=== PATIENT | female | born 1945 | race Caucasian/White ===

== ENCOUNTER 2016-05-29 20:21 | Emergency (ER) | payer MEDICARE, OTHER ==
[~2016-05-29] VITALS: Ht 149.9 cm; Wt 68.0 kg
[~2016-05-29 20:21] MED LIST: ASP81TEC PO; CARV3.12T PO; CLC200NA2; CPR500T PO; DULO60CA58 PO; DULO60CA6 PO; FORTICAL; GABA-486 PO; HYDR-3583 PO; INSU100I11 SQ; INSU100V5 SQ; LISI20TA PO; METF-380 PO; MTC5T PO; MTF500T PO; ORPH100T PO; OXYC1TAB25 PO; OXYC1TAB87 PO; PANT40TA PO; PNT40TEC PO; Polyethylene Glycol PO; SENN1TAB76 PO; TIZA4TAB55 PO; TRAM50TA2 PO; TRM50T PO; Tizanidine Hcl PO; [UNRECOGNIZED DRUG - OTHER]; ibuprofen; tylenol pm
[2016-05-29] MEDS ORDERED: KETOROLAC 60 MG/2 ML VIAL IM ONE (21:45)
--- NOTE | 2016-05-29 21:54 | Diagnostic Imaging Report ---
INDICATION: Fell this evening, left knee pain and tibia-fibula pain. EXAMINATION: Left knee 05/29/2016 FINDINGS: Three views of the knee demonstrate a moderate joint effusion with adjacent soft tissue swelling. The osseous structures demonstrate a questionable tibial plateau fracture in the lateral tibial plateau which appears slightly depressed. The remaining osseous structures are intact. No dislocations. IMPRESSION: 1. Joint effusion noted with questioned slightly depressed lateral tibial plateau fracture. An actual fracture line is not seen, however, CT imaging could provide further characterization as clinically warranted. Dictated by: Dictated on workstation # [id number]
--- NOTE | 2016-05-29 21:57 | Diagnostic Imaging Report ---
INDICATION: Fell, knee pain. EXAMINATION: Left tibia and fibula, 05/29/2016. FINDINGS: Two views of the tibia and fibula. Again noted is a mild depression of the lateral tibial plateau. A fracture is possible, correlate for tenderness to that region and, if necessary, CT imaging would provide further characterization. Remaining osseous structures are intact with no dislocations noted. IMPRESSION: Findings in the lateral tibial plateau, as described above. Remaining visualized osseous structures are intact. Dictated by: Dictated on workstation # [id number]
--- NOTE | 2016-05-29 22:35 | Diagnostic Imaging Report ---
PROCEDURE: CT left lower extremity without contrast. TECHNIQUE: Multiple contiguous axial images were obtained through the left lower extremity without the use of intravenous contrast. Sagittal and coronal reformations were then performed. INDICATION: Fell this evening. Has left-sided knee pain EXAMINATION: CT of the left lower extremity from 05/29/2016 FINDINGS: There is a fracture which involves the lateral tibial plateau which is depressed in nature. The posterior aspect of the tibial plateau demonstrates a lucency which extends obliquely in nature but no displaced fractures are appreciated. A fracture line extends to the lateral tibial eminence. Within the medial tibial plateau, no gross abnormality is appreciated. There is a fat/fluid level within the joint consistent with the recent fracture. The patella and the distal femur appear intact. IMPRESSION: 1. Slightly depressed lateral tibial plateau fracture with a lucency through the posterior tibial plateau and a separate fracture extending through the lateral tibial eminence. Secondary lipohemarthrosis also noted. Dictated by: Dictated on workstation # [id number]
--- NOTE | 2016-05-29 22:41 | ED Lower Extremity ---
General Chief Complaint: Lower Extremity Stated Complaint: FALL L LEG, KNEE PAIN Nursing Triage Note: Pt presents to ED with c/o left knee pain that radiates down into left ankle post fall at approx 1920 after she slipped on some papers. 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 Nursing Sepsis Screen: No Definite Risk Source: patient Exam Limitations: no limitations (CARISA CASTANEDA APRN) Source: patient Exam Limitations: no limitations (ELIZABETH ESCOBAR DO) History of Present Illness Time seen by provider: 22:40 Initial Comments To ER with left knee pain that occurred after a fall at home after slipping on some papers. She's been unable to bear weight on the left knee since the fall. Onset: this evening Severity: moderate (CARISA CASTANEDA APRN) Time seen by provider: 21:10 Initial Comments PT ARRIVES VIA POV FROM HOME PT STATES SHE SLIPPED ON SOME NEWSPAPERS AND FELL, LANDING ON LEFT KNEE-C/O PAIN TO KNEE AND TIB-FIB AREA NO PAIN ABOVE KNEE, AND NO PAIN BELOW ANKLE NO PARESTHESIAS OR MOTOR DEFICITS NO PRIOR HISTORY OF INJURY OR PROBLEMS WITH LEFT KNEE OCCURRED AT 1920 TODAY DENIES ANY OTHER INJURIES OR PAIN PT STATES SHE CAN BEAR SOME WEIGHT ON LEFT LEG, BUT IS PAINFUL PCP: DR. RODRÍGUEZ (ELIZABETH ESCOBAR DO) Allergies and Home Medications Allergies Coded Allergies: codeine (Unverified Allergy, Unknown, N/V, 10/31/13) diazepam (Unverified Allergy, Unknown, 10/31/13) Home Medications 1 SPRAY NA HS (Reported) 1 SPRAY IN ONE NOSTRAL, ALTERNATE NOSTRALS 17 GM PACK #60 17 GM PO BID Prescribed by: ANGELA WYMAN on 12/04/13 1301 Carvedilol 3.125 Mg Tablet #30 3.125 MG PO BID Prescribed by: ANGELA WYMAN on 12/04/13 1301 Ciprofloxacin 500 Mg Tab #6 250 MG PO BID Prescribed by: ANGELA WYMAN on 12/04/13 1301 Duloxetine HCl 60 Mg Capsule.dr 60 MG PO HS (Reported) Gabapentin 100 Mg Capsule 100 MG PO TID (Reported) Hydrocodone/Acetaminophen 1 Each Tablet #20 1 EACH PO Q4H Prescribed by: ELIZABETH ESCOBAR on 05/29/16 2302 Insulin Detemir 1 Unit/0.01 Ml Soln #5 20 UNIT SQ DAILY@1700 Prescribed by: ANGELA WYMAN on 12/04/13 1301 Insulin Glulisine 100 Unit/1 Ml Insuln.pen #5 5 UNIT SQ AC Prescribed by: ANGELA WYMAN on 12/04/13 1301 Metoclopramide Hcl 5 Mg Tab #120 5 MG PO ACHS Prescribed by: ANGELA WYMAN on 12/04/13 1301 Oxycodone Hcl/Acetaminophen 1 Tab Tablet 1-2 TAB PO Q4H PRN PRN PAIN (Reported) TAKE 1-2 (5-325MG) TABLET NEEDED FOR PAIN Pantoprazole Sodium 40 Mg Tab #30 40 MG PO DAILY@0700 Prescribed by: ANGELA WYMAN on 12/04/13 1301 Senna 1 Ea Tablet #120 2 EA PO BID Prescribed by: ANGELA WYMAN on 12/04/13 1301 Tizanidine Hcl 4 Mg Tablet 4 MG PO TID PRN PRN SPASMS (Reported) Tramadol Hcl 50 Mg Tab 50 MG PO Q4H PRN PRN PAIN (Reported) TAKE EVERY 4-6 HOURS NEEDED FOR PAIN Constitutional: no symptoms reported Musculoskeletal: see HPI Skin: no symptoms reported Psychiatric/Neurological: No Symptoms Reported (ELIZABETH ESCOBAR DO) Past Fbztvut-Mjviit-Blicqa Hx Patient Social History Alcohol Use: Denies Use Recreational Drug Use: No Smoking Status: Never a Smoker Recent Foreign Travel: No Contact w/Someone Who Travel: No Recent Infectious Disease Expo: No Recent Hopitalizations: No Physical Abuse Screen: No Sexual Abuse: No (CARISA CASTANEDA APRN) Alcohol Use: Denies Use Recreational Drug Use: No Smoking Status: Never a Smoker (ELIZABETH ESCOBAR DO) Immunizations Up To Date Tetanus Booster (TDap): Less than 5yrs Date of Pneumonia Vaccine: Mar 14, 2013 Date of Influenza Vaccine: Mar 09, 2016 (CARISA CASTANEDA APRN) Surgeries HX Surgeries: Yes (laminectomy, HYSTERECTOMY, GALLBLADDER 2010) (CARISA CASTANEDA APRN) HX Surgeries: Yes (EGD/COLONSCOPY WITH POLYPECTOMY; BACK SURGERY/LAMINECTOMY) Surgeries: Eye Surgery, Gallbladder, Hysterectomy, Orthopedic (ELIZABETH ESCOBAR DO) Respiratory Hx Respiratory Disorders: No (CARISA CASTANEDA APRN) Hx Respiratory Disorders: No (SHAWN,ELIZABETH K DO) Cardiovascular Hx Cardiac Disorders: No (CARISA CASTANEDA APRN) Hx Cardiac Disorders: Yes Cardiac Disorders: High Cholesterol, Hypertension (SHAWN,ELIZABETH K DO) Neurological Hx Neurological Disorders: No (CARISA CASTANEDA APRN) Hx Neurological Disorders: Yes Neurological Disorders: Neuropathy (SHAWN,ELIZABETH K DO) Reproductive System Hx Reproductive Disorders: No Sexually Transmitted Disease: No (CARISA CASTANEDA APRN) 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 (SHAWN,ELIZABETH K DO) Genitourinary Hx Genitourinary Disorders: No (CARISA CASTANEDA APRN) Hx Genitourinary Disorders: No (SHAWN,ELIZABETH K DO) Gastrointestinal Hx Gastrointestinal Disorders: No (COLONOSCOPY 2013 BENIGN POLYP) Gastrointestinal Disorders: Polyps (CARISA CASTANEDA APRN) Hx Gastrointestinal Disorders: Yes Gastrointestinal Disorders: Chronic Constipation, Diverticulosis, Polyps, Hiatal Hernia (SHAWN,ELIZABETH K DO) Musculoskeletal Hx Musculoskeletal Disorders: Yes (2013 BACK INJURY) Musculoskeletal Disorders: Back Injury (CARISA CASTANEDA APRN) Hx Musculoskeletal Disorders: Yes (RIB FRACTURES' CHRONIC GENERALIZED PAIN ) Musculoskeletal Disorders: Arthritis, Back Injury, Chronic Back Pain (SHAWN,ELIZABETH K DO) Endocrine Hx Endocrine Disorders: Yes (ANEMIA) Endocrine Disorders: Diabetes, Insulin dep (CARISA CASTANEDA APRN) Hx Endocrine Disorders: Yes Endocrine Disorders: Diabetes, Insulin dep (SHAWN,ELIZABETH K DO) HEENT HX ENT Disorders: No (CARISA CASTANEDA APRN) HX ENT Disorders: No (SHAWN,ELIZABETH K DO) Cancer Hx Cancer: No (CARISA CASTANEDA APRN) Hx Cancer: No (SHAWN,ELIZABETH K DO) Psychosocial Hx Psychiatric Problems: No (CARISA CASTANEDA APRN) Hx Psychiatric Problems: No (SHAWN,ELIZABETH K DO) Integumentary HX Skin/Integumentary Disorder: No (CARISA CASTANEDA APRN) HX Skin/Integumentary Disorder: No (SHAWN,ELIZABETH K DO) Blood Transfusions Hx Blood Disorders: No Adverse Reaction to a Blood Tr: No (CARISA CASTANEDA APRN) Hx Blood Disorders: No (SHAWN,ELIZABETH K DO) Family Medical History Family Medial History: Family history: Alzheimer's disease G8 SISTER Family history: Breast disease G8 SISTER Family history: Hypertension G8 SISTER History of - respiratory disease 19 MOTHER (diverticulitis, colostomy) (CARISA CASTANEDA APRN) Family Medial History: Family history: Alzheimer's disease G8 SISTER Family history: Breast disease G8 SISTER Family history: Hypertension G8 SISTER History of - respiratory disease 19 MOTHER (diverticulitis, colostomy) (SHAWNELIZABETH Jcarlos DO) Physical Exam Vital Signs Vital Sign - Last 12Hours 05/29/16 21:00 Temp 98.5 Pulse 78 Resp 18 B/P 129/78 Pulse Ox 100 O2 Delivery Room Air (SHAWNELIZABETH Jcarlos DO) Vital Signs Capillary Refill : Less Than 3 Seconds (CARISA CASTANEDA APRN) General Appearance: WD/WN no apparent distress HEENT: PERRL/EOMI Neck: non-tender full range of motion normal inspection Cardiovascular: regular rate, rhythm no edema no JVD no murmur Respiratory: chest non-tender normal breath sounds Gastrointestinal: non tender soft Back: no CVA tenderness no vertebral tenderness Hips: bilateral hip non-tender, bilateral hip normal inspection, bilateral hip normal range of motion, bilateral hip no evidence of injury Legs: right leg non-tender, right leg normal inspection, right leg normal range of motion, right leg no evidence of injury, left leg bone tenderness, left leg soft tissue tenderness, left leg other (TO ANTERIOR ASPECT OF LEFT LOWER LEG) Knees: right knee non-tender, right knee normal inspection, right knee normal range of motion, right knee no evidence of injury, left knee bone tenderness, left knee joint effusion, left knee soft tissue tenderness, left knee swelling, left knee other (UJNABLE TO DETERMINE LIGAMENT LAXITY DUE TO PT DISCOMFORT. 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 ) Hand-Made Type: orthoglass Splint Application: Long Leg (SHAWNAYDEA Jcarlos BETHEA) Progress/Results/Core Measures Results/Orders My Orders Orders-SHAWNAYDEA K DO Tibia/Fibula, Left, 2 Views (05/29/16 21:17) Knee, Left, 3 Views (05/29/16 21:17) Ct Extremity Lower Left Wo (05/29/16 21:40) Ketorolac Injection (Toradol Injection) (05/29/16 21:45) Hydrocodone/Apap 5/325 Tablet (Lortab 5 (05/29/16 23:15) (SHAWNAYDEA K ) Medications Given in ED Current Medications Medications Dose Ordered Sig/Alondra Route Start Time Stop Time Status Last Admin Dose Admin Acetaminophen/ Hydrocodone Bitart 2 tab ONCE ONCE PO 05/29/16 23:15 05/29/16 23:16 DC 05/29/16 23:18 2 TAB Ketorolac Tromethamine 60 mg ONCE ONCE IM 05/29/16 21:45 05/29/16 21:46 DC 05/29/16 22:07 60 MG (SHAWNELIZABETH K ) Vital Signs/I&O Vital Sign - Last 12Hours 05/29/16 05/29/16 21:00 23:32 Temp 98.5 Pulse 78 74 Resp 18 18 B/P 129/78 Pulse Ox 100 98 O2 Delivery Room Air Room Air (SHAWNELIZABETH K ) Blood Pressure Mean: 95 Progress Note : Progress Note SPLINT APPLIED BY BLOWING WEASAND CARISA CASTANEDA (SHAWNAYDEA K ) Diagnostic Imaging Comments XRAYS LEFT KNEE AND TIB /FIB--TIBIAL PLATEAU PER RADIOLOGIST REPORT CT LEFT KNEE--TIBIAL PLATEAU FRACTURE, PER RADIOLOGIST REPORT Reviewed: Reviewed by Me (AYDE ESCOBARA Jcarlos BETHEA) Departure Communication Progress Notes BLOWING WEASAND PAGED DR. GALLO, ORTHOPEDIC SURGEON COUNTER CONTROL OPERATOR FOR [facility] [address] [place] [address] [id number]--SPOKE WITH DR. GALLO, [facility] PT CAN FOLLOW UP WITH DR. NAIDU IN CLINIC NEXT WEEK. (AYDE ESCOBARA Jcarlos BETHEA) Impression Impression: Primary Impression: Closed fracture of left tibial plateau Disposition: HOME, SELF-CARE Condition: Stable Departure-Patient Inst. Referrals: ELIZ RODRÍGUEZ DO (PCP/Family) Primary Care Physician [facility] 4 STATES Patient Instructions: Going Up and Down Curbs or Stairs With a Walker or Crutches, SPLINT CARE, Tibial Plateau Fracture (DC) Add. Discharge Instructions: ICE TO AREA AT 20 MINUTE INTERVALS ELEVATE LEG MUCH POSSIBLE WEAR SPLINT AT ALL TIMES NO WEIGHT BEARING. USE WALKER AT ALL TIMES FOLLOW UP WITH ORTHOPEDIC SURGEON NEXT WEEK FOR FURTHER CARE--DR. GALLO IS ORTHOPEDIC SURGEON COUNTER CONTROL OPERATOR FOR [facility] [address] [place] [address]--YOU MAY FOLLOW UP WITH DR. NAIDU AT [facility] 4 [facility] All discharge instructions reviewed with patient and/or family. Voiced understanding. Scripts Hydrocodone/Acetaminophen (Hydrocodon -Acetaminophen 5-325)1 Each Tablet1 Each PO Q4H #20 TAB Prov:ELIZABETH ESCOBAR DO 05/29/16 CARISA CASTANEDA APRN May 29, 2016 22:41 ELIZABETH ESCOBAR DO May 29, 2016 22:53
[2016-05-29] MEDS ORDERED: HYDR-3812 PO (23:02)
[2016-05-29] MEDS ORDERED: HYDROcodone/APAP 5 MG/325 MG (LORTAB) TAB PO ONE (23:15)
[2016-05-29 23:32] VITALS: BP 131/66
== END 2016-05-29 23:25 | disposition home or self-care (01) ==
LOC: EDUNIT# 20:21 → ER 20:24
DX: S82.142A Displaced bicondylar fracture of left tibia, initial encounter for closed fracture (principal); M25.462 Effusion, left knee; I10 Essential (primary) hypertension; Z79.4 Long term (current) use of insulin; Z79.899 Other long term (current) drug therapy; W01.0XXA Fall on same level from slipping, tripping and stumbling without subsequent striking against object, initial encounter; Y99.8 Other external cause status
CPT/HCPCS: 29505; 73562; 73590; 73700; 96372

== ENCOUNTER → 2016-08-16 | Outpatient (CLI) | payer MEDICARE, OTHER ==
[~2016-08-16] MED LIST changes: +HYDR-3812 PO
[2016-08-16 08:18] LABS: ALANINE AMINOTRANSFERASE 11 U/L (0-55); ALBUMIN 4.1 G/DL (3.2-4.5); ANION GAP 11 MMOL/L (5-14); ASPARTATE AMINO TRANSFERASE 14 U/L (5-34); BILIRUBIN,TOTAL 0.8 MG/DL (0.1-1.0); BLOOD UREA NITROGEN 10 MG/DL (7-18); BUN/CREATININE RATIO 15; CALCIUM 9.3 MG/DL (8.5-10.1); CARBON DIOXIDE 22 MMOL/L (21-32); CHLORIDE 106 MMOL/L (98-107); CREATININE SERUM 0.65 MG/DL (0.60-1.30); GFR ESTIMATED > 60; GLUCOSE 195 MG/DL (70-105); MAGNESIUM 2.1 MG/DL (1.8-2.4); SODIUM 139 MMOL/L (135-145); TOTAL PROTEIN 7.2 G/DL (6.4-8.2)
[2016-08-17 07:26] LABS: CALCIUM PARA THYROID HORMONE 9.2 mg/dL (8.5-10.5); VITAMIN D 25-HYDROXY (TOTAL) 8 ng/mL (30-100)
[2016-08-17 07:34] LABS: PTH INTACT IRMA 48 pg/mL (10-65)
[2016-08-19 06:50] LABS: IMMUNOFIX PATH REPORT NUMBER Complete (Complete)
[2016-08-19 06:51] LABS: CLIN PATHOLOGY REPORT FOOTNOTE
[2016-08-19 06:51] LABS: CLIN PATHOLOGY REPORT FOOTNOTE; URINE IMMUNOFIXATION W/ INTERP Complete
== END ==
LOC: LAB 07:32
PROVIDERS: ATTEND Internal Medicine Endocrinology, Diabetes & Metabolism
DX: M81.0 Age-related osteoporosis without current pathological fracture (principal); E10.9 Type 1 diabetes mellitus without complications
CPT/HCPCS: 36415; 80053; 82306; 83735; 83970; 84100; 84166; 86255; 86334; 86335

== ENCOUNTER → 2016-11-03 | Outpatient (REF) ==
--- NOTE | 2016-11-03 15:08 | Diagnostic Imaging Report ---
EXAMINATION: PA and lateral views of the chest. INDICATION: Positive TB test. FINDINGS: The lungs are hyperinflated, suggestive of COPD, with chronic appearing interstitial prominence. No focal airspace opacity. No effusion or pneumothorax. The heart size is normal. IMPRESSION: COPD. No acute process. Dictated by: Dictated on workstation # [id number]
== END | disposition home or self-care (01) ==
LOC: OCC 14:24
PROVIDERS: ATTEND Nurse Practitioner Family
CPT/HCPCS: 71020

== ENCOUNTER → 2018-02-13 | Outpatient (CLI) | payer MEDICARE, OTHER ==
[~2018-02-13] MED LIST changes: +ACHD5005 PO; -HYDR-3812 PO
[2018-02-13 07:59] LABS: BASOPHILS % (AUTO) 0 % (0-10); EOSINOPHILS # (AUTO) 0.1 10^3/uL (0.0-0.3); EOSINOPHILS % (AUTO) 1 % (0-10); HEMATOCRIT 34 % (35-52); HEMOGLOBIN 12.9 G/DL (11.5-16.0); LYMPHOCYTES # (AUTO) 1.5 X 10^3 (1.0-4.0); LYMPHOCYTES % (AUTO) 27 % (12-44); MEAN CORPUSCULAR HEMOGLOBIN 43 PG (25-34); MEAN CORPUSCULAR HGB CONC 38 G/DL (32-36); MEAN CORPUSCULAR VOLUME 113 FL (80-99); MEAN PLATELET VOLUME 8.5 FL (7.4-10.4); MONOCYTES # (AUTO) 0.2 X 10^3 (0.0-1.0); MONOCYTES % (AUTO) 4 % (0-12); NEUTROPHILS # (AUTO) 3.9 X 10^3 (1.8-7.8); NEUTROPHILS % (AUTO) 69 % (42-75); PLATELET COUNT 230 10^3/uL (130-400); RED BLOOD COUNT 3.01 10^6/uL (4.35-5.85); RED CELL DISTRIBUTION WIDTH 15.1 % (10.0-14.5); WHITE BLOOD COUNT 5.7 10^3/uL (4.3-11.0)
[2018-02-13 08:30] LABS: ALANINE AMINOTRANSFERASE 15 U/L (0-55); ALBUMIN 4.2 GM/DL (3.2-4.5); ALKALINE PHOSPHATASE 108 U/L (40-136); BUN/CREATININE RATIO 20; CALCIUM 9.4 MG/DL (8.5-10.1); CARBON DIOXIDE 23 MMOL/L (21-32); CHLORIDE 104 MMOL/L (98-107); CHOLESTEROL 186 MG/DL (< 200); CREATININE SERUM 0.61 MG/DL (0.60-1.30); GFR ESTIMATED > 60; GLUCOSE 114 MG/DL (70-105); HDL CHOLESTEROL 58 MG/DL (40-60); SODIUM 138 MMOL/L (135-145); TOTAL PROTEIN 7.1 GM/DL (6.4-8.2); TRIGLYCERIDES 109 MG/DL (<150); VLDL CHOLESTEROL 22 MG/DL (5-40)
== END ==
LOC: LAB 07:36
PROVIDERS: ATTEND Family Medicine
DX: D64.9 Anemia, unspecified (principal); E10.9 Type 1 diabetes mellitus without complications; E53.8 Deficiency of other specified B group vitamins; E55.9 Vitamin D deficiency, unspecified; M81.0 Age-related osteoporosis without current pathological fracture; R53.83 Other fatigue
CPT/HCPCS: 36415; 80053; 80061; 82306; 82607; 83540; 84443; 85025

== ENCOUNTER → 2018-05-10 | Outpatient (CLI) | payer MEDICARE, OTHER | LOC: LAB 08:31 | PROVIDERS: ATTEND Internal Medicine Endocrinology, Diabetes & Metabolism | DX: E55.9 Vitamin D deficiency, unspecified (principal) | CPT/HCPCS: 36415; 82306 ==

== ENCOUNTER → 2018-08-18 | Outpatient (CLI) | payer MEDICARE, OTHER ==
[2018-08-18 10:42] LABS: HEMATOCRIT 21 % (35-52); MEAN CORPUSCULAR HEMOGLOBIN 45 PG (25-34); MEAN CORPUSCULAR HGB CONC 34 G/DL (32-36); MEAN CORPUSCULAR VOLUME 132 FL (80-99); RED CELL DISTRIBUTION WIDTH 31.6 % (10.0-14.5); WHITE BLOOD COUNT 3.4 10^3/uL (4.3-11.0)
[2018-08-18 10:58] LABS: PLATELET COUNT 66 10^3/uL (130-400)
[2018-08-18 11:14] LABS: ALANINE AMINOTRANSFERASE 32 U/L (0-55); ALBUMIN 4.1 GM/DL (3.2-4.5); ALKALINE PHOSPHATASE 61 U/L (40-136); BILIRUBIN,TOTAL 1.8 MG/DL (0.1-1.0); BUN/CREATININE RATIO 18; CALCIUM 9.3 MG/DL (8.5-10.1); CARBON DIOXIDE 21 MMOL/L (21-32); CHLORIDE 105 MMOL/L (98-107); CREATININE SERUM 0.57 MG/DL (0.60-1.30); GFR ESTIMATED > 60; GLUCOSE 150 MG/DL (70-105); POTASSIUM 3.8 MMOL/L (3.6-5.0); SODIUM 139 MMOL/L (135-145); TOTAL PROTEIN 6.7 GM/DL (6.4-8.2)
== END ==
LOC: LAB 10:25
PROVIDERS: ATTEND Internal Medicine Endocrinology, Diabetes & Metabolism
DX: E10.9 Type 1 diabetes mellitus without complications (principal); D64.9 Anemia, unspecified
CPT/HCPCS: 36415; 80053; 82607; 82728; 83540; 84443; 85027

== ENCOUNTER → 2018-09-18 | Outpatient (CLI) | payer MEDICARE, OTHER ==
[2018-09-18 06:41] LABS: BASOPHILS % (AUTO) 1 % (0-10); EOSINOPHILS # (AUTO) 0.2 10^3/uL (0.0-0.3); EOSINOPHILS % (AUTO) 3 % (0-10); HEMATOCRIT 35 % (35-52); LYMPHOCYTES # (AUTO) 1.7 X 10^3 (1.0-4.0); LYMPHOCYTES % (AUTO) 30 % (12-44); MEAN CORPUSCULAR HEMOGLOBIN 31 PG (25-34); MEAN CORPUSCULAR HGB CONC 31 G/DL (32-36); MEAN CORPUSCULAR VOLUME 99 FL (80-99); MEAN PLATELET VOLUME 9.4 FL (7.4-10.4); MONOCYTES # (AUTO) 0.5 X 10^3 (0.0-1.0); MONOCYTES % (AUTO) 9 % (0-12); NEUTROPHILS # (AUTO) 3.2 X 10^3 (1.8-7.8); NEUTROPHILS % (AUTO) 57 % (42-75); PLATELET COUNT 224 10^3/uL (130-400); RED CELL DISTRIBUTION WIDTH 19.9 % (10.0-14.5); WHITE BLOOD COUNT 5.5 10^3/uL (4.3-11.0)
== END ==
LOC: LAB 06:33
PROVIDERS: ATTEND Family Medicine
DX: D64.9 Anemia, unspecified (principal); E53.8 Deficiency of other specified B group vitamins
CPT/HCPCS: 36415; 85025

== ENCOUNTER → 2019-03-12 | Outpatient (CLI) | payer MEDICARE, OTHER ==
[2019-03-12 08:04] LABS: BASOPHILS % (AUTO) 0 % (0-10); EOSINOPHILS # (AUTO) 0.1 10^3/uL (0.0-0.3); EOSINOPHILS % (AUTO) 2 % (0-10); HEMATOCRIT 41 % (35-52); LYMPHOCYTES % (AUTO) 29 % (12-44); MEAN CORPUSCULAR HEMOGLOBIN 30 PG (25-34); MEAN CORPUSCULAR HGB CONC 34 G/DL (32-36); MEAN CORPUSCULAR VOLUME 88 FL (80-99); MEAN PLATELET VOLUME 9.3 FL (7.4-10.4); MONOCYTES # (AUTO) 0.5 X 10^3 (0.0-1.0); MONOCYTES % (AUTO) 7 % (0-12); NEUTROPHILS # (AUTO) 4.3 X 10^3 (1.8-7.8); NEUTROPHILS % (AUTO) 62 % (42-75); PLATELET COUNT 251 10^3/uL (130-400); RED CELL DISTRIBUTION WIDTH 13.8 % (10.0-14.5)
[2019-03-12 08:16] LABS: ALANINE AMINOTRANSFERASE 13 U/L (0-55); ALBUMIN 4.1 GM/DL (3.2-4.5); ALKALINE PHOSPHATASE 107 U/L (40-136); BILIRUBIN,TOTAL 0.5 MG/DL (0.1-1.0); BUN/CREATININE RATIO 21; CALCIUM 9.7 MG/DL (8.5-10.1); CARBON DIOXIDE 25 MMOL/L (21-32); CHLORIDE 106 MMOL/L (98-107); CREATININE SERUM 0.67 MG/DL (0.60-1.30); GFR ESTIMATED > 60; POTASSIUM 3.8 MMOL/L (3.6-5.0); SODIUM 141 MMOL/L (135-145); TOTAL PROTEIN 7.4 GM/DL (6.4-8.2)
[2019-03-12 08:36] LABS: GLUCOSE 38 MG/DL (70-105)
== END ==
LOC: LAB 07:43
PROVIDERS: ATTEND Family Medicine
DX: E55.9 Vitamin D deficiency, unspecified (principal); E11.9 Type 2 diabetes mellitus without complications
CPT/HCPCS: 36415; 80053; 82607; 85025

== ENCOUNTER → 2019-03-12 | Outpatient (CLI) | payer MEDICARE, OTHER | LOC: LAB 07:39 | PROVIDERS: ATTEND Internal Medicine Endocrinology, Diabetes & Metabolism | DX: E55.9 Vitamin D deficiency, unspecified (principal) | CPT/HCPCS: 36415; 82306 ==

== ENCOUNTER → 2019-09-21 | Outpatient (CLI) | payer MEDICARE, OTHER | LOC: LAB 07:50 | PROVIDERS: ATTEND Internal Medicine Endocrinology, Diabetes & Metabolism | DX: E55.9 Vitamin D deficiency, unspecified (principal) | CPT/HCPCS: 36415; 82306 ==

== ENCOUNTER → 2019-09-21 | Outpatient (CLI) | payer MEDICARE, OTHER ==
[2019-09-21 08:37] LABS: ALANINE AMINOTRANSFERASE 10 U/L (0-55); ALKALINE PHOSPHATASE 119 U/L (40-136); BILIRUBIN,TOTAL 0.5 MG/DL (0.1-1.0); BUN/CREATININE RATIO 22; CALCIUM 9.5 MG/DL (8.5-10.1); CARBON DIOXIDE 21 MMOL/L (21-32); CHLORIDE 107 MMOL/L (98-107); CHOLESTEROL 206 MG/DL (< 200); CREATININE SERUM 0.72 MG/DL (0.60-1.30); GFR ESTIMATED > 60; GLUCOSE 106 MG/DL (70-105); HDL CHOLESTEROL 61 MG/DL (40-60); POTASSIUM 3.7 MMOL/L (3.6-5.0); SODIUM 140 MMOL/L (135-145); TOTAL PROTEIN 7.4 GM/DL (6.4-8.2); TRIGLYCERIDES 124 MG/DL (<150); VLDL CHOLESTEROL 25 MG/DL (5-40)
== END ==
LOC: LAB 07:53
PROVIDERS: ATTEND Family Medicine
DX: E78.5 Hyperlipidemia, unspecified (principal); E55.9 Vitamin D deficiency, unspecified; E53.8 Deficiency of other specified B group vitamins
CPT/HCPCS: 36415; 80053; 80061; 82306; 82607; 84443

== ENCOUNTER → 2019-09-25 | Outpatient (CLI) | payer MEDICARE, OTHER ==
[~2019-09-25] MED LIST changes: +CYAN100092 IJ; +ERGO50006 PO; +INSU100I32 SQ; +INSU100I51 SQ
--- NOTE | 2019-09-25 10:41 | Diagnostic Imaging Report ---
INDICATION: 74 year-old asymptomatic postmenopausal female. COMPARISON: 02/02/2016 FINDINGS: AP Spine L2-L4: [BMD (g/cm2): 0.660] [T-Score: -4.5] [Z-Score: -2.6] [BMD Previous: 0.549] [BMD % Change: 20.2] LT Hip Neck: [BMD (g/cm2): 0.558] [T-Score: -3.5] [Z-Score: -1.5] LT Hip Total: [BMD (g/cm2):0.557] [T-Score:-3.6] [Z-Score: -1.8] [BMD Previous: 0.500] [BMD % Change: 11.4] RT Hip Neck: [BMD (g/cm2):0.619] [T-Score:-3.0] [Z-Score:-1.1] RT Hip Total: [BMD (g/cm2):023] [T-score:-3.1] [Z-Score:-1.3] [BMD Previous:0.555] [BMD % Change:12.3] *Indicates significant change from prior examination based on 95% confidence level. World Health Organization criteria for BMD interpretation classify patients as Normal (T-score at or above -1.0), Osteopenic (T-score between -1.0 and -2.5) or Osteoporotic (T-score at or below -2.5). LIMITATIONS AND MODIFICATION: None. FRACTURE RISK (FRAX SCORE): Not applicable as patient meets criteria for osteoporosis. IMPRESSION: 1. Osteoporosis. 2. No significant change in bone mineral density since prior examination. 3. Consider follow-up DEXA in 24 months to reassess response to therapy. Dictated by: Dictated on workstation # [id number]
== END ==
LOC: RAD 09:00
PROVIDERS: ATTEND Internal Medicine Endocrinology, Diabetes & Metabolism
DX: M81.0 Age-related osteoporosis without current pathological fracture (principal); Z78.0 Asymptomatic menopausal state
CPT/HCPCS: 77080

== ENCOUNTER → 2019-09-25 | Outpatient (CLI) | payer MEDICARE, OTHER ==
[~2019-09-25] MED LIST changes: -CYAN100092 IJ; -ERGO50006 PO; -INSU100I32 SQ; -INSU100I51 SQ
--- NOTE | 2019-09-25 12:34 | Diagnostic Imaging Report ---
INDICATION: Routine screening. COMPARISON: 11/05/2011 and 08/28/2008. TECHNIQUE: 2D and 3D bilateral screening mammography was performed with CAD. FINDINGS: Both breasts are heterogeneously dense, limiting the sensitivity of mammography. There are benign calcifications in both breasts. A nodular density in the inferior retroareolar left breast may represent a small cyst. This is well-circumscribed. No spiculated masses or malignant appearing microcalcifications are seen. The axillae are unremarkable. IMPRESSION: No mammographic features suspicious for malignancy are identified. ACR BI-RADS Category 2: Benign findings. Result letter will be mailed to the patient. Note: At least 10% of breast cancer is not imaged by mammography. Dictated by: Dictated on workstation # [id number]
== END ==
LOC: RAD 08:52
PROVIDERS: ATTEND Family Medicine
DX: Z12.31 Encounter for screening mammogram for malignant neoplasm of breast (principal)
CPT/HCPCS: 77063; 77067

== ENCOUNTER 2019-10-02 10:54 | Outpatient (RCR) | payer MEDICARE, OTHER ==
[~2019-10-02] VITALS: Ht 147.3 cm; Wt 59.1 kg
[2019-10-02] MEDS ORDERED: CYAN100092 IJ (11:56)
[2019-10-02] MEDS ORDERED: ERGO50006 PO (11:56)
[2019-10-02] MEDS ORDERED: INSU100I32 SQ (11:56)
[2019-10-02] MEDS ORDERED: INSU100I51 SQ (11:56)
== END 2019-10-02 15:14 | disposition home or self-care (01) ==
LOC: PREOP 10:54
PROVIDERS: ATTEND Specialist
DX: Z01.812 Encounter for preprocedural laboratory examination (principal); Z11.59 Encounter for screening for other viral diseases
CPT/HCPCS: 87635

== ENCOUNTER 2019-10-05 06:00 | Day surgery (SDC) | payer MEDICARE, OTHER ==
[~2019-10-05] VITALS: Ht 147.3 cm; Wt 59.1 kg
[~2019-10-05 06:00] MED LIST changes: +CYAN100092 IJ; +ERGO50006 PO; +INSU100I32 SQ; +INSU100I51 SQ
[2019-10-05 06:12] VITALS: BP 139/87
[2019-10-05] MEDS ORDERED: LIDOCAINE PF 1% 2 ML VIAL IR PRN (06:15)
[2019-10-05] MEDS ORDERED: POVIDONE (BETADINE) OPHTH SOLN 5% 30 ML OP ONE (06:15)
[2019-10-05] MEDS ORDERED: MOXIFLOXACIN OPHTH SOLN 5 MG/ML 0.3 ML SYRINGE OP ONE (06:15)
[2019-10-05] MEDS: TETRACAINE 0.5% OPHTH SOLN 4 ML BTL (SINGLE DOSE ONLY) OU PRN ×4 (06:15→06:40)
[2019-10-05] MEDS ORDERED: TIMOLOL MALEATE 0.5% 5 ML (TIMOPTIC) BTL OU PRN (06:15)
[2019-10-05] MEDS: CYCLOPENTOLATE 1% (CYCLOGYL) 2 ML DROPS OP SCH ×3 (06:26→06:40)
[2019-10-05] MEDS: PHENYLEPHRINE 10% OPHTH (NEO-SYN) 5 ML BTL OU SCH ×3 (06:26→06:41)
--- NOTE | 2019-10-05 06:48 | Ophthalmologist Pre-Op Note ---
Pre-Operative Progress Note H&P Reviewed The H&P was reviewed, patient examined and no changes noted. Date H&P Reviewed: October 05, 2019 Time H&P Reviewed: 06:47 Pre-Op Dx Cataract, Right Eye ALANA GARZA MD October 05, 2019 06:48
[2019-10-05] MEDS ORDERED: acetaZOLAMIDE ER 500 MG CAP (DIAMOX SEQUELS) PO ONE (07:30)
--- NOTE | 2019-10-05 07:30 | Ophthalmology Operative Report ---
Cataract, Miotic Pupil PREOPERATIVE DIAGNOSIS: 1. Cataract Right Eye 2. Miotic Pupil POSTOPERATIVE DIAGNOSIS: 1. Cataract Right Eye 2. Miotic Pupil PROCEDURE: 1. Cataract removal and placement of posterior chamber implant, right eye 2. Pupillary expansion with malyugin ring SURGEON: Arian Garza ANESTHESIA: Topical with sedation COMPLICATIONS: None ESTIMATED BLOOD LOSS: Minimal DESCRIPTION OF PROCEDURE: After proper informed consent was obtained, the patient, a 74 female, was taken to the Operating Room and the right eye was anesthetized with Tetracaine. The eye was then prepped and draped in the usual manner. A wire lid speculum was placed. A paracentesis was made at the left hand position. Preservative free lidocaine was injected into anterior chamber followed by viscoelastic. A clear corneal incision was made in the temporal position. The malyugin ring was injected into the anterior chamber and the pupil was dilated. A capsulorrhexis was preformed and the central nuclear and cortical material were removed. The posterior capsule was polished and Chuy 25.5 AU00T0 IOL was placed into the capsular bag. The malyugin ring was removed. The residual viscoelastic was aspirated and the balanced saline solution was injected into the anterior chamber. Moxifloxacin was injected into the anterior chamber. The wound was checked and found to be water tight. The patient tolerated the procedure well without complications. ARIAN GARZA MD October 05, 2019 07:30
--- OUTSIDE RECORDS SUMMARY | 2019-10-05 07:32 | XMS REPORT | CCD ---
Author Author Zahra Olivera D.O. Organization [facility] Address [address] [place] [address] Phone Care Team Providers Care Community Service Representative Name Role Phone [facility] PP Unavailable CCM Unavailable Summary Purpose Interface Exchange Insurance Providers Payer name Policy type / Coverage type Covered green party ID Effective Begin Date Effective End Date WPS MEDICARE PART B [place] Medicare Part B [id number] Unknown Cigna Medicare Part B [id number] Unknown Family History Family History data not found Social History Social History Element Codes Description Effective Dates Tobacco history SNOMED CT: 896375966 Never smoker 01/23/2015 Allergies, Adverse Reactions, Alerts Substance Reaction Codes Entered Date Inactivated Date Status _ Unknown 10/15/2009 No Inactive Date Active CODEINE Unknown 10/15/2009 No Inactive Date Active Problems Condition Codes Effective Dates Condition Status Age-related osteoporosis without current pathological fracture ICD-9: 733.00 ICD-10: M81.0 02/08/2018 Active Other dietary vitamin B12 deficiency anemia ICD-9: 281 .1 ICD-10: D51.3 08/20/2013 Active Type 1 diabetes mellitus without complications ICD-9: 250.01 ICD-10: E10.9 12/27/2018 Active Dermatitis ICD-9: 692.9 ICD-10: L30.9 04/04/2019 Active Vitamin D deficiency, unspecified ICD-9: 268.9 ICD-10: E55.9 02/08/2018 Active DM W/O COMPLICATION TYPE I, UNCONTROLLED ICD-9: 250.03 ICD-10: E10.9 02/10/2015 Active Other fatigue ICD-9: 780.79 ICD-10: R53.83 08/21/2018 Active Psychophysiologic insomnia ICD-9: 780.52 ICD-10: F51.04 08/21/2018 Active Adjustment disorder with depressed mood ICD-9: 309.0 ICD-10: F43.21 08/21/2018 Active FLU VACCINE ICD-9: V04.81 ICD-10: Z23 04/07/2018 Active PNEUMOCOCCAL VACCINE ICD-9: V03.82 ICD-10: Z23 04/07/2018 Active Encounter for general adult medical examination withou t abnormal findings ICD-9: V70.9 ICD-10: Z00.00 02/08/2018 Active Radiculopathy, lumbosacral region ICD-9: 724.4 ICD-10: M54.17 06/23/2015 Active Sacroiliitis, not elsewhere classified ICD-9: 720.2 ICD-10: M46.1 06/23/2015 Active HX OF PAST NONCOMPLIANCE ICD-9: V15.81 10/22/2014 Active Rib fracture ICD-9: 807.00 11/08/2013 Active CACHEXIA ICD-9: 799.4 10/31/2013 Active Weight loss ICD-9: 783.21 10/22/2013 Active Rib pain ICD-9: 786.50 09/04/2013 Active Thoracic back pain ICD-9: 724.1 09/04/2013 Active UNSPECIFIED CONSTIPATION ICD-9: 564.00 09/04/2013 Active B12 DEFIC ANEMIA NEC ICD-9: 281.1 08/20/2013 Active DM W/O COMPLICATION TYPE II, UNCONTROLLED ICD-9: 250.02 2013 Active HYPERTENSION ICD-9: 401.9 08/20/2013 Active VITAMIN D DEFICIENCY ICD-9: 268.9 08/20/2013 Active SPASM OF MUSCLE ICD-9: 728.85 08/13/2013 Active URI, ACUTE ICD-9: 465.9 05/28/2013 Active SEBACEOUS CYST ICD-9: 706.2 11/02/2011 Active Hypertension Unknown 07/20/2011 Active Impaired fasting glucose ICD-9: 790.21 05/14/2010 Active Medications Medication Codes Instructions Start Date Stop Date Status Fill Instructions triamcinolone acetonide 0.1 % topical cream RxNorm: 7581266 Application Topical two times a day to arm rash 04/04/2019 04/04/2019 Inactive doxepin 10 mg capsule RxNorm: 7346492 1-2 Capsule(s) PO QHS as n eeded for sleep 09/18/2018 12/26/2018 Inactive cyanocobalamin (vit B-12) 1,000 mcg/mL injection solution Rx Norm: 823503 1 Milliliter(s) Inj WEEKLY 08/21/2018 No Stop Date Active doxepin 10 mg capsule RxNorm: 6568883 1-2 Capsule(s) PO QHS as n eeded for sleep 08/21/2018 09/17/2018 Inactive Vitamin D3 5,000 unit tablet RxNorm: 278640 1 Tablet(s) PO QD 02/1608/20/2018 Inactive Vitamin B12 1000mcg Tablet RxNorm: 1 Tablet(s) SL QD 02/16/2018 Inactive Apidra SoloStar U-100 Insulin 100 unit/mL subcutaneous pen R xNorm: 720760 Unit(s) SQ Sliding Scale 07/15/2017 09/12/2017 Inactive Apidra SoloStar U-100 Insulin 100 unit/mL subcutaneous pen R xNorm: 442041 Unit(s) SQ Sliding Scale 07/15/2017 08/13/2017 Inactive Apidra SoloStar U-100 Insulin 100 unit/mL subcutaneous pen R xNorm: 759803 Unit(s) SQ Sliding Scale 04/29/2017 07/14/2017 Inactive Apidra SoloStar 100 unit/mL subcutaneous insulin pen RxNorm: 179594 Unit(s) SQ Sliding Scale 03/08/2017 04/29/2017 Inactive Apidra SoloStar 100 unit/mL subcutaneous insulin pen RxNorm: 619641 Unit(s) SQ Sliding Scale 03/08/2017 04/06/2017 Inactive Apidra SoloStar 100 unit/mL subcutaneous insulin pen RxNorm: 288221 Unit(s) SQ Sliding Scale 01/20/2017 03/08/2017 Inactive Apidra SoloStar 100 unit/mL subcutaneous insulin pen RxNorm: 590403 Unit(s) SQ Sliding Scale 11/16/2016 01/19/2017 Inactive Apidra SoloStar 100 unit/mL subcutaneous insulin pen RxNorm: 117277 Unit(s) SQ Sliding Scale 08/02/2016 11/15/2016 Inactive Apidra SoloStar 100 unit/mL subcutaneous insulin pen RxNorm: 410739 Unit(s) SQ 8units after breakfast and lunch and 9units at supper 08/02/20162018 Inactive lisinopril 20 mg tablet RxNorm: 446877 1 Tablet(s) PO QD 03/05/2016 1 Inactive Apidra SoloStar 100 unit/mL subcutaneous insulin pen RxNorm: 628379 Unit(s) SQ 8units after breakfast and lunch and 9units at supper 05/12/20152016 Inactive Levemir FlexTouch 100 unit/mL (3 mL) subcutaneous insulin pe n RxNorm: 078136 35 Unit(s) SQ QHS 05/12/2015 02/07/2018 Inactive cyanocobalamin (vit B-12) 1,000 mcg/mL injection solution Rx Norm: 020625 1 Milliliter(s) Inj IM every 2 weeks 02/20/2015 02/07/2018 Inactive Apidra SoloStar 100 unit/mL subcutaneous insulin pen RxNorm: 840388 Unit(s) SQ 8units after breakfast and lunch and 9units at supper 01/10/20152015 Inactive cyanocobalamin (vit B-12) 1,000 mcg/mL injection solution Rx Norm: 599556 1 Milliliter(s) Inj Every month every month 10/23/2014 02/19/2015 Inacti ve Levemir FlexTouch 100 unit/mL (3 mL) subcutaneous insulin pe n RxNorm: 939610 35 Unit(s) SQ QHS 10/23/2014 05/11/2015 Inactive hydrocodone 5 mg-acetaminophen 325 mg tablet RxNorm: 775917 TAKE ONE TABLET BY MOUTH EVERY 4 HOURS NEEDED FOR PAIN 02/19/2014 02/28/2014 Inactive (Response to an electronic controlled substance refill request - RxReferenceNumber: [id number]) hydrocodone 5 mg-acetaminophen 325 mg tablet RxNorm: 223894 TAKE ONE TABLET BY MOUTH EVERY 4 HOURS NEEDED FOR PAIN 01/08/2014 01/16/2014 Inactive (Response to an electronic controlled substance refill request - RxReferenceNumber: [id number]) Reglan 5 mg tablet RxNorm: 475183 1 Tablet(s) PO QID before julio ls and bedtime 12/13/2013 10/22/2014 Inactive Apidra SoloStar 100 unit/mL subcutaneous insulin pen RxNorm: 293299 5 Unit(s) SQ AC 12/05/2013 05/28/2014 Inactive baclofen 10 mg tablet RxNorm: 648952 1 Tablet(s) PO TID PRN Spasm 0 08/13/2013 09/11/2013 Inactive Amaryl 4 mg tablet RxNorm: 676453 1 Tablet(s) PO BID 05/23/201305/27 Inactive AttnRPh: Saving apply/adjudicate RxGRP:S G20 RxBIN:[id number] RxPCN:HT ID#:[id number] Actos 30 mg tablet RxNorm: 037483 1 Tablet(s) PO QPM 05/03/201305/27 Inactive AttnRPh: Saving apply/adjudicate RxGRP:S G20 RxBIN:[id number] RxPCN:HT ID#:[id number] Actos 30 mg tablet RxNorm: 994933 1 Tablet(s) PO QPM 04/30/201305/02 Inactive AttnRPh: Saving apply/adjudicate RxGRP:S G20 RxBIN:[id number] RxPCN:HT ID#:[id number] Janumet XR 50 mg-1,000 mg tablet,extended release RxNorm: 12 31831 1 Tablet(s) PO BID 04/30/2013 08/12/2013 Inactive Amaryl 4 mg tablet RxNorm: 669418 1 Tablet(s) PO BID 04/30/201305/22 Inactive AttnRPh: Saving apply/adjudicate RxGRP:S G20 RxBIN:[id number] RxPCN:HT ID#:[id number] Actos 30 mg tablet RxNorm: 176247 1 Tablet(s) PO QPM 04/03/201305/03 Inactive AttnRPh: Saving apply/adjudicate RxGRP:S G20 RxBIN:[id number] RxPCN:HT ID#:[id number] Amaryl 4 mg tablet RxNorm: 435227 1 Tablet(s) PO QAM 04/03/201304/29 Inactive AttnRPh: Saving apply/adjudicate RxGRP:S G20 RxBIN:[id number] RxPCN:HT ID#:[id number] Onglyza 5 mg tablet RxNorm: 774298 1 Tablet(s) PO QD 08/14/201204/02 Inactive metformin ER 1,000 mg tablet,extended release 24hr RxNorm: 8 58807 1 Tablet(s) PO BID 08/14/2012 04/02/2013 Inactive Onglyza 5 mg tablet RxNorm: 635303 1 Tablet(s) PO QD 08/14/201208/13 Inactive Lexapro 10 mg tablet RxNorm: 710562 1 Tablet(s) PO QHS 08/10/201206/2013 Inactive cyanocobalamin (vitamin B-12) 1,000 mcg/mL Injection RxNorm: 560545 1 Milliliter(s) IM QW 12/22/2011 08/09/2012 Inactive weekly cyanocobalamin (vitamin B-12) 1,000 mcg/mL Injection RxNorm: 113401 1 Milliliter(s) IM QW 07/20/2011 No Stop Date Active weekly metformin ER 500 mg 24 hr Tab RxNorm: 827728 1 Tablet(s) PO QD 10/201008/11/2010 Inactive lisinopril 20 mg tablet RxNorm: 940978 1 Tablet(s) PO QD 05/14/2010 0 07/19/2011 Inactive cyanocobalamin (vitamin B-12) 1,000 mcg/mL Injection RxNorm: 701077 1 Milliliter(s) IM QW weekly 04/28/2010 No Stop Date Active Tresiba FlexTouch U-100 insulin 100 unit/mL (3 mL) sub cutaneous pen RxNorm: 8917323 16 Unit(s) SQ QHS No Start Date Active Forteo 20 mcg/dose (600 mcg/2.4 mL) subcutaneous pen injecto r RxNorm: 1913599 SQ QD No Start Date Active Vitamin D2 50,000 unit capsule RxNorm: 9059274 1 Capsule(s) PO QW N o Start Date Active Vitamin B12 1000mcg Tablet RxNorm: 1 Tablet(s) SL QD No Start Date 02/15/2018 Inactive cyanocobalamin (vitamin B-12) 1,000 mcg/mL Injection RxNorm: 593903 1 Milliliter(s) IM weekly No Start Date 04/27/2010 Inactive Neurontin 100 mg capsule RxNorm: 285292 1 Capsule(s) PO TID No Star t Date 10/22/2014 Inactive Protonix 40 mg tablet,delayed release RxNorm: 395828 1 Tablet(s ) PO QD No Start Date 10/22/2014 Inactive Calcium with Vitamin D 600 mg (1,500 mg)-400 unit tablet RxN orm: 052736 1 Tablet(s) PO QD No Start Date 12/12/2013 Inactive Coreg 3.125 mg tablet RxNorm: 238047 1 Tablet(s) PO QD No Start Date 10/22/2014 Inactive cyanocobalamin (vitamin B-12) 1,000 mcg/mL Injection RxNorm: 303938 1 Milliliter(s) Inj every month No Start Date 10/22/2014 Inactive Apidra SoloStar 100 unit/mL subcutaneous insulin pen RxNorm: 433403 Unit(s) SQ Sliding Scale No Start Date 08/01/2016 Inactive Cymbalta 60 mg capsule,delayed release RxNorm: 952489 1 Capsule (s) PO QHS No Start Date 06/23/2015 Inactive metformin 1,000 mg tablet RxNorm: 790841 1 Tablet(s) PO BID No Star t Date 10/21/2013 Inactive Levemir Flexpen 100 unit/mL (3 mL) solution subcutaneo us insulin pen RxNorm: 331149 45 Unit(s) SQ QD No Start Date 11/07/2013 Inactive Levemir Flexpen 100 unit/mL (3 mL) solution subcutaneo us insulin pen RxNorm: 900562 30 Unit(s) SQ QHS No Start Date 08/12/2013 Inactive Miacalcin 200 unit/actuation nasal spray RxNorm: 047621 1 [place] NASAL QD in one nostril No Start Date 10/22/2014 Inactive Janumet XR 50 mg-1,000 mg tablet,extended release RxNorm: 12 73333 1 Tablet(s) PO BID No Start Date 04/29/2013 Inactive metformin ER 1,000 mg tablet,extended release 24hr RxNorm: 8 67459 1 Tablet(s) PO QD No Start Date 08/09/2012 Inactive Levemir Flexpen 100 unit/mL (3 mL) solution subcutaneo us insulin pen RxNorm: 400055 35 Unit(s) SQ QHS No Start Date 05/28/2014 Inactive baclofen 10 mg tablet RxNorm: 553124 1 Tablet(s) PO TID PRN Spasm N o Start Date 08/12/2013 Inactive Apidra SoloStar 100 unit/mL subcutaneous insulin pen RxNorm: 800722 Unit(s) SQ 8units after breakfast and lunch and 9units at supper No Start Date 2014 Inactive Byetta 10 mcg/0.04 mL per dose subcutaneous pen injector RxN orm: 193751 Microgram(s) SQ BID No Start Date 05/27/2013 Inactive Cymbalta 30 mg capsule,delayed release RxNorm: 746794 1 Capsule (s) PO QHS No Start Date 12/12/2013 Inactive Vitamin D3 5,000 unit tablet RxNorm: 739337 1 Tablet(s) PO QD No art Date 02/15/2018 Inactive hydrocodone 5 mg-acetaminophen 325 mg tablet RxNorm: 082773 1 Tablet(s) PO Q4H as needed for pain No Start Date 01/09/2014 Inactive tizanidine 2 mg tablet RxNorm: 396568 1 Tablet(s) PO Q8 H as needed for muscle spasms No Start Date 06/23/2015 Inactive Levemir FlexTouch 100 unit/mL (3 mL) subcutaneous insulin pe n RxNorm: 998467 22 Unit(s) SQ QHS No Start Date 10/22/2014 Inactive Motrin IB 200 mg tablet RxNorm: 893795 Tablet(s) PO PRN No Start Da te 10/21/2013 Inactive Vitamin D3 1,000 unit tablet RxNorm: 661647 1 Tablet(s) PO QD No art Date 12/12/2013 Inactive Levemir Flexpen 100 unit/mL (3 mL) solution subcutaneo us insulin pen RxNorm: 257771 20 Unit(s) SQ QAM No Start Date 05/28/2014 Inactive Apidra SoloStar 100 unit/mL subcutaneous insulin pen RxNorm: 047912 3 Unit(s) SQ AC No Start Date 12/04/2013 Inactive Levemir Flexpen 100 unit/mL (3 mL) solution subcutaneo us insulin pen RxNorm: 146515 40 Unit(s) SQ QHS No Start Date 10/22/2013 Inactive Kombiglyze XR 5 mg-1,000 mg 24 hr Tab RxNorm: 5345532 1 Tablet(s ) PO QD No Start Date 08/09/2012 Inactive Levemir FlexTouch 100 unit/mL (3 mL) subcutaneous insulin pe n RxNorm: 851474 30 Unit(s) SQ QHS No Start Date 02/07/2018 Inactive tizanidine 2 mg tablet RxNorm: 435571 1 Tablet(s) PO Q8 H as needed for muscle spasm No Start Date 02/07/2018 Inactive Levemir FlexTouch U-100 Insulin 100 unit/mL (3 mL) sub cutaneous pen RxNorm: 276848 22 Unit(s) SQ QHS No Start Date 08/20/2018 Inactive Vitamin D3 5,000 unit tablet RxNorm: 626832 1 Tablet(s) PO QD No St art Date 11/07/2013 Inactive Medication Administered No Medication Administered data Immunizations Vaccine Codes Date Status Influenza CVX: 135 04/07/2018 Complete Pneumococcal CVX: 133 04/07/2018 Complete Results Observation Observation Code Item Item Code Result Date S vice Location GLYCOSYLATED HEMOGLOBIN TEST 35518 A1C HPLC 18044-3 10.4 % 0 08/20/2013 Unknown GFR CALC 8275798 GFR AA >60 ML/MIN 08/20/2013 Unknown GFR CALC 6754768 GFR NON-AA >60 ML/MIN 08/20/2013 Unknown LIPID GROUP 94073 HDL TEST 47 MG/DL 08/20/2013 Unknown LIPID GROUP 78613 TRIG 216 MG/DL 08/20/2013 Unknown LIPID GROUP 69247 TEST LDL 67 MG/DL 08/20/2013 Unknown LIPID GROUP 77511 CHOL 157 MG/DL 08/20/2013 Unknown LIPID GROUP 36936 RCHOL/HDL 3.34 RATIO 08/20/2013 Unknow n THYROID STIMULATING HORMONE 77482 TSH 2.042 uIU/ML 08/20/2013 Unknown COMPREHENSIVE METABOLIC 89107 AST 9 U/L 2013 Unknown COMPREHENSIVE METABOLIC 45916 ALT 14 IU/L 2013 Unknown COMPREHENSIVE METABOLIC 31697 BUN 15 MG/DL 2013 Unknown COMPREHENSIVE METABOLIC 88214 ALBUMIN 4.2 GM/DL 2013 Unknown COMPREHENSIVE METABOLIC 49851 CHLORIDE 99 MMOL/L 2013 Unknown COMPREHENSIVE METABOLIC 28007 BILI TOT 0.6 MG/DL 2013 Unknown COMPREHENSIVE METABOLIC 37039 ALK PHOS 100 U/L 2013 Unknown COMPREHENSIVE METABOLIC 56751 SODIUM 133 MMOL/L 08/20 Unknown COMPREHENSIVE METABOLIC 01071 CREATININE 0.43 MG/DL 08/07 Unknown COMPREHENSIVE METABOLIC 09550 CALCIUM 9.8 MG/DL 2013 Unknown COMPREHENSIVE METABOLIC 42564 POTASSIUM 4.2 MMOL/L 08/20 Unknown COMPREHENSIVE METABOLIC 32414 PROT TOT 6.9 GM/DL 2013 Unknown COMPREHENSIVE METABOLIC 66957 Glucose 394 MG/DL 2013 Unknown COMPREHENSIVE METABOLIC 05097 BICARB 26 MMOL/L 2013 Unknown COMPREHENSIVE METABOLIC 21184 ANION GAP 8 MEQ/L 2013 Unknown FREE T4 01607 FREE T4 1.19 NG/DL 08/20/2013 Unknown VITAMIN D TOTAL (25 HYDROXY) 40890 VIT D TOTL 10 NG/ML 08/20/2013 Unknown VITAMIN B 12 FOLIC ACID 18831|77635 VIT B 12 235 PG/ML 08/07 Unknown VITAMIN B 12 FOLIC ACID 92514|62013 FOLIC ACID >24.0 NG/ML 0 08/20/2013 Unknown COMPLETE BLOOD COUNT 8313194 WBC 6.6 10e9/L 08/21/19 14 Unknown COMPLETE BLOOD COUNT 4403733 RBC 4.80 10e12/L 2013 Unknown COMPLETE BLOOD COUNT 5333135 HGB 15.2 g/dL 4 Unknown COMPLETE BLOOD COUNT 5141045 HCT DET 42.8 % 4 Unknown COMPLETE BLOOD COUNT 1008993 MCV 89.2 fL 4 Unknown COMPLETE BLOOD COUNT 3236151 MCH 31.7 pg 4 Unknown COMPLETE BLOOD COUNT 8342903 MCHC 35.5 g/dL 4 Unknown COMPLETE BLOOD COUNT 3680784 PLT 340 10e9/L 08/21/19 14 Unknown COMPLETE BLOOD COUNT 9147593 MPV 9.6 fL 4 Unknown COMPLETE BLOOD COUNT 9960881 SILVINA % 63.6 % 4 Unknown COMPLETE BLOOD COUNT 6716021 LY % 26.4 % 4 Unknown COMPLETE BLOOD COUNT 4834970 MON % 8.6 % 4 Unknown COMPLETE BLOOD COUNT 6206384 EOS % 1.1 % 4 Unknown COMPLETE BLOOD COUNT [id number] BASO % 0.3 % 4 Unknown COMPLETE BLOOD COUNT 8069431 RDW 13.4 % 4 Unknown COMPLETE BLOOD COUNT 9830899 ABS SILVINA 4.20 10e9/L 014 Unknown COMPLETE BLOOD COUNT 4176990 ABS LYMPH 1.74 10e9/L 014 Unknown COMPLETE BLOOD COUNT 8943764 ABS MONO 0.57 10e9/L 014 Unknown COMPLETE BLOOD COUNT 1503217 ABS EOS 0.07 10e9/L 014 Unknown COMPLETE BLOOD COUNT 1295236 ABS BASO 0.02 10e9/L 014 Unknown COMPLETE BLOOD COUNT 9207719 RDW-SD 42.6 fL 4 Unknown GFR CALC 1812270 GFR AA >60 ML/MIN 08/10/2012 Unknown GFR CALC 5004868 GFR NON-AA >60 ML/MIN 08/10/2012 Unknown COMPLETE BLOOD COUNT 7947187 WBC 6.5 10e9/L 08/11/19 13 Unknown COMPLETE BLOOD COUNT [id number] RBC 4.64 10e12/L 2012 Unknown COMPLETE BLOOD COUNT 4971026 HGB 14.4 g/dL 3 Unknown COMPLETE BLOOD COUNT 9644285 HCT DET 40.0 % 3 Unknown COMPLETE BLOOD COUNT 3804204 MCV 86.2 fL 3 Unknown COMPLETE BLOOD COUNT 1978363 MCH 31.0 pg 3 Unknown COMPLETE BLOOD COUNT 7005226 MCHC 36.0 g/dL 3 Unknown COMPLETE BLOOD COUNT 0390494 PLT 294 10e9/L 08/11/19 13 Unknown COMPLETE BLOOD COUNT 1553149 MPV 10.4 fL 3 Unknown COMPLETE BLOOD COUNT 4643021 SILVINA % 60.3 % 3 Unknown COMPLETE BLOOD COUNT 9054884 LY % 30.6 % 3 Unknown COMPLETE BLOOD COUNT 9932823 MON % 7.4 % 3 Unknown COMPLETE BLOOD COUNT 1412259 EOS % 1.4 % 3 Unknown COMPLETE BLOOD COUNT 0767002 BASO % 0.3 % 3 Unknown COMPLETE BLOOD COUNT 5680877 RDW 13.6 % 3 Unknown COMPLETE BLOOD COUNT 5788225 ABS SILVINA 3.92 10e9/L 013 Unknown COMPLETE BLOOD COUNT 0683321 ABS LYMPH 1.99 10e9/L 013 Unknown COMPLETE BLOOD COUNT 1929298 ABS MONO 0.48 10e9/L 013 Unknown COMPLETE BLOOD COUNT 2373907 ABS EOS 0.09 10e9/L 013 Unknown COMPLETE BLOOD COUNT 4037082 ABS BASO 0.02 10e9/L 013 Unknown COMPLETE BLOOD COUNT 6765374 RDW-SD 41.3 fL 3 Unknown VITAMIN B 12 FOLIC ACID 41930|30010 VIT B 12 237 PG/ML 08/2012 Unknown VITAMIN B 12 FOLIC ACID 05637|78236 FOLIC ACID >24.0 NG/ML 0 08/10/2012 Unknown THYROID STIMULATING HORMONE 54512 TSH 2.158 uIU/ML 08/10/2012 Unknown HEMOGLOBIN A1C (GLYCOSYLATED) 1659638 A1C HPLC 69035-0 14.6 % 08/10/2012 Unknown FREE T4 78178 FREE T4 1.02 NG/DL 08/10/2012 Unknown LIPID GROUP 36120 HDL TEST 50 MG/DL 08/10/2012 Unknown LIPID GROUP 84486 TRIG 123 MG/DL 08/10/2012 Unknown LIPID GROUP 91634 TEST LDL 114 MG/DL 08/10/2012 Unknown LIPID GROUP 31483 CHOL 189 MG/DL 08/10/2012 Unknown LIPID GROUP 97314 RCHOL/HDL 3.78 RATIO 08/10/2012 Unknow n COMPREHENSIVE METABOLIC 47889 AST 13 U/L 2012 Unknown COMPREHENSIVE METABOLIC 60861 ALT 17 IU/L 2012 Unknown COMPREHENSIVE METABOLIC 09225 BUN 10 MG/DL 2012 Unknown COMPREHENSIVE METABOLIC 81858 ALBUMIN 4.5 GM/DL 2012 Unknown COMPREHENSIVE METABOLIC 98934 CHLORIDE 102 MMOL/L 08/10 Unknown COMPREHENSIVE METABOLIC 95226 BILI TOT 0.6 MG/DL 2012 Unknown COMPREHENSIVE METABOLIC 61240 ALK PHOS 111 U/L 2012 Unknown COMPREHENSIVE METABOLIC 08788 SODIUM 137 MMOL/L 08/10 Unknown COMPREHENSIVE METABOLIC 60008 CREATININE 0.44 MG/DL 08/2012 Unknown COMPREHENSIVE METABOLIC 33404 CALCIUM 9.2 MG/DL 2012 Unknown COMPREHENSIVE METABOLIC 74513 POTASSIUM 3.7 MMOL/L 08/10 Unknown COMPREHENSIVE METABOLIC 16567 PROT TOT 6.8 GM/DL 2012 Unknown COMPREHENSIVE METABOLIC 98250 Glucose 345 MG/DL 2012 Unknown COMPREHENSIVE METABOLIC 39135 BICARB 27 MMOL/L 2012 Unknown COMPREHENSIVE METABOLIC 40980 ANION GAP 8 MEQ/L 2012 Unknown Procedures Procedure Codes Date FLU VACC PRSV FREE INC ANTIG 65 AND OLDER CPT-4: 37694 04/07/2018 PNEUMOCOCCAL VACC 13 JACOBO IM CPT-4: 15229 04/07/2018 ADMIN INFLUENZA VIRUS VAC CPT-4: G0008 04/07/2018 ADMIN PNEUMOCOCCAL VACCINE CPT-4: G0009 04/07/2018 PPPS, subseq visit CPT-4: G0439 02/08/2018 TRIAMCINOLONE ACET INJ NOS CPT-4: J3301 06/24/2015 DRAIN/INJECT JOINT/BURSA CPT-4: 86906 06/24/2015 PRESCRIP TRANSMIT VIA ERX SY CPT-4: G8553 10/23/2014 ROUTINE VENIPUNCTURE CPT-4: 84871 08/20/2013 ASSAY OF FREE THYROXINE CPT-4: 78982 08/20/2013 ASSAY THYROID STIM HORMONE CPT-4: 94144 08/20/2013 COMPREHEN METABOLIC PANEL CPT-4: 60094 08/20/2013 COMPLETE CBC W/AUTO DIFF WBC CPT-4: 37218 08/20/2013 LIPID PANEL CPT-4: 52430 08/20/2013 A1C HPLC CPT-4: 08040 08/20/2013 VITAMIN B 12 FOLIC ACID CPT-4: 85908|79501 08/20/2013 VITAMIN D TOTAL (25 HYDROXY) CPT-4: 32915 08/20/2013 PRESCRIP TRANSMIT VIA ERX SY CPT-4: G8553 08/13/2013 PRESCRIP TRANSMIT VIA ERX SY CPT-4: G8553 05/28/2013 PRESCRIP TRANSMIT VIA ERX SY CPT-4: G8553 04/30/2013 ASSAY, GLUCOSE, BLOOD QUANT CPT-4: 66130 04/03/2013 PRESCRIP TRANSMIT VIA ERX SY CPT-4: G8553 04/03/2013 ROUTINE VENIPUNCTURE CPT-4: 72252 08/10/2012 ASSAY OF FREE THYROXINE CPT-4: 12363 08/10/2012 ASSAY THYROID STIM HORMONE CPT-4: 83661 08/10/2012 COMPREHEN METABOLIC PANEL CPT-4: 95609 08/10/2012 COMPLETE CBC W/AUTO DIFF WBC CPT-4: 16881 08/10/2012 LIPID PANEL CPT-4: 28925 08/10/2012 A1C GLYCOSYLATED HEMOGLOBIN TEST CPT-4: 62214 013 VITAMIN B 12 FOLIC ACID CPT-4: 89600|78102 08/10/2012 THER/PROPH/DIAG INJ SC/IM CPT-4: 07280 04/27/2010 VITAMIN B12 INJECTION CPT-4: J3420 04/27/2010 Vital Signs Date Vital 07/11/2019 Blood Pressure 1: 129/80 Code: 8480-6 Heart Rate 1: 78 bpm Respiratory Rate: 16 bpm SpO2: 95% Temperature: 36.7 (C) / 98.0 (F) We ight: 130 lbs 04/04/2019 Blood Pressure 1: 136/80 Code: 8480-6 Heart Rate 1: 96 bpm Respiratory Rate: 20 bpm SpO2: 98% Temperature: 36.7 (C) / 98.0 (F) We ight: 132 lbs 12/27/2018 Blood Pressure 1: 114/70 Code: 8480-6 Heart Rate 1: 72 bpm Respiratory Rate: 18 bpm SpO2: 98% Temperature: 37.0 (C) / 98.6 (F) We ight: 126 lbs 09/18/2018 Blood Pressure 1: 126/72 Code: 8480-6 Heart Rate 1: 80 bpm Respiratory Rate: 20 bpm SpO2: 96% Temperature: 36.6 (C) / 97.9 (F) We ight: 125 lbs 08/21/2018 Blood Pressure 1: 116/58 Code: 8480-6 Heart Rate 1: 92 bpm Respiratory Rate: 20 bpm SpO2: 95% Temperature: 37.2 (C) / 99.0 (F) We ight: 120 lbs 02/08/2018 Blood Pressure 1: 126/76 Code: 8480-6 BMI: 27.3 Code: 63523-2 Heart Rate 1: 84 bpm Height: 4'11" Respiratory Rate: 20 bpm SpO2: 96% Tempera ture: 37.0 (C) / 98.6 (F) Weight: 135 lbs 06/24/2015 Blood Pressure 1: 140/84 Code: 8480-6 BMI: 24.6 Code: 71401-0 Heart Rate 1: 84 bpm Height: 4'11" Respiratory Rate: 20 bpm Temperature: 37 .4 (C) / 99.3 (F) Weight: 122 lbs 02/11/2015 Blood Pressure 1: 132/76 Code: 8480-6 BMI: 23.2 Code: 91472-5 Heart Rate 1: 82 bpm Height: 4'11" Respiratory Rate: 22 bpm Temperature: 35 .7 (C) / 96.3 (F) Weight: 115 lbs 10/23/2014 Blood Pressure 1: 118/80 Code: 8480-6 BMI: 20.8 Code: 48309-6 Heart Rate 1: 92 bpm Height: 4'11" Respiratory Rate: 20 bpm Temperature: 36 .9 (C) / 98.4 (F) Weight: 103 lbs 05/29/2014 Blood Pressure 1: 114/70 Code: 8480-6 BMI: 21.2 Code: 23392-8 Heart Rate 1: 88 bpm Height: 4'11" Respiratory Rate: 20 bpm Temperature: 37 .2 (C) / 99.0 (F) Weight: 105 lbs 01/10/2014 Blood Pressure 1: 102/60 Code: 8480-6 BMI: 20.4 Code: 80002-4 Heart Rate 1: 88 bpm Height: 4'11" Respiratory Rate: 20 bpm Temperature: 36 .9 (C) / 98.4 (F) Weight: 101 lbs 12/13/2013 Blood Pressure 1: 124/76 Code: 8480-6 BMI: 19.4 Code: 06764-4 Heart Rate 1: 104 bpm Height: 4'11" Respiratory Rate: 20 bpm Temperature: 37 .2 (C) / 98.9 (F) Weight: 96 lbs 11/08/2013 Blood Pressure 1: 108/70 Code: 8480-6 BMI: 19.4 Code: 76663-7 Heart Rate 1: 84 bpm Height: 4'11" Respiratory Rate: 20 bpm Temperature: 37 .1 (C) / 98.7 (F) Weight: 96 lbs 10/31/2013 Blood Pressure 1: 128/80 Code: 8480-6 BMI: 18.2 Code: 49910-7 Heart Rate 1: 92 bpm Height: 4'11" Respiratory Rate: 20 bpm Temperature: 36 .3 (C) / 97.4 (F) Weight: 90 lbs 10/22/2013 Blood Pressure 1: 128/86 Code: 8480-6 BMI: 19.2 Code: 69092-5 Heart Rate 1: 104 bpm Height: 4'11" Respiratory Rate: 20 bpm Temperature: 37 .0 (C) / 98.6 (F) Weight: 95 lbs 09/04/2013 Blood Pressure 1: 152/90 Code: 8480-6 Heart Rate 1: 108 bpm Respiratory Rate: 20 bpm Temperature: 37.2 (C) / 98.9 (F) Weight: 105 lbs 08/13/2013 Blood Pressure 1: 156/102 Code: 8480-6 BMI: 22.6 Code: 26681-1 Heart Rate 1: 88 bpm Height: 4'11" Respiratory Rate: 20 bpm Temperature: 37 .1 (C) / 98.7 (F) Weight: 112 lbs 05/28/2013 Blood Pressure 1: 128/70 Code: 8480-6 BMI: 21.0 Code: 21372-8 Heart Rate 1: 104 bpm Height: 4'11" Respiratory Rate: 20 bpm Temperature: 38 .0 (C) / 100.4 (F) Weight: 104 lbs 04/30/2013 Blood Pressure 1: 116/78 Code: 8480-6 BMI: 21.4 Code: 98185-2 Heart Rate 1: 92 bpm Height: 4'11" Respiratory Rate: 20 bpm Temperature: 37 .2 (C) / 98.9 (F) Weight: 106 lbs 04/03/2013 Blood Pressure 1: 132/86 Code: 8480-6 BMI: 21.2 Code: 40712-2 Heart Rate 1: 88 bpm Height: 4'11" Respiratory Rate: 20 bpm Temperature: 37 .2 (C) / 99.0 (F) Weight: 105 lbs 09/21/2012 Blood Pressure 1: 146/74 Code: 8480-6 BMI: 21.8 Code: 34602-5 Heart Rate 1: 80 bpm Height: 4'11" Respiratory Rate: 20 bpm Temperature: 36 .7 (C) / 98.0 (F) Weight: 108 lbs 08/10/2012 Blood Pressure 1: 134/84 Code: 8480-6 BMI: 22.2 Code: 17916-4 Heart Rate 1: 84 bpm Height: 4'11" Respiratory Rate: 20 bpm Temperature: 36 .7 (C) / 98.1 (F) Weight: 110 lbs 11/02/2011 Blood Pressure 1: 134/78 Code: 8480-6 BMI: 24.6 Code: 95395-7 Heart Rate 1: 76 bpm Height: 4'11" Respiratory Rate: 20 bpm Temperature: 36 .9 (C) / 98.4 (F) Weight: 122 lbs 07/20/2011 Blood Pressure 1: 114/82 Code: 8480-6 BMI: 25.2 Code: 45863-7 Heart Rate 1: 92 bpm Height: 4'11" Respiratory Rate: 20 bpm Temperature: 36 .8 (C) / 98.2 (F) Weight: 125 lbs 05/14/2010 Blood Pressure 1: 128/76 Code: 8480-6 Heart Rate 1: 76 bpm Temperature: 37.0 (C) / 98.6 (F) Weight: 150 lbs Functional Status No Functional Status data Reason For Visit Reason For Visit Effective Dates Notes follow up 07/11/2019 follow up 04/04/2019 follow up 12/27/2018 follow up 09/18/2018 disturbances of emotion 08/21/2018 diabetes mellitus 02/08/2018 pain, limb 06/24/2015 follow up 02/11/2015 follow up 10/23/2014 Refill b12 injection s diabetes mellitus 05/29/2014 follow up 01/10/[address] [place] [address] follow up 12/13/2013 [facility] fwup follow up 11/08/2013 anorexia 10/31/2013 follow up 10/22/2013 constipation 09/04/2013 lab draw 08/20/2013 back pain 08/13/2013 follow up 05/28/[address] [place] [address] follow up 04/30/2013 diabetes mellitus 04/03/2013 follow up 09/21/2012 anxiety 08/10/2012 Going to be retiring in October and is worrying about what will do after nursing home diabetes mellitus 11/02/2011 follow up 07/20/2011 discuss labs follow up 05/14/2010 F/U Labs - Pt ervin alvarenga log of BP readings and blood glucose readings. Encounters Encounter Performer Location Codes Date ([id number]) OFFICE/OUTPATIENT VISIT EST Diagnosis: Type 1 diabetes mellitus without complications[ICD10: E10.9] Diagnosis: Age-related osteoporosis without current pathological fracture[ICD10: M81.0] Diagnosis: Other dietary vitamin B12 deficiency anemia[ICD10: D51.3] Eliz OLIVERA DO [facility] CPT-4: 55054 07/11/2019 ([id number]) OFFICE/OUTPATIENT VISIT EST Diagnosis: Type 1 diabetes mellitus without complications[ICD10: E10.9] Diagnosis: Other dietary vitamin B12 deficiency anemia[ICD10: D51.3] Diagnosis: Vitamin D deficiency, unspecified[ICD10: E55.9] Diagnosis: Dermatitis[ICD10: L30.9] Eliz PALMER [facility] CPT-4: 24642 04/04/2019 ([id number]) OFFICE/OUTPATIENT VISIT EST Diagnosis: Age-related osteoporosis without current pathological fracture[ICD10: M81.0] Diagnosis: Type 1 diabetes mellitus without complications[ICD10: E10.9] Diagnosis: Other dietary vitamin B12 deficiency anemia[ICD10: D51.3] Diagnosis: Vitamin D deficiency, unspecified[ICD10: E55.9] Eliz OLIVERA DO [facility] CPT-4: 47281 12/27/2018 ([id number]) OFFICE/OUTPATIENT VISIT EST Diagnosis: Other dietary vitamin B12 deficiency anemia[ICD10: D51.3] Diagnosis: Psychophysiologic insomnia[ICD10: F51.04] Diagnosis: Other fatigue[ICD10: R53.83] Eliz OLIVERA [facility] CPT-4: 92824 09/18/2018 ([id number]) OFFICE/OUTPATIENT VISIT EST Diagnosis: Adjustment disorder with depressed mood[ICD10: F43.21] Diagnosis: Other fatigue[ICD10: R53.83] Diagnosis: Psychophysiologic insomnia[ICD10: F51.04] Diagnosis: Other dietary vitamin B12 deficiency anemia[ICD10: D51.3] Eliz OLIVERA DO [facility] CPT-4: 94713 08/21/2018 ([id number]) NURSE/OUTPATIENT VISIT EST Diagnosis: PNEUMOCOCCAL VACCINE[ICD10: Z23] Diagnosis: FLU VACCINE[ICD10: Z23] Eliz JOSEPH DO [facility] CPT-4: 88338 04/07/2018 OFFICE/OUTPATIENT VISIT EST Diagnosis: Sacroiliitis, not elsewhere classified[ICD10: M46.1] Diagnosis: Radiculopathy, lumbosacral region[ICD10: M54.17] Eliz OLIVERA [facility] CPT-4: 88014 06/24/2015 ([id number]) OFFICE/OUTPATIENT VISIT EST Diagnosis: DM W/O COMPLICATION TYPE I, UNCONTROLLED[ICD10: E10.9] Diagnosis: Other dietary vitamin B12 deficiency anemia[ICD10: D51.3] [facility] 36124 02/11/2015 ([id number]) OFFICE/OUTPATIENT VISIT EST Diagnosis: DM W/O COMPLICATION TYPE I, UNCONTROLLED[ICD10: E10.9] Diagnosis: B12 DEFIC ANEMIA NEC[ICD9: 281.1] Diagnosis: VITAMIN D DEFICIENCY[ICD9: 268.9] Diagnosis: HX OF PAST NONCOMPLIANCE[ICD9: V15.81] Eliz Waller [facility] [employer] [facility] CPT-4: 40958 10/23/2014 ([id number]) OFFICE/OUTPATIENT VISIT EST Diagnosis: DM W/O COMPLICATION TYPE I, UNCONTROLLED[ICD10: E10.9] Diagnosis: HYPERTENSION[ICD9: 401.9] Diagnosis: Vitamin B12 deficiency anemia[ICD9: 281.1] Diagnosis: Rib fracture[ICD9: 807.00] Eliz KAUR [facility] CPT-4: 22922 05/29/2014 ([id number]) OFFICE/OUTPATIENT VISIT EST Diagnosis: DM W/O COMPLICATION TYPE I, UNCONTROLLED[ICD10: E10.9] Diagnosis: Rib pain[ICD9: 786.50] Diagnosis: Weight loss[ICD9: 783.21] Eliz PARSONS [facility] [employer] [facility] CPT-4: 61967 01/10/2014 ([id number]) OFFICE/OUTPATIENT VISIT EST Diagnosis: DM W/O COMPLICATION TYPE II, UNCONTROLLED[ICD9: 250.02] Diagnosis: CACHEXIA[ICD9: 799.4] Diagnosis: UNSPECIFIED CONSTIPATION[ICD9: 564.00] [facility] CPT-4: 30358 12/13/2013 ([id number]) OFFICE/OUTPATIENT VISIT EST Diagnosis: DM W/O COMPLICATION TYPE II, UNCONTROLLED[ICD9: 250.02] Diagnosis: Rib pain[ICD9: 786.50] Diagnosis: Rib fracture[ICD9: 807.00] Diagnosis: CACHEXIA[ICD9: 799.4] Eliz OLIVERA [facility] CPT-4: 70701 11/08/2013 ([id number]) OFFICE/OUTPATIENT VISIT EST Diagnosis: DM W/O COMPLICATION TYPE II, UNCONTROLLED[ICD9: 250.02] Diagnosis: Thoracic back pain[ICD9: 724.1] Diagnosis: Rib pain[ICD9: 786.50] Diagnosis: Weight loss[ICD9: 783.21] Eliz GUTIERREZ [facility] CPT-4: 35999 10/22/2013 ([id number]) OFFICE/OUTPATIENT VISIT EST Diagnosis: UNSPECIFIED CONSTIPATION[ICD9: 564.00] Diagnosis: Thoracic back pain[ICD9: 724.1] Diagnosis: Rib pain[ICD9: 786.50] Eliz Aguilar [employer] [facility] CPT-4: 59234 09/04/2013 ([id number]) OFFICE/OUTPATIENT VISIT EST Diagnosis: DM W/O COMPLICATION TYPE II, UNCONTROLLED[ICD9: 250.02] Diagnosis: B12 DEFIC ANEMIA NEC[ICD9: 281.1] Diagnosis: HYPERTENSION[ICD9: 401.9] Diagnosis: VITAMIN D DEFICIENCY[ICD9: 268.9] Eliz OLIVERA [facility] CPT-4: 32745 08/20/2013 OFFICE/OUTPATIENT VISIT EST Diagnosis: Thoracic back pain[ICD9: 724.1] Diagnosis: SPASM OF MUSCLE[ICD9: 728.85] Diagnosis: Rib pain[ICD9: 786.50] Eliz Aguilar [employer] [facility] CPT-4: 37734 08/13/2013 OFFICE/OUTPATIENT VISIT EST Diagnosis: DM W/O COMPLICATION TYPE II, UNCONTROLLED[ICD9: 250.02] Diagnosis: URI, ACUTE[ICD9: 465.9] Eliz JOSEPH [employer] [facility] CPT-4: 55607 05/28/2013 OFFICE/OUTPATIENT VISIT EST Diagnosis: DM W/O COMPLICATION TYPE II, UNCONTROLLED[ICD9: 250.02] Eliz PARSONSNDER DO [facility] CPT-4: 02377 04/30/2013 ([id number]) OFFICE/OUTPATIENT VISIT EST Diagnosis: DM W/O COMPLICATION TYPE II, UNCONTROLLED[ICD9: 250.02] Eliz PARSONSNDOPAL DO [facility] CPT-4: 88423 04/03/2013 ([id number]) OFFICE/OUTPATIENT VISIT EST Diagnosis: DM W/O COMPLICATION TYPE II, UNCONTROLLED[ICD9: 250.02] Diagnosis: HYPERTENSION[ICD9: 401.9] Eliz PARSONS NDER DO [facility] CPT-4: 49894 09/21/2012 ([id number]) OFFICE/OUTPATIENT VISIT EST Diagnosis: DM W/O COMPLICATION TYPE II, UNCONTROLLED[ICD9: 250.02] Diagnosis: B12 DEFIC ANEMIA NEC[ICD9: 281.1] Diagnosis: HYPERTENSION[ICD9: 401.9] Eliz PARSONS NDER DO [facility] CPT-4: 44846 08/10/2012 ([id number]) OFFICE/OUTPATIENT VISIT EST Diagnosis: DM W/O COMPLICATION TYPE II, UNCONTROLLED[ICD9: 250.02] Diagnosis: SEBACEOUS CYST[ICD9: 706.2] Eliz Tellez RENDER DO [facility] CPT-4: 62668 11/02/2011 ([id number]) OFFICE/OUTPATIENT VISIT EST Diagnosis: DM W/O COMPLICATION TYPE II, UNCONTROLLED[ICD9: 250.02] Diagnosis: B12 DEFIC ANEMIA NEC[ICD9: 281.1] Diagnosis: HYPERTENSION[ICD9: 401.9] Eliz PARSONS NDER DO [facility] CPT-4: 07100 07/20/2011 ([id number]) OFFICE/OUTPATIENT VISIT, EST Eliz PARSONSNDOPAL [facility] CPT-4: 84427 05/14/2010 Plan of Care Planned Activity Notes Codes Status Date Visit Diagnosis Plan: Age-related osteop orosis without current pathological fracture Discussion: Forteo ends in September so I lillie mmend Prolia to fwup with ICD-9 : 733.00 ICD-10 : M81.0 07/11/2019 Visit Diagnosis Plan: Other dietary vitamin B12 defici ency anemia Discussion: Update levels next month ICD-9 : 281.1 ICD-10 : D51.3 07/11/2019 Visit Diagnosis Plan: Type 1 diabetes mellitus without complications Discussion: Following with Endo--sees them in September Follow Up: 4 months ICD-9 : 250.01 ICD-10 : E10.9 07/11/2019 Visit Diagnosis Plan: Other dietary vitamin B12 defici ency anemia Discussion: Continue weekly B12 shots ICD-9 : 281.1 ICD-10 : D51.3 04/04/2019 Visit Diagnosis Plan: Type 1 diabetes mellitus without complications Discussion: Following with endocrinology Will return next week for pneumovax ICD-9 : 250.01 ICD-10 : E10.9 04/04/2019 Visit Diagnosis Plan: Dermatitis Discussion: TAC for 1 -2 weeks and notify if persists ICD-9 : 692.9 ICD-10 : L30.9 04/04/2019 Visit Diagnosis Plan: Vitamin D deficiency, unspecifie d Discussion: Dr. Wong added high dose 50,000u weekly and will recheck in 3mos ICD-9 : 268.9 ICD-10 : E55.9 04/04/2019 Appointment: Eliz Olivera [facility] [phone] [id number] [facility] with son FOLLOW UP 04/04/2019 Patient Education: triamcinolone acetonide- [employer] Coupon [id number] [email or web address]/samplemd/resources/[email or web address] Completed 04/04/2019 Visit Diagnosis Plan: Age-related osteop orosis without current pathological fracture Discussion: Doing forteo through endo ICD-9 : 733.00 ICD-10 : M81.0 12/27/2018 Visit Diagnosis Plan: Vitamin D deficiency, unspecifie d Discussion: Check Vit D level ICD-9 : 268.9 ICD-10 : E55.9 12/27/2018 Visit Diagnosis Plan: Other dietary vitamin B12 defici ency anemia Discussion: Check CBC, Vit B12 level ICD-9 : 281.1 ICD-10 : D51.3 12/27/2018 Visit Diagnosis Plan: Type 1 diabetes mellitus without complications Discussion: Following with endo--most recent HbA1C 6.4 Follow Up: 3 months ICD-9 : 250.01 ICD-10 : E10.9 12/27/2018 Appointment: Eliz Olivera WPtel: [address] [place], [place] [phone] FOLLOW UP 12/27/2018 Visit Diagnosis Plan: Other dietary vitamin B12 defici ency anemia Discussion: Doing weekly B12 injections Had lab done this morning ICD-9 : 281.1 ICD-10 : D51.3 09/18/2018 Visit Diagnosis Plan: Psychophysiologic insomnia Discu ssion: Stable/Improving with doxepin Follow Up: 3 months ICD-9 : 780.52 ICD-10 : F51.04 09/18/2018 Appointment: Eliz Olivera WPtel: [address] [place], [place] [phone] [place] FOLLOW UP 09/18/2018 Patient Education: doxepin- [employer] Coupon [id number] [email or web address]/resources/[email or web address] Completed 09/18/2018 Visit Diagnosis Plan: Other fatigue Discussion: Anemia is back--has not been taking B12 injections for some time ICD-9 : 780.79 ICD-10 : R53.83 08/21/2018 Visit Diagnosis Plan: Other dietary vitamin B12 defici ency anemia Discussion: Restart B12 1000mcg IM weekly Check CBC in 2 weeks ICD-9 : 281.1 ICD-10 : D51.3 08/21/2018 Visit Diagnosis Plan: Psychophysiologic insomnia Discu ssion: Doxepin 10mg 1-2 po q HS prn sleep Follow Up: 2 weeks ICD-9 : 780.52 ICD-10 : F51.04 08/21/2018 Visit Diagnosis Plan: Adjustment disorder with depress ed mood Discussion: Recent loss of ICD-9 : 309.0 ICD-10 : F43.21 08/21/2018 Appointment: Eliz Olivera WPtel: [address] [place], [place] [phone] ACUTE ILLNESS 08/21/2018 Patient Education: doxepin- [employer] Coupon [id number] Completed 08/21/2018 Patient Education: cyanocobalamin (vitamin B-12)- [employer] Coupon [id number] Completed 08/21/2018 Appointment: Estelita Rousseau [address] NO SHOW 07/11/2018 Appointment: Eliz Olivera WPtel: [address] [place] [address] [place] INJECTION 04/07/2018 Visit Diagnosis Plan: Other dietary vitamin B12 defici ency anemia Discussion: Check CBC and B12 level ICD-9 : 281.1 ICD-10 : D51.3 02/08/2018 Visit Diagnosis Plan: DM W/O COMPLICATION TYPE I, UNCO NTROLLED Discussion: Following with endocrinology who has discussed an insulin pump ICD-9 : 250.03 ICD-10 : E10.9 02/08/2018 Visit Diagnosis Plan: Encounter for [facility] adult medical examination without abnormal findings Discussion: Update fasting lab Will get flu shot at hospital next week--will make sure is high dose Recommend Prevnar 13 ICD-9 : V70.9 ICD-10 : Z00.00 02/08/2018 Visit Diagnosis Plan: Age-related osteop orosis without current pathological fracture Discussion: On marianao Discussed weight b earing exercise ICD-9 : 733.00 ICD-10 : M81.0 02/08/2018 Visit Diagnosis Plan: Vitamin D deficiency, unspecifie d Discussion: Check Vit D level ICD-9 : 268.9 ICD-10 : E55.9 02/08/2018 Appointment: Eliz Olivera WPtel: [address] [place] [address] Annual Well Visit 02/08/2018 Patient Education: Patient Medication Summary Completed 02/08/2018 Appointment: Eliz Olivera WPtel: [address] [place] [address] 07/29 canceled~sl CANCELED 08/02/2016 Visit Plan: Left SI joint injection--sheri ansed with alcohol and betadine and injected with 2cc 1% lidocaine with 40mg kenolog, tolerated well with no complications, neosporin and bandage applied Call in 2 days on how doing Zorvolex 18mg po TID Use zanaflex q HS Use tramadol prn 06/24/2015 Appointment: Eliz Oliveratel: [address] [place], [place] [phone] 06/23/15 appt confirmed cn ACUTE ILLNESS 06/24 Patient Education: Patient Medication Summary Completed 06/24/2015 Visit Plan: Check CMP, HbA1C, CBC, TSH, free T4, B12 Continue accuchecks q AC and HS with sliding scale insulin 02/11/2015 Appointment: Eliz Oliveratel: [address] [place] [address] FOLLOW UP 02/11/2015 Patient Education: Patient Medication Summary Completed 02/11/2015 Visit Plan: Patient admits not taking in sulin routinely Continue accuchecks but need to do q AC and HS Increase Levemir to 35u sc nightly Check lab and fwup in 3mos Start back on monthly B12 injections Apidra with sliding scale insulin A Discussed inhaled insulin vs pump but not sure medicare will cover and patient is not interested Have tried all noninsulin products except SGLT in past and did not work or did not tolerate 10/23/2014 Appointment: Eliz Olivera WPtel: [address] [place], [place] [phone] 10/22 appt cn FOLLOW UP 10/23/2014 Patient Education: Patient Medication Summary Completed 10/23/2014 Appointment: Eliz Olivera WPtel: [address] [place], [place] [phone] 09/17 confirmed with spouse cn...09/18/14 No Show FOLLOW UP 09/18/2014 Appointment: Eliz Oliveratel: [address] [place], [place] [phone] voicemail FOLLOW UP 05/29/2014 Patient Education: Patient Medication Summary Completed 05/29/2014 Care Plan: DXA BONE DENSITY VERLenin ROLDAN C : 42773-0 Ordered 05/29/2014 Visit Plan: Increase apidra to 8u with b reakfast and lunch and 9u with evening meal Using hydrocodone q HS Accuchecks q AC and HS due to fluctuating BS and ongoing adjustement of insulin regimen BS readings in 2weeks to further adjust apidra Fwup 1mo 01/10/2014 Appointment: Eliz Olivera WPtel: [address] [place], [place] [phone] FOLLOW UP 01/10/2014 Patient Education: Patient Medication Summary Completed 01/10/2014 Visit Plan: Increase levemir to 22u Incr ease apidra to 7u sc with meals Continue accuchecks q AC and HS 12/13/2013 Appointment: Eliz Olivera WPtel: [address] [place], [place] [phone] FOLLOW UP 12/13/2013 Patient Education: Patient Medication Summary Completed 12/13/2013 Visit Plan: Continue current meds Weight check in 2weeks Fwup in 1mo 11/08/2013 Appointment: Eliz Olivera WPtel: [address] [place] [address] 11/07 Hospital Follow Up 11/08/2013 Patient Education: Patient Medication Summary Completed 11/08/2013 Visit Plan: Direct admit to hospital 10/31/2013 Appointment: Eliz Olivera WPtel: [address] [place], [place] [phone] FOLLOW UP 10/31/2013 Patient Education: Patient Medication Summary Completed 10/31/2013 Visit Plan: Check lab and retry PT with traction Check CBC, CMP, TSH, Free T4 Patient admits to not eating routinely Hold metformin Continue accuchecks Suggested Glucerna if not eating a meal 10/22/2013 Appointment: Eliz Olivera WPtel: [address] [place] [address] (don't know what she needs seen for, she hung up after I told her appt time) ACUTE ILLNESS 10/22/2013 Patient Education: Patient Medication Summary Completed 10/22/2013 Visit Plan: Continue miralax BID to TID for daily BMs Proceed with colonoscopy Start PT for thoracics and schedule with pain medicine in case needs injection to thoracic area 09/04/2013 Appointment: Eliz Olivera WPtel: [address] [place] [address] ACUTE ILLNESS 09/04/2013 Patient Education: Patient Medication Summary Completed 09/04/2013 Appointment: Eliz Olivera WPtel: [address] [place] [address] ACUTE ILLNESS 08/20/2013 Patient Education: Patient Medication Summary Completed 08/20/2013 Visit Plan: Continue ibuprofen and baclo fen Check thoracic spine and posterior rib x-ray--if no sign of fracture then okay for manipulation in thoracic spine Add hydrocodone 5/325mg 1 po q4hrs prn pain--#60 08/13/2013 Appointment: Eliz Olivera WPtel: [address] [place] [address] FOLLOW UP 08/13/2013 Patient Education: Patient Medication Summary Completed 08/13/2013 Appointment: Eliz Olivera WPtel: [address] [place] [address] FOLLOW UP 05/28/2013 Patient Education: Patient Medication Summary Completed 05/28/2013 Visit Plan: Pt wants one more month of o rals before going to insulin Increase Amaryl to 4mg BID Add Byetta 5mcg sc BID Continue accuchecks BID 04/30/2013 Appointment: Eliz Olivera WPtel: [address] [place] [address] FOLLOW UP 04/30/2013 Patient Education: Patient Medication Summary Completed 04/30/2013 Patient Education: Janumet XR - No CA FL ME Completed 04/30/2013 Visit Plan: Start Janumet XR 50/1000mg B ID Continue actos at 30mg daily Twice daily accuchecks alternating times Call in 1wk with BS readings 04/03/2013 Appointment: Eliz Olivera WPtel: [address] [place], [place] [phone] FOLLOW UP 04/03/2013 Patient Education: Patient Medication Summary Completed 04/03/2013 Patient Education: [facility] - Saving AutoInj - 18+ - Dynamic Portal ID Completed 04/03/2013 Visit Plan: Continue metformin at BID Co ntinue onglyza 5mg q AM Add Actos 30mg daily Continue accuchecks daily Continue lexapro at 5mg daily 09/21/2012 Appointment: Eliz Olivera WPtel: [address] [place], [place] [phone] FOLLOW UP 09/21/2012 Patient Education: Patient Medication Summary Completed 09/21/2012 Appointment: Eliz Olivera WPtel: [address] [place], [place] [phone] FOLLOW UP 08/10/2012 Patient Education: Patient Medication Summary Completed 08/10/2012 Visit Plan: Check screeening Mammo Obser ve vs Remove sebaceous cyst Continue Kombiglyze 5/1000mg q AM and change metformin to Actoplusmet XR 30/1000mg q PM--Call in 2wks with BS readings and will likely add amaryl at that time and then check CMP, CBC and HbA1C in 3mos and fwup 11/02/2011 Appointment: Eliz Olivera WPtel: [address] [place], [place] [phone] FOLLOW UP 11/02/2011 Patient Education: Patient Medication Summary Completed 11/02/2011 Visit Plan: Start Kombiglyze ER 5/1000mg po daily and start accuchecks daily Start monthly B12 HbA1C, B12 level in 3mos Check urine for microalbumin Discussed Lamisil treatment for fingernails 07/20/2011 Appointment: Eliz Olivera WPtel: [address] [place], [place] [phone] FOLLOW UP 07/20/2011 Patient Education: Patient Medication Summary Completed 07/20/2011 Visit Plan: Continue weekly B12 shots an d check CBC in 2wks Start Metformin and cont accuchecks 05/14/2010 Appointment: Kayopal Eliz S. [facility] [phone] [id number] [place] FOLLOW UP 05/14/2010 Patient Education: Patient Medication Summary Completed 05/14/2010 Appointment: Eliz Olivera [facility]el[facility] [phone] [id number] [place] INJECTION 04/27/2010 Patient Education: Patient Medication Summary Completed 04/27/2010 Referral: Vanessa Wong WPtel: [address] [id number] [place] Referral Initiated Instructions Comment . Left SI joint injection--cleansed with alcohol and betadine and injected with 2cc 1% lidocaine with 40mg kenolog, tolerated well with no complications, neosporin and bandage applied Call in 2 days on how doing Zorvolex 18mg po TID Use zanaflex q HS Use tramadol prn . Check CMP, HbA1C, CBC, TSH, free T4, B 12 Continue accuchecks q AC and HS with sliding scale insulin . Patient admits not taking insulin rout inely Continue accuchecks but need to do q AC and HS Increase Levemir to 35u sc nightly Check lab and fwup in 3mos Start back on monthly B12 injections Apidra with sliding scale insulin A Discussed inhaled insulin vs pump but not sure medicare will cover and patient is not interested Have tried all noninsulin products except SGLT in past and did not work or did not tolerate . Increase apidra to 8u with breakfast a nd lunch and 9u with evening meal Using hydrocodone q HS Accuchecks q AC and HS due to fluctuating BS and ongoing adjustement of insulin regimen BS readings in 2weeks to further adjust apidra Fwup 1mo . Increase levemir to 22u Increase apidra to 7u sc with meals Continue accuchecks q AC and HS . Continue current meds Weight check in 2weeks Fwup in 1mo . Direct admit to hospital . Check lab and retry PT with traction Check CBC, CMP, TSH, Free T4 Patient admits to not eating routinely Hold metformin Continue accuchecks Suggested Glucerna if not eating a meal . Continue miralax BID to TID for daily BMs Proceed with colonoscopy Start PT for thoracics and schedule with pain medicine in case needs injection to thoracic area . Continue ibuprofen and baclofen Check thoracic spine and posterior rib x-ray--if no sign of fracture then okay for manipulation in thoracic spine Add hydrocodone 5/325mg 1 po q4hrs prn pain--#60 . Pt wants one more month of orals befor e going to insulin Increase Amaryl to 4mg BID Add Byetta 5mcg sc BID Continue accuchecks BID . Start Janumet XR 50/1000mg BID Continue actos at 30mg daily Twice daily accuchecks alternating times Call in 1wk with BS readings . Continue metformin at BID Continue onglyza 5mg q AM Add Actos 30mg daily Continue accuchecks daily Continue lexapro at 5mg daily . Check screeening Mammo Observe vs Remove sebaceous cyst Continue Kombiglyze 5/1000mg q AM and change metformin to Actoplusmet XR 30/1000mg q PM--Call in 2wks with BS readings and will likely add amaryl at that time and then check CMP, CBC and HbA1C in 3mos and fwup . Start Kombiglyze ER 5/1000mg po daily and start accuchecks daily Start monthly B12 HbA1C, B12 level in 3mos Check urine for microalbumin Discussed Lamisil treatment for fingernails . Continue weekly B12 shots and check CB C in 2wks Start Metformin and cont accuchecks Medical Equipment No Medical Equipment data Health Concerns Section Health Concerns data not found Goals Section Goals data not found Interventions Section Interventions data not found Health Status Evaluations/Outcomes Section Health Status Evaluations/Outcomes data not found Advance Directives No Advance Directive data
--- OUTSIDE RECORDS SUMMARY | 2019-10-05 07:32 | XMS REPORT | CCD ---
Author Author Zahra Olivera D.O. 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 PP Unavailable CCM Unavailable Summary Purpose Interface Exchange Insurance Providers Payer name Policy type / Coverage type Covered constitution party ID Effective Begin Date Effective End Date WPS MEDICARE PART B [place] Medicare Part B [id number] Unknown Cigna Medicare Part B [id number] Unknown Family History Family History data not found Social History Social History Element Codes Description Effective Dates Tobacco history SNOMED CT: 729328515 Never smoker 01/23/2015 Allergies, Adverse Reactions, Alerts [...] Start Date Stop Date Status Fill Instructions cyanocobalamin (vit B-12) 1,000 mcg/mL injection solution Rx Norm: 988226 1 Milliliter(s) Injection twice monthly for first month then go to 1 injection monthly 09/24/2019 09/24/2019 Inactive Vitamin D2 1,250 mcg (50,000 unit) capsule RxNorm: 6638586 1 Capsule(s) Oral twice weekly 09/24/2019 12/17/2019 Active triamcinolone acetonide 0.1 % topical cream RxNorm: 1465541 Application Topical two times a day to arm rash 04/04/2019 04/04/2019 Inactive doxepin 10 mg capsule RxNorm: 1077793 1-2 Capsule(s) PO QHS as n eeded for sleep 09/18/2018 12/26/2018 Inactive cyanocobalamin (vit B-12) 1,000 mcg/mL injection solution Rx Norm: 393061 1 Milliliter(s) Inj WEEKLY 08/21/2018 09/23/2019 Inactive doxepin 10 mg capsule RxNorm: 7126596 1-2 Capsule(s) PO QHS as n eeded for sleep 08/21/2018 09/17/2018 Inactive Vitamin D3 5,000 unit tablet RxNorm: 866067 1 Tablet(s) PO QD 02/1608/20/2018 Inactive Vitamin B12 1000mcg Tablet RxNorm: 1 Tablet(s) SL QD 02/16/2018 Inactive Apidra SoloStar U-100 Insulin 100 unit/mL subcutaneous pen R xNorm: 624012 Unit(s) SQ Sliding Scale 07/15/2017 09/12/2017 Inactive Apidra SoloStar U-100 Insulin 100 unit/mL subcutaneous pen R xNorm: 294952 Unit(s) SQ Sliding Scale 07/15/2017 08/13/2017 Inactive Apidra SoloStar U-100 Insulin 100 unit/mL subcutaneous pen R xNorm: 389224 Unit(s) SQ Sliding Scale 04/29/2017 07/14/2017 Inactive Apidra SoloStar 100 unit/mL subcutaneous insulin pen RxNorm: 120702 Unit(s) SQ Sliding Scale 03/08/2017 04/29/2017 Inactive Apidra SoloStar 100 unit/mL subcutaneous insulin pen RxNorm: 489952 Unit(s) SQ Sliding Scale 03/08/2017 04/06/2017 Inactive Apidra SoloStar 100 unit/mL subcutaneous insulin pen RxNorm: 427259 Unit(s) SQ Sliding Scale 01/20/2017 03/08/2017 Inactive Apidra SoloStar 100 unit/mL subcutaneous insulin pen RxNorm: 430074 Unit(s) SQ Sliding Scale 11/16/2016 01/19/2017 Inactive Apidra SoloStar 100 unit/mL subcutaneous insulin pen RxNorm: 350045 Unit(s) SQ Sliding Scale 08/02/2016 11/15/2016 Inactive Apidra SoloStar 100 unit/mL subcutaneous insulin pen RxNorm: 057915 Unit(s) SQ 8units after breakfast and lunch and 9units at supper 08/02/20162018 Inactive lisinopril 20 mg tablet RxNorm: 214446 1 Tablet(s) PO QD 03/05/2016 1 Inactive Apidra SoloStar 100 unit/mL subcutaneous insulin pen RxNorm: 704974 Unit(s) SQ 8units after breakfast and lunch and 9units at supper 05/12/20152016 Inactive Levemir FlexTouch 100 unit/mL (3 mL) subcutaneous insulin pe n RxNorm: 397895 35 Unit(s) SQ QHS 05/12/2015 02/07/2018 Inactive cyanocobalamin (vit B-12) 1,000 mcg/mL injection solution Rx Norm: 168028 1 Milliliter(s) Inj IM every 2 weeks 02/20/2015 02/07/2018 Inactive Apidra SoloStar 100 unit/mL subcutaneous insulin pen RxNorm: 524160 Unit(s) SQ 8units after breakfast and lunch and 9units at supper 01/10/20152015 Inactive cyanocobalamin (vit B-12) 1,000 mcg/mL injection solution Rx Norm: 389618 1 Milliliter(s) Inj Every month every month 10/23/2014 02/19/2015 Inacti ve Levemir FlexTouch 100 unit/mL (3 mL) subcutaneous insulin pe n RxNorm: 270898 35 Unit(s) SQ QHS 10/23/2014 05/11/2015 Inactive hydrocodone 5 mg-acetaminophen 325 mg tablet RxNorm: 024830 TAKE ONE TABLET BY MOUTH EVERY 4 HOURS NEEDED FOR PAIN 02/19/2014 02/28/2014 Inactive (Response to an electronic controlled substance refill request - RxReferenceNumber: [id number]) hydrocodone 5 mg-acetaminophen 325 mg tablet RxNorm: 035070 TAKE ONE TABLET BY MOUTH EVERY 4 HOURS NEEDED FOR PAIN 01/08/2014 01/16/2014 Inactive (Response to an electronic controlled substance refill request - [facility] [id number]) Reglan 5 mg tablet RxNorm: 887650 1 Tablet(s) PO QID before julio ls and bedtime 12/13/2013 10/22/2014 Inactive Apidra SoloStar 100 unit/mL subcutaneous insulin pen RxNorm: 611136 5 Unit(s) SQ AC 12/05/2013 05/28/2014 Inactive baclofen 10 mg tablet RxNorm: 707898 1 Tablet(s) PO TID PRN Spasm 0 08/13/2013 09/11/2013 Inactive Amaryl 4 mg tablet RxNorm: 914322 1 Tablet(s) PO BID 05/23/201305/27 Inactive AttnRPh: Saving apply/adjudicate RxGRP:S G20 RxBIN:[id number] RxPCN:HT ID#:[id number] Actos 30 mg tablet RxNorm: 468360 1 Tablet(s) PO QPM 05/03/201305/27 Inactive AttnRPh: Saving apply/adjudicate RxGRP:S G20 RxBIN:703686 RxPCN:HT ID#:[id number] Actos 30 mg tablet RxNorm: 075565 1 Tablet(s) PO QPM 04/30/201305/02 Inactive AttnRPh: Saving apply/adjudicate RxGRP:S G20 RxBIN:984248 RxPCN:HT ID#:[id number] Janumet XR 50 mg-1,000 mg tablet,extended release RxNorm: 12 37821 1 Tablet(s) PO BID 04/30/2013 08/12/2013 Inactive Amaryl 4 mg tablet RxNorm: 550213 1 Tablet(s) PO BID 04/30/201305/22 Inactive AttnRPh: Saving apply/adjudicate RxGRP:S G20 RxBIN:[id number] RxPCN:HT ID#:[id number] Actos 30 mg tablet RxNorm: 043779 1 Tablet(s) PO QPM 04/03/201305/03 Inactive AttnRPh: Saving apply/adjudicate RxGRP:S G20 RxBIN:[id number] RxPCN:HT ID#:[id number] Amaryl 4 mg tablet RxNorm: 680735 1 Tablet(s) PO QAM 04/03/201304/29 Inactive AttnRPh: Saving apply/adjudicate RxGRP:S G20 RxBIN:098074 RxPCN:HT ID#:[id number] Onglyza 5 mg tablet RxNorm: 329931 1 Tablet(s) PO QD 08/14/201204/02 Inactive metformin ER 1,000 mg tablet,extended release 24hr RxNorm: 8 03881 1 Tablet(s) PO BID 08/14/2012 04/02/2013 Inactive Onglyza 5 mg tablet RxNorm: 220495 1 Tablet(s) PO QD 08/14/201208/13 Inactive Lexapro 10 mg tablet RxNorm: 641568 1 Tablet(s) PO QHS 08/10/201206/2013 Inactive cyanocobalamin (vitamin B-12) 1,000 mcg/mL Injection RxNorm: 254193 1 Milliliter(s) IM QW 12/22/2011 08/09/2012 Inactive weekly cyanocobalamin (vitamin B-12) 1,000 mcg/mL Injection RxNorm: 248470 1 Milliliter(s) IM QW 07/20/2011 No Stop Date Active weekly metformin ER 500 mg 24 hr Tab RxNorm: 437197 1 Tablet(s) PO QD 10/201008/11/2010 Inactive lisinopril 20 mg tablet RxNorm: 962082 1 Tablet(s) PO QD 05/14/2010 0 07/19/2011 Inactive cyanocobalamin (vitamin B-12) 1,000 mcg/mL Injection RxNorm: 735035 1 Milliliter(s) IM QW weekly 04/28/2010 No Stop Date Active Tresiba FlexTouch U-100 insulin 100 unit/mL (3 mL) sub cutaneous pen RxNorm: 5751782 16 Unit(s) SQ QHS No Start Date Active Forteo 20 mcg/dose (600 mcg/2.4 mL) subcutaneous pen injecto r RxNorm: 1377641 SQ QD No Start Date Active Vitamin B12 1000mcg Tablet RxNorm: 1 Tablet(s) SL QD No Start Date 02/15/2018 Inactive cyanocobalamin (vitamin B-12) 1,000 mcg/mL Injection RxNorm: 775641 1 Milliliter(s) IM weekly No Start Date 04/27/2010 Inactive Neurontin 100 mg capsule RxNorm: 532587 1 Capsule(s) PO TID No Star t Date 10/22/2014 Inactive Protonix 40 mg tablet,delayed release RxNorm: 333050 1 Tablet(s ) PO QD No Start Date 10/22/2014 Inactive Calcium with Vitamin D 600 mg (1,500 mg)-400 unit tablet RxN orm: 100206 1 Tablet(s) PO QD No Start Date 12/12/2013 Inactive Coreg 3.125 mg tablet RxNorm: 610600 1 Tablet(s) PO QD No Start Date 10/22/2014 Inactive cyanocobalamin (vitamin B-12) 1,000 mcg/mL Injection RxNorm: 761839 1 Milliliter(s) Inj every month No Start Date 10/22/2014 Inactive Apidra SoloStar 100 unit/mL subcutaneous insulin pen RxNorm: 518174 Unit(s) SQ Sliding Scale No Start Date 08/01/2016 Inactive Cymbalta 60 mg capsule,delayed release RxNorm: 589255 1 Capsule (s) PO QHS No Start Date 06/23/2015 Inactive metformin 1,000 mg tablet RxNorm: 849323 1 Tablet(s) PO BID No Star t Date 10/21/2013 Inactive Levemir Flexpen 100 unit/mL (3 mL) solution subcutaneo us insulin pen RxNorm: 663343 45 Unit(s) SQ QD No Start Date 11/07/2013 Inactive Levemir Flexpen 100 unit/mL (3 mL) solution subcutaneo us insulin pen RxNorm: 241381 30 Unit(s) SQ QHS No Start Date 08/12/2013 Inactive Miacalcin 200 unit/actuation nasal spray RxNorm: 419661 1 [place] NASAL QD in one nostril No Start Date 10/22/2014 Inactive Janumet XR 50 mg-1,000 mg tablet,extended release RxNorm: 12 34970 1 Tablet(s) PO BID No Start Date 04/29/2013 Inactive metformin ER 1,000 mg tablet,extended release 24hr RxNorm: 8 06488 1 Tablet(s) PO QD No Start Date 08/09/2012 Inactive Levemir Flexpen 100 unit/mL (3 mL) solution subcutaneo us insulin pen RxNorm: 325935 35 Unit(s) SQ QHS No Start Date 05/28/2014 Inactive baclofen 10 mg tablet RxNorm: 894332 1 Tablet(s) PO TID PRN Spasm N o Start Date 08/12/2013 Inactive Apidra SoloStar 100 unit/mL subcutaneous insulin pen RxNorm: 719818 Unit(s) SQ 8units after breakfast and lunch and 9units at supper No Start Date 2014 Inactive Byetta 10 mcg/0.04 mL per dose subcutaneous pen injector RxN orm: 737152 Microgram(s) SQ BID No Start Date 05/27/2013 Inactive Cymbalta 30 mg capsule,delayed release RxNorm: 355602 1 Capsule (s) PO QHS No Start Date 12/12/2013 Inactive Vitamin D3 5,000 unit tablet RxNorm: 320682 1 Tablet(s) PO QD No art Date 02/15/2018 Inactive hydrocodone 5 mg-acetaminophen 325 mg tablet RxNorm: 266123 1 Tablet(s) PO Q4H as needed for pain No Start Date 01/09/2014 Inactive tizanidine 2 mg tablet RxNorm: 929258 1 Tablet(s) PO Q8 H as needed for muscle spasms No Start Date 06/23/2015 Inactive Levemir FlexTouch 100 unit/mL (3 mL) subcutaneous insulin pe n RxNorm: 197949 22 Unit(s) SQ QHS No Start Date 10/22/2014 Inactive Motrin IB 200 mg tablet RxNorm: 897156 Tablet(s) PO PRN No Start Da te 10/21/2013 Inactive Vitamin D3 1,000 unit tablet RxNorm: 550810 1 Tablet(s) PO QD No St art Date 12/12/2013 Inactive Levemir Flexpen 100 unit/mL (3 mL) solution subcutaneo us insulin pen RxNorm: 839349 20 Unit(s) SQ QAM No Start Date 05/28/2014 Inactive Apidra SoloStar 100 unit/mL subcutaneous insulin pen RxNorm: 518703 3 Unit(s) SQ AC No Start Date 12/04/2013 Inactive Levemir Flexpen 100 unit/mL (3 mL) solution subcutaneo us insulin pen RxNorm: 069956 40 Unit(s) SQ QHS No Start Date 10/22/2013 Inactive Vitamin D2 50,000 unit capsule RxNorm: 5151103 1 Capsule(s) PO QW N o Start Date 09/23/2019 Inactive Kombiglyze XR 5 mg-1,000 mg 24 hr Tab RxNorm: 9039555 1 Tablet(s ) PO QD No Start Date 08/09/2012 Inactive Levemir FlexTouch 100 unit/mL (3 mL) subcutaneous insulin pe n RxNorm: 770024 30 Unit(s) SQ QHS No Start Date 02/07/2018 Inactive tizanidine 2 mg tablet RxNorm: 454414 1 Tablet(s) PO Q8 H as needed for muscle spasm No Start Date 02/07/2018 Inactive Levemir FlexTouch U-100 Insulin 100 unit/mL (3 mL) sub cutaneous pen RxNorm: 078872 22 Unit(s) SQ QHS No Start Date 08/20/2018 Inactive Vitamin D3 5,000 unit tablet RxNorm: 600164 1 Tablet(s) PO QD No St art Date 11/07/2013 Inactive Medication Administered No Medication Administered data Immunizations Vaccine Codes Date Status Influenza CVX: 135 04/07/2018 Complete Pneumococcal CVX: 133 04/07/2018 Complete Results Observation Observation Code Item Item Code Result Date S vic Location GLYCOSYLATED HEMOGLOBIN TEST 32702 A1C HPLC 90591-4 10.4 % 0 08/20/2013 Unknown GFR CALC 4205356 GFR AA >60 ML/MIN 08/20/2013 Unknown GFR CALC 3077133 GFR NON-AA >60 ML/MIN 08/20/2013 Unknown LIPID GROUP 79135 HDL TEST 47 MG/DL 08/20/2013 Unknown LIPID GROUP 60884 TRIG 216 MG/DL 08/20/2013 Unknown LIPID GROUP 40028 TEST LDL 67 MG/DL 08/20/2013 Unknown LIPID GROUP 94591 CHOL 157 MG/DL 08/20/2013 Unknown LIPID GROUP 81578 RCHOL/HDL 3.34 RATIO 08/20/2013 Unknow n THYROID STIMULATING HORMONE 64341 TSH 2.042 uIU/ML 08/20/2013 Unknown COMPREHENSIVE METABOLIC 40529 AST 9 U/L 2013 Unknown COMPREHENSIVE METABOLIC 00405 ALT 14 IU/L 2013 Unknown COMPREHENSIVE METABOLIC 76856 BUN 15 MG/DL 2013 Unknown COMPREHENSIVE METABOLIC 31759 ALBUMIN 4.2 GM/DL 2013 Unknown COMPREHENSIVE METABOLIC 49625 CHLORIDE 99 MMOL/L 2013 Unknown COMPREHENSIVE METABOLIC 12937 BILI TOT 0.6 MG/DL 2013 Unknown COMPREHENSIVE METABOLIC 05164 ALK PHOS 100 U/L 2013 Unknown COMPREHENSIVE METABOLIC 93212 SODIUM 133 MMOL/L 08/20 Unknown COMPREHENSIVE METABOLIC 34214 CREATININE 0.43 MG/DL 08/07 Unknown COMPREHENSIVE METABOLIC 78538 CALCIUM 9.8 MG/DL 2013 Unknown COMPREHENSIVE METABOLIC 83667 POTASSIUM 4.2 MMOL/L 08/20 Unknown COMPREHENSIVE METABOLIC 68608 PROT TOT 6.9 GM/DL 2013 Unknown COMPREHENSIVE METABOLIC 06664 Glucose 394 MG/DL 2013 Unknown COMPREHENSIVE METABOLIC 43625 BICARB 26 MMOL/L 2013 Unknown COMPREHENSIVE METABOLIC 83560 ANION GAP 8 MEQ/L 2013 Unknown FREE T4 38323 FREE T4 1.19 NG/DL 08/20/2013 Unknown VITAMIN D TOTAL (25 HYDROXY) 82191 VIT D TOTL 10 NG/ML 08/20/2013 Unknown VITAMIN B 12 FOLIC ACID 16920|26106 VIT B 12 235 PG/ML 08/07 Unknown VITAMIN B 12 FOLIC ACID 62078|00124 FOLIC ACID >24.0 NG/ML 0 08/20/2013 Unknown COMPLETE BLOOD COUNT 2001725 WBC 6.6 10e9/L 08/21/19 14 Unknown COMPLETE BLOOD COUNT 3704963 RBC 4.80 10e12/L 2013 Unknown COMPLETE BLOOD COUNT 8997912 HGB 15.2 g/dL 4 Unknown COMPLETE BLOOD COUNT 0509510 HCT DET 42.8 % 4 Unknown COMPLETE BLOOD COUNT 0497235 MCV 89.2 fL 4 Unknown COMPLETE BLOOD COUNT 1072746 MCH 31.7 pg 4 Unknown COMPLETE BLOOD COUNT 0478763 MCHC 35.5 g/dL 4 Unknown COMPLETE BLOOD COUNT 2849695 PLT 340 10e9/L 08/21/19 14 Unknown COMPLETE BLOOD COUNT 7640878 MPV 9.6 fL 4 Unknown COMPLETE BLOOD COUNT 6196787 SILVINA % 63.6 % 4 Unknown COMPLETE BLOOD COUNT 2340267 LY % 26.4 % 4 Unknown COMPLETE BLOOD COUNT 1453068 MON % 8.6 % 4 Unknown COMPLETE BLOOD COUNT 5532427 EOS % 1.1 % 4 Unknown COMPLETE BLOOD COUNT 3326348 BASO % 0.3 % 4 Unknown COMPLETE BLOOD COUNT 6772314 RDW 13.4 % 4 Unknown COMPLETE BLOOD COUNT 7561253 ABS SILVINA 4.20 10e9/L 014 Unknown COMPLETE BLOOD COUNT 1289659 ABS LYMPH 1.74 10e9/L 014 Unknown COMPLETE BLOOD COUNT 4150883 ABS MONO 0.57 10e9/L 014 Unknown COMPLETE BLOOD COUNT 3419297 ABS EOS 0.07 10e9/L 014 Unknown COMPLETE BLOOD COUNT 7195822 ABS BASO 0.02 10e9/L 014 Unknown COMPLETE BLOOD COUNT 3097178 RDW-SD 42.6 fL 4 Unknown GFR CALC 9317682 GFR AA >60 ML/MIN 08/10/2012 Unknown GFR CALC 4025790 GFR NON-AA >60 ML/MIN 08/10/2012 Unknown COMPLETE BLOOD COUNT 1565928 WBC 6.5 10e9/L 08/11/19 13 Unknown COMPLETE BLOOD COUNT 8134379 RBC 4.64 10e12/L 2012 Unknown COMPLETE BLOOD COUNT 9364238 HGB 14.4 g/dL 3 Unknown COMPLETE BLOOD COUNT 0308320 HCT DET 40.0 % 3 Unknown COMPLETE BLOOD COUNT 3764680 MCV 86.2 fL 3 Unknown COMPLETE BLOOD COUNT 3150042 MCH 31.0 pg 3 Unknown COMPLETE BLOOD COUNT 2267506 MCHC 36.0 g/dL 3 Unknown COMPLETE BLOOD COUNT 2989534 PLT 294 10e9/L 08/11/19 13 Unknown COMPLETE BLOOD COUNT 0549447 MPV 10.4 fL 3 Unknown COMPLETE BLOOD COUNT 8077216 SILVINA % 60.3 % 3 Unknown COMPLETE BLOOD COUNT 4310309 LY % 30.6 % 3 Unknown COMPLETE BLOOD COUNT 6481796 MON % 7.4 % 3 Unknown COMPLETE BLOOD COUNT 9658672 EOS % 1.4 % 3 Unknown COMPLETE BLOOD COUNT 1205700 BASO % 0.3 % 3 Unknown COMPLETE BLOOD COUNT 3874421 RDW 13.6 % 3 Unknown COMPLETE BLOOD COUNT 3507947 ABS SILVINA 3.92 10e9/L 013 Unknown COMPLETE BLOOD COUNT 5433747 ABS LYMPH 1.99 10e9/L 013 Unknown COMPLETE BLOOD COUNT 8720431 ABS MONO 0.48 10e9/L 013 Unknown COMPLETE BLOOD COUNT 8602452 ABS EOS 0.09 10e9/L 013 Unknown COMPLETE BLOOD COUNT 3132299 ABS BASO 0.02 10e9/L 013 Unknown COMPLETE BLOOD COUNT 1324412 RDW-SD 41.3 fL 3 Unknown VITAMIN B 12 FOLIC ACID 65131|59931 VIT B 12 237 PG/ML 08/2012 Unknown VITAMIN B 12 FOLIC ACID 29397|43015 FOLIC ACID >24.0 NG/ML 0 08/10/2012 Unknown THYROID STIMULATING HORMONE 72999 TSH 2.158 uIU/ML 08/10/2012 Unknown HEMOGLOBIN A1C (GLYCOSYLATED) 7985436 A1C [facility] 15404-1 14.6 % 08/10/2012 Unknown FREE T4 90059 FREE T4 1.02 NG/DL 08/10/2012 Unknown LIPID GROUP 26085 HDL TEST 50 MG/DL 08/10/2012 Unknown LIPID GROUP 00802 TRIG 123 MG/DL 08/10/2012 Unknown LIPID GROUP 93561 TEST LDL 114 MG/DL 08/10/2012 Unknown LIPID GROUP 70362 CHOL 189 MG/DL 08/10/2012 Unknown LIPID GROUP 60593 RCHOL/HDL 3.78 RATIO 08/10/2012 Unknow n COMPREHENSIVE METABOLIC 82721 AST 13 U/L 2012 Unknown COMPREHENSIVE METABOLIC 03804 ALT 17 IU/L 2012 Unknown COMPREHENSIVE METABOLIC 06460 BUN 10 MG/DL 2012 Unknown COMPREHENSIVE METABOLIC 44227 ALBUMIN 4.5 GM/DL 2012 Unknown COMPREHENSIVE METABOLIC 61875 CHLORIDE 102 MMOL/L 08/10 Unknown COMPREHENSIVE METABOLIC 04528 BILI TOT 0.6 MG/DL 2012 Unknown COMPREHENSIVE METABOLIC 84376 ALK PHOS 111 U/L 2012 Unknown COMPREHENSIVE METABOLIC 79460 SODIUM 137 MMOL/L 08/10 Unknown COMPREHENSIVE METABOLIC 34498 CREATININE 0.44 MG/DL 08/2012 Unknown COMPREHENSIVE METABOLIC 31604 CALCIUM 9.2 MG/DL 2012 Unknown COMPREHENSIVE METABOLIC 09790 POTASSIUM 3.7 MMOL/L 08/10 Unknown COMPREHENSIVE METABOLIC 69928 PROT TOT 6.8 GM/DL 2012 Unknown COMPREHENSIVE METABOLIC 55983 Glucose 345 MG/DL 2012 Unknown COMPREHENSIVE METABOLIC 13078 BICARB 27 MMOL/L 2012 Unknown COMPREHENSIVE METABOLIC 63478 ANION GAP 8 MEQ/L 2012 Unknown Procedures Procedure Codes Date FLU VACC PRSV FREE INC ANTIG 65 AND OLDER CPT-4: 45086 04/07/2018 PNEUMOCOCCAL VACC 13 JACOBO IM CPT-4: 51989 04/07/2018 ADMIN INFLUENZA VIRUS VAC CPT-4: G0008 04/07/2018 ADMIN PNEUMOCOCCAL VACCINE CPT-4: G0009 04/07/2018 PPPS, subseq visit CPT-4: G0439 02/08/2018 TRIAMCINOLONE ACET INJ NOS CPT-4: J3301 06/24/2015 DRAIN/INJECT JOINT/BURSA CPT-4: 02861 06/24/2015 PRESCRIP TRANSMIT VIA ERX SY CPT-4: G8553 10/23/2014 ROUTINE VENIPUNCTURE CPT-4: 39681 08/20/2013 ASSAY OF FREE THYROXINE CPT-4: 04741 08/20/2013 ASSAY THYROID STIM HORMONE CPT-4: 54767 08/20/2013 COMPREHEN METABOLIC PANEL CPT-4: 82999 08/20/2013 COMPLETE CBC W/AUTO DIFF WBC CPT-4: 12141 08/20/2013 LIPID PANEL CPT-4: 03161 08/20/2013 A1C HPLC CPT-4: 47551 08/20/2013 VITAMIN B 12 FOLIC ACID CPT-4: 98068|67355 08/20/2013 VITAMIN D TOTAL (25 HYDROXY) CPT-4: 81352 08/20/2013 PRESCRIP TRANSMIT VIA ERX SY CPT-4: G8553 08/13/2013 PRESCRIP TRANSMIT VIA ERX SY CPT-4: G8553 05/28/2013 PRESCRIP TRANSMIT VIA ERX SY CPT-4: G8553 04/30/2013 ASSAY, GLUCOSE, BLOOD QUANT CPT-4: 00350 04/03/2013 PRESCRIP TRANSMIT VIA ERX SY CPT-4: G8553 04/03/2013 ROUTINE VENIPUNCTURE CPT-4: 83418 08/10/2012 ASSAY OF FREE THYROXINE CPT-4: 08332 08/10/2012 ASSAY THYROID STIM HORMONE CPT-4: 01158 08/10/2012 COMPREHEN METABOLIC PANEL CPT-4: 40245 08/10/2012 COMPLETE CBC W/AUTO DIFF WBC CPT-4: 73525 08/10/2012 LIPID PANEL CPT-4: 81303 08/10/2012 A1C GLYCOSYLATED HEMOGLOBIN TEST CPT-4: 60621 013 VITAMIN B 12 FOLIC ACID CPT-4: 68222|98518 08/10/2012 THER/PROPH/DIAG INJ SC/IM CPT-4: 14787 04/27/2010 VITAMIN B12 INJECTION CPT-4: J3420 04/27/2010 [...] 1: 126/76 Code: 8480-6 BMI: 27.3 Code: 93980-7 Heart Rate 1: 84 bpm Height: 4'11" Respiratory Rate: 20 bpm SpO2: 96% Tempera ture: 37.0 (C) / 98.6 (F) Weight: 135 lbs 06/24/2015 Blood Pressure 1: 140/84 Code: 8480-6 BMI: 24.6 Code: 33649-0 Heart Rate 1: 84 bpm Height: 4'11" Respiratory Rate: 20 bpm Temperature: 37 .4 (C) / 99.3 (F) Weight: 122 lbs 02/11/2015 Blood Pressure 1: 132/76 Code: 8480-6 BMI: 23.2 Code: 37224-2 Heart Rate 1: 82 bpm Height: 4'11" Respiratory Rate: 22 bpm Temperature: 35 .7 (C) / 96.3 (F) Weight: 115 lbs 10/23/2014 Blood Pressure 1: 118/80 Code: 8480-6 BMI: 20.8 Code: 60102-9 Heart Rate 1: 92 bpm Height: 4'11" Respiratory Rate: 20 bpm Temperature: 36 .9 (C) / 98.4 (F) Weight: 103 lbs 05/29/2014 Blood Pressure 1: 114/70 Code: 8480-6 BMI: 21.2 Code: 61591-5 Heart Rate 1: 88 bpm Height: 4'11" Respiratory Rate: 20 bpm Temperature: 37 .2 (C) / 99.0 (F) Weight: 105 lbs 01/10/2014 Blood Pressure 1: 102/60 Code: 8480-6 BMI: 20.4 Code: 12038-3 Heart Rate 1: 88 bpm Height: 4'11" Respiratory Rate: 20 bpm Temperature: 36 .9 (C) / 98.4 (F) Weight: 101 lbs 12/13/2013 Blood Pressure 1: 124/76 Code: 8480-6 BMI: 19.4 Code: 20516-6 Heart Rate 1: 104 bpm Height: 4'11" Respiratory Rate: 20 bpm Temperature: 37 .2 (C) / 98.9 (F) Weight: 96 lbs 11/08/2013 Blood Pressure 1: 108/70 Code: 8480-6 BMI: 19.4 Code: 21379-1 Heart Rate 1: 84 bpm Height: 4'11" Respiratory Rate: 20 bpm Temperature: 37 .1 (C) / 98.7 (F) Weight: 96 lbs 10/31/2013 Blood Pressure 1: 128/80 Code: 8480-6 BMI: 18.2 Code: 47505-4 Heart Rate 1: 92 bpm Height: 4'11" Respiratory Rate: 20 bpm Temperature: 36 .3 (C) / 97.4 (F) Weight: 90 lbs 10/22/2013 Blood Pressure 1: 128/86 Code: 8480-6 BMI: 19.2 Code: 70400-9 Heart Rate 1: 104 bpm Height: 4'11" Respiratory Rate: 20 bpm Temperature: 37 .0 (C) / 98.6 (F) Weight: 95 lbs 09/04/2013 Blood Pressure 1: 152/90 Code: 8480-6 Heart Rate 1: 108 bpm Respiratory Rate: 20 bpm Temperature: 37.2 (C) / 98.9 (F) Weight: 105 lbs 08/13/2013 Blood Pressure 1: 156/102 Code: 8480-6 BMI: 22.6 Code: 61810-0 Heart Rate 1: 88 bpm Height: 4'11" Respiratory Rate: 20 bpm Temperature: 37 .1 (C) / 98.7 (F) Weight: 112 lbs 05/28/2013 Blood Pressure 1: 128/70 Code: 8480-6 BMI: 21.0 Code: 54331-4 Heart Rate 1: 104 bpm Height: 4'11" Respiratory Rate: 20 bpm Temperature: 38 .0 (C) / 100.4 (F) Weight: 104 lbs 04/30/2013 Blood Pressure 1: 116/78 Code: 8480-6 BMI: 21.4 Code: 42803-3 Heart Rate 1: 92 bpm Height: 4'11" Respiratory Rate: 20 bpm Temperature: 37 .2 (C) / 98.9 (F) Weight: 106 lbs 04/03/2013 Blood Pressure 1: 132/86 Code: 8480-6 BMI: 21.2 Code: 38439-6 Heart Rate 1: 88 bpm Height: 4'11" Respiratory Rate: 20 bpm Temperature: 37 .2 (C) / 99.0 (F) Weight: 105 lbs 09/21/2012 Blood Pressure 1: 146/74 Code: 8480-6 BMI: 21.8 Code: 29538-8 Heart Rate 1: 80 bpm Height: 4'11" Respiratory Rate: 20 bpm Temperature: 36 .7 (C) / 98.0 (F) Weight: 108 lbs 08/10/2012 Blood Pressure 1: 134/84 Code: 8480-6 BMI: 22.2 Code: 17231-5 Heart Rate 1: 84 bpm Height: 4'11" Respiratory Rate: 20 bpm Temperature: 36 .7 (C) / 98.1 (F) Weight: 110 lbs 11/02/2011 Blood Pressure 1: 134/78 Code: 8480-6 BMI: 24.6 Code: 85267-7 Heart Rate 1: 76 bpm Height: 4'11" Respiratory Rate: 20 bpm Temperature: 36 .9 (C) / 98.4 (F) Weight: 122 lbs 07/20/2011 Blood Pressure 1: 114/82 Code: 8480-6 BMI: 25.2 Code: 18426-6 Heart Rate 1: 92 bpm Height: 4'11" [...] s diabetes mellitus 05/29/2014 follow up 01/10/2014 1mo fwup follow up 12/13/2013 Hospital fwup follow up 11/08/2013 anorexia 10/31/2013 follow up 10/22/2013 constipation 09/04/2013 lab draw 08/20/2013 back pain 08/13/2013 follow up 05/28/2013 1mo fwup follow up 04/30/2013 diabetes mellitus 04/03/2013 follow up 09/21/2012 anxiety 08/10/2012 Going to be retiring in October and is worrying about what will do after [facility] diabetes mellitus 11/02/2011 follow up 07/20/2011 discuss labs follow up 05/14/2010 F/U Labs - Pt ervin alvarenga log of BP readings and blood glucose readings. Encounters Encounter Performer Location Codes Date () OFFICE/OUTPATIENT VISIT EST Diagnosis: Type 1 diabetes mellitus without complications[ICD10: E10.9] Diagnosis: Age-related osteoporosis without current pathological fracture[ICD10: M81.0] Diagnosis: Other dietary vitamin B12 deficiency anemia[ICD10: D51.3] Eliz OLIVERA [employer] CPT-4: 07578 07/11/2019 ([id number]) OFFICE/OUTPATIENT VISIT EST Diagnosis: Type 1 diabetes mellitus without complications[ICD10: E10.9] Diagnosis: Other dietary vitamin B12 deficiency anemia[ICD10: D51.3] Diagnosis: Vitamin D deficiency, unspecified[ICD10: E55.9] Diagnosis: Dermatitis[ICD10: L30.9] Eliz PALMER [employer] CPT-4: 51766 04/04/2019 ([id number]) OFFICE/OUTPATIENT VISIT EST Diagnosis: Age-related osteoporosis without current pathological fracture[ICD10: M81.0] Diagnosis: Type 1 diabetes mellitus without complications[ICD10: E10.9] Diagnosis: Other dietary vitamin B12 deficiency anemia[ICD10: D51.3] Diagnosis: Vitamin D deficiency, unspecified[ICD10: E55.9] Eliz OLIVERA [employer] CPT-4: 37914 12/27/2018 ([id number]) OFFICE/OUTPATIENT VISIT EST Diagnosis: Other dietary vitamin B12 deficiency anemia[ICD10: D51.3] Diagnosis: Psychophysiologic insomnia[ICD10: F51.04] Diagnosis: Other fatigue[ICD10: R53.83] Eliz OLIVERA [employer] CPT-4: 11663 09/18/2018 ([id number]) OFFICE/OUTPATIENT VISIT EST Diagnosis: Adjustment disorder with depressed mood[ICD10: F43.21] Diagnosis: Other fatigue[ICD10: R53.83] Diagnosis: Psychophysiologic insomnia[ICD10: F51.04] Diagnosis: Other dietary vitamin B12 deficiency anemia[ICD10: D51.3] Eliz OLIVERA [employer] CPT-4: 57265 08/21/2018 ([id number]) NURSE/OUTPATIENT VISIT EST Diagnosis: PNEUMOCOCCAL VACCINE[ICD10: Z23] Diagnosis: FLU VACCINE[ICD10: Z23] Eliz [facility]Z [facility] CPT-4: 38896 04/07/2018 OFFICE/OUTPATIENT VISIT EST Diagnosis: Sacroiliitis, not elsewhere classified[ICD10: M46.1] Diagnosis: Radiculopathy, lumbosacral region[ICD10: M54.17] [facility]: 17084 06/24/2015 ([id number]) OFFICE/OUTPATIENT VISIT EST Diagnosis: DM W/O COMPLICATION TYPE I, UNCONTROLLED[ICD10: E10.9] Diagnosis: Other dietary vitamin B12 deficiency anemia[ICD10: D51.3] [facility]: 61060 02/11/2015 ([id number]) OFFICE/OUTPATIENT VISIT EST Diagnosis: DM W/O COMPLICATION TYPE I, UNCONTROLLED[ICD10: E10.9] Diagnosis: B12 DEFIC ANEMIA NEC[ICD9: 281.1] Diagnosis: VITAMIN D DEFICIENCY[ICD9: 268.9] Diagnosis: HX OF PAST NONCOMPLIANCE[ICD9: V15.81] [facility]PT[facility]: 07254 10/23/2014 ([id number]) OFFICE/OUTPATIENT VISIT EST Diagnosis: DM W/O COMPLICATION TYPE I, UNCONTROLLED[ICD10: E10.9] Diagnosis: HYPERTENSION[ICD9: 401.9] Diagnosis: Vitamin B12 deficiency anemia[ICD9: 281.1] Diagnosis: Rib fracture[ICD9: 807.00] Eliz KAUR [facility] CPT-4: 70975 05/29/2014 ([id number]) OFFICE/OUTPATIENT VISIT EST Diagnosis: DM W/O COMPLICATION TYPE I, UNCONTROLLED[ICD10: E10.9] Diagnosis: Rib pain[ICD9: 786.50] Diagnosis: Weight loss[ICD9: 783.21] Eliz Jarod [facility] CPT-4: 53302 01/10/2014 ([id number]) OFFICE/OUTPATIENT VISIT EST Diagnosis: DM W/O COMPLICATION TYPE II, UNCONTROLLED[ICD9: 250.02] Diagnosis: CACHEXIA[ICD9: 799.4] Diagnosis: UNSPECIFIED CONSTIPATION[ICD9: 564.00] Eliz BANKS REDDY Christin [facility]DA [facility] CPT-4: 46381 12/13/2013 ([id number]) OFFICE/OUTPATIENT VISIT EST Diagnosis: DM W/O COMPLICATION TYPE II, UNCONTROLLED[ICD9: 250.02] Diagnosis: Rib pain[ICD9: 786.50] Diagnosis: Rib fracture[ICD9: 807.00] Diagnosis: CACHEXIA[ICD9: 799.4] Eliz Waller [facility] CPT-4: 34175 11/08/2013 ([id number]) OFFICE/OUTPATIENT VISIT EST Diagnosis: DM W/O COMPLICATION TYPE II, UNCONTROLLED[ICD9: 250.02] Diagnosis: Thoracic back pain[ICD9: 724.1] Diagnosis: Rib pain[ICD9: 786.50] Diagnosis: Weight loss[ICD9: 783.21] Eliz Waller ISSA BRENDA [facility] CPT-4: 60921 10/22/2013 ([id number]) OFFICE/OUTPATIENT VISIT EST Diagnosis: UNSPECIFIED CONSTIPATION[ICD9: 564.00] Diagnosis: Thoracic back pain[ICD9: 724.1] Diagnosis: Rib pain[ICD9: 786.50] Eliz Aguilar [facility] CPT-4: 56746 09/04/2013 ([id number]) OFFICE/OUTPATIENT VISIT EST Diagnosis: DM W/O COMPLICATION TYPE II, UNCONTROLLED[ICD9: 250.02] Diagnosis: B12 DEFIC ANEMIA NEC[ICD9: 281.1] Diagnosis: HYPERTENSION[ICD9: 401.9] Diagnosis: VITAMIN D DEFICIENCY[ICD9: 268.9] Eliz OLIVERA [facility] CPT-4: 45468 08/20/2013 OFFICE/OUTPATIENT VISIT EST Diagnosis: Thoracic back pain[ICD9: 724.1] Diagnosis: SPASM OF MUSCLE[ICD9: 728.85] Diagnosis: Rib pain[ICD9: 786.50] Eliz BENITEZE R [facility] CPT-4: 20345 08/13/2013 OFFICE/OUTPATIENT VISIT EST Diagnosis: DM W/O COMPLICATION TYPE II, UNCONTROLLED[ICD9: 250.02] Diagnosis: URI, ACUTE[ICD9: 465.9] Eliz PARSONSND ER [facility] CPT-4: 64390 05/28/2013 OFFICE/OUTPATIENT VISIT EST Diagnosis: DM W/O COMPLICATION TYPE II, UNCONTROLLED[ICD9: 250.02] Eliz OLIVERA [facility] CPT-4: 79087 04/30/2013 ([id number]) OFFICE/OUTPATIENT VISIT EST Diagnosis: DM W/O COMPLICATION TYPE II, UNCONTROLLED[ICD9: 250.02] Eliz OLIVERA [facility] CPT-4: 22093 04/03/2013 ([id number]) OFFICE/OUTPATIENT VISIT EST Diagnosis: DM W/O COMPLICATION TYPE II, UNCONTROLLED[ICD9: 250.02] Diagnosis: HYPERTENSION[ICD9: 401.9] Eliz PARSONS NDER [facility] CPT-4: 08225 09/21/2012 ([id number]) OFFICE/OUTPATIENT VISIT EST Diagnosis: DM W/O COMPLICATION TYPE II, UNCONTROLLED[ICD9: 250.02] Diagnosis: B12 DEFIC ANEMIA NEC[ICD9: 281.1] Diagnosis: HYPERTENSION[ICD9: 401.9] Eliz PARSONS NDER [facility] CPT-4: 01531 08/10/2012 ([id number]) OFFICE/OUTPATIENT VISIT EST Diagnosis: DM W/O COMPLICATION TYPE II, UNCONTROLLED[ICD9: 250.02] Diagnosis: SEBACEOUS CYST[ICD9: 706.2] Eliz Tellez RENDER [facility] CPT-4: 32383 11/02/2011 ([id number]) OFFICE/OUTPATIENT VISIT EST Diagnosis: DM W/O COMPLICATION TYPE II, UNCONTROLLED[ICD9: 250.02] Diagnosis: B12 DEFIC ANEMIA NEC[ICD9: 281.1] Diagnosis: HYPERTENSION[ICD9: 401.9] Eliz PARSONS NDER [facility] CPT-4: 39059 07/20/2011 ([id number]) OFFICE/OUTPATIENT VISIT, EST Eliz OLIVERA DO [facility] CPT-4: 30050 05/14/2010 Plan of Care Planned Activity Notes Codes Status Date Visit Diagnosis Plan: Other dietary vitamin B12 defici ency anemia Discussion: Update levels next month ICD-9 : 281.1 ICD-10 : D51.3 07/11/2019 Visit Diagnosis Plan: Type 1 diabetes mellitus without complications Discussion: Following with Endo--sees them in September Follow Up: 4 months ICD-9 : 250.01 ICD-10 : E10.9 07/11/2019 Visit Diagnosis Plan: Age-related osteop orosis without current pathological fracture Discussion: Forteo ends in September so I lillie mmend Prolia to fwup with ICD-9 : 733.00 ICD-10 : M81.0 07/11/2019 Appointment: Eliz Olivera [facility] [phone] [facility] [facility] 07/11/2019 Visit Diagnosis Plan: Other dietary vitamin [...] E55.9 04/04/2019 Appointment: Eliz Olivera [facility]Ptel[facility] [phone] [facility] [facility] with son FOLLOW UP 04/04/2019 Patient Education: triamcinolone acetonide- [employer] Coupon [id number] [email or web address] Completed 04/04/2019 Visit Diagnosis Plan: Type 1 diabetes mellitus without complications Discussion: Following with endo--most recent HbA1C 6.4 Follow Up: 3 months ICD-9 : 250.01 ICD-10 : E10.9 12/27/2018 Visit Diagnosis Plan: Vitamin D deficiency, unspecifie d Discussion: Check Vit D level ICD-9 : 268.9 ICD-10 : E55.9 12/27/2018 Visit Diagnosis Plan: Other dietary vitamin B12 defici ency anemia Discussion: Check CBC, Vit B12 level ICD-9 : 281.1 ICD-10 : D51.3 12/27/2018 Visit Diagnosis Plan: Age-related osteop orosis without current pathological fracture Discussion: Doing forteo through endo ICD-9 : 733.00 ICD-10 : M81.0 12/27/2018 Appointment: Eliz Olivera WPtel[facility] [phone] [facility] [place] FOLLOW UP 12/27/2018 Visit Diagnosis Plan: Other dietary vitamin B12 defici ency anemia Discussion: Doing weekly B12 injections Had lab done this morning ICD-9 : 281.1 ICD-10 : D51.3 09/18/2018 Visit Diagnosis Plan: Psychophysiologic insomnia Discu ssion: Stable/Improving with doxepin Follow Up: 3 months ICD-9 : 780.52 ICD-10 : F51.04 09/18/2018 Appointment: Eliz Olivera WPtel: [facility] [place] FOLLOW UP 09/18/2018 Patient Education: doxepin- [employer] Coupon [id number] [email or web address] Completed 09/18/2018 Visit Diagnosis Plan: Other dietary vitamin B12 [...] ICD-9 : 309.0 ICD-10 : F43.21 08/21/2018 Visit Diagnosis Plan: Other fatigue Discussion: Anemia is back--has not been taking B12 injections for some time ICD-9 : 780.79 ICD-10 : R53.83 08/21/2018 Appointment: Eliz Olivera WPtel: [phone] [place] [phone] ACUTE ILLNESS 08/21/2018 Patient Education: doxepin- [employer] Coupon [id number] Completed 08/21/2018 Patient Education: cyanocobalamin (vitamin B-12)- [employer] Coupon [id number] Completed 08/21/2018 Appointment: Estelita Rousseau [facility] [employer] [address] NO SHOW 07/11/2018 Appointment: Eliz Olivera WPtel: [phone] [facility] [place] INJECTION 04/07/2018 Visit Diagnosis Plan: Other dietary vitamin B12 defici ency anemia Discussion: Check CBC and B12 level ICD-9 : 281.1 ICD-10 : D51.3 02/08/2018 Visit Diagnosis Plan: DM W/O COMPLICATION TYPE I, UNCO NTROLLED Discussion: Following with endocrinology who has discussed an insulin pump ICD-9 : 250.03 ICD-10 : E10.9 02/08/2018 Visit Diagnosis Plan: Age-related osteop orosis without current pathological fracture Discussion: On forteo Discussed weight b earing exercise ICD-9 : 733.00 ICD-10 : M81.0 02/08/2018 Visit Diagnosis Plan: Vitamin D deficiency, unspecifie d Discussion: Check Vit D level ICD-9 : 268.9 ICD-10 : E55.9 02/08/2018 Visit Diagnosis Plan: Encounter for [facility] adult medical examination without abnormal findings Discussion: Update fasting lab Will get flu shot at hospital next week--will make sure is high dose Recommend Prevnar 13 ICD-9 : V70.9 ICD-10 : Z00.00 02/08/2018 Appointment: Eliz Olivera WPtel: [address] [place], [place] [phone] Annual Well Visit 02/08/2018 Patient Education: Patient Medication Summary Completed 02/08/2018 Appointment: Eliz Olivera WPtel: [phone] [place], [place] [phone] 07/29 canceled~sl CANCELED 08/02/2016 Visit Plan: Left SI joint injection--sheri ansed with alcohol and betadine and injected with 2cc 1% lidocaine with 40mg kenolog, tolerated well with no complications, neosporin and bandage applied Call in 2 days on how doing Zorvolex 18mg po TID Use zanaflex q HS Use tramadol prn 06/24/2015 Appointment: Eliz Olivera WPtel: [address] [place], [place] [phone] 06/23/15 appt confirmed cn ACUTE ILLNESS 06/24 Patient Education: Patient Medication Summary Completed 06/24/2015 Visit Plan: Check CMP, HbA1C, CBC, TSH, free T4, B12 Continue accuchecks q AC and HS with sliding scale insulin 02/11/2015 Appointment: Eliz Olivera WPtel: [address] [place], [place] [phone] FOLLOW UP 02/11/2015 Patient Education: Patient Medication [...] not tolerate 10/23/2014 Appointment: Eliz Olivera WPtel: [address] [place], [place] [phone] 10/22 appt cn FOLLOW UP 10/23/2014 Patient Education: Patient Medication Summary Completed 10/23/2014 Appointment: Eliz Olivera WPtel: [address] [place], [place] [phone] 09/17 confirmed with spouse cn...09/18/14 No Show FOLLOW UP 09/18/2014 Appointment: Eliz Olivera WPtel: [address] [place], [place] [phone] voicemail FOLLOW UP 05/29/2014 Patient Education: Patient Medication Summary Completed 05/29/2014 Care Plan: DXA BONE DENSITY VERT ERIKA ROLDAN C : 46113-7 Ordered 05/29/2014 Visit Plan: Increase apidra to 8u with b reakfast and lunch and 9u with evening meal Using hydrocodone q HS Accuchecks q AC and HS due to fluctuating BS and ongoing adjustement of insulin regimen BS readings in 2weeks to further adjust apidra Fwup 1mo 01/10/2014 Appointment: Eliz Olivera WPtel: [address] [place], [place] [phone] FOLLOW UP 01/10/2014 Patient Education: Patient Medication Summary Completed 01/10/2014 Visit Plan: Increase levemir to 22u Incr ease apidra to 7u sc with meals Continue accuchecks q AC and HS 12/13/2013 Appointment: Eliz Olivera WPtel: [address] [place] [phone] FOLLOW UP 12/13/2013 Patient Education: Patient Medication Summary Completed 12/13/2013 Visit Plan: Continue current meds Weight check in 2weeks Fwup in 1mo 11/08/2013 Appointment: Eliz Olivera WPtel: [address] [place], [place] [phone] 11/07 [facility] Follow Up 11/08/2013 Patient Education: Patient Medication Summary Completed 11/08/2013 Visit Plan: Direct admit to hospital 10/31/2013 Appointment: Eliz Olivera WPtel: [phone] [place] [address] FOLLOW UP 10/31/2013 Patient Education: Patient Medication Summary Completed 10/31/2013 Visit Plan: Check lab and retry PT with traction Check CBC, CMP, TSH, Free T4 Patient admits to not eating routinely Hold metformin Continue accuchecks Suggested Glucerna if not eating a meal 10/22/2013 Appointment: Eliz Olivera WPtel: [address] [place] [address] (don't know what she needs seen for, she hung up after I told her appt time) ACUTE ILLNESS 10/22/2013 Patient Education: Patient Medication Summary Completed 10/22/2013 Visit Plan: Continue miralax BID to TID for daily BMs Proceed with colonoscopy Start PT for thoracics and schedule with pain medicine in case needs injection to thoracic area 09/04/2013 Appointment: Eliz Olivera WPtel: [address] [place] [address] ACUTE ILLNESS 09/04/2013 Patient Education: Patient Medication Summary Completed 09/04/2013 Appointment: Eliz Olivera WPtel: [address] [place] [address] ACUTE ILLNESS 08/20/2013 Patient Education: Patient Medication Summary Completed 08/20/2013 Visit Plan: Continue ibuprofen and baclo fen Check thoracic spine and posterior rib x-ray--if no sign of fracture then okay for manipulation in thoracic spine Add hydrocodone 5/325mg 1 po q4hrs prn pain--#60 08/13/2013 Appointment: Eliz Olivera WPtel: [address] [place] [address] FOLLOW UP 08/13/2013 Patient Education: Patient Medication Summary Completed 08/13/2013 Appointment: Eliz Olivera WPtel: [address] [place], [place] [phone] FOLLOW UP 05/28/2013 Patient Education: Patient Medication Summary Completed 05/28/2013 Visit Plan: Pt wants one more month of o rals before going to insulin Increase Amaryl to 4mg BID Add Byetta 5mcg sc BID Continue accuchecks BID 04/30/2013 Appointment: Eliz Olivera WPtel: [address] [place], [place] [phone] FOLLOW UP 04/30/2013 Patient Education: Patient Medication Summary Completed 04/30/2013 Patient Education: Janumet XR - No CA FL ME Completed 04/30/2013 Visit Plan: Start Janumet XR 50/1000mg B ID Continue actos at 30mg daily Twice daily accuchecks alternating times Call in 1wk with BS readings 04/03/2013 Appointment: Eliz Olivera WPtel: [address] [place] [address] FOLLOW UP 04/03/2013 Patient Education: Patient Medication Summary Completed 04/03/2013 Patient Education: [facility] [place]NOTE 2] - [facility] [employer] - 18+ - Dynamic Portal ID Completed 04/03/2013 Visit Plan: Continue metformin at BID Co ntinue onglyza 5mg q AM Add Actos 30mg daily Continue accuchecks daily Continue lexapro at 5mg daily 09/21/2012 Appointment: Eliz Olivera WPtel: [address] [place] [address] FOLLOW UP 09/21/2012 Patient Education: Patient Medication Summary Completed 09/21/2012 Appointment: Eliz Olivera WPtel: [address] [place] [address] FOLLOW UP 08/10/2012 Patient Education: Patient Medication [...] and fwup 11/02/2011 Appointment: Eliz Olivera WPtel: [address] [place], [place] [phone] FOLLOW UP 11/02/2011 Patient Education: Patient Medication Summary Completed 11/02/2011 Visit Plan: Start Kombiglyze ER 5/1000mg po daily and start accuchecks daily Start monthly B12 HbA1C, B12 level in 3mos Check urine for microalbumin Discussed Lamisil treatment for fingernails 07/20/2011 Appointment: Eliz Olivera WPtel: [address] [place], [place] [phone] FOLLOW UP 07/20/2011 Patient Education: Patient Medication Summary Completed 07/20/2011 Visit Plan: Continue weekly B12 shots an d check CBC in 2wks Start Metformin and cont accuchecks 05/14/2010 Appointment: Eliz Olivera WPtel: [address] [place], [place] [phone] FOLLOW UP 05/14/2010 Patient Education: Patient Medication Summary Completed 05/14/2010 Appointment: Eliz Olivera WPtel: [facility] [place] INJECTION 04/27/2010 Patient Education: Patient Medication Summary Completed 04/27/2010 Referral: Vanessa Wong WPtel: [phone] [place], [place] [phone] [place] Referral Initiated Instructions Comment . Left [...]
--- OUTSIDE RECORDS SUMMARY | 2019-10-05 07:33 | XMS REPORT | CCD ---
Author Author Zahra Olivera D.O. Organization [facility] Address [address] [place] [address] Phone Care Team Providers Care Buyer Assistant Name Role Phone Eliz Olivera D.O. PP Unavailable CCM Unavailable Summary Purpose Interface Exchange Insurance Providers Payer name Policy type / Coverage type Covered green party ID Effective Begin Date Effective End Date WPS MEDICARE PART B [place] Medicare Part B [id number] Unknown Cigna Medicare Part B [id number] Unknown Family History Family History data not found Social History Social History Element Codes Description Effective Dates Tobacco history SNOMED CT: 759783948 Never smoker 01/23/2015 Allergies, Adverse Reactions, Alerts [...] triamcinolone acetonide 0.1 % topical cream RxNorm: 7746065 Application Topical two times a day to arm rash 04/04/2019 04/04/2019 Inactive doxepin 10 mg capsule RxNorm: 0116835 1-2 Capsule(s) PO QHS as n eeded for sleep 09/18/2018 12/26/2018 Inactive cyanocobalamin (vit B-12) 1,000 mcg/mL injection solution Rx Norm: 491420 1 Milliliter(s) Inj WEEKLY 08/21/2018 No Stop Date Active doxepin 10 mg capsule RxNorm: 5249248 1-2 Capsule(s) PO QHS as n eeded for sleep 08/21/2018 09/17/2018 Inactive Vitamin D3 5,000 unit tablet RxNorm: 953748 1 Tablet(s) PO QD 02/1608/20/2018 Inactive Vitamin B12 1000mcg Tablet RxNorm: 1 Tablet(s) SL QD 02/16/2018 Inactive Apidra SoloStar U-100 Insulin 100 unit/mL subcutaneous pen R xNorm: 119298 Unit(s) SQ Sliding Scale 07/15/2017 09/12/2017 Inactive Apidra SoloStar U-100 Insulin 100 unit/mL subcutaneous pen R xNorm: 824165 Unit(s) SQ Sliding Scale 07/15/2017 08/13/2017 Inactive Apidra SoloStar U-100 Insulin 100 unit/mL subcutaneous pen R xNorm: 052795 Unit(s) SQ Sliding Scale 04/29/2017 07/14/2017 Inactive Apidra SoloStar 100 unit/mL subcutaneous insulin pen RxNorm: 165113 Unit(s) SQ Sliding Scale 03/08/2017 04/29/2017 Inactive Apidra SoloStar 100 unit/mL subcutaneous insulin pen RxNorm: 941812 Unit(s) SQ Sliding Scale 03/08/2017 04/06/2017 Inactive Apidra SoloStar 100 unit/mL subcutaneous insulin pen RxNorm: 070985 Unit(s) SQ Sliding Scale 01/20/2017 03/08/2017 Inactive Apidra SoloStar 100 unit/mL subcutaneous insulin pen RxNorm: 527969 Unit(s) SQ Sliding Scale 11/16/2016 01/19/2017 Inactive Apidra SoloStar 100 unit/mL subcutaneous insulin pen RxNorm: 043731 Unit(s) SQ Sliding Scale 08/02/2016 11/15/2016 Inactive Apidra SoloStar 100 unit/mL subcutaneous insulin pen RxNorm: 703555 Unit(s) SQ 8units after breakfast and lunch and 9units at supper 08/02/20162018 Inactive lisinopril 20 mg tablet RxNorm: 214060 1 Tablet(s) PO QD 03/05/2016 1 Inactive Apidra SoloStar 100 unit/mL subcutaneous insulin pen RxNorm: 490390 Unit(s) SQ 8units after breakfast and lunch and 9units at supper 05/12/20152016 Inactive Levemir FlexTouch 100 unit/mL (3 mL) subcutaneous insulin pe n RxNorm: 190469 35 Unit(s) SQ QHS 05/12/2015 02/07/2018 Inactive cyanocobalamin (vit B-12) 1,000 mcg/mL injection solution Rx Norm: 161511 1 Milliliter(s) Inj IM every 2 weeks 02/20/2015 02/07/2018 Inactive Apidra SoloStar 100 unit/mL subcutaneous insulin pen RxNorm: 670791 Unit(s) SQ 8units after breakfast and lunch and 9units at supper 01/10/20152015 Inactive cyanocobalamin (vit B-12) 1,000 mcg/mL injection solution Rx Norm: 667004 1 Milliliter(s) Inj Every month every month 10/23/2014 02/19/2015 Inacti ve Levemir FlexTouch 100 unit/mL (3 mL) subcutaneous insulin pe n RxNorm: 334499 35 Unit(s) SQ QHS 10/23/2014 05/11/2015 Inactive hydrocodone 5 mg-acetaminophen 325 mg tablet RxNorm: 707300 TAKE ONE TABLET BY MOUTH EVERY 4 HOURS NEEDED FOR PAIN 02/19/2014 02/28/2014 Inactive (Response to an electronic controlled substance refill request - RxReferenceNumber: [id number]) hydrocodone 5 mg-acetaminophen 325 mg tablet RxNorm: 093981 TAKE ONE TABLET BY MOUTH EVERY 4 HOURS NEEDED FOR PAIN 01/08/2014 01/16/2014 Inactive (Response to an electronic controlled substance refill request - RxReferenceNumber: [id number]) Reglan 5 mg tablet RxNorm: 048675 1 Tablet(s) PO QID before julio ls and bedtime 12/13/2013 10/22/2014 Inactive Apidra SoloStar 100 unit/mL subcutaneous insulin pen RxNorm: 577879 5 Unit(s) SQ AC 12/05/2013 05/28/2014 Inactive baclofen 10 mg tablet RxNorm: 438357 1 Tablet(s) PO TID PRN Spasm 0 08/13/2013 09/11/2013 Inactive Amaryl 4 mg tablet RxNorm: 082591 1 Tablet(s) PO BID 05/23/201305/27 Inactive AttnRPh: Saving apply/adjudicate RxGRP:S G20 RxBIN:600175 RxPCN:HT ID#:[id number] Actos 30 mg tablet RxNorm: 502081 1 Tablet(s) PO QPM 05/03/201305/27 Inactive AttnRPh: Saving apply/adjudicate RxGRP:S G20 RxBIN:784125 RxPCN:HT ID#:[id number] Actos 30 mg tablet RxNorm: 399347 1 Tablet(s) PO QPM 04/30/201305/02 Inactive AttnRPh: Saving apply/adjudicate RxGRP:S G20 RxBIN:480025 RxPCN:HT ID#:[id number] Janumet XR 50 mg-1,000 mg tablet,extended release RxNorm: 12 50860 1 Tablet(s) PO BID 04/30/2013 08/12/2013 Inactive Amaryl 4 mg tablet RxNorm: 603121 1 Tablet(s) PO BID 04/30/201305/22 Inactive AttnRPh: Saving apply/adjudicate RxGRP:S G20 RxBIN:380502 RxPCN:HT ID#:[id number] Actos 30 mg tablet RxNorm: 160463 1 Tablet(s) PO QPM 04/03/201305/03 Inactive AttnRPh: Saving apply/adjudicate RxGRP:S G20 RxBIN:547028 RxPCN:HT ID#:[id number] Amaryl 4 mg tablet RxNorm: 423596 1 Tablet(s) PO QAM 04/03/201304/29 Inactive AttnRPh: Saving apply/adjudicate RxGRP:S G20 RxBIN:571815 RxPCN:HT ID#:[id number] Onglyza 5 mg tablet RxNorm: 556704 1 Tablet(s) PO QD 08/14/201204/02 Inactive metformin ER 1,000 mg tablet,extended release 24hr RxNorm: 8 26063 1 Tablet(s) PO BID 08/14/2012 04/02/2013 Inactive Onglyza 5 mg tablet RxNorm: 368728 1 Tablet(s) PO QD 08/14/201208/13 Inactive Lexapro 10 mg tablet RxNorm: 261287 1 Tablet(s) PO QHS 08/10/201206/2013 Inactive cyanocobalamin (vitamin B-12) 1,000 mcg/mL Injection RxNorm: 247655 1 Milliliter(s) IM QW 12/22/2011 08/09/2012 Inactive weekly cyanocobalamin (vitamin B-12) 1,000 mcg/mL Injection RxNorm: 229954 1 Milliliter(s) IM QW 07/20/2011 No Stop Date Active weekly metformin ER 500 mg 24 hr Tab RxNorm: 161631 1 Tablet(s) PO QD 10/201008/11/2010 Inactive lisinopril 20 mg tablet RxNorm: 504170 1 Tablet(s) PO QD 05/14/2010 0 07/19/2011 Inactive cyanocobalamin (vitamin B-12) 1,000 mcg/mL Injection RxNorm: 192205 1 Milliliter(s) IM QW weekly 04/28/2010 No Stop Date Active Tresiba FlexTouch U-100 insulin 100 unit/mL (3 mL) sub cutaneous pen RxNorm: 4387111 16 Unit(s) SQ QHS No Start Date Active Forteo 20 mcg/dose (600 mcg/2.4 mL) subcutaneous pen injecto r RxNorm: 7492007 SQ QD No Start Date Active Vitamin D2 50,000 unit capsule RxNorm: 2006913 1 Capsule(s) PO QW N o Start Date Active Vitamin B12 1000mcg Tablet RxNorm: 1 Tablet(s) SL QD No Start Date 02/15/2018 Inactive cyanocobalamin (vitamin B-12) 1,000 mcg/mL Injection RxNorm: 632388 1 Milliliter(s) IM weekly No Start Date 04/27/2010 Inactive Neurontin 100 mg capsule RxNorm: 102946 1 Capsule(s) PO TID No Star t Date 10/22/2014 Inactive Protonix 40 mg tablet,delayed release RxNorm: 244863 1 Tablet(s ) PO QD No Start Date 10/22/2014 Inactive Calcium with Vitamin D 600 mg (1,500 mg)-400 unit tablet RxN orm: 037787 1 Tablet(s) PO QD No Start Date 12/12/2013 Inactive Coreg 3.125 mg tablet RxNorm: 705423 1 Tablet(s) PO QD No Start Date 10/22/2014 Inactive cyanocobalamin (vitamin B-12) 1,000 mcg/mL Injection RxNorm: 108552 1 Milliliter(s) Inj every month No Start Date 10/22/2014 Inactive Apidra SoloStar 100 unit/mL subcutaneous insulin pen RxNorm: 025068 Unit(s) SQ Sliding Scale No Start Date 08/01/2016 Inactive Cymbalta 60 mg capsule,delayed release RxNorm: 392077 1 Capsule (s) PO QHS No Start Date 06/23/2015 Inactive metformin 1,000 mg tablet RxNorm: 128085 1 Tablet(s) PO BID No Star t Date 10/21/2013 Inactive Levemir Flexpen 100 unit/mL (3 mL) solution subcutaneo us insulin pen RxNorm: 758682 45 Unit(s) SQ QD No Start Date 11/07/2013 Inactive Levemir Flexpen 100 unit/mL (3 mL) solution subcutaneo us insulin pen RxNorm: 049906 30 Unit(s) SQ QHS No Start Date 08/12/2013 Inactive Miacalcin 200 unit/actuation nasal spray RxNorm: 322347 1 [place] NASAL QD in one nostril No Start Date 10/22/2014 Inactive Janumet XR 50 mg-1,000 mg tablet,extended release RxNorm: 12 02707 1 Tablet(s) PO BID No Start Date 04/29/2013 Inactive metformin ER 1,000 mg tablet,extended release 24hr RxNorm: 8 97245 1 Tablet(s) PO QD No Start Date 08/09/2012 Inactive Levemir Flexpen 100 unit/mL (3 mL) solution subcutaneo us insulin pen RxNorm: 378026 35 Unit(s) SQ QHS No Start Date 05/28/2014 Inactive baclofen 10 mg tablet RxNorm: 370015 1 Tablet(s) PO TID PRN Spasm N o Start Date 08/12/2013 Inactive Apidra SoloStar 100 unit/mL subcutaneous insulin pen RxNorm: 909131 Unit(s) SQ 8units after breakfast and lunch and 9units at supper No Start Date 2014 Inactive Byetta 10 mcg/0.04 mL per dose subcutaneous pen injector RxN orm: 995059 Microgram(s) SQ BID No Start Date 05/27/2013 Inactive Cymbalta 30 mg capsule,delayed release RxNorm: 067025 1 Capsule (s) PO QHS No Start Date 12/12/2013 Inactive Vitamin D3 5,000 unit tablet RxNorm: 599784 1 Tablet(s) PO QD No art Date 02/15/2018 Inactive hydrocodone 5 mg-acetaminophen 325 mg tablet RxNorm: 186071 1 Tablet(s) PO Q4H as needed for pain No Start Date 01/09/2014 Inactive tizanidine 2 mg tablet RxNorm: 949884 1 Tablet(s) PO Q8 H as needed for muscle spasms No Start Date 06/23/2015 Inactive Levemir FlexTouch 100 unit/mL (3 mL) subcutaneous insulin pe n RxNorm: 096704 22 Unit(s) SQ QHS No Start Date 10/22/2014 Inactive Motrin IB 200 mg tablet RxNorm: 186685 Tablet(s) PO PRN No Start Da te 10/21/2013 Inactive Vitamin D3 1,000 unit tablet RxNorm: 328388 1 Tablet(s) PO QD No art Date 12/12/2013 Inactive Levemir Flexpen 100 unit/mL (3 mL) solution subcutaneo us insulin pen RxNorm: 364090 20 Unit(s) SQ QAM No Start Date 05/28/2014 Inactive Apidra SoloStar 100 unit/mL subcutaneous insulin pen RxNorm: 478081 3 Unit(s) SQ AC No Start Date 12/04/2013 Inactive Levemir Flexpen 100 unit/mL (3 mL) solution subcutaneo us insulin pen RxNorm: 407016 40 Unit(s) SQ QHS No Start Date 10/22/2013 Inactive Kombiglyze XR 5 mg-1,000 mg 24 hr Tab RxNorm: 5850230 1 Tablet(s ) PO QD No Start Date 08/09/2012 Inactive Levemir FlexTouch 100 unit/mL (3 mL) subcutaneous insulin pe n RxNorm: 474937 30 Unit(s) SQ QHS No Start Date 02/07/2018 Inactive tizanidine 2 mg tablet RxNorm: 978141 1 Tablet(s) PO Q8 H as needed for muscle spasm No Start Date 02/07/2018 Inactive Levemir FlexTouch U-100 Insulin 100 unit/mL (3 mL) sub cutaneous pen RxNorm: 966510 22 Unit(s) SQ QHS No Start Date 08/20/2018 Inactive Vitamin D3 5,000 unit tablet RxNorm: 053676 1 Tablet(s) PO QD No St art Date 11/07/2013 Inactive Medication Administered No Medication Administered data Immunizations Vaccine Codes Date Status Influenza CVX: 135 04/07/2018 Complete Pneumococcal CVX: 133 04/07/2018 Complete Results Observation Observation Code Item Item Code Result Date S vice Location GLYCOSYLATED HEMOGLOBIN TEST 13002 A1C HPLC 78822-8 10.4 % 0 08/20/2013 Unknown GFR CALC 9438467 GFR AA >60 ML/MIN 08/20/2013 Unknown GFR CALC 9092966 GFR NON-AA >60 ML/MIN 08/20/2013 Unknown LIPID GROUP 14351 HDL TEST 47 MG/DL 08/20/2013 Unknown LIPID GROUP 46399 TRIG 216 MG/DL 08/20/2013 Unknown LIPID GROUP 82684 TEST LDL 67 MG/DL 08/20/2013 Unknown LIPID GROUP 48996 CHOL 157 MG/DL 08/20/2013 Unknown LIPID GROUP 58653 RCHOL/HDL 3.34 RATIO 08/20/2013 Unknow n THYROID STIMULATING HORMONE 14419 TSH 2.042 uIU/ML 08/20/2013 Unknown COMPREHENSIVE METABOLIC 68656 AST 9 U/L 2013 Unknown COMPREHENSIVE METABOLIC 80820 ALT 14 IU/L 2013 Unknown COMPREHENSIVE METABOLIC 93497 BUN 15 MG/DL 2013 Unknown COMPREHENSIVE METABOLIC 38073 ALBUMIN 4.2 GM/DL 2013 Unknown COMPREHENSIVE METABOLIC 43813 CHLORIDE 99 MMOL/L 2013 Unknown COMPREHENSIVE METABOLIC 50175 BILI TOT 0.6 MG/DL 2013 Unknown COMPREHENSIVE METABOLIC 89833 ALK PHOS 100 U/L 2013 Unknown COMPREHENSIVE METABOLIC 93182 SODIUM 133 MMOL/L 08/20 Unknown COMPREHENSIVE METABOLIC 80184 CREATININE 0.43 MG/DL 08/07 Unknown COMPREHENSIVE METABOLIC 99551 CALCIUM 9.8 MG/DL 2013 Unknown COMPREHENSIVE METABOLIC 99456 POTASSIUM 4.2 MMOL/L 08/20 Unknown COMPREHENSIVE METABOLIC 10846 PROT TOT 6.9 GM/DL 2013 Unknown COMPREHENSIVE METABOLIC 55968 Glucose 394 MG/DL 2013 Unknown COMPREHENSIVE METABOLIC 17373 BICARB 26 MMOL/L 2013 Unknown COMPREHENSIVE METABOLIC 51867 ANION GAP 8 MEQ/L 2013 Unknown FREE T4 34129 FREE T4 1.19 NG/DL 08/20/2013 Unknown VITAMIN D TOTAL (25 HYDROXY) 58163 VIT D TOTL 10 NG/ML 08/20/2013 Unknown VITAMIN B 12 FOLIC ACID 14700|26583 VIT B 12 235 PG/ML 08/07 Unknown VITAMIN B 12 FOLIC ACID 21240|86914 FOLIC ACID >24.0 NG/ML 0 08/20/2013 Unknown COMPLETE BLOOD COUNT 0543729 WBC 6.6 10e9/L 08/21/19 14 Unknown COMPLETE BLOOD COUNT 8093253 RBC 4.80 10e12/L 2013 Unknown COMPLETE BLOOD COUNT 8834977 HGB 15.2 g/dL 4 Unknown COMPLETE BLOOD COUNT 8367973 HCT DET 42.8 % 4 Unknown COMPLETE BLOOD COUNT 1046183 MCV 89.2 fL 4 Unknown COMPLETE BLOOD COUNT 4493559 MCH 31.7 pg 4 Unknown COMPLETE BLOOD COUNT 9993289 MCHC 35.5 g/dL 4 Unknown COMPLETE BLOOD COUNT 3125182 PLT 340 10e9/L 08/21/19 14 Unknown COMPLETE BLOOD COUNT 0903157 MPV 9.6 fL 4 Unknown COMPLETE BLOOD COUNT 2354344 SILVINA % 63.6 % 4 Unknown COMPLETE BLOOD COUNT 9656177 LY % 26.4 % 4 Unknown COMPLETE BLOOD COUNT 9695195 MON % 8.6 % 4 Unknown COMPLETE BLOOD COUNT 5565745 EOS % 1.1 % 4 Unknown COMPLETE BLOOD COUNT 1524414 BASO % 0.3 % 4 Unknown COMPLETE BLOOD COUNT 9850552 RDW 13.4 % 4 Unknown COMPLETE BLOOD COUNT 3241039 ABS SILVINA 4.20 10e9/L 014 Unknown COMPLETE BLOOD COUNT 7046439 ABS LYMPH 1.74 10e9/L 014 Unknown COMPLETE BLOOD COUNT 0587529 ABS MONO 0.57 10e9/L 014 Unknown COMPLETE BLOOD COUNT 0113685 ABS EOS 0.07 10e9/L 014 Unknown COMPLETE BLOOD COUNT 2339955 ABS BASO 0.02 10e9/L 014 Unknown COMPLETE BLOOD COUNT 1306524 RDW-SD 42.6 fL 4 Unknown GFR CALC 2954322 GFR AA >60 ML/MIN 08/10/2012 Unknown GFR CALC 9127586 GFR NON-AA >60 ML/MIN 08/10/2012 Unknown COMPLETE BLOOD COUNT 2435852 WBC 6.5 10e9/L 08/11/19 13 Unknown COMPLETE BLOOD COUNT 7959025 RBC 4.64 10e12/L 2012 Unknown COMPLETE BLOOD COUNT 0526038 HGB 14.4 g/dL 3 Unknown COMPLETE BLOOD COUNT 6793138 HCT DET 40.0 % 3 Unknown COMPLETE BLOOD COUNT 5221087 MCV 86.2 fL 3 Unknown COMPLETE BLOOD COUNT 4509370 MCH 31.0 pg 3 Unknown COMPLETE BLOOD COUNT 3661450 MCHC 36.0 g/dL 3 Unknown COMPLETE BLOOD COUNT 7217605 PLT 294 10e9/L 08/11/19 13 Unknown COMPLETE BLOOD COUNT 7535068 MPV 10.4 fL 3 Unknown COMPLETE BLOOD COUNT 1149989 SILVINA % 60.3 % 3 Unknown COMPLETE BLOOD COUNT 4818937 LY % 30.6 % 3 Unknown COMPLETE BLOOD COUNT 8190321 MON % 7.4 % 3 Unknown COMPLETE BLOOD COUNT 1030652 EOS % 1.4 % 3 Unknown COMPLETE BLOOD COUNT 6356815 BASO % 0.3 % 3 Unknown COMPLETE BLOOD COUNT 4097552 RDW 13.6 % 3 Unknown COMPLETE BLOOD COUNT 7495040 ABS SILVINA 3.92 10e9/L 013 Unknown COMPLETE BLOOD COUNT 4089245 ABS LYMPH 1.99 10e9/L 013 Unknown COMPLETE BLOOD COUNT 0774014 ABS MONO 0.48 10e9/L 013 Unknown COMPLETE BLOOD COUNT 9036637 ABS EOS 0.09 10e9/L 013 Unknown COMPLETE BLOOD COUNT 9576809 ABS BASO 0.02 10e9/L 013 Unknown COMPLETE BLOOD COUNT 5871039 RDW-SD 41.3 fL 3 Unknown VITAMIN B 12 FOLIC ACID 85554|57631 VIT B 12 237 PG/ML 08/2012 Unknown VITAMIN B 12 FOLIC ACID 06507|02006 FOLIC ACID >24.0 NG/ML 0 08/10/2012 Unknown THYROID STIMULATING HORMONE 25641 TSH 2.158 uIU/ML 08/10/2012 Unknown HEMOGLOBIN A1C (GLYCOSYLATED) 2292459 A1C HPLC 27182-0 14.6 % 08/10/2012 Unknown FREE T4 69896 FREE T4 1.02 NG/DL 08/10/2012 Unknown LIPID GROUP 44900 HDL TEST 50 MG/DL 08/10/2012 Unknown LIPID GROUP 28566 TRIG 123 MG/DL 08/10/2012 Unknown LIPID GROUP 35165 TEST LDL 114 MG/DL 08/10/2012 Unknown LIPID GROUP 85839 CHOL 189 MG/DL 08/10/2012 Unknown LIPID GROUP 31833 RCHOL/HDL 3.78 RATIO 08/10/2012 Unknow n COMPREHENSIVE METABOLIC 13906 AST 13 U/L 2012 Unknown COMPREHENSIVE METABOLIC 00218 ALT 17 IU/L 2012 Unknown COMPREHENSIVE METABOLIC 44775 BUN 10 MG/DL 2012 Unknown COMPREHENSIVE METABOLIC 46319 ALBUMIN 4.5 GM/DL 2012 Unknown COMPREHENSIVE METABOLIC 65583 CHLORIDE 102 MMOL/L 08/10 Unknown COMPREHENSIVE METABOLIC 37601 BILI TOT 0.6 MG/DL 2012 Unknown COMPREHENSIVE METABOLIC 65986 ALK PHOS 111 U/L 2012 Unknown COMPREHENSIVE METABOLIC 75039 SODIUM 137 MMOL/L 08/10 Unknown COMPREHENSIVE METABOLIC 03111 CREATININE 0.44 MG/DL 08/2012 Unknown COMPREHENSIVE METABOLIC 62215 CALCIUM 9.2 MG/DL 2012 Unknown COMPREHENSIVE METABOLIC 28432 POTASSIUM 3.7 MMOL/L 08/10 Unknown COMPREHENSIVE METABOLIC 73164 PROT TOT 6.8 GM/DL 2012 Unknown COMPREHENSIVE METABOLIC 34065 Glucose 345 MG/DL 2012 Unknown COMPREHENSIVE METABOLIC 60615 BICARB 27 MMOL/L 2012 Unknown COMPREHENSIVE METABOLIC 59220 ANION GAP 8 MEQ/L 2012 Unknown Procedures Procedure Codes Date FLU VACC PRSV FREE INC ANTIG 65 AND OLDER CPT-4: 45432 04/07/2018 PNEUMOCOCCAL VACC 13 JACOBO IM CPT-4: 29746 04/07/2018 ADMIN INFLUENZA VIRUS VAC CPT-4: G0008 04/07/2018 ADMIN PNEUMOCOCCAL VACCINE CPT-4: G0009 04/07/2018 PPPS, subseq visit CPT-4: G0439 02/08/2018 TRIAMCINOLONE ACET INJ NOS CPT-4: J3301 06/24/2015 DRAIN/INJECT JOINT/BURSA CPT-4: 10191 06/24/2015 PRESCRIP TRANSMIT VIA ERX SY CPT-4: G8553 10/23/2014 ROUTINE VENIPUNCTURE CPT-4: 95797 08/20/2013 ASSAY OF FREE THYROXINE CPT-4: 84372 08/20/2013 ASSAY THYROID STIM HORMONE CPT-4: 85819 08/20/2013 COMPREHEN METABOLIC PANEL CPT-4: 65940 08/20/2013 COMPLETE CBC W/AUTO DIFF WBC CPT-4: 38184 08/20/2013 LIPID PANEL CPT-4: 99008 08/20/2013 A1C HPLC CPT-4: 02704 08/20/2013 VITAMIN B 12 FOLIC ACID CPT-4: 32678|22237 08/20/2013 VITAMIN D TOTAL (25 HYDROXY) CPT-4: 69681 08/20/2013 PRESCRIP TRANSMIT VIA ERX SY CPT-4: G8553 08/13/2013 PRESCRIP TRANSMIT VIA ERX SY CPT-4: G8553 05/28/2013 PRESCRIP TRANSMIT VIA ERX SY CPT-4: G8553 04/30/2013 ASSAY, GLUCOSE, BLOOD QUANT CPT-4: 17847 04/03/2013 PRESCRIP TRANSMIT VIA ERX SY CPT-4: G8553 04/03/2013 ROUTINE VENIPUNCTURE CPT-4: 16012 08/10/2012 ASSAY OF FREE THYROXINE CPT-4: 48932 08/10/2012 ASSAY THYROID STIM HORMONE CPT-4: 34047 08/10/2012 COMPREHEN METABOLIC PANEL CPT-4: 32892 08/10/2012 COMPLETE CBC W/AUTO DIFF WBC CPT-4: 10683 08/10/2012 LIPID PANEL CPT-4: 46624 08/10/2012 A1C GLYCOSYLATED HEMOGLOBIN TEST CPT-4: 55353 013 VITAMIN B 12 FOLIC ACID CPT-4: 72785|96618 08/10/2012 THER/PROPH/DIAG INJ SC/IM CPT-4: 98236 04/27/2010 VITAMIN B12 INJECTION CPT-4: J3420 04/27/2010 [...] 1: 126/76 Code: 8480-6 BMI: 27.3 Code: 62122-2 Heart Rate 1: 84 bpm Height: 4'11" Respiratory Rate: 20 bpm SpO2: 96% Tempera ture: 37.0 (C) / 98.6 (F) Weight: 135 lbs 06/24/2015 Blood Pressure 1: 140/84 Code: 8480-6 BMI: 24.6 Code: 87552-2 Heart Rate 1: 84 bpm Height: 4'11" Respiratory Rate: 20 bpm Temperature: 37 .4 (C) / 99.3 (F) Weight: 122 lbs 02/11/2015 Blood Pressure 1: 132/76 Code: 8480-6 BMI: 23.2 Code: 29060-2 Heart Rate 1: 82 bpm Height: 4'11" Respiratory Rate: 22 bpm Temperature: 35 .7 (C) / 96.3 (F) Weight: 115 lbs 10/23/2014 Blood Pressure 1: 118/80 Code: 8480-6 BMI: 20.8 Code: 98092-1 Heart Rate 1: 92 bpm Height: 4'11" Respiratory Rate: 20 bpm Temperature: 36 .9 (C) / 98.4 (F) Weight: 103 lbs 05/29/2014 Blood Pressure 1: 114/70 Code: 8480-6 BMI: 21.2 Code: 93593-0 Heart Rate 1: 88 bpm Height: 4'11" Respiratory Rate: 20 bpm Temperature: 37 .2 (C) / 99.0 (F) Weight: 105 lbs 01/10/2014 Blood Pressure 1: 102/60 Code: 8480-6 BMI: 20.4 Code: 47338-8 Heart Rate 1: 88 bpm Height: 4'11" Respiratory Rate: 20 bpm Temperature: 36 .9 (C) / 98.4 (F) Weight: 101 lbs 12/13/2013 Blood Pressure 1: 124/76 Code: 8480-6 BMI: 19.4 Code: 09492-1 Heart Rate 1: 104 bpm Height: 4'11" Respiratory Rate: 20 bpm Temperature: 37 .2 (C) / 98.9 (F) Weight: 96 lbs 11/08/2013 Blood Pressure 1: 108/70 Code: 8480-6 BMI: 19.4 Code: 37338-2 Heart Rate 1: 84 bpm Height: 4'11" Respiratory Rate: 20 bpm Temperature: 37 .1 (C) / 98.7 (F) Weight: 96 lbs 10/31/2013 Blood Pressure 1: 128/80 Code: 8480-6 BMI: 18.2 Code: 86665-9 Heart Rate 1: 92 bpm Height: 4'11" Respiratory Rate: 20 bpm Temperature: 36 .3 (C) / 97.4 (F) Weight: 90 lbs 10/22/2013 Blood Pressure 1: 128/86 Code: 8480-6 BMI: 19.2 Code: 81461-3 Heart Rate 1: 104 bpm Height: 4'11" Respiratory Rate: 20 bpm Temperature: 37 .0 (C) / 98.6 (F) Weight: 95 lbs 09/04/2013 Blood Pressure 1: 152/90 Code: 8480-6 Heart Rate 1: 108 bpm Respiratory Rate: 20 bpm Temperature: 37.2 (C) / 98.9 (F) Weight: 105 lbs 08/13/2013 Blood Pressure 1: 156/102 Code: 8480-6 BMI: 22.6 Code: 04425-7 Heart Rate 1: 88 bpm Height: 4'11" Respiratory Rate: 20 bpm Temperature: 37 .1 (C) / 98.7 (F) Weight: 112 lbs 05/28/2013 Blood Pressure 1: 128/70 Code: 8480-6 BMI: 21.0 Code: 38148-8 Heart Rate 1: 104 bpm Height: 4'11" Respiratory Rate: 20 bpm Temperature: 38 .0 (C) / 100.4 (F) Weight: 104 lbs 04/30/2013 Blood Pressure 1: 116/78 Code: 8480-6 BMI: 21.4 Code: 99300-9 Heart Rate 1: 92 bpm Height: 4'11" Respiratory Rate: 20 bpm Temperature: 37 .2 (C) / 98.9 (F) Weight: 106 lbs 04/03/2013 Blood Pressure 1: 132/86 Code: 8480-6 BMI: 21.2 Code: 66540-5 Heart Rate 1: 88 bpm Height: 4'11" Respiratory Rate: 20 bpm Temperature: 37 .2 (C) / 99.0 (F) Weight: 105 lbs 09/21/2012 Blood Pressure 1: 146/74 Code: 8480-6 BMI: 21.8 Code: 49887-0 Heart Rate 1: 80 bpm Height: 4'11" Respiratory Rate: 20 bpm Temperature: 36 .7 (C) / 98.0 (F) Weight: 108 lbs 08/10/2012 Blood Pressure 1: 134/84 Code: 8480-6 BMI: 22.2 Code: 76986-8 Heart Rate 1: 84 bpm Height: 4'11" Respiratory Rate: 20 bpm Temperature: 36 .7 (C) / 98.1 (F) Weight: 110 lbs 11/02/2011 Blood Pressure 1: 134/78 Code: 8480-6 BMI: 24.6 Code: 49590-4 Heart Rate 1: 76 bpm Height: 4'11" Respiratory Rate: 20 bpm Temperature: 36 .9 (C) / 98.4 (F) Weight: 122 lbs 07/20/2011 Blood Pressure 1: 114/82 Code: 8480-6 BMI: 25.2 Code: 60245-3 Heart Rate 1: 92 bpm Height: 4'11" [...] s diabetes mellitus 05/29/2014 follow up 01/10/[address] [place] [address] follow up 12/13/2013 [facility] fwup follow up 11/08/2013 anorexia 10/31/2013 follow up 10/22/2013 constipation 09/04/2013 lab draw 08/20/2013 back pain 08/13/2013 follow up 05/28/[address] [place] [address] follow up 04/30/2013 diabetes mellitus 04/03/2013 follow up 09/21/2012 anxiety 08/10/2012 Going to be retiring in October and is worrying about what will do after [facility] diabetes mellitus 11/02/2011 follow up 07/20/2011 discuss labs follow up 05/14/2010 F/U Labs - Pt ervin alvarenga log of BP readings and blood glucose readings. Encounters Encounter Performer Location Codes Date (74551) OFFICE/OUTPATIENT VISIT EST Diagnosis: Type 1 diabetes mellitus without complications[ICD10: E10.9] Diagnosis: Age-related osteoporosis without current pathological fracture[ICD10: M81.0] Diagnosis: Other dietary vitamin B12 deficiency anemia[ICD10: D51.3] Eliz OLIVERA DO [facility] CPT-4: 12896 07/11/2019 ([id number]) OFFICE/OUTPATIENT VISIT EST Diagnosis: Type 1 diabetes mellitus without complications[ICD10: E10.9] Diagnosis: Other dietary vitamin B12 deficiency anemia[ICD10: D51.3] Diagnosis: Vitamin D deficiency, unspecified[ICD10: E55.9] Diagnosis: Dermatitis[ICD10: L30.9] Eliz [facility] CPT-4: 93147 04/04/2019 ([id number]) OFFICE/OUTPATIENT VISIT EST Diagnosis: Age-related osteoporosis without current pathological fracture[ICD10: M81.0] Diagnosis: Type 1 diabetes mellitus without complications[ICD10: E10.9] Diagnosis: Other dietary vitamin B12 deficiency anemia[ICD10: D51.3] Diagnosis: Vitamin D deficiency, unspecified[ICD10: E55.9] Eliz OLIVERA DO [facility] CPT-4: 35031 12/27/2018 ([id number]) OFFICE/OUTPATIENT VISIT EST Diagnosis: Other dietary vitamin B12 deficiency anemia[ICD10: D51.3] Diagnosis: Psychophysiologic insomnia[ICD10: F51.04] Diagnosis: Other fatigue[ICD10: R53.83] Eliz OLIVERA [facility] CPT-4: 23429 09/18/2018 ([id number]) OFFICE/OUTPATIENT VISIT EST Diagnosis: Adjustment disorder with depressed mood[ICD10: F43.21] Diagnosis: Other fatigue[ICD10: R53.83] Diagnosis: Psychophysiologic insomnia[ICD10: F51.04] Diagnosis: Other dietary vitamin B12 deficiency anemia[ICD10: D51.3] Eliz OLIVERA DO [facility] CPT-4: 23135 08/21/2018 ([id number]) NURSE/OUTPATIENT VISIT EST Diagnosis: PNEUMOCOCCAL VACCINE[ICD10: Z23] Diagnosis: FLU VACCINE[ICD10: Z23] Eliz JOSEPH DO [facility] CPT-4: 78608 04/07/2018 OFFICE/OUTPATIENT VISIT EST Diagnosis: Sacroiliitis, not elsewhere classified[ICD10: M46.1] Diagnosis: Radiculopathy, lumbosacral region[ICD10: M54.17] Eliz OLIVERA [facility] CPT-4: 95549 06/24/2015 ([id number]) OFFICE/OUTPATIENT VISIT EST Diagnosis: DM W/O COMPLICATION TYPE I, UNCONTROLLED[ICD10: E10.9] Diagnosis: Other dietary vitamin B12 deficiency anemia[ICD10: D51.3] [facility] C[facility]: 15433 02/11/2015 ([id number]) OFFICE/OUTPATIENT VISIT EST Diagnosis: DM W/O COMPLICATION TYPE I, UNCONTROLLED[ICD10: E10.9] Diagnosis: B12 DEFIC ANEMIA NEC[ICD9: 281.1] Diagnosis: VITAMIN D DEFICIENCY[ICD9: 268.9] Diagnosis: HX OF PAST NONCOMPLIANCE[ICD9: V15.81] Eliz Waller [facility] [employer] [facility] CPT-4: 83542 10/23/2014 ([id number]) OFFICE/OUTPATIENT VISIT EST Diagnosis: DM W/O COMPLICATION TYPE I, UNCONTROLLED[ICD10: E10.9] Diagnosis: HYPERTENSION[ICD9: 401.9] Diagnosis: Vitamin B12 deficiency anemia[ICD9: 281.1] Diagnosis: Rib fracture[ICD9: 807.00] Eliz KAUR [facility] CPT-4: 75934 05/29/2014 ([id number]) OFFICE/OUTPATIENT VISIT EST Diagnosis: DM W/O COMPLICATION TYPE I, UNCONTROLLED[ICD10: E10.9] Diagnosis: Rib pain[ICD9: 786.50] Diagnosis: Weight loss[ICD9: 783.21] Eliz PARSONS [facility] [employer] [facility] CPT-4: 55113 01/10/2014 ([id number]) OFFICE/OUTPATIENT VISIT EST Diagnosis: DM W/O COMPLICATION TYPE II, UNCONTROLLED[ICD9: 250.02] Diagnosis: CACHEXIA[ICD9: 799.4] Diagnosis: UNSPECIFIED CONSTIPATION[ICD9: 564.00] [facility] [employer] [facility] CPT-4: 92043 12/13/2013 ([id number]) OFFICE/OUTPATIENT VISIT EST Diagnosis: DM W/O COMPLICATION TYPE II, UNCONTROLLED[ICD9: 250.02] Diagnosis: Rib pain[ICD9: 786.50] Diagnosis: Rib fracture[ICD9: 807.00] Diagnosis: CACHEXIA[ICD9: 799.4] Eliz OLIVERA [facility] CPT-4: 97197 11/08/2013 ([id number]) OFFICE/OUTPATIENT VISIT EST Diagnosis: DM W/O COMPLICATION TYPE II, UNCONTROLLED[ICD9: 250.02] Diagnosis: Thoracic back pain[ICD9: 724.1] Diagnosis: Rib pain[ICD9: 786.50] Diagnosis: Weight loss[ICD9: 783.21] Eliz GUTIERREZ [facility] CPT-4: 19795 10/22/2013 ([id number]) OFFICE/OUTPATIENT VISIT EST Diagnosis: UNSPECIFIED CONSTIPATION[ICD9: 564.00] Diagnosis: Thoracic back pain[ICD9: 724.1] Diagnosis: Rib pain[ICD9: 786.50] Eliz Aguilar [employer] [facility] CPT-4: 45507 09/04/2013 ([id number]) OFFICE/OUTPATIENT VISIT EST Diagnosis: DM W/O COMPLICATION TYPE II, UNCONTROLLED[ICD9: 250.02] Diagnosis: B12 DEFIC ANEMIA NEC[ICD9: 281.1] Diagnosis: HYPERTENSION[ICD9: 401.9] Diagnosis: VITAMIN D DEFICIENCY[ICD9: 268.9] Eliz OLIVERA [facility] CPT-4: 47933 08/20/2013 OFFICE/OUTPATIENT VISIT EST Diagnosis: Thoracic back pain[ICD9: 724.1] Diagnosis: SPASM OF MUSCLE[ICD9: 728.85] Diagnosis: Rib pain[ICD9: 786.50] Eliz Aguilar [employer] [facility] CPT-4: 35640 08/13/2013 OFFICE/OUTPATIENT VISIT EST Diagnosis: DM W/O COMPLICATION TYPE II, UNCONTROLLED[ICD9: 250.02] Diagnosis: URI, ACUTE[ICD9: 465.9] Eliz JOSEPH [employer] [facility] CPT-4: 89039 05/28/2013 OFFICE/OUTPATIENT VISIT EST Diagnosis: DM W/O COMPLICATION TYPE II, UNCONTROLLED[ICD9: 250.02] Eliz PARSONSNDER DO [facility] CPT-4: 67104 04/30/2013 ([id number]) OFFICE/OUTPATIENT VISIT EST Diagnosis: DM W/O COMPLICATION TYPE II, UNCONTROLLED[ICD9: 250.02] Eliz PARSONSNDOPAL DO [facility] CPT-4: 34921 04/03/2013 ([id number]) OFFICE/OUTPATIENT VISIT EST Diagnosis: DM W/O COMPLICATION TYPE II, UNCONTROLLED[ICD9: 250.02] Diagnosis: HYPERTENSION[ICD9: 401.9] Eliz PARSONS NDER DO [facility] CPT-4: 76708 09/21/2012 ([id number]) OFFICE/OUTPATIENT VISIT EST Diagnosis: DM W/O COMPLICATION TYPE II, UNCONTROLLED[ICD9: 250.02] Diagnosis: B12 DEFIC ANEMIA NEC[ICD9: 281.1] Diagnosis: HYPERTENSION[ICD9: 401.9] Eliz PARSONS NDER DO [facility] CPT-4: 44771 08/10/2012 ([id number]) OFFICE/OUTPATIENT VISIT EST Diagnosis: DM W/O COMPLICATION TYPE II, UNCONTROLLED[ICD9: 250.02] Diagnosis: SEBACEOUS CYST[ICD9: 706.2] Eliz Tellez RENDER DO [facility] CPT-4: 37389 11/02/2011 ([id number]) OFFICE/OUTPATIENT VISIT EST Diagnosis: DM W/O COMPLICATION TYPE II, UNCONTROLLED[ICD9: 250.02] Diagnosis: B12 DEFIC ANEMIA NEC[ICD9: 281.1] Diagnosis: HYPERTENSION[ICD9: 401.9] Eliz PARSONS NDER DO [facility] CPT-4: 74726 07/20/2011 ([id number]) OFFICE/OUTPATIENT VISIT, EST Eliz PARSONSNDOPAL [facility] CPT-4: 75419 05/14/2010 Plan of Care Planned Activity Notes [...] E55.9 04/04/2019 Appointment: Eliz [facility] [phone] [id number] [facility] FOLLOW UP 04/04/2019 Patient Education: triamcinolone acetonide- [employer] Coupon [id number] [email or web address].samplemd.com/samplemd/resources/getResource/61/[email or web address]-xvaq-[email or web address] Completed 04/04/2019 Visit Diagnosis Plan: Age-related osteop [...] : E10.9 12/27/2018 Appointment: Eliz Olivera WPtel: [address] [place], [place] [phone] FOLLOW UP 12/27/2018 Visit Diagnosis Plan: Other dietary vitamin B12 defici ency anemia Discussion: Doing weekly B12 injections Had lab done this morning ICD-9 : 281.1 ICD-10 : D51.3 09/18/2018 Visit Diagnosis Plan: Psychophysiologic insomnia Discu ssion: Stable/Improving with doxepin Follow Up: 3 months ICD-9 : 780.52 ICD-10 : F51.04 09/18/2018 Appointment: Eliz Olivera WPtel: [address] [place], [place] [address] [place] FOLLOW UP 09/18/2018 Patient Education: doxepin- [employer] Coupon [id number] [email or web address]/Mapbar/resources/getResource/61/[email or web address]-[email or web address]-[email or web address]-cj Completed 09/18/2018 Visit Diagnosis Plan: Other fatigue [...] : F43.21 08/21/2018 Appointment: Eliz Olivera WPtel: [address] [place], [place] [phone] ACUTE ILLNESS 08/21/2018 Patient Education: doxepin- [employer] Coupon [id number] Completed 08/21/2018 Patient Education: cyanocobalamin (vitamin B-12)- [employer] Coupon [id number] Completed 08/21/2018 Appointment: Estelita Rousseau [address] NO SHOW 07/11/2018 Appointment: Eliz Olivera WPtel: [address] [place] [address] [place] INJECTION 04/07/2018 Visit Diagnosis Plan: Other dietary vitamin B12 defici ency anemia Discussion: Check CBC and B12 level ICD-9 : 281.1 ICD-10 : D51.3 02/08/2018 Visit Diagnosis Plan: DM W/O COMPLICATION TYPE I, UNCO NTROLLED Discussion: Following with endocrinology who has discussed an insulin pump ICD-9 : 250.03 ICD-10 : E10.9 02/08/2018 Visit Diagnosis Plan: Encounter for [facility] adult medical examination without abnormal findings [...] : E55.9 02/08/2018 Appointment: Eliz Olivera WPtel: [address] [place] [address] Annual Well Visit 02/08/2018 Patient Education: Patient Medication Summary Completed 02/08/2018 Appointment: Eliz Olivera WPtel: [address] [place] [address] 07/29 canceled~sl CANCELED 08/02/2016 Visit Plan: Left SI joint injection--sheri ansed with alcohol and betadine and injected with 2cc 1% lidocaine with 40mg kenolog, tolerated well with no complications, neosporin and bandage applied Call in 2 days on how doing Zorvolex 18mg po TID Use zanaflex q HS Use tramadol prn 06/24/2015 Appointment: Eliz Oliveratel: [address] [place], [place] [phone] 06/23/15 appt confirmed cn ACUTE ILLNESS 06/24 Patient Education: Patient Medication Summary Completed 06/24/2015 Visit Plan: Check CMP, HbA1C, CBC, TSH, free T4, B12 Continue accuchecks q AC and HS with sliding scale insulin 02/11/2015 Appointment: Eliz Oliveratel: [address] [place] [address] FOLLOW UP 02/11/2015 Patient Education: Patient Medication [...] not tolerate 10/23/2014 Appointment: Eliz Olivera WPtel: [address] [place], [place] [phone] 10/22 appt cn FOLLOW UP 10/23/2014 Patient Education: Patient Medication Summary Completed 10/23/2014 Appointment: Eliz Olivera WPtel: [address] [place], [place] [phone] 09/17 confirmed with spouse cn...09/18/14 No Show FOLLOW UP 09/18/2014 Appointment: Eliz Oliveratel: [address] [place], [place] [phone] voicemail FOLLOW UP 05/29/2014 Patient Education: Patient Medication Summary Completed 05/29/2014 Care Plan: DXA BONE DENSITY VERLenin ROLDAN C : 01126-5 Ordered 05/29/2014 Visit Plan: Increase apidra to 8u with b reakfast and lunch and 9u with evening meal Using hydrocodone q HS Accuchecks q AC and HS due to fluctuating BS and ongoing adjustement of insulin regimen BS readings in 2weeks to further adjust apidra Fwup 1mo 01/10/2014 Appointment: Eliz Olivera WPtel: [address] [place], [place] [phone] FOLLOW UP 01/10/2014 Patient Education: Patient Medication Summary Completed 01/10/2014 Visit Plan: Increase levemir to 22u Incr ease apidra to 7u sc with meals Continue accuchecks q AC and HS 12/13/2013 Appointment: Eliz Olivera WPtel: [address] [place], [place] [phone] FOLLOW UP 12/13/2013 Patient Education: Patient Medication Summary Completed 12/13/2013 Visit Plan: Continue current meds Weight check in 2weeks Fwup in 1mo 11/08/2013 Appointment: Eliz Olivera WPtel: [address] [place] [address] 11/07 Hospital Follow Up 11/08/2013 Patient Education: Patient Medication Summary Completed 11/08/2013 Visit Plan: Direct admit to hospital 10/31/2013 Appointment: Eliz Olivera WPtel: [address] [place], [place] [phone] FOLLOW UP 10/31/2013 Patient Education: Patient Medication Summary Completed 10/31/2013 Visit Plan: Check lab and retry PT with traction Check CBC, CMP, TSH, Free T4 Patient admits to not eating routinely Hold metformin Continue accuchecks Suggested Glucerna if not eating a meal 10/22/2013 Appointment: Eliz Olivera WPtel: [address] [place] [address] (don't know what she needs seen for, she hung up after I told her appt time) ACUTE ILLNESS 10/22/2013 Patient Education: Patient Medication Summary Completed 10/22/2013 Visit Plan: Continue miralax BID to TID for daily BMs Proceed with colonoscopy Start PT for thoracics and schedule with pain medicine in case needs injection to thoracic area 09/04/2013 Appointment: Eliz Olivera WPtel: [address] [place] [address] ACUTE ILLNESS 09/04/2013 Patient Education: Patient Medication Summary Completed 09/04/2013 Appointment: Eliz Olivera WPtel: [address] [place] [address] ACUTE ILLNESS 08/20/2013 Patient Education: Patient Medication Summary Completed 08/20/2013 Visit Plan: Continue ibuprofen and baclo fen Check thoracic spine and posterior rib x-ray--if no sign of fracture then okay for manipulation in thoracic spine Add hydrocodone 5/325mg 1 po q4hrs prn pain--#60 08/13/2013 Appointment: Eliz Olivera WPtel: [address] [place] [address] FOLLOW UP 08/13/2013 Patient Education: Patient Medication Summary Completed 08/13/2013 Appointment: Eliz Olivera WPtel: [address] [place] [address] FOLLOW UP 05/28/2013 Patient Education: Patient Medication Summary Completed 05/28/2013 Visit Plan: Pt wants one more month of o rals before going to insulin Increase Amaryl to 4mg BID Add Byetta 5mcg sc BID Continue accuchecks BID 04/30/2013 Appointment: Eliz Olivera WPtel: [address] [place] [address] FOLLOW UP 04/30/2013 Patient Education: Patient Medication Summary Completed 04/30/2013 Patient Education: Janumet XR - No CA FL [place] Completed 04/30/2013 Visit Plan: Start Janumet XR 50/1000mg B ID Continue actos at 30mg daily Twice daily accuchecks alternating times Call in 1wk with BS readings 04/03/2013 Appointment: Eliz Olivera WPtel: [address] [place], [place] [phone] FOLLOW UP 04/03/2013 Patient Education: Patient Medication Summary Completed 04/03/2013 Patient Education: [facility] - Saving AutoInj - 18+ - Dynamic Portal ID Completed 04/03/2013 Visit Plan: Continue metformin at BID Co ntinue onglyza 5mg q AM Add Actos 30mg daily Continue accuchecks daily Continue lexapro at 5mg daily 09/21/2012 Appointment: Eliz Olivera WPtel: [address] [place], [place] [phone] FOLLOW UP 09/21/2012 Patient Education: Patient Medication Summary Completed 09/21/2012 Appointment: Eliz Olivera WPtel: [address] [place], [place] [phone] FOLLOW UP 08/10/2012 Patient Education: Patient Medication [...] and fwup 11/02/2011 Appointment: Eliz Olivera WPtel: [address] [place], [place] [phone] FOLLOW UP 11/02/2011 Patient Education: Patient Medication Summary Completed 11/02/2011 Visit Plan: Start Kombiglyze ER 5/1000mg po daily and start accuchecks daily Start monthly B12 HbA1C, B12 level in 3mos Check urine for microalbumin Discussed Lamisil treatment for fingernails 07/20/2011 Appointment: Eliz Olivera WPtel: [address] [place], [place] [phone] FOLLOW UP 07/20/2011 Patient Education: Patient Medication Summary Completed 07/20/2011 Visit Plan: Continue weekly B12 shots an d check CBC in 2wks Start Metformin and cont accuchecks 05/14/2010 Appointment: Kayopal Eliz S[facility] [phone] [id number] [place] FOLLOW UP 05/14/2010 Patient Education: Patient Medication Summary Completed 05/14/2010 Appointment: Eliz Olivera [facility]el[facility] [phone] [id number] [place] INJECTION 04/27/2010 Patient Education: Patient Medication Summary Completed 04/27/2010 Referral: Vanessa Wong WPtel: [address] [id number] [place] Referral Initiated Instructions Comment . Left [...]
--- OUTSIDE RECORDS SUMMARY | 2019-10-05 07:33 | XMS REPORT | CCD ---
Author Author Zahra Olivera D.O. Organization ELIZ OLIVERA DO [facility] Address [address] [place] [address] Phone Care Team Providers Care Sampler Tester Name Role Phone Eliz Olivera D.O. PP Unavailable CCM Unavailable Summary Purpose Interface Exchange Insurance Providers Payer name Policy type / Coverage type Covered constitution party ID Effective Begin Date Effective End Date WPS MEDICARE PART B [place] Medicare Part B [id number] Unknown Cigna Medicare Part B [id number] Unknown Family History Family History data not found Social History Social History Element Codes Description Effective Dates Tobacco history SNOMED CT: 654357021 Never smoker 01/23/2015 Allergies, Adverse Reactions, Alerts [...] triamcinolone acetonide 0.1 % topical cream RxNorm: 2193972 Application Topical two times a day to arm rash 04/04/2019 04/04/2019 Inactive doxepin 10 mg capsule RxNorm: 1858860 1-2 Capsule(s) PO QHS as n eeded for sleep 09/18/2018 12/26/2018 Inactive cyanocobalamin (vit B-12) 1,000 mcg/mL injection solution Rx Norm: 632708 1 Milliliter(s) Inj WEEKLY 08/21/2018 No Stop Date Active doxepin 10 mg capsule RxNorm: 5677415 1-2 Capsule(s) PO QHS as n eeded for sleep 08/21/2018 09/17/2018 Inactive Vitamin D3 5,000 unit tablet RxNorm: 650307 1 Tablet(s) PO QD 02/1608/20/2018 Inactive Vitamin B12 1000mcg Tablet RxNorm: 1 Tablet(s) SL QD 02/16/2018 Inactive Apidra SoloStar U-100 Insulin 100 unit/mL subcutaneous pen R xNorm: 377192 Unit(s) SQ Sliding Scale 07/15/2017 09/12/2017 Inactive Apidra SoloStar U-100 Insulin 100 unit/mL subcutaneous pen R xNorm: 368550 Unit(s) SQ Sliding Scale 07/15/2017 08/13/2017 Inactive Apidra SoloStar U-100 Insulin 100 unit/mL subcutaneous pen R xNorm: 639898 Unit(s) SQ Sliding Scale 04/29/2017 07/14/2017 Inactive Apidra SoloStar 100 unit/mL subcutaneous insulin pen RxNorm: 978889 Unit(s) SQ Sliding Scale 03/08/2017 04/29/2017 Inactive Apidra SoloStar 100 unit/mL subcutaneous insulin pen RxNorm: 120048 Unit(s) SQ Sliding Scale 03/08/2017 04/06/2017 Inactive Apidra SoloStar 100 unit/mL subcutaneous insulin pen RxNorm: 296895 Unit(s) SQ Sliding Scale 01/20/2017 03/08/2017 Inactive Apidra SoloStar 100 unit/mL subcutaneous insulin pen RxNorm: 202922 Unit(s) SQ Sliding Scale 11/16/2016 01/19/2017 Inactive Apidra SoloStar 100 unit/mL subcutaneous insulin pen RxNorm: 678360 Unit(s) SQ Sliding Scale 08/02/2016 11/15/2016 Inactive Apidra SoloStar 100 unit/mL subcutaneous insulin pen RxNorm: 910150 Unit(s) SQ 8units after breakfast and lunch and 9units at supper 08/02/20162018 Inactive lisinopril 20 mg tablet RxNorm: 669849 1 Tablet(s) PO QD 03/05/2016 1 Inactive Apidra SoloStar 100 unit/mL subcutaneous insulin pen RxNorm: 337923 Unit(s) SQ 8units after breakfast and lunch and 9units at supper 05/12/20152016 Inactive Levemir FlexTouch 100 unit/mL (3 mL) subcutaneous insulin pe n RxNorm: 356285 35 Unit(s) SQ QHS 05/12/2015 02/07/2018 Inactive cyanocobalamin (vit B-12) 1,000 mcg/mL injection solution Rx Norm: 334924 1 Milliliter(s) Inj IM every 2 weeks 02/20/2015 02/07/2018 Inactive Apidra SoloStar 100 unit/mL subcutaneous insulin pen RxNorm: 988494 Unit(s) SQ 8units after breakfast and lunch and 9units at supper 01/10/20152015 Inactive cyanocobalamin (vit B-12) 1,000 mcg/mL injection solution Rx Norm: 622256 1 Milliliter(s) Inj Every month every month 10/23/2014 02/19/2015 Inacti ve Levemir FlexTouch 100 unit/mL (3 mL) subcutaneous insulin pe n RxNorm: 392934 35 Unit(s) SQ QHS 10/23/2014 05/11/2015 Inactive hydrocodone 5 mg-acetaminophen 325 mg tablet RxNorm: 509863 TAKE ONE TABLET BY MOUTH EVERY 4 HOURS NEEDED FOR PAIN 02/19/2014 02/28/2014 Inactive (Response to an electronic controlled substance refill request - RxReferenceNumber: [id number]) hydrocodone 5 mg-acetaminophen 325 mg tablet RxNorm: 732891 TAKE ONE TABLET BY MOUTH EVERY 4 HOURS NEEDED FOR PAIN 01/08/2014 01/16/2014 Inactive (Response to an electronic controlled substance refill request - RxReferenceNumber: [id number]) Reglan 5 mg tablet RxNorm: 077797 1 Tablet(s) PO QID before julio ls and bedtime 12/13/2013 10/22/2014 Inactive Apidra SoloStar 100 unit/mL subcutaneous insulin pen RxNorm: 622342 5 Unit(s) SQ AC 12/05/2013 05/28/2014 Inactive baclofen 10 mg tablet RxNorm: 847727 1 Tablet(s) PO TID PRN Spasm 0 08/13/2013 09/11/2013 Inactive Amaryl 4 mg tablet RxNorm: 777734 1 Tablet(s) PO BID 05/23/201305/27 Inactive AttnRPh: Saving apply/adjudicate RxGRP:S G20 RxBIN:[id number] RxPCN:HT ID#:[id number] Actos 30 mg tablet RxNorm: 831001 1 Tablet(s) PO QPM 05/03/201305/27 Inactive AttnRPh: Saving apply/adjudicate RxGRP:S G20 RxBIN:[id number] RxPCN:HT ID#:[id number] Actos 30 mg tablet RxNorm: 491425 1 Tablet(s) PO QPM 04/30/201305/02 Inactive AttnRPh: Saving apply/adjudicate RxGRP:S G20 RxBIN:[id number] RxPCN:HT ID#:[id number] Janumet XR 50 mg-1,000 mg tablet,extended release RxNorm: 12 39268 1 Tablet(s) PO BID 04/30/2013 08/12/2013 Inactive Amaryl 4 mg tablet RxNorm: 667516 1 Tablet(s) PO BID 04/30/201305/22 Inactive AttnRPh: Saving apply/adjudicate RxGRP:S G20 RxBIN:[id number] RxPCN:HT ID#:[id number] Actos 30 mg tablet RxNorm: 336036 1 Tablet(s) PO QPM 04/03/201305/03 Inactive AttnRPh: Saving apply/adjudicate RxGRP:S G20 RxBIN:[id number] RxPCN:HT ID#:[id number] Amaryl 4 mg tablet RxNorm: 578912 1 Tablet(s) PO QAM 04/03/201304/29 Inactive AttnRPh: Saving apply/adjudicate RxGRP:S G20 RxBIN:[id number] RxPCN:HT ID#:[id number] Onglyza 5 mg tablet RxNorm: 146868 1 Tablet(s) PO QD 08/14/201204/02 Inactive metformin ER 1,000 mg tablet,extended release 24hr RxNorm: 8 28533 1 Tablet(s) PO BID 08/14/2012 04/02/2013 Inactive Onglyza 5 mg tablet RxNorm: 836374 1 Tablet(s) PO QD 08/14/201208/13 Inactive Lexapro 10 mg tablet RxNorm: 928042 1 Tablet(s) PO QHS 08/10/201206/2013 Inactive cyanocobalamin (vitamin B-12) 1,000 mcg/mL Injection RxNorm: 158712 1 Milliliter(s) IM QW 12/22/2011 08/09/2012 Inactive weekly cyanocobalamin (vitamin B-12) 1,000 mcg/mL Injection RxNorm: 259046 1 Milliliter(s) IM QW 07/20/2011 No Stop Date Active weekly metformin ER 500 mg 24 hr Tab RxNorm: 968879 1 Tablet(s) PO QD 10/201008/11/2010 Inactive lisinopril 20 mg tablet RxNorm: 302259 1 Tablet(s) PO QD 05/14/2010 0 07/19/2011 Inactive cyanocobalamin (vitamin B-12) 1,000 mcg/mL Injection RxNorm: 591740 1 Milliliter(s) IM QW weekly 04/28/2010 No Stop Date Active Tresiba FlexTouch U-100 insulin 100 unit/mL (3 mL) sub cutaneous pen RxNorm: 6251323 16 Unit(s) SQ QHS No Start Date Active Forteo 20 mcg/dose (600 mcg/2.4 mL) subcutaneous pen injecto r RxNorm: 5607404 SQ QD No Start Date Active Vitamin D2 50,000 unit capsule RxNorm: 6661259 1 Capsule(s) PO QW N o Start Date Active Vitamin B12 1000mcg Tablet RxNorm: 1 Tablet(s) SL QD No Start Date 02/15/2018 Inactive cyanocobalamin (vitamin B-12) 1,000 mcg/mL Injection RxNorm: 349863 1 Milliliter(s) IM weekly No Start Date 04/27/2010 Inactive Neurontin 100 mg capsule RxNorm: 792365 1 Capsule(s) PO TID No Star t Date 10/22/2014 Inactive Protonix 40 mg tablet,delayed release RxNorm: 606639 1 Tablet(s ) PO QD No Start Date 10/22/2014 Inactive Calcium with Vitamin D 600 mg (1,500 mg)-400 unit tablet RxN orm: 323282 1 Tablet(s) PO QD No Start Date 12/12/2013 Inactive Coreg 3.125 mg tablet RxNorm: 245465 1 Tablet(s) PO QD No Start Date 10/22/2014 Inactive cyanocobalamin (vitamin B-12) 1,000 mcg/mL Injection RxNorm: 337236 1 Milliliter(s) Inj every month No Start Date 10/22/2014 Inactive Apidra SoloStar 100 unit/mL subcutaneous insulin pen RxNorm: 801925 Unit(s) SQ Sliding Scale No Start Date 08/01/2016 Inactive Cymbalta 60 mg capsule,delayed release RxNorm: 969385 1 Capsule (s) PO QHS No Start Date 06/23/2015 Inactive metformin 1,000 mg tablet RxNorm: 432815 1 Tablet(s) PO BID No Star t Date 10/21/2013 Inactive Levemir Flexpen 100 unit/mL (3 mL) solution subcutaneo us insulin pen RxNorm: 558621 45 Unit(s) SQ QD No Start Date 11/07/2013 Inactive Levemir Flexpen 100 unit/mL (3 mL) solution subcutaneo us insulin pen RxNorm: 453268 30 Unit(s) SQ QHS No Start Date 08/12/2013 Inactive Miacalcin 200 unit/actuation nasal spray RxNorm: 777117 1 Inez NASAL QD in one nostril No Start Date 10/22/2014 Inactive Janumet XR 50 mg-1,000 mg tablet,extended release RxNorm: 12 40030 1 Tablet(s) PO BID No Start Date 04/29/2013 Inactive metformin ER 1,000 mg tablet,extended release 24hr RxNorm: 8 21666 1 Tablet(s) PO QD No Start Date 08/09/2012 Inactive Levemir Flexpen 100 unit/mL (3 mL) solution subcutaneo us insulin pen RxNorm: 557504 35 Unit(s) SQ QHS No Start Date 05/28/2014 Inactive baclofen 10 mg tablet RxNorm: 786430 1 Tablet(s) PO TID PRN Spasm N o Start Date 08/12/2013 Inactive Apidra SoloStar 100 unit/mL subcutaneous insulin pen RxNorm: 204036 Unit(s) SQ 8units after breakfast and lunch and 9units at supper No Start Date 2014 Inactive Byetta 10 mcg/0.04 mL per dose subcutaneous pen injector RxN orm: 127291 Microgram(s) SQ BID No Start Date 05/27/2013 Inactive Cymbalta 30 mg capsule,delayed release RxNorm: 938193 1 Capsule (s) PO QHS No Start Date 12/12/2013 Inactive Vitamin D3 5,000 unit tablet RxNorm: 213725 1 Tablet(s) PO QD No art Date 02/15/2018 Inactive hydrocodone 5 mg-acetaminophen 325 mg tablet RxNorm: 980250 1 Tablet(s) PO Q4H as needed for pain No Start Date 01/09/2014 Inactive tizanidine 2 mg tablet RxNorm: 684825 1 Tablet(s) PO Q8 H as needed for muscle spasms No Start Date 06/23/2015 Inactive Levemir FlexTouch 100 unit/mL (3 mL) subcutaneous insulin pe n RxNorm: 546692 22 Unit(s) SQ QHS No Start Date 10/22/2014 Inactive Motrin IB 200 mg tablet RxNorm: 827142 Tablet(s) PO PRN No Start Da te 10/21/2013 Inactive Vitamin D3 1,000 unit tablet RxNorm: 509854 1 Tablet(s) PO QD No art Date 12/12/2013 Inactive Levemir Flexpen 100 unit/mL (3 mL) solution subcutaneo us insulin pen RxNorm: 411878 20 Unit(s) SQ QAM No Start Date 05/28/2014 Inactive Apidra SoloStar 100 unit/mL subcutaneous insulin pen RxNorm: 548359 3 Unit(s) SQ AC No Start Date 12/04/2013 Inactive Levemir Flexpen 100 unit/mL (3 mL) solution subcutaneo us insulin pen RxNorm: 202472 40 Unit(s) SQ QHS No Start Date 10/22/2013 Inactive Kombiglyze XR 5 mg-1,000 mg 24 hr Tab RxNorm: 4041007 1 Tablet(s ) PO QD No Start Date 08/09/2012 Inactive Levemir FlexTouch 100 unit/mL (3 mL) subcutaneous insulin pe n RxNorm: 325467 30 Unit(s) SQ QHS No Start Date 02/07/2018 Inactive tizanidine 2 mg tablet RxNorm: 342046 1 Tablet(s) PO Q8 H as needed for muscle spasm No Start Date 02/07/2018 Inactive Levemir FlexTouch U-100 Insulin 100 unit/mL (3 mL) sub cutaneous pen RxNorm: 613895 22 Unit(s) SQ QHS No Start Date 08/20/2018 Inactive Vitamin D3 5,000 unit tablet RxNorm: 544772 1 Tablet(s) PO QD No St art Date 11/07/2013 Inactive Medication Administered No Medication Administered data Immunizations Vaccine Codes Date Status Influenza CVX: 135 04/07/2018 Complete Pneumococcal CVX: 133 04/07/2018 Complete Results Observation Observation Code Item Item Code Result Date S vice Location GLYCOSYLATED HEMOGLOBIN TEST 88726 A1C HPLC 54911-7 10.4 % 0 08/20/2013 Unknown GFR CALC 8580389 GFR AA >60 ML/MIN 08/20/2013 Unknown GFR CALC 1338584 GFR NON-AA >60 ML/MIN 08/20/2013 Unknown LIPID GROUP 44182 HDL TEST 47 MG/DL 08/20/2013 Unknown LIPID GROUP 99518 TRIG 216 MG/DL 08/20/2013 Unknown LIPID GROUP 78002 TEST LDL 67 MG/DL 08/20/2013 Unknown LIPID GROUP 83977 CHOL 157 MG/DL 08/20/2013 Unknown LIPID GROUP 32679 RCHOL/HDL 3.34 RATIO 08/20/2013 Unknow n THYROID STIMULATING HORMONE 97629 TSH 2.042 uIU/ML 08/20/2013 Unknown COMPREHENSIVE METABOLIC 61043 AST 9 U/L 2013 Unknown COMPREHENSIVE METABOLIC 00179 ALT 14 IU/L 2013 Unknown COMPREHENSIVE METABOLIC 24815 BUN 15 MG/DL 2013 Unknown COMPREHENSIVE METABOLIC 91182 ALBUMIN 4.2 GM/DL 2013 Unknown COMPREHENSIVE METABOLIC 24028 CHLORIDE 99 MMOL/L 2013 Unknown COMPREHENSIVE METABOLIC 62308 BILI TOT 0.6 MG/DL 2013 Unknown COMPREHENSIVE METABOLIC 28253 ALK PHOS 100 U/L 2013 Unknown COMPREHENSIVE METABOLIC 95143 SODIUM 133 MMOL/L 08/20 Unknown COMPREHENSIVE METABOLIC 46699 CREATININE 0.43 MG/DL 08/07 Unknown COMPREHENSIVE METABOLIC 52916 CALCIUM 9.8 MG/DL 2013 Unknown COMPREHENSIVE METABOLIC 92739 POTASSIUM 4.2 MMOL/L 08/20 Unknown COMPREHENSIVE METABOLIC 88089 PROT TOT 6.9 GM/DL 2013 Unknown COMPREHENSIVE METABOLIC 31824 Glucose 394 MG/DL 2013 Unknown COMPREHENSIVE METABOLIC 80214 BICARB 26 MMOL/L 2013 Unknown COMPREHENSIVE METABOLIC 48115 ANION GAP 8 MEQ/L 2013 Unknown FREE T4 79721 FREE T4 1.19 NG/DL 08/20/2013 Unknown VITAMIN D TOTAL (25 HYDROXY) 59881 VIT D TOTL 10 NG/ML 08/20/2013 Unknown VITAMIN B 12 FOLIC ACID 73991|70096 VIT B 12 235 PG/ML 08/07 Unknown VITAMIN B 12 FOLIC ACID 70274|54871 FOLIC ACID >24.0 NG/ML 0 08/20/2013 Unknown COMPLETE BLOOD COUNT 1133258 WBC 6.6 10e9/L 08/21/19 14 Unknown COMPLETE BLOOD COUNT 9647422 RBC 4.80 10e12/L 2013 Unknown COMPLETE BLOOD COUNT 3287636 HGB 15.2 g/dL 4 Unknown COMPLETE BLOOD COUNT 9245129 HCT DET 42.8 % 4 Unknown COMPLETE BLOOD COUNT 7462216 MCV 89.2 fL 4 Unknown COMPLETE BLOOD COUNT 1869865 MCH 31.7 pg 4 Unknown COMPLETE BLOOD COUNT 1202398 MCHC 35.5 g/dL 4 Unknown COMPLETE BLOOD COUNT 8824315 PLT 340 10e9/L 08/21/19 14 Unknown COMPLETE BLOOD COUNT 0206318 MPV 9.6 fL 4 Unknown COMPLETE BLOOD COUNT 7238403 SILVINA % 63.6 % 4 Unknown COMPLETE BLOOD COUNT 6934263 LY % 26.4 % 4 Unknown COMPLETE BLOOD COUNT 7548517 MON % 8.6 % 4 Unknown COMPLETE BLOOD COUNT 0425138 EOS % 1.1 % 4 Unknown COMPLETE BLOOD COUNT 1258340 BASO % 0.3 % 4 Unknown COMPLETE BLOOD COUNT 5491502 RDW 13.4 % 4 Unknown COMPLETE BLOOD COUNT 0046731 ABS SILVINA 4.20 10e9/L 014 Unknown COMPLETE BLOOD COUNT 4234970 ABS LYMPH 1.74 10e9/L 014 Unknown COMPLETE BLOOD COUNT 5683090 ABS MONO 0.57 10e9/L 014 Unknown COMPLETE BLOOD COUNT 3738864 ABS EOS 0.07 10e9/L 014 Unknown COMPLETE BLOOD COUNT 2334266 ABS BASO 0.02 10e9/L 014 Unknown COMPLETE BLOOD COUNT 1935302 RDW-SD 42.6 fL 4 Unknown GFR CALC 7877179 GFR AA >60 ML/MIN 08/10/2012 Unknown GFR CALC 7748590 GFR NON-AA >60 ML/MIN 08/10/2012 Unknown COMPLETE BLOOD COUNT 4450180 WBC 6.5 10e9/L 08/11/19 13 Unknown COMPLETE BLOOD COUNT 3023721 RBC 4.64 10e12/L 2012 Unknown COMPLETE BLOOD COUNT 4916976 HGB 14.4 g/dL 3 Unknown COMPLETE BLOOD COUNT 8711777 HCT DET 40.0 % 3 Unknown COMPLETE BLOOD COUNT 1240328 MCV 86.2 fL 3 Unknown COMPLETE BLOOD COUNT 4075162 MCH 31.0 pg 3 Unknown COMPLETE BLOOD COUNT 3684830 MCHC 36.0 g/dL 3 Unknown COMPLETE BLOOD COUNT 1904711 PLT 294 10e9/L 08/11/19 13 Unknown COMPLETE BLOOD COUNT 8752731 MPV 10.4 fL 3 Unknown COMPLETE BLOOD COUNT 7909182 SILVINA % 60.3 % 3 Unknown COMPLETE BLOOD COUNT 6447913 LY % 30.6 % 3 Unknown COMPLETE BLOOD COUNT 3469111 MON % 7.4 % 3 Unknown COMPLETE BLOOD COUNT 5490925 EOS % 1.4 % 3 Unknown COMPLETE BLOOD COUNT 2782978 BASO % 0.3 % 3 Unknown COMPLETE BLOOD COUNT 7166322 RDW 13.6 % 3 Unknown COMPLETE BLOOD COUNT 1380584 ABS SILVINA 3.92 10e9/L 013 Unknown COMPLETE BLOOD COUNT 5038737 ABS LYMPH 1.99 10e9/L 013 Unknown COMPLETE BLOOD COUNT 7846662 ABS MONO 0.48 10e9/L 013 Unknown COMPLETE BLOOD COUNT 8997613 ABS EOS 0.09 10e9/L 013 Unknown COMPLETE BLOOD COUNT 8120952 ABS BASO 0.02 10e9/L 013 Unknown COMPLETE BLOOD COUNT 9576650 RDW-SD 41.3 fL 3 Unknown VITAMIN B 12 FOLIC ACID 33715|93377 VIT B 12 237 PG/ML 08/2012 Unknown VITAMIN B 12 FOLIC ACID 81878|14840 FOLIC ACID >24.0 NG/ML 0 08/10/2012 Unknown THYROID STIMULATING HORMONE 32192 TSH 2.158 uIU/ML 08/10/2012 Unknown HEMOGLOBIN A1C (GLYCOSYLATED) 2038425 A1C HPLC 72350-5 14.6 % 08/10/2012 Unknown FREE T4 49476 FREE T4 1.02 NG/DL 08/10/2012 Unknown LIPID GROUP 52799 HDL TEST 50 MG/DL 08/10/2012 Unknown LIPID GROUP 29331 TRIG 123 MG/DL 08/10/2012 Unknown LIPID GROUP 09806 TEST LDL 114 MG/DL 08/10/2012 Unknown LIPID GROUP 02293 CHOL 189 MG/DL 08/10/2012 Unknown LIPID GROUP 65563 RCHOL/HDL 3.78 RATIO 08/10/2012 Unknow n COMPREHENSIVE METABOLIC 16289 AST 13 U/L 2012 Unknown COMPREHENSIVE METABOLIC 62154 ALT 17 IU/L 2012 Unknown COMPREHENSIVE METABOLIC 19809 BUN 10 MG/DL 2012 Unknown COMPREHENSIVE METABOLIC 87350 ALBUMIN 4.5 GM/DL 2012 Unknown COMPREHENSIVE METABOLIC 76153 CHLORIDE 102 MMOL/L 08/10 Unknown COMPREHENSIVE METABOLIC 00717 BILI TOT 0.6 MG/DL 2012 Unknown COMPREHENSIVE METABOLIC 37915 ALK PHOS 111 U/L 2012 Unknown COMPREHENSIVE METABOLIC 15734 SODIUM 137 MMOL/L 08/10 Unknown COMPREHENSIVE METABOLIC 64702 CREATININE 0.44 MG/DL 08/2012 Unknown COMPREHENSIVE METABOLIC 85212 CALCIUM 9.2 MG/DL 2012 Unknown COMPREHENSIVE METABOLIC 21407 POTASSIUM 3.7 MMOL/L 08/10 Unknown COMPREHENSIVE METABOLIC 21054 PROT TOT 6.8 GM/DL 2012 Unknown COMPREHENSIVE METABOLIC 35628 Glucose 345 MG/DL 2012 Unknown COMPREHENSIVE METABOLIC 02632 BICARB 27 MMOL/L 2012 Unknown COMPREHENSIVE METABOLIC 06619 ANION GAP 8 MEQ/L 2012 Unknown Procedures Procedure Codes Date FLU VACC PRSV FREE INC ANTIG 65 AND OLDER CPT-4: 85871 04/07/2018 PNEUMOCOCCAL VACC 13 JACOBO IM CPT-4: 46833 04/07/2018 ADMIN INFLUENZA VIRUS VAC CPT-4: G0008 04/07/2018 ADMIN PNEUMOCOCCAL VACCINE CPT-4: G0009 04/07/2018 PPPS, subseq visit CPT-4: G0439 02/08/2018 TRIAMCINOLONE ACET INJ NOS CPT-4: J3301 06/24/2015 DRAIN/INJECT JOINT/BURSA CPT-4: 16168 06/24/2015 PRESCRIP TRANSMIT VIA ERX SY CPT-4: G8553 10/23/2014 ROUTINE VENIPUNCTURE CPT-4: 76469 08/20/2013 ASSAY OF FREE THYROXINE CPT-4: 47053 08/20/2013 ASSAY THYROID STIM HORMONE CPT-4: 79769 08/20/2013 COMPREHEN METABOLIC PANEL CPT-4: 05540 08/20/2013 COMPLETE CBC W/AUTO DIFF WBC CPT-4: 01853 08/20/2013 LIPID PANEL CPT-4: 36452 08/20/2013 A1C HPLC CPT-4: 03058 08/20/2013 VITAMIN B 12 FOLIC ACID CPT-4: 37421|59200 08/20/2013 VITAMIN D TOTAL (25 HYDROXY) CPT-4: 83860 08/20/2013 PRESCRIP TRANSMIT VIA ERX SY CPT-4: G8553 08/13/2013 PRESCRIP TRANSMIT VIA ERX SY CPT-4: G8553 05/28/2013 PRESCRIP TRANSMIT VIA ERX SY CPT-4: G8553 04/30/2013 ASSAY, GLUCOSE, BLOOD QUANT CPT-4: 96094 04/03/2013 PRESCRIP TRANSMIT VIA ERX SY CPT-4: G8553 04/03/2013 ROUTINE VENIPUNCTURE CPT-4: 50615 08/10/2012 ASSAY OF FREE THYROXINE CPT-4: 63430 08/10/2012 ASSAY THYROID STIM HORMONE CPT-4: 27961 08/10/2012 COMPREHEN METABOLIC PANEL CPT-4: 08741 08/10/2012 COMPLETE CBC W/AUTO DIFF WBC CPT-4: 74396 08/10/2012 LIPID PANEL CPT-4: 73330 08/10/2012 A1C GLYCOSYLATED HEMOGLOBIN TEST CPT-4: 41018 013 VITAMIN B 12 FOLIC ACID CPT-4: 59422|63359 08/10/2012 THER/PROPH/DIAG INJ SC/IM CPT-4: 71617 04/27/2010 VITAMIN B12 INJECTION CPT-4: J3420 04/27/2010 [...] 1: 126/76 Code: 8480-6 BMI: 27.3 Code: 42740-0 Heart Rate 1: 84 bpm Height: 4'11" Respiratory Rate: 20 bpm SpO2: 96% Tempera ture: 37.0 (C) / 98.6 (F) Weight: 135 lbs 06/24/2015 Blood Pressure 1: 140/84 Code: 8480-6 BMI: 24.6 Code: 62567-7 Heart Rate 1: 84 bpm Height: 4'11" Respiratory Rate: 20 bpm Temperature: 37 .4 (C) / 99.3 (F) Weight: 122 lbs 02/11/2015 Blood Pressure 1: 132/76 Code: 8480-6 BMI: 23.2 Code: 85595-7 Heart Rate 1: 82 bpm Height: 4'11" Respiratory Rate: 22 bpm Temperature: 35 .7 (C) / 96.3 (F) Weight: 115 lbs 10/23/2014 Blood Pressure 1: 118/80 Code: 8480-6 BMI: 20.8 Code: 82817-1 Heart Rate 1: 92 bpm Height: 4'11" Respiratory Rate: 20 bpm Temperature: 36 .9 (C) / 98.4 (F) Weight: 103 lbs 05/29/2014 Blood Pressure 1: 114/70 Code: 8480-6 BMI: 21.2 Code: 96278-8 Heart Rate 1: 88 bpm Height: 4'11" Respiratory Rate: 20 bpm Temperature: 37 .2 (C) / 99.0 (F) Weight: 105 lbs 01/10/2014 Blood Pressure 1: 102/60 Code: 8480-6 BMI: 20.4 Code: 46398-5 Heart Rate 1: 88 bpm Height: 4'11" Respiratory Rate: 20 bpm Temperature: 36 .9 (C) / 98.4 (F) Weight: 101 lbs 12/13/2013 Blood Pressure 1: 124/76 Code: 8480-6 BMI: 19.4 Code: 85782-5 Heart Rate 1: 104 bpm Height: 4'11" Respiratory Rate: 20 bpm Temperature: 37 .2 (C) / 98.9 (F) Weight: 96 lbs 11/08/2013 Blood Pressure 1: 108/70 Code: 8480-6 BMI: 19.4 Code: 26220-2 Heart Rate 1: 84 bpm Height: 4'11" Respiratory Rate: 20 bpm Temperature: 37 .1 (C) / 98.7 (F) Weight: 96 lbs 10/31/2013 Blood Pressure 1: 128/80 Code: 8480-6 BMI: 18.2 Code: 48861-1 Heart Rate 1: 92 bpm Height: 4'11" Respiratory Rate: 20 bpm Temperature: 36 .3 (C) / 97.4 (F) Weight: 90 lbs 10/22/2013 Blood Pressure 1: 128/86 Code: 8480-6 BMI: 19.2 Code: 67513-7 Heart Rate 1: 104 bpm Height: 4'11" Respiratory Rate: 20 bpm Temperature: 37 .0 (C) / 98.6 (F) Weight: 95 lbs 09/04/2013 Blood Pressure 1: 152/90 Code: 8480-6 Heart Rate 1: 108 bpm Respiratory Rate: 20 bpm Temperature: 37.2 (C) / 98.9 (F) Weight: 105 lbs 08/13/2013 Blood Pressure 1: 156/102 Code: 8480-6 BMI: 22.6 Code: 30641-4 Heart Rate 1: 88 bpm Height: 4'11" Respiratory Rate: 20 bpm Temperature: 37 .1 (C) / 98.7 (F) Weight: 112 lbs 05/28/2013 Blood Pressure 1: 128/70 Code: 8480-6 BMI: 21.0 Code: 05053-4 Heart Rate 1: 104 bpm Height: 4'11" Respiratory Rate: 20 bpm Temperature: 38 .0 (C) / 100.4 (F) Weight: 104 lbs 04/30/2013 Blood Pressure 1: 116/78 Code: 8480-6 BMI: 21.4 Code: 39469-9 Heart Rate 1: 92 bpm Height: 4'11" Respiratory Rate: 20 bpm Temperature: 37 .2 (C) / 98.9 (F) Weight: 106 lbs 04/03/2013 Blood Pressure 1: 132/86 Code: 8480-6 BMI: 21.2 Code: 28366-6 Heart Rate 1: 88 bpm Height: 4'11" Respiratory Rate: 20 bpm Temperature: 37 .2 (C) / 99.0 (F) Weight: 105 lbs 09/21/2012 Blood Pressure 1: 146/74 Code: 8480-6 BMI: 21.8 Code: 85746-3 Heart Rate 1: 80 bpm Height: 4'11" Respiratory Rate: 20 bpm Temperature: 36 .7 (C) / 98.0 (F) Weight: 108 lbs 08/10/2012 Blood Pressure 1: 134/84 Code: 8480-6 BMI: 22.2 Code: 20638-7 Heart Rate 1: 84 bpm Height: 4'11" Respiratory Rate: 20 bpm Temperature: 36 .7 (C) / 98.1 (F) Weight: 110 lbs 11/02/2011 Blood Pressure 1: 134/78 Code: 8480-6 BMI: 24.6 Code: 63494-9 Heart Rate 1: 76 bpm Height: 4'11" Respiratory Rate: 20 bpm Temperature: 36 .9 (C) / 98.4 (F) Weight: 122 lbs 07/20/2011 Blood Pressure 1: 114/82 Code: 8480-6 BMI: 25.2 Code: 17723-6 Heart Rate 1: 92 bpm Height: 4'11" [...] s diabetes mellitus 05/29/2014 follow up 01/10/[address] [place] [address] follow up 12/13/2013 [facility] fwup follow up 11/08/2013 anorexia 10/31/2013 follow up 10/22/2013 constipation 09/04/2013 lab draw 08/20/2013 back pain 08/13/2013 follow up 05/28/[address] [place] [address] follow up 04/30/2013 diabetes mellitus 04/03/2013 follow up 09/21/2012 anxiety 08/10/2012 Going to be retiring in October and is worrying about what will do after alf diabetes mellitus 11/02/2011 follow up 07/20/2011 discuss labs follow up 05/14/2010 F/U Labs - Pt ervin alvarenga log of BP readings and blood glucose readings. Encounters Encounter Performer Location Codes Date ([id number]) OFFICE/OUTPATIENT VISIT EST Diagnosis: Type 1 diabetes mellitus without complications[ICD10: E10.9] Diagnosis: Age-related osteoporosis without current pathological fracture[ICD10: M81.0] Diagnosis: Other dietary vitamin B12 deficiency anemia[ICD10: D51.3] Eliz OLIVERA DO [facility] CPT-4: 15539 07/11/2019 ([id number]) OFFICE/OUTPATIENT VISIT EST Diagnosis: Type 1 diabetes mellitus without complications[ICD10: E10.9] Diagnosis: Other dietary vitamin B12 deficiency anemia[ICD10: D51.3] Diagnosis: Vitamin D deficiency, unspecified[ICD10: E55.9] Diagnosis: Dermatitis[ICD10: L30.9] Eliz PALMER [facility] CPT-4: 03497 04/04/2019 ([id number]) OFFICE/OUTPATIENT VISIT EST Diagnosis: Age-related osteoporosis without current pathological fracture[ICD10: M81.0] Diagnosis: Type 1 diabetes mellitus without complications[ICD10: E10.9] Diagnosis: Other dietary vitamin B12 deficiency anemia[ICD10: D51.3] Diagnosis: Vitamin D deficiency, unspecified[ICD10: E55.9] Eliz OLIVERA DO [facility] CPT-4: 89588 12/27/2018 ([id number]) OFFICE/OUTPATIENT VISIT EST Diagnosis: Other dietary vitamin B12 deficiency anemia[ICD10: D51.3] Diagnosis: Psychophysiologic insomnia[ICD10: F51.04] Diagnosis: Other fatigue[ICD10: R53.83] Eliz OLIVERA [facility] CPT-4: 24012 09/18/2018 ([id number]) OFFICE/OUTPATIENT VISIT EST Diagnosis: Adjustment disorder with depressed mood[ICD10: F43.21] Diagnosis: Other fatigue[ICD10: R53.83] Diagnosis: Psychophysiologic insomnia[ICD10: F51.04] Diagnosis: Other dietary vitamin B12 deficiency anemia[ICD10: D51.3] Eliz OLIVERA DO [facility] CPT-4: 11398 08/21/2018 ([id number]) NURSE/OUTPATIENT VISIT EST Diagnosis: PNEUMOCOCCAL VACCINE[ICD10: Z23] Diagnosis: FLU VACCINE[ICD10: Z23] Eliz JOSEPH DO [facility] CPT-4: 19357 04/07/2018 OFFICE/OUTPATIENT VISIT EST Diagnosis: Sacroiliitis, not elsewhere classified[ICD10: M46.1] Diagnosis: Radiculopathy, lumbosacral region[ICD10: M54.17] Eliz OLIVERA [facility] CPT-4: 90920 06/24/2015 ([id number]) OFFICE/OUTPATIENT VISIT EST Diagnosis: DM W/O COMPLICATION TYPE I, UNCONTROLLED[ICD10: E10.9] Diagnosis: Other dietary vitamin B12 deficiency anemia[ICD10: D51.3] [facility] 31189 02/11/2015 ([id number]) OFFICE/OUTPATIENT VISIT EST Diagnosis: DM W/O COMPLICATION TYPE I, UNCONTROLLED[ICD10: E10.9] Diagnosis: B12 DEFIC ANEMIA NEC[ICD9: 281.1] Diagnosis: VITAMIN D DEFICIENCY[ICD9: 268.9] Diagnosis: HX OF PAST NONCOMPLIANCE[ICD9: V15.81] Eliz Waller [facility] [employer] [facility] CPT-4: 29614 10/23/2014 ([id number]) OFFICE/OUTPATIENT VISIT EST Diagnosis: DM W/O COMPLICATION TYPE I, UNCONTROLLED[ICD10: E10.9] Diagnosis: HYPERTENSION[ICD9: 401.9] Diagnosis: Vitamin B12 deficiency anemia[ICD9: 281.1] Diagnosis: Rib fracture[ICD9: 807.00] Eliz KAUR [facility] CPT-4: 62561 05/29/2014 ([id number]) OFFICE/OUTPATIENT VISIT EST Diagnosis: DM W/O COMPLICATION TYPE I, UNCONTROLLED[ICD10: E10.9] Diagnosis: Rib pain[ICD9: 786.50] Diagnosis: Weight loss[ICD9: 783.21] Eliz PARSONS [facility] [employer] [facility] CPT-4: 74733 01/10/2014 ([id number]) OFFICE/OUTPATIENT VISIT EST Diagnosis: DM W/O COMPLICATION TYPE II, UNCONTROLLED[ICD9: 250.02] Diagnosis: CACHEXIA[ICD9: 799.4] Diagnosis: UNSPECIFIED CONSTIPATION[ICD9: 564.00] [facility] [employer] [facility] CPT-4: 67871 12/13/2013 ([id number]) OFFICE/OUTPATIENT VISIT EST Diagnosis: DM W/O COMPLICATION TYPE II, UNCONTROLLED[ICD9: 250.02] Diagnosis: Rib pain[ICD9: 786.50] Diagnosis: Rib fracture[ICD9: 807.00] Diagnosis: CACHEXIA[ICD9: 799.4] Eliz OLIVERA [facility] CPT-4: 22764 11/08/2013 ([id number]) OFFICE/OUTPATIENT VISIT EST Diagnosis: DM W/O COMPLICATION TYPE II, UNCONTROLLED[ICD9: 250.02] Diagnosis: Thoracic back pain[ICD9: 724.1] Diagnosis: Rib pain[ICD9: 786.50] Diagnosis: Weight loss[ICD9: 783.21] Eliz GUTIERREZ [facility] CPT-4: 93368 10/22/2013 ([id number]) OFFICE/OUTPATIENT VISIT EST Diagnosis: UNSPECIFIED CONSTIPATION[ICD9: 564.00] Diagnosis: Thoracic back pain[ICD9: 724.1] Diagnosis: Rib pain[ICD9: 786.50] Eliz Aguilar [employer] [facility] CPT-4: 61965 09/04/2013 ([id number]) OFFICE/OUTPATIENT VISIT EST Diagnosis: DM W/O COMPLICATION TYPE II, UNCONTROLLED[ICD9: 250.02] Diagnosis: B12 DEFIC ANEMIA NEC[ICD9: 281.1] Diagnosis: HYPERTENSION[ICD9: 401.9] Diagnosis: VITAMIN D DEFICIENCY[ICD9: 268.9] Eliz OLIVERA [facility] CPT-4: 08963 08/20/2013 OFFICE/OUTPATIENT VISIT EST Diagnosis: Thoracic back pain[ICD9: 724.1] Diagnosis: SPASM OF MUSCLE[ICD9: 728.85] Diagnosis: Rib pain[ICD9: 786.50] Eliz Aguilar [employer] [facility] CPT-4: 88698 08/13/2013 OFFICE/OUTPATIENT VISIT EST Diagnosis: DM W/O COMPLICATION TYPE II, UNCONTROLLED[ICD9: 250.02] Diagnosis: URI, ACUTE[ICD9: 465.9] Eliz JOSEPH [employer] [facility] CPT-4: 67697 05/28/2013 OFFICE/OUTPATIENT VISIT EST Diagnosis: DM W/O COMPLICATION TYPE II, UNCONTROLLED[ICD9: 250.02] Eliz PARSONSNDER DO [facility] CPT-4: 68115 04/30/2013 ([id number]) OFFICE/OUTPATIENT VISIT EST Diagnosis: DM W/O COMPLICATION TYPE II, UNCONTROLLED[ICD9: 250.02] Eliz PARSONSNDOPAL DO [facility] CPT-4: 89685 04/03/2013 ([id number]) OFFICE/OUTPATIENT VISIT EST Diagnosis: DM W/O COMPLICATION TYPE II, UNCONTROLLED[ICD9: 250.02] Diagnosis: HYPERTENSION[ICD9: 401.9] Eliz PARSONS NDER DO [facility] CPT-4: 18167 09/21/2012 ([id number]) OFFICE/OUTPATIENT VISIT EST Diagnosis: DM W/O COMPLICATION TYPE II, UNCONTROLLED[ICD9: 250.02] Diagnosis: B12 DEFIC ANEMIA NEC[ICD9: 281.1] Diagnosis: HYPERTENSION[ICD9: 401.9] Eliz PARSONS NDER DO [facility] CPT-4: 03693 08/10/2012 ([id number]) OFFICE/OUTPATIENT VISIT EST Diagnosis: DM W/O COMPLICATION TYPE II, UNCONTROLLED[ICD9: 250.02] Diagnosis: SEBACEOUS CYST[ICD9: 706.2] Eliz Tellez RENDER DO [facility] CPT-4: 70768 11/02/2011 ([id number]) OFFICE/OUTPATIENT VISIT EST Diagnosis: DM W/O COMPLICATION TYPE II, UNCONTROLLED[ICD9: 250.02] Diagnosis: B12 DEFIC ANEMIA NEC[ICD9: 281.1] Diagnosis: HYPERTENSION[ICD9: 401.9] lEiz PARSONS NDER DO [facility] CPT-4: 87266 07/20/2011 ([id number]) OFFICE/OUTPATIENT VISIT, EST Eliz PARSONSNDOPAL [facility] CPT-4: 51258 05/14/2010 Plan of Care Planned Activity Notes [...] E55.9 04/04/2019 Appointment: Eliz Olivera WPtel[facility] [phone] [facility] [facility] with son FOLLOW UP 04/04/2019 Patient Education: triamcinolone acetonide- [employer] Coupon [id number] [email or web address]/samplemd/resources/[email or web address] Completed 04/04/2019 Visit Diagnosis Plan: Age-related osteop [...] : E10.9 12/27/2018 Appointment: Eliz Olivera WPtel: [address] [place], [place] [phone] FOLLOW UP 12/27/2018 Visit Diagnosis Plan: Other dietary vitamin B12 defici ency anemia Discussion: Doing weekly B12 injections Had lab done this morning ICD-9 : 281.1 ICD-10 : D51.3 09/18/2018 Visit Diagnosis Plan: Psychophysiologic insomnia Discu ssion: Stable/Improving with doxepin Follow Up: 3 months ICD-9 : 780.52 ICD-10 : F51.04 09/18/2018 Appointment: Eliz Olivera WPtel: [address] [place], [place] [phone] [place] FOLLOW UP 09/18/2018 Patient Education: doxepin- [employer] Coupon [id number] [email or web address]/[email or web address] Completed 09/18/2018 Visit Diagnosis Plan: Other fatigue [...] : F43.21 08/21/2018 Appointment: Eliz Olivera WPtel: [address] [place], [place] [phone] ACUTE ILLNESS 08/21/2018 Patient Education: doxepin- [employer] Coupon [id number] Completed 08/21/2018 Patient Education: cyanocobalamin (vitamin B-12)- [employer] Coupon [id number] Completed 08/21/2018 Appointment: Estelita Rousseau [address] NO SHOW 07/11/2018 Appointment: Eliz Olivera WPtel: [address] [place] [address] [place] INJECTION 04/07/2018 Visit Diagnosis Plan: Other dietary vitamin B12 defici ency anemia Discussion: Check CBC and B12 level ICD-9 : 281.1 ICD-10 : D51.3 02/08/2018 Visit Diagnosis Plan: DM W/O COMPLICATION TYPE I, UNCO NTROLLED Discussion: Following with endocrinology who has discussed an insulin pump ICD-9 : 250.03 ICD-10 : E10.9 02/08/2018 Visit Diagnosis Plan: Encounter for [facility] adult medical examination without abnormal [...] : E55.9 02/08/2018 Appointment: Eliz Olivera WPtel: [address] [place] [address] Annual Well Visit 02/08/2018 Patient Education: Patient Medication Summary Completed 02/08/2018 Appointment: Eliz Olivera WPtel: [address] [place] [address] 07/29 canceled~sl CANCELED 08/02/2016 Visit Plan: Left SI joint injection--sheri ansed with alcohol and betadine and injected with 2cc 1% lidocaine with 40mg kenolog, tolerated well with no complications, neosporin and bandage applied Call in 2 days on how doing Zorvolex 18mg po TID Use zanaflex q HS Use tramadol prn 06/24/2015 Appointment: Eliz Oliveratel: [address] [place], [place] [phone] 06/23/15 appt confirmed cn ACUTE ILLNESS 06/24 Patient Education: Patient Medication Summary Completed 06/24/2015 Visit Plan: Check CMP, HbA1C, CBC, TSH, free T4, B12 Continue accuchecks q AC and HS with sliding scale insulin 02/11/2015 Appointment: Eliz Oliveratel: [address] [place] [address] FOLLOW UP 02/11/2015 Patient Education: Patient Medication [...] not tolerate 10/23/2014 Appointment: Eliz Olivera WPtel: [address] [place], [place] [phone] 10/22 appt cn FOLLOW UP 10/23/2014 Patient Education: Patient Medication Summary Completed 10/23/2014 Appointment: Eliz Olivera WPtel: [address] [place], [place] [phone] 09/17 confirmed with spouse cn...09/18/14 No Show FOLLOW UP 09/18/2014 Appointment: Eliz Oliveratel: [address] [place], [place] [phone] voicemail FOLLOW UP 05/29/2014 Patient Education: Patient Medication Summary Completed 05/29/2014 Care Plan: DXA BONE DENSITY VERLenin ROLDAN C : 82161-1 Ordered 05/29/2014 Visit Plan: Increase apidra to 8u with b reakfast and lunch and 9u with evening meal Using hydrocodone q HS Accuchecks q AC and HS due to fluctuating BS and ongoing adjustement of insulin regimen BS readings in 2weeks to further adjust apidra Fwup 1mo 01/10/2014 Appointment: Eliz Olivera WPtel: [address] [place], [place] [phone] FOLLOW UP 01/10/2014 Patient Education: Patient Medication Summary Completed 01/10/2014 Visit Plan: Increase levemir to 22u Incr ease apidra to 7u sc with meals Continue accuchecks q AC and HS 12/13/2013 Appointment: Eliz Olivera WPtel: [address] [place], [place] [phone] FOLLOW UP 12/13/2013 Patient Education: Patient Medication Summary Completed 12/13/2013 Visit Plan: Continue current meds Weight check in 2weeks Fwup in 1mo 11/08/2013 Appointment: Eliz Olivera WPtel: [address] [place] [address] 11/07 Hospital Follow Up 11/08/2013 Patient Education: Patient Medication Summary Completed 11/08/2013 Visit Plan: Direct admit to hospital 10/31/2013 Appointment: Eliz Olivera WPtel: [address] [place], [place] [phone] FOLLOW UP 10/31/2013 Patient Education: Patient Medication Summary Completed 10/31/2013 Visit Plan: Check lab and retry PT with traction Check CBC, CMP, TSH, Free T4 Patient admits to not eating routinely Hold metformin Continue accuchecks Suggested Glucerna if not eating a meal 10/22/2013 Appointment: Eliz Olivera WPtel: [address] [place] [address] (don't know what she needs seen for, she hung up after I told her appt time) ACUTE ILLNESS 10/22/2013 Patient Education: Patient Medication Summary Completed 10/22/2013 Visit Plan: Continue miralax BID to TID for daily BMs Proceed with colonoscopy Start PT for thoracics and schedule with pain medicine in case needs injection to thoracic area 09/04/2013 Appointment: Eliz Olivera WPtel: [address] [place] [address] ACUTE ILLNESS 09/04/2013 Patient Education: Patient Medication Summary Completed 09/04/2013 Appointment: Eliz Olivera WPtel: [address] [place] [address] ACUTE ILLNESS 08/20/2013 Patient Education: Patient Medication Summary Completed 08/20/2013 Visit Plan: Continue ibuprofen and baclo fen Check thoracic spine and posterior rib x-ray--if no sign of fracture then okay for manipulation in thoracic spine Add hydrocodone 5/325mg 1 po q4hrs prn pain--#60 08/13/2013 Appointment: Eliz Olivera WPtel: [address] [place] [address] FOLLOW UP 08/13/2013 Patient Education: Patient Medication Summary Completed 08/13/2013 Appointment: Eliz Olivera WPtel: [address] [place] [address] FOLLOW UP 05/28/2013 Patient Education: Patient Medication Summary Completed 05/28/2013 Visit Plan: Pt wants one more month of o rals before going to insulin Increase Amaryl to 4mg BID Add Byetta 5mcg sc BID Continue accuchecks BID 04/30/2013 Appointment: Eliz Olivera WPtel: [address] [place] [address] FOLLOW UP 04/30/2013 Patient Education: Patient Medication Summary Completed 04/30/2013 Patient Education: Janumet XR - No CA [place] Completed 04/30/2013 Visit Plan: Start Janumet XR 50/1000mg B ID Continue actos at 30mg daily Twice daily accuchecks alternating times Call in 1wk with BS readings 04/03/2013 Appointment: Eliz Olivera WPtel: [address] [place], [place] [phone] FOLLOW UP 04/03/2013 Patient Education: Patient Medication Summary Completed 04/03/2013 Patient Education: [facility] - Saving AutoInj - 18+ - Dynamic Portal ID Completed 04/03/2013 Visit Plan: Continue metformin at BID Co ntinue onglyza 5mg q AM Add Actos 30mg daily Continue accuchecks daily Continue lexapro at 5mg daily 09/21/2012 Appointment: Eliz Olivera WPtel: [address] [place], [place] [phone] FOLLOW UP 09/21/2012 Patient Education: Patient Medication Summary Completed 09/21/2012 Appointment: Eliz Olivera WPtel: [address] [place], [place] [phone] FOLLOW UP 08/10/2012 Patient Education: Patient Medication [...] and fwup 11/02/2011 Appointment: Eliz Olivera WPtel: [address] [place], [place] [phone] FOLLOW UP 11/02/2011 Patient Education: Patient Medication Summary Completed 11/02/2011 Visit Plan: Start Kombiglyze ER 5/1000mg po daily and start accuchecks daily Start monthly B12 HbA1C, B12 level in 3mos Check urine for microalbumin Discussed Lamisil treatment for fingernails 07/20/2011 Appointment: Eliz Olivera WPtel: [address] [place], [place] [phone] FOLLOW UP 07/20/2011 Patient Education: Patient Medication Summary Completed 07/20/2011 Visit Plan: Continue weekly B12 shots an d check CBC in 2wks Start Metformin and cont accuchecks 05/14/2010 Appointment: Kayopal Eliz S. WPtel: [phone] [facility] [place] FOLLOW UP 05/14/2010 Patient Education: Patient Medication Summary Completed 05/14/2010 Appointment: Eliz Olivera WPtel: [phone] [facility] [place] INJECTION 04/27/2010 Patient Education: Patient Medication Summary Completed 04/27/2010 Referral: Vanessa Wong WPtel: [address] [id number] [place] Referral Initiated Instructions Comment . Left [...]
--- OUTSIDE RECORDS SUMMARY | 2019-10-05 07:34 | XMS REPORT | CCD ---
Author Author Zahra Olivera D.O. Organization [facility] Address [address] [place] [address] Phone Care Team Providers Care Insight Leader Name Role Phone Eliz Olivera D.O. PP Unavailable CCM Unavailable Summary Purpose Interface Exchange Insurance Providers Payer name Policy type / Coverage type Covered republican ID Effective Begin Date Effective End Date WPS MEDICARE PART B [place] Medicare Part B [id number] Unknown Cigna Medicare Part B [id number] Unknown Family History Family History data not found Social History Social History Element Codes Description Effective Dates Tobacco history SNOMED CT: 327883175 Never smoker 01/23/2015 Allergies, Adverse Reactions, Alerts [...] triamcinolone acetonide 0.1 % topical cream RxNorm: 4567973 Application Topical two times a day to arm rash 04/04/2019 04/04/2019 Inactive doxepin 10 mg capsule RxNorm: 9719087 1-2 Capsule(s) PO QHS as n eeded for sleep 09/18/2018 12/26/2018 Inactive cyanocobalamin (vit B-12) 1,000 mcg/mL injection solution Rx Norm: 169873 1 Milliliter(s) Inj WEEKLY 08/21/2018 No Stop Date Active doxepin 10 mg capsule RxNorm: 4299574 1-2 Capsule(s) PO QHS as n eeded for sleep 08/21/2018 09/17/2018 Inactive Vitamin D3 5,000 unit tablet RxNorm: 275761 1 Tablet(s) PO QD 02/1608/20/2018 Inactive Vitamin B12 1000mcg Tablet RxNorm: 1 Tablet(s) SL QD 02/16/2018 Inactive Apidra SoloStar U-100 Insulin 100 unit/mL subcutaneous pen R xNorm: 553602 Unit(s) SQ Sliding Scale 07/15/2017 09/12/2017 Inactive Apidra SoloStar U-100 Insulin 100 unit/mL subcutaneous pen R xNorm: 578922 Unit(s) SQ Sliding Scale 07/15/2017 08/13/2017 Inactive Apidra SoloStar U-100 Insulin 100 unit/mL subcutaneous pen R xNorm: 578396 Unit(s) SQ Sliding Scale 04/29/2017 07/14/2017 Inactive Apidra SoloStar 100 unit/mL subcutaneous insulin pen RxNorm: 329267 Unit(s) SQ Sliding Scale 03/08/2017 04/29/2017 Inactive Apidra SoloStar 100 unit/mL subcutaneous insulin pen RxNorm: 194976 Unit(s) SQ Sliding Scale 03/08/2017 04/06/2017 Inactive Apidra SoloStar 100 unit/mL subcutaneous insulin pen RxNorm: 292330 Unit(s) SQ Sliding Scale 01/20/2017 03/08/2017 Inactive Apidra SoloStar 100 unit/mL subcutaneous insulin pen RxNorm: 063412 Unit(s) SQ Sliding Scale 11/16/2016 01/19/2017 Inactive Apidra SoloStar 100 unit/mL subcutaneous insulin pen RxNorm: 249494 Unit(s) SQ Sliding Scale 08/02/2016 11/15/2016 Inactive Apidra SoloStar 100 unit/mL subcutaneous insulin pen RxNorm: 758833 Unit(s) SQ 8units after breakfast and lunch and 9units at supper 08/02/20162018 Inactive lisinopril 20 mg tablet RxNorm: 962751 1 Tablet(s) PO QD 03/05/2016 1 Inactive Apidra SoloStar 100 unit/mL subcutaneous insulin pen RxNorm: 224675 Unit(s) SQ 8units after breakfast and lunch and 9units at supper 05/12/20152016 Inactive Levemir FlexTouch 100 unit/mL (3 mL) subcutaneous insulin pe n RxNorm: 537309 35 Unit(s) SQ QHS 05/12/2015 02/07/2018 Inactive cyanocobalamin (vit B-12) 1,000 mcg/mL injection solution Rx Norm: 929897 1 Milliliter(s) Inj IM every 2 weeks 02/20/2015 02/07/2018 Inactive Apidra SoloStar 100 unit/mL subcutaneous insulin pen RxNorm: 842677 Unit(s) SQ 8units after breakfast and lunch and 9units at supper 01/10/20152015 Inactive cyanocobalamin (vit B-12) 1,000 mcg/mL injection solution Rx Norm: 305991 1 Milliliter(s) Inj Every month every month 10/23/2014 02/19/2015 Inacti ve Levemir FlexTouch 100 unit/mL (3 mL) subcutaneous insulin pe n RxNorm: 390132 35 Unit(s) SQ QHS 10/23/2014 05/11/2015 Inactive hydrocodone 5 mg-acetaminophen 325 mg tablet RxNorm: 249230 TAKE ONE TABLET BY MOUTH EVERY 4 HOURS NEEDED FOR PAIN 02/19/2014 02/28/2014 Inactive (Response to an electronic controlled substance refill request - RxReferenceNumber: [id number]) hydrocodone 5 mg-acetaminophen 325 mg tablet RxNorm: 855833 TAKE ONE TABLET BY MOUTH EVERY 4 HOURS NEEDED FOR PAIN 01/08/2014 01/16/2014 Inactive (Response to an electronic controlled substance refill request - RxReferenceNumber: [id number]) Reglan 5 mg tablet RxNorm: 763971 1 Tablet(s) PO QID before julio ls and bedtime 12/13/2013 10/22/2014 Inactive Apidra SoloStar 100 unit/mL subcutaneous insulin pen RxNorm: 942602 5 Unit(s) SQ AC 12/05/2013 05/28/2014 Inactive baclofen 10 mg tablet RxNorm: 911947 1 Tablet(s) PO TID PRN Spasm 0 08/13/2013 09/11/2013 Inactive Amaryl 4 mg tablet RxNorm: 938739 1 Tablet(s) PO BID 05/23/201305/27 Inactive AttnRPh: Saving apply/adjudicate RxGRP:S G20 RxBIN:[id number] RxPCN:HT ID#:[id number] Actos 30 mg tablet RxNorm: 491906 1 Tablet(s) PO QPM 05/03/201305/27 Inactive AttnRPh: Saving apply/adjudicate RxGRP:S G20 RxBIN:577872 RxPCN:HT ID#:[id number] Actos 30 mg tablet RxNorm: 791197 1 Tablet(s) PO QPM 04/30/201305/02 Inactive AttnRPh: Saving apply/adjudicate RxGRP:S G20 RxBIN:[id number] RxPCN:HT ID#:[id number] Janumet XR 50 mg-1,000 mg tablet,extended release RxNorm: 12 99945 1 Tablet(s) PO BID 04/30/2013 08/12/2013 Inactive Amaryl 4 mg tablet RxNorm: 851241 1 Tablet(s) PO BID 04/30/201305/22 Inactive AttnRPh: Saving apply/adjudicate RxGRP:S G20 RxBIN:[id number] RxPCN:HT ID#:[id number] Actos 30 mg tablet RxNorm: 625006 1 Tablet(s) PO QPM 04/03/201305/03 Inactive AttnRPh: Saving apply/adjudicate RxGRP:S G20 RxBIN:[id number] RxPCN:HT ID#:[id number] Amaryl 4 mg tablet RxNorm: 711704 1 Tablet(s) PO QAM 04/03/201304/29 Inactive AttnRPh: Saving apply/adjudicate RxGRP:S G20 RxBIN:869639 RxPCN:HT ID#:[id number] Onglyza 5 mg tablet RxNorm: 675412 1 Tablet(s) PO QD 08/14/201204/02 Inactive metformin ER 1,000 mg tablet,extended release 24hr RxNorm: 8 18275 1 Tablet(s) PO BID 08/14/2012 04/02/2013 Inactive Onglyza 5 mg tablet RxNorm: 004111 1 Tablet(s) PO QD 08/14/201208/13 Inactive Lexapro 10 mg tablet RxNorm: 110364 1 Tablet(s) PO QHS 08/10/201206/2013 Inactive cyanocobalamin (vitamin B-12) 1,000 mcg/mL Injection RxNorm: 106193 1 Milliliter(s) IM QW 12/22/2011 08/09/2012 Inactive weekly cyanocobalamin (vitamin B-12) 1,000 mcg/mL Injection RxNorm: 485101 1 Milliliter(s) IM QW 07/20/2011 No Stop Date Active weekly metformin ER 500 mg 24 hr Tab RxNorm: 630814 1 Tablet(s) PO QD 10/201008/11/2010 Inactive lisinopril 20 mg tablet RxNorm: 464558 1 Tablet(s) PO QD 05/14/2010 0 07/19/2011 Inactive cyanocobalamin (vitamin B-12) 1,000 mcg/mL Injection RxNorm: 887586 1 Milliliter(s) IM QW weekly 04/28/2010 No Stop Date Active Tresiba FlexTouch U-100 insulin 100 unit/mL (3 mL) sub cutaneous pen RxNorm: 7560026 16 Unit(s) SQ QHS No Start Date Active Forteo 20 mcg/dose (600 mcg/2.4 mL) subcutaneous pen injecto r RxNorm: 8485958 SQ QD No Start Date Active Vitamin D2 50,000 unit capsule RxNorm: 7657200 1 Capsule(s) PO QW N o Start Date Active Vitamin B12 1000mcg Tablet RxNorm: 1 Tablet(s) SL QD No Start Date 02/15/2018 Inactive cyanocobalamin (vitamin B-12) 1,000 mcg/mL Injection RxNorm: 480862 1 Milliliter(s) IM weekly No Start Date 04/27/2010 Inactive Neurontin 100 mg capsule RxNorm: 224525 1 Capsule(s) PO TID No Star t Date 10/22/2014 Inactive Protonix 40 mg tablet,delayed release RxNorm: 864636 1 Tablet(s ) PO QD No Start Date 10/22/2014 Inactive Calcium with Vitamin D 600 mg (1,500 mg)-400 unit tablet RxN orm: 599100 1 Tablet(s) PO QD No Start Date 12/12/2013 Inactive Coreg 3.125 mg tablet RxNorm: 271728 1 Tablet(s) PO QD No Start Date 10/22/2014 Inactive cyanocobalamin (vitamin B-12) 1,000 mcg/mL Injection RxNorm: 661235 1 Milliliter(s) Inj every month No Start Date 10/22/2014 Inactive Apidra SoloStar 100 unit/mL subcutaneous insulin pen RxNorm: 427378 Unit(s) SQ Sliding Scale No Start Date 08/01/2016 Inactive Cymbalta 60 mg capsule,delayed release RxNorm: 587170 1 Capsule (s) PO QHS No Start Date 06/23/2015 Inactive metformin 1,000 mg tablet RxNorm: 364396 1 Tablet(s) PO BID No Star t Date 10/21/2013 Inactive Levemir Flexpen 100 unit/mL (3 mL) solution subcutaneo us insulin pen RxNorm: 605915 45 Unit(s) SQ QD No Start Date 11/07/2013 Inactive Levemir Flexpen 100 unit/mL (3 mL) solution subcutaneo us insulin pen RxNorm: 328787 30 Unit(s) SQ QHS No Start Date 08/12/2013 Inactive Miacalcin 200 unit/actuation nasal spray RxNorm: 755948 1 [place] NASAL QD in one nostril No Start Date 10/22/2014 Inactive Janumet XR 50 mg-1,000 mg tablet,extended release RxNorm: 12 41019 1 Tablet(s) PO BID No Start Date 04/29/2013 Inactive metformin ER 1,000 mg tablet,extended release 24hr RxNorm: 8 07438 1 Tablet(s) PO QD No Start Date 08/09/2012 Inactive Levemir Flexpen 100 unit/mL (3 mL) solution subcutaneo us insulin pen RxNorm: 778824 35 Unit(s) SQ QHS No Start Date 05/28/2014 Inactive baclofen 10 mg tablet RxNorm: 621597 1 Tablet(s) PO TID PRN Spasm N o Start Date 08/12/2013 Inactive Apidra SoloStar 100 unit/mL subcutaneous insulin pen RxNorm: 402078 Unit(s) SQ 8units after breakfast and lunch and 9units at supper No Start Date 2014 Inactive Byetta 10 mcg/0.04 mL per dose subcutaneous pen injector RxN orm: 158832 Microgram(s) SQ BID No Start Date 05/27/2013 Inactive Cymbalta 30 mg capsule,delayed release RxNorm: 381813 1 Capsule (s) PO QHS No Start Date 12/12/2013 Inactive Vitamin D3 5,000 unit tablet RxNorm: 549415 1 Tablet(s) PO QD No art Date 02/15/2018 Inactive hydrocodone 5 mg-acetaminophen 325 mg tablet RxNorm: 360041 1 Tablet(s) PO Q4H as needed for pain No Start Date 01/09/2014 Inactive tizanidine 2 mg tablet RxNorm: 486760 1 Tablet(s) PO Q8 H as needed for muscle spasms No Start Date 06/23/2015 Inactive Levemir FlexTouch 100 unit/mL (3 mL) subcutaneous insulin pe n RxNorm: 172019 22 Unit(s) SQ QHS No Start Date 10/22/2014 Inactive Motrin IB 200 mg tablet RxNorm: 238140 Tablet(s) PO PRN No Start Da te 10/21/2013 Inactive Vitamin D3 1,000 unit tablet RxNorm: 260024 1 Tablet(s) PO QD No art Date 12/12/2013 Inactive Levemir Flexpen 100 unit/mL (3 mL) solution subcutaneo us insulin pen RxNorm: 181192 20 Unit(s) SQ QAM No Start Date 05/28/2014 Inactive Apidra SoloStar 100 unit/mL subcutaneous insulin pen RxNorm: 770964 3 Unit(s) SQ AC No Start Date 12/04/2013 Inactive Levemir Flexpen 100 unit/mL (3 mL) solution subcutaneo us insulin pen RxNorm: 154603 40 Unit(s) SQ QHS No Start Date 10/22/2013 Inactive Kombiglyze XR 5 mg-1,000 mg 24 hr Tab RxNorm: 2111907 1 Tablet(s ) PO QD No Start Date 08/09/2012 Inactive Levemir FlexTouch 100 unit/mL (3 mL) subcutaneous insulin pe n RxNorm: 624111 30 Unit(s) SQ QHS No Start Date 02/07/2018 Inactive tizanidine 2 mg tablet RxNorm: 469560 1 Tablet(s) PO Q8 H as needed for muscle spasm No Start Date 02/07/2018 Inactive Levemir FlexTouch U-100 Insulin 100 unit/mL (3 mL) sub cutaneous pen RxNorm: 289070 22 Unit(s) SQ QHS No Start Date 08/20/2018 Inactive Vitamin D3 5,000 unit tablet RxNorm: 694898 1 Tablet(s) PO QD No St art Date 11/07/2013 Inactive Medication Administered No Medication Administered data Immunizations Vaccine Codes Date Status Influenza CVX: 135 04/07/2018 Complete Pneumococcal CVX: 133 04/07/2018 Complete Results Observation Observation Code Item Item Code Result Date S vice Location GLYCOSYLATED HEMOGLOBIN TEST 44819 A1C HPLC 92609-6 10.4 % 0 08/20/2013 Unknown GFR CALC 7017415 GFR AA >60 ML/MIN 08/20/2013 Unknown GFR CALC 7237843 GFR NON-AA >60 ML/MIN 08/20/2013 Unknown LIPID GROUP 69782 HDL TEST 47 MG/DL 08/20/2013 Unknown LIPID GROUP 26393 TRIG 216 MG/DL 08/20/2013 Unknown LIPID GROUP 69307 TEST LDL 67 MG/DL 08/20/2013 Unknown LIPID GROUP 64649 CHOL 157 MG/DL 08/20/2013 Unknown LIPID GROUP 56418 RCHOL/HDL 3.34 RATIO 08/20/2013 Unknow n THYROID STIMULATING HORMONE 92708 TSH 2.042 uIU/ML 08/20/2013 Unknown COMPREHENSIVE METABOLIC 83499 AST 9 U/L 2013 Unknown COMPREHENSIVE METABOLIC 78300 ALT 14 IU/L 2013 Unknown COMPREHENSIVE METABOLIC 47257 BUN 15 MG/DL 2013 Unknown COMPREHENSIVE METABOLIC 09338 ALBUMIN 4.2 GM/DL 2013 Unknown COMPREHENSIVE METABOLIC 99721 CHLORIDE 99 MMOL/L 2013 Unknown COMPREHENSIVE METABOLIC 86798 BILI TOT 0.6 MG/DL 2013 Unknown COMPREHENSIVE METABOLIC 10948 ALK PHOS 100 U/L 2013 Unknown COMPREHENSIVE METABOLIC 49531 SODIUM 133 MMOL/L 08/20 Unknown COMPREHENSIVE METABOLIC 59235 CREATININE 0.43 MG/DL 08/07 Unknown COMPREHENSIVE METABOLIC 26656 CALCIUM 9.8 MG/DL 2013 Unknown COMPREHENSIVE METABOLIC 24961 POTASSIUM 4.2 MMOL/L 08/20 Unknown COMPREHENSIVE METABOLIC 47181 PROT TOT 6.9 GM/DL 2013 Unknown COMPREHENSIVE METABOLIC 88399 Glucose 394 MG/DL 2013 Unknown COMPREHENSIVE METABOLIC 63334 BICARB 26 MMOL/L 2013 Unknown COMPREHENSIVE METABOLIC 44164 ANION GAP 8 MEQ/L 2013 Unknown FREE T4 42664 FREE T4 1.19 NG/DL 08/20/2013 Unknown VITAMIN D TOTAL (25 HYDROXY) 27605 VIT D TOTL 10 NG/ML 08/20/2013 Unknown VITAMIN B 12 FOLIC ACID 06941|80953 VIT B 12 235 PG/ML 08/07 Unknown VITAMIN B 12 FOLIC ACID 25722|34232 FOLIC ACID >24.0 NG/ML 0 08/20/2013 Unknown COMPLETE BLOOD COUNT 6393933 WBC 6.6 10e9/L 08/21/19 14 Unknown COMPLETE BLOOD COUNT 1189211 RBC 4.80 10e12/L 2013 Unknown COMPLETE BLOOD COUNT 1436571 HGB 15.2 g/dL 4 Unknown COMPLETE BLOOD COUNT 7765933 HCT DET 42.8 % 4 Unknown COMPLETE BLOOD COUNT 7631367 MCV 89.2 fL 4 Unknown COMPLETE BLOOD COUNT 8413943 MCH 31.7 pg 4 Unknown COMPLETE BLOOD COUNT 8399592 MCHC 35.5 g/dL 4 Unknown COMPLETE BLOOD COUNT 6457421 PLT 340 10e9/L 08/21/19 14 Unknown COMPLETE BLOOD COUNT 2850274 MPV 9.6 fL 4 Unknown COMPLETE BLOOD COUNT 8284771 SILVINA % 63.6 % 4 Unknown COMPLETE BLOOD COUNT 3189244 LY % 26.4 % 4 Unknown COMPLETE BLOOD COUNT 7881331 MON % 8.6 % 4 Unknown COMPLETE BLOOD COUNT 4558978 EOS % 1.1 % 4 Unknown COMPLETE BLOOD COUNT 3869315 BASO % 0.3 % 4 Unknown COMPLETE BLOOD COUNT 4377073 RDW 13.4 % 4 Unknown COMPLETE BLOOD COUNT 3290582 ABS SILVINA 4.20 10e9/L 014 Unknown COMPLETE BLOOD COUNT 9825743 ABS LYMPH 1.74 10e9/L 014 Unknown COMPLETE BLOOD COUNT 3574126 ABS MONO 0.57 10e9/L 014 Unknown COMPLETE BLOOD COUNT [id number] ABS EOS 0.07 10e9/L 014 Unknown COMPLETE BLOOD COUNT 5631618 ABS BASO 0.02 10e9/L 014 Unknown COMPLETE BLOOD COUNT 0226533 RDW-SD 42.6 fL 4 Unknown GFR CALC 3584919 GFR AA >60 ML/MIN 08/10/2012 Unknown GFR CALC 0882211 GFR NON-AA >60 ML/MIN 08/10/2012 Unknown COMPLETE BLOOD COUNT 0778738 WBC 6.5 10e9/L 08/11/19 13 Unknown COMPLETE BLOOD COUNT 0535663 RBC 4.64 10e12/L 2012 Unknown COMPLETE BLOOD COUNT 1956022 HGB 14.4 g/dL 3 Unknown COMPLETE BLOOD COUNT 0658619 HCT DET 40.0 % 3 Unknown COMPLETE BLOOD COUNT 2708187 MCV 86.2 fL 3 Unknown COMPLETE BLOOD COUNT 0430356 MCH 31.0 pg 3 Unknown COMPLETE BLOOD COUNT 7776733 MCHC 36.0 g/dL 3 Unknown COMPLETE BLOOD COUNT 6626900 PLT 294 10e9/L 08/11/19 13 Unknown COMPLETE BLOOD COUNT 4764654 MPV 10.4 fL 3 Unknown COMPLETE BLOOD COUNT 7792819 SILVINA % 60.3 % 3 Unknown COMPLETE BLOOD COUNT 7808451 LY % 30.6 % 3 Unknown COMPLETE BLOOD COUNT 8624617 MON % 7.4 % 3 Unknown COMPLETE BLOOD COUNT 7204346 EOS % 1.4 % 3 Unknown COMPLETE BLOOD COUNT 8619940 BASO % 0.3 % 3 Unknown COMPLETE BLOOD COUNT 1337597 RDW 13.6 % 3 Unknown COMPLETE BLOOD COUNT 0687402 ABS SILVINA 3.92 10e9/L 013 Unknown COMPLETE BLOOD COUNT 9635868 ABS LYMPH 1.99 10e9/L 013 Unknown COMPLETE BLOOD COUNT 8807642 ABS MONO 0.48 10e9/L 013 Unknown COMPLETE BLOOD COUNT 7312669 ABS EOS 0.09 10e9/L 013 Unknown COMPLETE BLOOD COUNT 9291096 ABS BASO 0.02 10e9/L 013 Unknown COMPLETE BLOOD COUNT 5787337 RDW-SD 41.3 fL 3 Unknown VITAMIN B 12 FOLIC ACID 96925|09054 VIT B 12 237 PG/ML 08/2012 Unknown VITAMIN B 12 FOLIC ACID 50858|78792 FOLIC ACID >24.0 NG/ML 0 08/10/2012 Unknown THYROID STIMULATING HORMONE 53637 TSH 2.158 uIU/ML 08/10/2012 Unknown HEMOGLOBIN A1C (GLYCOSYLATED) 7267678 A1C HPLC 42547-8 14.6 % 08/10/2012 Unknown FREE T4 68865 FREE T4 1.02 NG/DL 08/10/2012 Unknown LIPID GROUP 22470 HDL TEST 50 MG/DL 08/10/2012 Unknown LIPID GROUP 25101 TRIG 123 MG/DL 08/10/2012 Unknown LIPID GROUP 64948 TEST LDL 114 MG/DL 08/10/2012 Unknown LIPID GROUP 52073 CHOL 189 MG/DL 08/10/2012 Unknown LIPID GROUP 24865 RCHOL/HDL 3.78 RATIO 08/10/2012 Unknow n COMPREHENSIVE METABOLIC 69648 AST 13 U/L 2012 Unknown COMPREHENSIVE METABOLIC 87720 ALT 17 IU/L 2012 Unknown COMPREHENSIVE METABOLIC 47248 BUN 10 MG/DL 2012 Unknown COMPREHENSIVE METABOLIC 29948 ALBUMIN 4.5 GM/DL 2012 Unknown COMPREHENSIVE METABOLIC 53895 CHLORIDE 102 MMOL/L 08/10 Unknown COMPREHENSIVE METABOLIC 05624 BILI TOT 0.6 MG/DL 2012 Unknown COMPREHENSIVE METABOLIC 17855 ALK PHOS 111 U/L 2012 Unknown COMPREHENSIVE METABOLIC 73654 SODIUM 137 MMOL/L 08/10 Unknown COMPREHENSIVE METABOLIC 17404 CREATININE 0.44 MG/DL 08/2012 Unknown COMPREHENSIVE METABOLIC 69561 CALCIUM 9.2 MG/DL 2012 Unknown COMPREHENSIVE METABOLIC 61225 POTASSIUM 3.7 MMOL/L 08/10 Unknown COMPREHENSIVE METABOLIC 47439 PROT TOT 6.8 GM/DL 2012 Unknown COMPREHENSIVE METABOLIC 82355 Glucose 345 MG/DL 2012 Unknown COMPREHENSIVE METABOLIC 86391 BICARB 27 MMOL/L 2012 Unknown COMPREHENSIVE METABOLIC 10217 ANION GAP 8 MEQ/L 2012 Unknown Procedures Procedure Codes Date FLU VACC PRSV FREE INC ANTIG 65 AND OLDER CPT-4: 14493 04/07/2018 PNEUMOCOCCAL VACC 13 JACOBO IM CPT-4: 25794 04/07/2018 ADMIN INFLUENZA VIRUS VAC CPT-4: G0008 04/07/2018 ADMIN PNEUMOCOCCAL VACCINE CPT-4: G0009 04/07/2018 PPPS, subseq visit CPT-4: G0439 02/08/2018 TRIAMCINOLONE ACET INJ NOS CPT-4: J3301 06/24/2015 DRAIN/INJECT JOINT/BURSA CPT-4: 04554 06/24/2015 PRESCRIP TRANSMIT VIA ERX SY CPT-4: G8553 10/23/2014 ROUTINE VENIPUNCTURE CPT-4: 45537 08/20/2013 ASSAY OF FREE THYROXINE CPT-4: 18974 08/20/2013 ASSAY THYROID STIM HORMONE CPT-4: 88941 08/20/2013 COMPREHEN METABOLIC PANEL CPT-4: 46984 08/20/2013 COMPLETE CBC W/AUTO DIFF WBC CPT-4: 21055 08/20/2013 LIPID PANEL CPT-4: 94923 08/20/2013 A1C HPLC CPT-4: 56401 08/20/2013 VITAMIN B 12 FOLIC ACID CPT-4: 85975|70806 08/20/2013 VITAMIN D TOTAL (25 HYDROXY) CPT-4: 66174 08/20/2013 PRESCRIP TRANSMIT VIA ERX SY CPT-4: G8553 08/13/2013 PRESCRIP TRANSMIT VIA ERX SY CPT-4: G8553 05/28/2013 PRESCRIP TRANSMIT VIA ERX SY CPT-4: G8553 04/30/2013 ASSAY, GLUCOSE, BLOOD QUANT CPT-4: 98715 04/03/2013 PRESCRIP TRANSMIT VIA ERX SY CPT-4: G8553 04/03/2013 ROUTINE VENIPUNCTURE CPT-4: 44688 08/10/2012 ASSAY OF FREE THYROXINE CPT-4: 40385 08/10/2012 ASSAY THYROID STIM HORMONE CPT-4: 76735 08/10/2012 COMPREHEN METABOLIC PANEL CPT-4: 16415 08/10/2012 COMPLETE CBC W/AUTO DIFF WBC CPT-4: 54195 08/10/2012 LIPID PANEL CPT-4: 42979 08/10/2012 A1C GLYCOSYLATED HEMOGLOBIN TEST CPT-4: 53359 013 VITAMIN B 12 FOLIC ACID CPT-4: 62205|79648 08/10/2012 THER/PROPH/DIAG INJ SC/IM CPT-4: 97363 04/27/2010 VITAMIN B12 INJECTION CPT-4: J3420 04/27/2010 [...] 1: 126/76 Code: 8480-6 BMI: 27.3 Code: 39149-5 Heart Rate 1: 84 bpm Height: 4'11" Respiratory Rate: 20 bpm SpO2: 96% Tempera ture: 37.0 (C) / 98.6 (F) Weight: 135 lbs 06/24/2015 Blood Pressure 1: 140/84 Code: 8480-6 BMI: 24.6 Code: 37765-5 Heart Rate 1: 84 bpm Height: 4'11" Respiratory Rate: 20 bpm Temperature: 37 .4 (C) / 99.3 (F) Weight: 122 lbs 02/11/2015 Blood Pressure 1: 132/76 Code: 8480-6 BMI: 23.2 Code: 83409-9 Heart Rate 1: 82 bpm Height: 4'11" Respiratory Rate: 22 bpm Temperature: 35 .7 (C) / 96.3 (F) Weight: 115 lbs 10/23/2014 Blood Pressure 1: 118/80 Code: 8480-6 BMI: 20.8 Code: 45534-5 Heart Rate 1: 92 bpm Height: 4'11" Respiratory Rate: 20 bpm Temperature: 36 .9 (C) / 98.4 (F) Weight: 103 lbs 05/29/2014 Blood Pressure 1: 114/70 Code: 8480-6 BMI: 21.2 Code: 09236-8 Heart Rate 1: 88 bpm Height: 4'11" Respiratory Rate: 20 bpm Temperature: 37 .2 (C) / 99.0 (F) Weight: 105 lbs 01/10/2014 Blood Pressure 1: 102/60 Code: 8480-6 BMI: 20.4 Code: 34144-0 Heart Rate 1: 88 bpm Height: 4'11" Respiratory Rate: 20 bpm Temperature: 36 .9 (C) / 98.4 (F) Weight: 101 lbs 12/13/2013 Blood Pressure 1: 124/76 Code: 8480-6 BMI: 19.4 Code: 98592-0 Heart Rate 1: 104 bpm Height: 4'11" Respiratory Rate: 20 bpm Temperature: 37 .2 (C) / 98.9 (F) Weight: 96 lbs 11/08/2013 Blood Pressure 1: 108/70 Code: 8480-6 BMI: 19.4 Code: 81589-4 Heart Rate 1: 84 bpm Height: 4'11" Respiratory Rate: 20 bpm Temperature: 37 .1 (C) / 98.7 (F) Weight: 96 lbs 10/31/2013 Blood Pressure 1: 128/80 Code: 8480-6 BMI: 18.2 Code: 92784-7 Heart Rate 1: 92 bpm Height: 4'11" Respiratory Rate: 20 bpm Temperature: 36 .3 (C) / 97.4 (F) Weight: 90 lbs 10/22/2013 Blood Pressure 1: 128/86 Code: 8480-6 BMI: 19.2 Code: 74466-0 Heart Rate 1: 104 bpm Height: 4'11" Respiratory Rate: 20 bpm Temperature: 37 .0 (C) / 98.6 (F) Weight: 95 lbs 09/04/2013 Blood Pressure 1: 152/90 Code: 8480-6 Heart Rate 1: 108 bpm Respiratory Rate: 20 bpm Temperature: 37.2 (C) / 98.9 (F) Weight: 105 lbs 08/13/2013 Blood Pressure 1: 156/102 Code: 8480-6 BMI: 22.6 Code: 91009-7 Heart Rate 1: 88 bpm Height: 4'11" Respiratory Rate: 20 bpm Temperature: 37 .1 (C) / 98.7 (F) Weight: 112 lbs 05/28/2013 Blood Pressure 1: 128/70 Code: 8480-6 BMI: 21.0 Code: 68262-5 Heart Rate 1: 104 bpm Height: 4'11" Respiratory Rate: 20 bpm Temperature: 38 .0 (C) / 100.4 (F) Weight: 104 lbs 04/30/2013 Blood Pressure 1: 116/78 Code: 8480-6 BMI: 21.4 Code: 06032-7 Heart Rate 1: 92 bpm Height: 4'11" Respiratory Rate: 20 bpm Temperature: 37 .2 (C) / 98.9 (F) Weight: 106 lbs 04/03/2013 Blood Pressure 1: 132/86 Code: 8480-6 BMI: 21.2 Code: 35211-1 Heart Rate 1: 88 bpm Height: 4'11" Respiratory Rate: 20 bpm Temperature: 37 .2 (C) / 99.0 (F) Weight: 105 lbs 09/21/2012 Blood Pressure 1: 146/74 Code: 8480-6 BMI: 21.8 Code: 89860-1 Heart Rate 1: 80 bpm Height: 4'11" Respiratory Rate: 20 bpm Temperature: 36 .7 (C) / 98.0 (F) Weight: 108 lbs 08/10/2012 Blood Pressure 1: 134/84 Code: 8480-6 BMI: 22.2 Code: 45550-2 Heart Rate 1: 84 bpm Height: 4'11" Respiratory Rate: 20 bpm Temperature: 36 .7 (C) / 98.1 (F) Weight: 110 lbs 11/02/2011 Blood Pressure 1: 134/78 Code: 8480-6 BMI: 24.6 Code: 25337-0 Heart Rate 1: 76 bpm Height: 4'11" Respiratory Rate: 20 bpm Temperature: 36 .9 (C) / 98.4 (F) Weight: 122 lbs 07/20/2011 Blood Pressure 1: 114/82 Code: 8480-6 BMI: 25.2 Code: 37461-0 Heart Rate 1: 92 bpm Height: 4'11" [...] s diabetes mellitus 05/29/2014 follow up 01/10/[address] [place] [address] follow up 12/13/2013 [facility] fwup follow up 11/08/2013 anorexia 10/31/2013 follow up 10/22/2013 constipation 09/04/2013 lab draw 08/20/2013 back pain 08/13/2013 follow up 05/28/[address] [place] [address] follow up 04/30/2013 diabetes mellitus 04/03/2013 follow up 09/21/2012 anxiety 08/10/2012 Going to be retiring in October and is worrying about what will do after nursing home diabetes mellitus 11/02/2011 follow up 07/20/2011 discuss labs follow up 05/14/2010 F/U Labs - Pt ervin alvarenga log of BP readings and blood glucose readings. Encounters Encounter Performer Location Codes Date (98079) OFFICE/OUTPATIENT VISIT EST Diagnosis: Type 1 diabetes mellitus without complications[ICD10: E10.9] Diagnosis: Age-related osteoporosis without current pathological fracture[ICD10: M81.0] Diagnosis: Other dietary vitamin B12 deficiency anemia[ICD10: D51.3] Eliz OLIVERA DO [facility] CPT-4: 15075 07/11/2019 ([id number]) OFFICE/OUTPATIENT VISIT EST Diagnosis: Type 1 diabetes mellitus without complications[ICD10: E10.9] Diagnosis: Other dietary vitamin B12 deficiency anemia[ICD10: D51.3] Diagnosis: Vitamin D deficiency, unspecified[ICD10: E55.9] Diagnosis: Dermatitis[ICD10: L30.9] Eliz PALMER [facility] CPT-4: 77822 04/04/2019 ([id number]) OFFICE/OUTPATIENT VISIT EST Diagnosis: Age-related osteoporosis without current pathological fracture[ICD10: M81.0] Diagnosis: Type 1 diabetes mellitus without complications[ICD10: E10.9] Diagnosis: Other dietary vitamin B12 deficiency anemia[ICD10: D51.3] Diagnosis: Vitamin D deficiency, unspecified[ICD10: E55.9] Eliz OLIVERA DO [facility] CPT-4: 49760 12/27/2018 ([id number]) OFFICE/OUTPATIENT VISIT EST Diagnosis: Other dietary vitamin B12 deficiency anemia[ICD10: D51.3] Diagnosis: Psychophysiologic insomnia[ICD10: F51.04] Diagnosis: Other fatigue[ICD10: R53.83] Eliz OLIVERA [facility] CPT-4: 58206 09/18/2018 ([id number]) OFFICE/OUTPATIENT VISIT EST Diagnosis: Adjustment disorder with depressed mood[ICD10: F43.21] Diagnosis: Other fatigue[ICD10: R53.83] Diagnosis: Psychophysiologic insomnia[ICD10: F51.04] Diagnosis: Other dietary vitamin B12 deficiency anemia[ICD10: D51.3] Eliz OLIVERA DO [facility] CPT-4: 37808 08/21/2018 ([id number]) NURSE/OUTPATIENT VISIT EST Diagnosis: PNEUMOCOCCAL VACCINE[ICD10: Z23] Diagnosis: FLU VACCINE[ICD10: Z23] Eliz JOSEPH DO [facility] CPT-4: 78962 04/07/2018 OFFICE/OUTPATIENT VISIT EST Diagnosis: Sacroiliitis, not elsewhere classified[ICD10: M46.1] Diagnosis: Radiculopathy, lumbosacral region[ICD10: M54.17] Eliz OLIVERA [facility] CPT-4: 28679 06/24/2015 ([id number]) OFFICE/OUTPATIENT VISIT EST Diagnosis: DM W/O COMPLICATION TYPE I, UNCONTROLLED[ICD10: E10.9] Diagnosis: Other dietary vitamin B12 deficiency anemia[ICD10: D51.3] [facility]: 59286 02/11/2015 ([id number]) OFFICE/OUTPATIENT VISIT EST Diagnosis: DM W/O COMPLICATION TYPE I, UNCONTROLLED[ICD10: E10.9] Diagnosis: B12 DEFIC ANEMIA NEC[ICD9: 281.1] Diagnosis: VITAMIN D DEFICIENCY[ICD9: 268.9] Diagnosis: HX OF PAST NONCOMPLIANCE[ICD9: V15.81] Eliz Waller [facility] [employer] [facility] CPT-4: 71738 10/23/2014 ([id number]) OFFICE/OUTPATIENT VISIT EST Diagnosis: DM W/O COMPLICATION TYPE I, UNCONTROLLED[ICD10: E10.9] Diagnosis: HYPERTENSION[ICD9: 401.9] Diagnosis: Vitamin B12 deficiency anemia[ICD9: 281.1] Diagnosis: Rib fracture[ICD9: 807.00] Eliz KAUR [facility] CPT-4: 66316 05/29/2014 ([id number]) OFFICE/OUTPATIENT VISIT EST Diagnosis: DM W/O COMPLICATION TYPE I, UNCONTROLLED[ICD10: E10.9] Diagnosis: Rib pain[ICD9: 786.50] Diagnosis: Weight loss[ICD9: 783.21] Eliz PARSONS BANNER [employer] [facility] CPT-4: 50780 01/10/2014 ([id number]) OFFICE/OUTPATIENT VISIT EST Diagnosis: DM W/O COMPLICATION TYPE II, UNCONTROLLED[ICD9: 250.02] Diagnosis: CACHEXIA[ICD9: 799.4] Diagnosis: UNSPECIFIED CONSTIPATION[ICD9: 564.00] Eliz [facility]SB[facility] [employer] [facility] CPT-4: 86237 12/13/2013 ([id number]) OFFICE/OUTPATIENT VISIT EST Diagnosis: DM W/O COMPLICATION TYPE II, UNCONTROLLED[ICD9: 250.02] Diagnosis: Rib pain[ICD9: 786.50] Diagnosis: Rib fracture[ICD9: 807.00] Diagnosis: CACHEXIA[ICD9: 799.4] Eliz OLIVERA [facility] CPT-4: 25829 11/08/2013 ([id number]) OFFICE/OUTPATIENT VISIT EST Diagnosis: DM W/O COMPLICATION TYPE II, UNCONTROLLED[ICD9: 250.02] Diagnosis: Thoracic back pain[ICD9: 724.1] Diagnosis: Rib pain[ICD9: 786.50] Diagnosis: Weight loss[ICD9: 783.21] Eliz GUTIERREZ [facility] CPT-4: 36944 10/22/2013 ([id number]) OFFICE/OUTPATIENT VISIT EST Diagnosis: UNSPECIFIED CONSTIPATION[ICD9: 564.00] Diagnosis: Thoracic back pain[ICD9: 724.1] Diagnosis: Rib pain[ICD9: 786.50] Eliz Aguilar [employer] [facility] CPT-4: 51147 09/04/2013 ([id number]) OFFICE/OUTPATIENT VISIT EST Diagnosis: DM W/O COMPLICATION TYPE II, UNCONTROLLED[ICD9: 250.02] Diagnosis: B12 DEFIC ANEMIA NEC[ICD9: 281.1] Diagnosis: HYPERTENSION[ICD9: 401.9] Diagnosis: VITAMIN D DEFICIENCY[ICD9: 268.9] Eliz OLIVERA [facility] CPT-4: 93672 08/20/2013 OFFICE/OUTPATIENT VISIT EST Diagnosis: Thoracic back pain[ICD9: 724.1] Diagnosis: SPASM OF MUSCLE[ICD9: 728.85] Diagnosis: Rib pain[ICD9: 786.50] Eliz Aguilar [employer] [facility] CPT-4: 85607 08/13/2013 OFFICE/OUTPATIENT VISIT EST Diagnosis: DM W/O COMPLICATION TYPE II, UNCONTROLLED[ICD9: 250.02] Diagnosis: URI, ACUTE[ICD9: 465.9] Eliz JOSEPH [employer] [facility] CPT-4: 91993 05/28/2013 OFFICE/OUTPATIENT VISIT EST Diagnosis: DM W/O COMPLICATION TYPE II, UNCONTROLLED[ICD9: 250.02] Eliz PARSONSNDOPAL DO [facility] CPT-4: 70150 04/30/2013 ([id number]) OFFICE/OUTPATIENT VISIT EST Diagnosis: DM W/O COMPLICATION TYPE II, UNCONTROLLED[ICD9: 250.02] Eliz PARSONSNDOPAL DO [facility] CPT-4: 94615 04/03/2013 ([id number]) OFFICE/OUTPATIENT VISIT EST Diagnosis: DM W/O COMPLICATION TYPE II, UNCONTROLLED[ICD9: 250.02] Diagnosis: HYPERTENSION[ICD9: 401.9] Eliz PARSONS NDER DO [facility] CPT-4: 37525 09/21/2012 ([id number]) OFFICE/OUTPATIENT VISIT EST Diagnosis: DM W/O COMPLICATION TYPE II, UNCONTROLLED[ICD9: 250.02] Diagnosis: B12 DEFIC ANEMIA NEC[ICD9: 281.1] Diagnosis: HYPERTENSION[ICD9: 401.9] Eliz PARSONS NDER DO [facility] CPT-4: 45143 08/10/2012 ([id number]) OFFICE/OUTPATIENT VISIT EST Diagnosis: DM W/O COMPLICATION TYPE II, UNCONTROLLED[ICD9: 250.02] Diagnosis: SEBACEOUS CYST[ICD9: 706.2] Eliz PULIDO DO [facility] CPT-4: 57669 11/02/2011 ([id number]) OFFICE/OUTPATIENT VISIT EST Diagnosis: DM W/O COMPLICATION TYPE II, UNCONTROLLED[ICD9: 250.02] Diagnosis: B12 DEFIC ANEMIA NEC[ICD9: 281.1] Diagnosis: HYPERTENSION[ICD9: 401.9] Eliz PARSONS NDER DO [facility] CPT-4: 31493 07/20/2011 ([id number]) OFFICE/OUTPATIENT VISIT, EST Eliz PAR[facility]OPAL [facility] CPT-4: 50139 05/14/2010 Plan of Care Planned Activity Notes [...] 268.9 ICD-10 : E55.9 04/04/2019 Appointment: Eliz Olivrea WPtel: [phone] [id number] [facility] with son FOLLOW UP 04/04/2019 Patient Education: triamcinolone acetonide- [employer] Coupon [id number] [email or web address]/samplemd/resources/getResource/61/[email or web address] Completed 04/04/2019 Visit Diagnosis Plan: Type 1 [...] : M81.0 12/27/2018 Appointment: Eliz Olivera WPtel: [address] [place], [place] [phone] [place] FOLLOW UP 12/27/2018 Visit Diagnosis Plan: Other dietary vitamin B12 defici ency anemia Discussion: Doing weekly B12 injections Had lab done this morning ICD-9 : 281.1 ICD-10 : D51.3 09/18/2018 Visit Diagnosis Plan: Psychophysiologic insomnia Discu ssion: Stable/Improving with doxepin Follow Up: 3 months ICD-9 : 780.52 ICD-10 : F51.04 09/18/2018 Appointment: Eliz Olivera WPtel: [address] [place] [address] [place] FOLLOW UP 09/18/2018 Patient Education: doxepin- [employer] Coupon [id number] [email or web address]/SugarCRM/resources/getResource/61/[email or web address] Completed 09/18/2018 Visit Diagnosis Plan: Other dietary [...] : R53.83 08/21/2018 Appointment: Eliz Olivera WPtel: [address] [place], [place] [phone] ACUTE ILLNESS 08/21/2018 Patient Education: doxepin- [employer] Coupon [id number] Completed 08/21/2018 Patient Education: cyanocobalamin (vitamin B-12)- [employer] Coupon [id number] Completed 08/21/2018 Appointment: Estelita Rousseau [address] NO SHOW 07/11/2018 Appointment: Eliz Olivera WPtel: [address] [place] [address] [place] INJECTION 04/07/2018 Visit Diagnosis Plan: Other [...] orosis without current pathological fracture Discussion: On kasi Discussed weight b earing exercise ICD-9 : 733.00 ICD-10 : M81.0 02/08/2018 Visit Diagnosis Plan: Vitamin D deficiency, unspecifie d Discussion: Check Vit D level ICD-9 : 268.9 ICD-10 : E55.9 02/08/2018 Visit Diagnosis Plan: Encounter for [facility] adult medical examination without abnormal findings Discussion: Update fasting lab Will get flu shot at hospital next week--will make sure is high dose Recommend Prevnar 13 ICD-9 : V70.9 ICD-10 : Z00.00 02/08/2018 Appointment: Eliz Olivera WPtel: [address] [place] [address] Annual Well Visit 02/08/2018 Patient Education: Patient Medication Summary Completed 02/08/2018 Appointment: Eliz Olivera WPtel: [address] [place] [address] 07/29 canceled~sl CANCELED 08/02/2016 Visit Plan: Left SI joint injection--sheri ansed with alcohol and betadine and injected with 2cc 1% lidocaine with 40mg kenolog, tolerated well with no complications, neosporin and bandage applied Call in 2 days on how doing Zorvolex 18mg po TID Use zanaflex q HS Use tramadol prn 06/24/2015 Appointment: Eliz Oliveratel: [address] [place], [place] [phone] 06/23/15 appt confirmed cn ACUTE ILLNESS 06/24 Patient Education: Patient Medication Summary Completed 06/24/2015 Visit Plan: Check CMP, HbA1C, CBC, TSH, free T4, B12 Continue accuchecks q AC and HS with sliding scale insulin 02/11/2015 Appointment: Eliz Oliveratel: [address] [place] [address] FOLLOW UP 02/11/2015 Patient Education: Patient Medication [...] not tolerate 10/23/2014 Appointment: Eliz Olivera WPtel: [address] [place], [place] [phone] 10/22 appt cn FOLLOW UP 10/23/2014 Patient Education: Patient Medication Summary Completed 10/23/2014 Appointment: Eliz Olivera WPtel: [address] [place], [place] [phone] 09/17 confirmed with spouse cn...09/18/14 No Show FOLLOW UP 09/18/2014 Appointment: Eliz Oliveratel: [address] [place], [place] [phone] voicemail FOLLOW UP 05/29/2014 Patient Education: Patient Medication Summary Completed 05/29/2014 Care Plan: DXA BONE DENSITY VERLenin ROLDAN C : 97406-6 Ordered 05/29/2014 Visit Plan: Increase apidra to 8u with b reakfast and lunch and 9u with evening meal Using hydrocodone q HS Accuchecks q AC and HS due to fluctuating BS and ongoing adjustement of insulin regimen BS readings in 2weeks to further adjust apidra Fwup 1mo 01/10/2014 Appointment: Eliz Olivera WPtel: [address] [place], [place] [address] FOLLOW UP 01/10/2014 Patient Education: Patient Medication Summary Completed 01/10/2014 Visit Plan: Increase levemir to 22u Incr ease apidra to 7u sc with meals Continue accuchecks q AC and HS 12/13/2013 Appointment: Eliz Olivera WPtel: [address] [place], [place] [phone] FOLLOW UP 12/13/2013 Patient Education: Patient Medication Summary Completed 12/13/2013 Visit Plan: Continue current meds Weight check in 2weeks Fwup in 1mo 11/08/2013 Appointment: Eliz Olivera WPtel: [address] [place] [address] 11/07 Hospital Follow Up 11/08/2013 Patient Education: Patient Medication Summary Completed 11/08/2013 Visit Plan: Direct admit to hospital 10/31/2013 Appointment: Eliz Olivera WPtel: [address] [place], [place] [address] FOLLOW UP 10/31/2013 Patient Education: Patient Medication Summary Completed 10/31/2013 Visit Plan: Check lab and retry PT with traction Check CBC, CMP, TSH, Free T4 Patient admits to not eating routinely Hold metformin Continue accuchecks Suggested Glucerna if not eating a meal 10/22/2013 Appointment: Eliz Olivera WPtel: [address] [place] [address] (don't know what she needs seen for, she hung up after I told her appt time) ACUTE ILLNESS 10/22/2013 Patient Education: Patient Medication Summary Completed 10/22/2013 Visit Plan: Continue miralax BID to TID for daily BMs Proceed with colonoscopy Start PT for thoracics and schedule with pain medicine in case needs injection to thoracic area 09/04/2013 Appointment: Eliz Olivera WPtel: [address] [place] [address] ACUTE ILLNESS 09/04/2013 Patient Education: Patient Medication Summary Completed 09/04/2013 Appointment: Eliz Olivera WPtel: [address] [place] [address] ACUTE ILLNESS 08/20/2013 Patient Education: Patient Medication Summary Completed 08/20/2013 Visit Plan: Continue ibuprofen and baclo fen Check thoracic spine and posterior rib x-ray--if no sign of fracture then okay for manipulation in thoracic spine Add hydrocodone 5/325mg 1 po q4hrs prn pain--#60 08/13/2013 Appointment: Eliz Olivera WPtel: [address] [place] [address] FOLLOW UP 08/13/2013 Patient Education: Patient Medication Summary Completed 08/13/2013 Appointment: Eliz Olivera WPtel: [address] [place] [address] FOLLOW UP 05/28/2013 Patient Education: Patient Medication Summary Completed 05/28/2013 Visit Plan: Pt wants one more month of o rals before going to insulin Increase Amaryl to 4mg BID Add Byetta 5mcg sc BID Continue accuchecks BID 04/30/2013 Appointment: Eliz Olivera WPtel: [address] [place] [address] FOLLOW UP 04/30/2013 Patient Education: Patient Medication Summary Completed 04/30/2013 Patient Education: Janumet XR - No CA [place] Completed 04/30/2013 Visit Plan: Start Janumet XR 50/1000mg B ID Continue actos at 30mg daily Twice daily accuchecks alternating times Call in 1wk with BS readings 04/03/2013 Appointment: Eliz Olivera WPtel: [address] [place], [place] [phone] FOLLOW UP 04/03/2013 Patient Education: Patient Medication Summary Completed 04/03/2013 Patient Education: [facility] - Saving AutoInj - 18+ - Dynamic Portal ID Completed 04/03/2013 Visit Plan: Continue metformin at BID Co ntinue onglyza 5mg q AM Add Actos 30mg daily Continue accuchecks daily Continue lexapro at 5mg daily 09/21/2012 Appointment: Eliz Olivera WPtel: [address] [place], [place] [phone] FOLLOW UP 09/21/2012 Patient Education: Patient Medication Summary Completed 09/21/2012 Appointment: Eliz Olivera WPtel: [address] [place], [place] [phone] FOLLOW UP 08/10/2012 Patient Education: Patient Medication [...] and fwup 11/02/2011 Appointment: Eliz Olivera WPtel: [address] [place], [place] [phone] FOLLOW UP 11/02/2011 Patient Education: Patient Medication Summary Completed 11/02/2011 Visit Plan: Start Kombiglyze ER 5/1000mg po daily and start accuchecks daily Start monthly B12 HbA1C, B12 level in 3mos Check urine for microalbumin Discussed Lamisil treatment for fingernails 07/20/2011 Appointment: Eliz Olivera WPtel: [address] [place], [place] [phone] FOLLOW UP 07/20/2011 Patient Education: Patient Medication Summary Completed 07/20/2011 Visit Plan: Continue weekly B12 shots an d check CBC in 2wks Start Metformin and cont accuchecks 05/14/2010 Appointment: Kayopal Eliz S. WPtel[facility] [phone] [id number] [place] FOLLOW UP 05/14/2010 Patient Education: Patient Medication Summary Completed 05/14/2010 Appointment: Eliz Olivera WPtel: [phone] [id number] [place] INJECTION 04/27/2010 Patient Education: Patient Medication Summary Completed 04/27/2010 Referral: Vanessa Wong WPtel: [address] [id number] [place] Referral Initiated Instructions Comment . Left [...]
[2019-10-05 07:35] VITALS: BP 164/102
--- OUTSIDE RECORDS SUMMARY | 2019-10-05 07:35 | XMS REPORT | CCD ---
Author Author Zahra Olivera D.O. Organization [facility] Address [address] [place] [address] Phone Care Team Providers Care Sole Splitter Name Role Phone Kay Olivera D.O. PP Unavailable CCM Unavailable Summary Purpose Interface Exchange Insurance Providers Payer name Policy type / Coverage type Covered libertarian ID Effective Begin Date Effective End Date WPS MEDICARE PART B [place] Medicare Part B [id number] Unknown Cigna Medicare Part B 13 193 2017 Unknown Family History Family History data not found Social History Social History Element Codes Description Effective Dates Tobacco history SNOMED CT: 228218732 Never smoker 01/23/2015 Allergies, Adverse Reactions, Alerts Substance Reaction Codes Entered Date Inactivated Date Status _ Unknown 10/15/2009 No Inactive Date Active CODEINE Unknown 10/15/2009 No In active Date Active Past Medical History Illness Codes Condition Status Onset Date Resolved Date Age-related osteopor osis without current pathological fracture ICD-9: 733.00 ICD-10: M81.0 Active 02/08/2018 Unknown DM W/O COMPLICATION TYPE I, UNCONTROLLED ICD-9: 250.03 ICD-10: E10.9 Active 02/10/2015 Unknown Other dietary vitami n B12 deficiency anemia ICD-9: 281.1 ICD-10: D51.3 Active 08/20/2013 Unknown Type 1 diabetes belinda itus without complications ICD-9: 250.01 ICD-10: E10.9 Active 12/27/2018 Unknown Vitamin D deficiency , unspecified ICD-9: 268.9 ICD-10: E55.9 Active 02/08/2018 Unknown Other fatigue ICD-9: 780.79 ICD-10: R53.83 Active 08/21/2018 Unknown Psychophysiologic in somnia ICD-9: 780.52 ICD-10: F51.04 Active 08/21/2018 Unknown Adjustment disorder with depressed mood ICD-9: 309.0 ICD-10: F43.21 Active 08/21/2018 Unknown FLU VACCINE ICD-9: V04.81 ICD-10: Z23 Active 04/07/2018 Unknown PNEUMOCOCCAL VACCINE ICD-9: V03.82 ICD-10: Z23 Active 04/07/2018 Unknown Encounter for genera l adult medical examination without abnormal findings ICD-9: V70.9 ICD-10: Z00.00 Active 02/08/2018 Unknown Radiculopathy, lumbo sacral region ICD-9: 724.4 ICD-10: M54.17 Active 06/23/2015 Unknown Sacroiliitis, not el sewhere classified ICD-9: 720.2 ICD-10: M46.1 Active 06/23/2015 Unknown HX OF PAST NONCOMPLI ANCE ICD-9: V15.81 Active Unknown Rib fracture ICD-9: 807.00 Active 11/08/2013 Unknown CACHEXIA ICD-9: 799.4 Active 10/31/2013 Unknow n Weight loss ICD-9: 783.21 Active 10/22/2013 Unknown Rib pain ICD-9: 786.50 Active 09/04/2013 Unknow n Thoracic back pain ICD- 9: 724.1 Active 09/04/2013 Unknown UNSPECIFIED CONSTIPA TION ICD-9: 564.00 Active Unknown B12 DEFIC ANEMIA NEC ICD-9: 281.1 Active 08/20/2013 Unknown DM W/O COMPLICATION TYPE II, UNCONTROLLED ICD-9: 250.02 Active 08/20/2013 Unknown HYPERTENSION ICD-9: 401.9 Active 08/20/2013 Unknown VITAMIN D DEFICIENCY ICD-9: 268.9 Active 08/20/2013 Unknown SPASM OF MUSCLE ICD-9: 728.85 Active 08/13/2013 Unknown URI, ACUTE ICD-9: 465.9 Active 05/28/2013 Unknow n SEBACEOUS CYST ICD-9: 706.2 Active 11/02/2011 Unknown Hypertension Unknown Active 07/20/2011 Unknow n Impaired fasting glu cose ICD-9: 790.21 Active 10/2010 Unknown Problems Condition Codes Effectiv e Dates Condition Status Age-related osteopor osis without current pathological fracture ICD-9: 733.00 ICD-10: M81.0 02/08/2018 Active DM W/O COMPLICATION TYPE I, UNCONTROLLED ICD-9: 250.03 ICD-10: E10.9 02/10/2015 Active Other dietary vitami n B12 deficiency anemia ICD-9: 281.1 ICD-10: D51.3 08/20/2013 Active Type 1 diabetes belinda itus without complications ICD-9: 250.01 ICD-10: E10.9 12/27/2018 Active Vitamin D deficiency , unspecified ICD-9: 268.9 ICD-10: E55.9 02/08/2018 Active Other fatigue ICD-9: 780.79 ICD-10: R53.83 08/21/2018 Active Psychophysiologic in somnia ICD-9: 780.52 ICD-10: F51.04 08/21/2018 Active Adjustment disorder with depressed mood ICD-9: 309.0 ICD-10: F43.21 08/21/2018 Active FLU VACCINE ICD-9: V04.81 ICD-10: Z23 04/07/2018 Active PNEUMOCOCCAL VACCINE ICD-9: V03.82 ICD-10: Z23 04/07/2018 Active Encounter for genera l adult medical examination without abnormal findings ICD-9: V70.9 ICD-10: Z00.00 02/08/2018 Active Radiculopathy, lumbo sacral region ICD-9: 724.4 ICD-10: M54.17 06/23/2015 Active Sacroiliitis, not el sewhere classified ICD-9: 720.2 ICD-10: M46.1 06/23/2015 Active HX OF PAST NONCOMPLI ANCE ICD-9: V15.81 10/22/2014 Active Rib fracture ICD-9: 807.00 11/08/2013 Active CACHEXIA ICD-9: 799.4 10/31/2013 Active Weight loss ICD-9: 783.21 10/22/2013 Active Rib pain ICD-9: 786.50 09/04/2013 Active Thoracic back pain ICD- 9: 724.1 09/04/2013 Active UNSPECIFIED CONSTIPA TION ICD-9: 564.00 09/04/2013 Active B12 DEFIC ANEMIA NEC ICD-9: 281.1 08/20/2013 Active DM W/O COMPLICATION TYPE II, UNCONTROLLED ICD-9: 250.02 08/20/2013 Active HYPERTENSION ICD-9: 401.9 08/20/2013 Active VITAMIN D DEFICIENCY ICD-9: 268.9 08/20/2013 Active SPASM OF MUSCLE ICD-9: 728.85 08/13/2013 Active URI, ACUTE ICD-9: 465.9 05/28/2013 Active SEBACEOUS CYST ICD-9: 706.2 11/02/2011 Active Hypertension Unknown 07/20/2011 Active Impaired fasting glu cose ICD-9: 790.21 05/14/2010 Active Medications Medication Codes Instruc tions Start Date Stop Date Sta tus Fill Instructions doxepin 10 mg capsule RxNorm: 4194302 1-2 Capsule(s) PO QHS as needed for slee p 09/18/2018 12/26/2018 In active cyanocobalamin (vit B-12) 1,000 mcg/mL injection solution RxNorm: 399802 1 Milliliter(s) Inj WEEKLY 08/21/2018 No Stop Date Active doxepin 10 mg capsule RxNorm: 2302375 1-2 Capsule(s) PO QHS as needed for slee p 08/21/2018 09/17/2018 In active Vitamin D3 5,000 uni t tablet RxNorm: 707696 1 Tablet(s) PO QD 02/16/2018 08/20/2018 Inactive Vitamin B12 1000mcg Tablet RxNorm: 1 Tablet(s) SL QD 02/16/2018 08/20/2018 Inactive Apidra SoloStar U-10 0 Insulin 100 unit/mL subcutaneous pen RxNorm: 458418 Unit(s) SQ Sliding Scale 07/15/2017 09/12/2017 Inactive Apidra SoloStar U-10 0 Insulin 100 unit/mL subcutaneous pen RxNorm: 406544 Unit(s) SQ Sliding Scale 07/15/2017 08/13/2017 Inactive Apidra SoloStar U-10 0 Insulin 100 unit/mL subcutaneous pen RxNorm: 814613 Unit(s) SQ Sliding Scale 04/29/2017 07/14/2017 Inactive Apidra SoloStar 100 unit/mL subcutaneous insulin pen RxNorm: 165641 Unit(s) SQ Sliding Scale 03/08/2017 04/29/2017 Inactive Apidra SoloStar 100 unit/mL subcutaneous insulin pen RxNorm: 841887 Unit(s) SQ Sliding Scale 03/08/2017 04/06/2017 Inactive Apidra SoloStar 100 unit/mL subcutaneous insulin pen RxNorm: 643504 Unit(s) SQ Sliding Scale 01/20/2017 03/08/2017 Inactive Apidra SoloStar 100 unit/mL subcutaneous insulin pen RxNorm: 812555 Unit(s) SQ Sliding Scale 11/16/2016 01/19/2017 Inactive Apidra SoloStar 100 unit/mL subcutaneous insulin pen RxNorm: 855413 Unit(s) SQ Sliding Scale 08/02/2016 11/15/2016 Inactive Apidra SoloStar 100 unit/mL subcutaneous insulin pen RxNorm: 078620 Unit(s) SQ 8units after breakfast and lunch and 9units at supper 08/02/2016 08/20/2018 Inactive lisinopril 20 mg tablet RxNorm: 773314 1 Tablet(s) PO QD 03/05/2016 02/07/2018 Inactive Apidra SoloStar 100 unit/mL subcutaneous insulin pen RxNorm: 358571 Unit(s) SQ 8units after breakfast and lunch and 9units at supper 05/12/2015 08/02/2016 Inactive Levemir FlexTouch 10 0 unit/mL (3 mL) subcutaneous insulin pen RxNorm: 747202 35 Unit(s) SQ QHS 05/12/2015 02/07/2018 Inactive cyanocobalamin (vit B-12) 1,000 mcg/mL injection solution RxNorm: 580816 1 Milliliter(s) Inj IM every 2 weeks 02/20/2015 02/07/2018 Inactive Apidra SoloStar 100 unit/mL subcutaneous insulin pen RxNorm: 093479 Unit(s) SQ 8units after breakfast and lunch and 9units at supper 01/10/2015 05/11/2015 Inactive cyanocobalamin (vit B-12) 1,000 mcg/mL injection solution RxNorm: 652225 1 Milliliter(s) Inj Every month every month 10/23/2014 02/19/2015 Inactive Levemir FlexTouch 10 0 unit/mL (3 mL) subcutaneous insulin pen RxNorm: 628074 35 Unit(s) SQ QHS 10/23/2014 05/11/2015 Inactive hydrocodone 5 mg-brendan taminophen 325 mg tablet RxNorm: 939019 TAKE ONE TABLET BY [facility] EVERY 4 HOURS NEEDED FOR PAIN 02/19/2014 02/28/2014 Inactive (Response to an electronic controlled substance refill request - RxReferenceNumber: [id number]) hydrocodone 5 mg-brendan taminophen 325 mg tablet RxNorm: 377982 TAKE ONE TABLET BY [facility] EVERY 4 HOURS NEEDED FOR PAIN 01/08/2014 01/16/2014 Inactive (Response to an electronic controlled substance refill request - RxReferenceNumber: [id number]) Reglan 5 mg tablet RxNorm: 549466 1 Tablet(s) PO QID before meals and bedt aquilino 12/13/2013 10/22/2014 In active Apidra SoloStar 100 unit/mL subcutaneous insulin pen RxNorm: 400194 5 Unit(s) SQ AC 12/05/2013 05/28/2014 In active baclofen 10 mg tablet RxNorm: 384952 1 Tablet(s) PO TID PRN Spasm 08/13/2013 09/11/2013 Inactive Amaryl 4 mg tablet RxNorm: 298183 1 Tablet(s) PO BID 05/23/2013 05/27/2013 Inactive AttnRPh: Saving apply/adjudicate RxGRP:SG20 RxBIN:[id number] RxPCN:HT ID#:[id number] Actos 30 mg tablet RxNorm: 562567 1 Tablet(s) PO QPM 05/03/2013 05/27/2013 Inactive AttnRPh: Saving apply/adjudicate RxGRP:SG20 RxBIN:[id number] RxPCN:HT ID#:[id number] Actos 30 mg tablet RxNorm: 570698 1 Tablet(s) PO QPM 04/30/2013 05/02/2013 Inactive AttnRPh: Saving apply/adjudicate RxGRP:SG20 RxBIN:[id number] RxPCN:HT ID#:[id number] Janumet XR 50 mg-1,0 00 mg tablet,extended release RxNorm: 4140221 1 Tablet(s) PO BID 04/30/2013 08/12/2013 Inactive Amaryl 4 mg tablet RxNorm: 443000 1 Tablet(s) PO BID 04/30/2013 05/22/2013 Inactive AttnRPh: Saving apply/adjudicate RxGRP:SG20 RxBIN:[id number] RxPCN:HT ID#:[id number] Actos 30 mg tablet RxNorm: 812406 1 Tablet(s) PO QPM 04/03/2013 05/03/2013 Inactive AttnRPh: Saving apply/adjudicate RxGRP:SG20 RxBIN:[id number] RxPCN:HT ID#:[id number] Amaryl 4 mg tablet RxNorm: 490205 1 Tablet(s) PO QAM 04/03/2013 04/29/2013 Inactive AttnRPh: Saving apply/adjudicate RxGRP:SG20 RxBIN:[id number] RxPCN:HT ID#:[id number] Onglyza 5 mg tablet RxNorm: 074830 1 Tablet(s) PO QD 08/14/2012 04/02/2013 Inactive metformin ER 1,000 m g tablet,extended release 24hr RxNorm: 865672 1 Tablet(s) PO BID 08/14/2012 04/02/2013 Inactive Onglyza 5 mg tablet RxNorm: 177443 1 Tablet(s) PO QD 08/14/2012 08/13/2012 Inactive Lexapro 10 mg tablet RxNorm: 763828 1 Tablet(s) PO QHS 08/10/2012 11/07/2013 Inactive cyanocobalamin (shay min B-12) 1,000 mcg/mL Injection RxNorm: 163366 1 Milliliter(s) IM QW 12/22/2011 08/09/2012 Inactive weekly cyanocobalamin (shay min B-12) 1,000 mcg/mL Injection RxNorm: 431874 1 Milliliter(s) IM QW 07/20/2011 No Stop Date Active weekly metformin ER 500 mg 24 hr Tab RxNorm: 854546 1 Tablet(s) PO QD 05/14/2010 08/11/2010 Inactive lisinopril 20 mg tablet RxNorm: 864591 1 Tablet(s) PO QD 05/14/2010 07/19/2011 Inactive cyanocobalamin (shay min B-12) 1,000 mcg/mL Injection RxNorm: 749186 1 Milliliter(s) IM QW weekly 04/28/2010 No Stop Date Active Tresiba FlexTouch U- 100 insulin 100 unit/mL (3 mL) subcutaneous pen RxNorm: 8638175 16 Unit(s) SQ QHS No Start Date Active Forteo 20 mcg/dose ( 600 mcg/2.4 mL) subcutaneous pen injector RxNorm: 4369778 SQ QD No Start Date Active Vitamin D2 50,000 un it capsule RxNorm: 3592465 1 Capsule(s) PO QW No Start Date Active Vitamin B12 1000mcg Tablet RxNorm: 1 Tablet(s) SL QD No Start Date 02/15/2018 Inactive cyanocobalamin (shay min B-12) 1,000 mcg/mL Injection RxNorm: 143574 1 Milliliter(s) IM weekly No Start Date 04/27/2010 Inactive Neurontin 100 mg cap kelly RxNorm: 611529 1 Capsule(s) PO TID No Start Date 10/22/2014 Inactive Protonix 40 mg table t,delayed release RxNorm: 832159 1 Tablet(s) PO QD No Start Date 10/22/2014 Inactive Calcium with Vitamin D 600 mg (1,500 mg)-400 unit tablet RxNorm: 767458 1 Tablet(s) PO QD No Start Date 12/12/2013 Inactive Coreg 3.125 mg tablet RxNorm: 511871 1 Tablet(s) PO QD No Start Date 10/22/2014 Inactive cyanocobalamin (shay min B-12) 1,000 mcg/mL Injection RxNorm: 146975 1 Milliliter(s) Inj every month No Start Date 10/22/2014 Inactive Apidra SoloStar 100 unit/mL subcutaneous insulin pen RxNorm: 749627 Unit(s) SQ Sliding Scale No Start Date 08/01/2016 Inactive Cymbalta 60 mg capsu le,delayed release RxNorm: 773750 1 Capsule(s) PO QHS No Start Date 06/23/2015 Inactive metformin 1,000 mg t ablet RxNorm: 497055 1 Tablet(s) PO BID No Start Date 10/21/2013 Inactive Levemir Flexpen 100 unit/mL (3 mL) solution subcutaneous insulin pen RxNorm: 756828 45 Unit(s) SQ QD No Start Date 11/07/2013 Inactive Levemir Flexpen 100 unit/mL (3 mL) solution subcutaneous insulin pen RxNorm: 924933 30 Unit(s) SQ QHS No Start Date 08/12/2013 Inactive Miacalcin 200 unit/a ctuation nasal spray RxNorm: 503419 1 [place] NASAL QD in o ne nostril No Start Date 10/22/2014 Inactive Janumet XR 50 mg-1,0 00 mg tablet,extended release RxNorm: 1443488 1 Tablet(s) PO BID No Start Date 04/29/2013 Inactive metformin ER 1,000 m g tablet,extended release 24hr RxNorm: 006978 1 Tablet(s) PO QD No Start Date 08/09/2012 Inactive Levemir Flexpen 100 unit/mL (3 mL) solution subcutaneous insulin pen RxNorm: 867501 35 Unit(s) SQ QHS No Start Date 05/28/2014 Inactive baclofen 10 mg tablet RxNorm: 834796 1 Tablet(s) PO TID PRN Spasm No Start Date 08/12/2013 Inactive Apidra SoloStar 100 unit/mL subcutaneous insulin pen RxNorm: 426032 Unit(s) SQ 8units after breakfast and lunch and 9units at supper No Start Date 10/22/2014 Inactive Byetta 10 mcg/0.04 m L per dose subcutaneous pen injector RxNorm: 731613 Microgram(s) SQ BID No Start Date 05/27/2013 Inactive Cymbalta 30 mg capsu le,delayed release RxNorm: 196904 1 Capsule(s) PO QHS No Start Date 12/12/2013 Inactive Vitamin D3 5,000 uni t tablet RxNorm: 318506 1 Tablet(s) PO QD No Start Date 02/15/2018 Inactive hydrocodone 5 mg-brendan taminophen 325 mg tablet RxNorm: 656727 1 Tablet(s) PO Q4H as needed for pain No Start Date 01/09/2014 Inactive tizanidine 2 mg tablet RxNorm: 465239 1 Tablet(s) PO Q8H as needed for muscle spasms No Start Date 06/23/2015 Inactive Levemir FlexTouch 10 0 unit/mL (3 mL) subcutaneous insulin pen RxNorm: 427739 22 Unit(s) SQ QHS No Start Date 10/22/2014 Inactive Motrin IB 200 mg tablet RxNorm: 045174 Tablet(s) PO PRN No Start Date 10/21/2013 Inactive Vitamin D3 1,000 uni t tablet RxNorm: 752299 1 Tablet(s) PO QD No Start Date 12/12/2013 Inactive Levemir Flexpen 100 unit/mL (3 mL) solution subcutaneous insulin pen RxNorm: 841940 20 Unit(s) SQ QAM No Start Date 05/28/2014 Inactive Apidra SoloStar 100 unit/mL subcutaneous insulin pen RxNorm: 500115 3 Unit(s) SQ AC No Start Date 12/04/2013 Inactive Levemir Flexpen 100 unit/mL (3 mL) solution subcutaneous insulin pen RxNorm: 661661 40 Unit(s) SQ QHS No Start Date 10/22/2013 Inactive Kombiglyze XR 5 mg-1 ,000 mg 24 hr Tab RxNorm: 7182315 1 Tablet(s) PO QD No Start Date 08/09/2012 Inactive Levemir FlexTouch 10 0 unit/mL (3 mL) subcutaneous insulin pen RxNorm: 549757 30 Unit(s) SQ QHS No Start Date 02/07/2018 Inactive tizanidine 2 mg tablet RxNorm: 056119 1 Tablet(s) PO Q8H as needed for muscle spasm No Start Date 02/07/2018 Inactive Levemir FlexTouch U- 100 Insulin 100 unit/mL (3 mL) subcutaneous pen RxNorm: 657623 22 Unit(s) SQ QHS No Start Date 08/20/2018 Inactive Vitamin D3 5,000 uni t tablet RxNorm: 266416 1 Tablet(s) PO QD No Start Date 11/07/2013 Inactive Medication Administered No Medication Administered data Immunizations Vaccine Codes Date Status Influenza CVX: 135 04/07 completed Pneumococcal CVX: 133 completed Assessments Condition Codes Effectiv e Dates Other dietary vitamin B12 deficiency anemia ICD-10: D51.3 ICD-9: 281.1 12/27/2018 Vitamin D deficiency, unspecified IC D-10: E55.9 ICD-9: 268.9 12/27/2018 Type 1 diabetes mellitus without complications ICD-10: E10.9 ICD-9: 250.01 12/27/2018 Age-related osteoporosis without current pathological fracture ICD-10: M81.0 ICD-9: 733.00 12/27/2018 Psychophysiologic insomnia ICD-10: F 51.04 ICD-9: 780.52 09/18/2018 Other fatigue ICD-10: R53.83 ICD-9: 780.79 09/18/2018 Adjustment disorder with depressed mood ICD-10: F43.21 ICD-9: 309.0 08/21/2018 FLU VACCINE ICD-10: Z23 ICD-9: V04.81 04/07/2018 PNEUMOCOCCAL VACCINE ICD-10: Z23 ICD-9: V03.82 04/07/2018 DM W/O COMPLICATION TYPE I, UNCONTROLLED ICD-10: E10.9 ICD-9: 250.03 02/08/2018 Encounter for general adult medical exam ination without abnormal findings ICD-10: Z00.00 ICD-9: V70.9 02/08/2018 Radiculopathy, lumbosacral region IC D-10: M54.17 ICD-9: 724.4 06/24/2015 Sacroiliitis, not elsewhere classified ICD-10: M46.1 ICD-9: 720.2 06/24/2015 VITAMIN D DEFICIENCY ICD-9: 268.9 10/23/2014 B12 DEFIC ANEMIA NEC ICD-9: 281.1 10/23/2014 HX OF PAST NONCOMPLIANCE ICD-9: V15.81 10/23/2014 HYPERTENSION ICD-9: 401.9 05/29/2014 Rib fracture ICD-9: 807.00 05/29/2014 Weight loss ICD-9: 783.21 01/10/2014 Rib pain ICD-9: 786.50 0 01/10/2014 DM W/O COMPLICATION TYPE II, UNCONTROLLED ICD-9: 250.02 12/13/2013 CACHEXIA ICD-9: 799.4 UNSPECIFIED CONSTIPATION ICD-9: 564.00 12/13/2013 Thoracic back pain ICD-9: 724.1 10/22/2013 SPASM OF MUSCLE ICD-9: 728.85 08/13/2013 URI, ACUTE ICD-9: 465.9 05/28/2013 SEBACEOUS CYST ICD-9: 706.2 11/02/2011 Impaired fasting glucose ICD-9: 790.21 05/14/2010 Reason For Visit Reason For Visit Effective Dates Notes follow up 12/27/2018 follow up 09/18/2018 disturbances of emotion 08/21/2018 diabetes mellitus 02/08/2018 pain, limb 06/24/2015 follow up 02/11/2015 follow up 10/23/2014 Ref ill b12 injections diabetes mellitus 05/29/2014 follow up 01/10/2014 1mo fwup follow up 12/13/2013 Hos pital fwup follow up 11/08/2013 anorexia 10/31/2013 follow up 10/22/2013 constipation 09/04/2013 lab draw 08/20/2013 back pain 08/13/2013 follow up 05/28/2013 1mo fwup follow up 04/30/2013 diabetes mellitus 04/03/2013 follow up 09/21/2012 anxiety 08/10/2012 Going to be retiring in October and is worrying about what will do after alf diabetes mellitus 11/02/2011 follow up 07/20/2011 dis cuss labs follow up 05/14/2010 F/U Labs - Pt brought log of BP readings and blood glucose readings. Results Observation Observation Code Item Item Code Result Date GLYCOSYLATED HEMOGLOBIN TEST 10249 A1C HPLC 15662-6 10.4 % 4 GFR CALC 5044498 GFR AA >60 ML/MIN 08/20/2013 GFR CALC 7352989 GFR NON -AA >60 ML/MIN 08/20/2013 LIPID GROUP [address] 47 MG/DL 08/20/2013 LIPID GROUP 73219 TRIG 216 MG/DL 08/20/2013 LIPID GROUP 49828 TEST L DL 67 MG/DL 08/20/2013 LIPID GROUP 69384 CHOL 157 MG/DL 08/20/2013 LIPID GROUP 55034 RCHOL/ HDL 3.34 RATIO 08/20/2013 THYROID STIMULATING HORMONE 27621 TSH 2.042 uIU/ML 4 COMPREHENSIVE METABOLIC 89758 AST 9 U/L 08/20/2013 COMPREHENSIVE METABOLIC 46936 ALT 14 IU/L 08/20/2013 COMPREHENSIVE METABOLIC 49861 BUN 15 MG/DL 08/20/2013 COMPREHENSIVE METABOLIC 08249 ALBUMIN 4.2 GM/DL 08/20/2013 COMPREHENSIVE METABOLIC 31795 CHLORIDE 99 MMOL/L 08/20/2013 COMPREHENSIVE METABOLIC 60826 BILI TOT 0.6 MG/DL 08/20/2013 COMPREHENSIVE METABOLIC 12626 ALK PHOS 100 U/L 08/20/2013 COMPREHENSIVE METABOLIC 83580 SODIUM 133 MMOL/L 08/20/2013 COMPREHENSIVE METABOLIC 90912 CREATININE 0.43 MG/DL 08/20/2013 COMPREHENSIVE METABOLIC 94527 CALCIUM 9.8 MG/DL 08/20/2013 COMPREHENSIVE METABOLIC 31109 POTASSIUM 4.2 MMOL/L 08/20/2013 COMPREHENSIVE METABOLIC 55119 PROT TOT 6.9 GM/DL 08/20/2013 COMPREHENSIVE METABOLIC 33050 Glucose 394 MG/DL 08/20/2013 COMPREHENSIVE METABOLIC 44628 BICARB 26 MMOL/L 08/20/2013 COMPREHENSIVE METABOLIC 34223 ANION GAP 8 MEQ/L 08/20/2013 FREE T4 01516 FREE T4 1.19 NG/DL 08/20/2013 VITAMIN D TOTAL (25 HYDROXY) 52851 VIT D TOTL 10 NG/ML 08/20/2013 VITAMIN B 12 FOLIC ACID 06802|68482 VIT B 12 235 PG/ML 08/20/2013 VITAMIN B 12 FOLIC ACID 45626|80363 FOLIC ACID >24.0 NG/ML 08/20/2013 COMPLETE BLOOD COUNT 1738073 WBC 6.6 10e9/L 08/20/2013 COMPLETE BLOOD COUNT [id number] RBC 4.80 10e12/L 4 COMPLETE BLOOD COUNT 6375879 HGB 15.2 g/dL 08/20/2013 COMPLETE BLOOD COUNT [id number] HCT DET 42.8 % 08/20/2013 COMPLETE BLOOD COUNT 9109439 MCV 89.2 fL 08/20/2013 COMPLETE BLOOD COUNT 8437426 MCH 31.7 pg 08/20/2013 COMPLETE BLOOD COUNT 4651096 MCHC 35.5 g/dL 08/20/2013 COMPLETE BLOOD COUNT 8841578 PLT 340 10e9/L 08/20/2013 COMPLETE BLOOD COUNT 3754386 MPV 9.6 fL 08/20/2013 COMPLETE BLOOD COUNT 3513475 SILVINA % 63.6 % 08/20/2013 COMPLETE BLOOD COUNT 7197893 LY % 26.4 % 08/20/2013 COMPLETE BLOOD COUNT 6000922 MON % 8.6 % 08/20/2013 COMPLETE BLOOD COUNT 4222518 EOS % 1.1 % 08/20/2013 COMPLETE BLOOD COUNT 5863847 BASO % 0.3 % 08/20/2013 COMPLETE BLOOD COUNT 5524356 RDW 13.4 % 08/20/2013 COMPLETE BLOOD COUNT [id number] ABS SILVINA 4.20 10e9/L 08/20/2013 COMPLETE BLOOD COUNT 3283050 ABS LYMPH 1.74 10e9/L 08/20/2013 COMPLETE BLOOD COUNT 2389036 ABS MONO 0.57 10e9/L 08/20/2013 COMPLETE BLOOD COUNT 2926783 ABS EOS 0.07 10e9/L 08/20/2013 COMPLETE BLOOD COUNT 0430934 ABS BASO 0.02 10e9/L 08/20/2013 COMPLETE BLOOD COUNT 5936376 RDW-SD 42.6 fL 08/20/2013 GFR CALC 5547511 GFR AA >60 ML/MIN 08/10/2012 GFR CALC 5585732 GFR NON -AA >60 ML/MIN 08/10/2012 COMPLETE BLOOD COUNT 9126100 WBC 6.5 10e9/L 08/10/2012 COMPLETE BLOOD COUNT 3362803 RBC 4.64 10e12/L 3 COMPLETE BLOOD COUNT 6871561 HGB 14.4 g/dL 08/10/2012 COMPLETE BLOOD COUNT 1839359 HCT DET 40.0 % 08/10/2012 COMPLETE BLOOD COUNT 6906611 MCV 86.2 fL 08/10/2012 COMPLETE BLOOD COUNT 3888393 MCH 31.0 pg 08/10/2012 COMPLETE BLOOD COUNT 3735441 MCHC 36.0 g/dL 08/10/2012 COMPLETE BLOOD COUNT 2342585 PLT 294 10e9/L 08/10/2012 COMPLETE BLOOD COUNT 8763552 MPV 10.4 fL 08/10/2012 COMPLETE BLOOD COUNT 9126961 SILVINA % 60.3 % 08/10/2012 COMPLETE BLOOD COUNT 7786708 LY % 30.6 % 08/10/2012 COMPLETE BLOOD COUNT 9149789 MON % 7.4 % 08/10/2012 COMPLETE BLOOD COUNT 6910854 EOS % 1.4 % 08/10/2012 COMPLETE BLOOD COUNT 6644602 BASO % 0.3 % 08/10/2012 COMPLETE BLOOD COUNT 5344222 RDW 13.6 % 08/10/2012 COMPLETE BLOOD COUNT 2682395 ABS SILVINA 3.92 10e9/L 08/10/2012 COMPLETE BLOOD COUNT 4251382 ABS LYMPH 1.99 10e9/L 08/10/2012 COMPLETE BLOOD COUNT 7533089 ABS MONO 0.48 10e9/L 08/10/2012 COMPLETE BLOOD COUNT 6629269 ABS EOS 0.09 10e9/L 08/10/2012 COMPLETE BLOOD COUNT 6647976 ABS BASO 0.02 10e9/L 08/10/2012 COMPLETE BLOOD COUNT 7472917 RDW-SD 41.3 fL 08/10/2012 VITAMIN B 12 FOLIC ACID 74171|33001 VIT B 12 237 PG/ML 08/10/2012 VITAMIN B 12 FOLIC ACID 64494|52073 FOLIC ACID >24.0 NG/ML 08/10/2012 THYROID STIMULATING HORMONE 66528 TSH 2.158 uIU/ML 3 HEMOGLOBIN A1C (GLYCOSYLATED) 9650638 A1C [facility] 13192-0 14.6 % 08/10/2012 FREE T4 12847 FREE T4 1.02 NG/DL 08/10/2012 LIPID GROUP [address] 50 MG/DL 08/10/2012 LIPID GROUP 40016 TRIG 123 MG/DL 08/10/2012 LIPID GROUP 19594 TEST L DL 114 MG/DL 08/10/2012 LIPID GROUP 98670 CHOL 189 MG/DL 08/10/2012 LIPID GROUP 91215 RCHOL/ HDL 3.78 RATIO 08/10/2012 COMPREHENSIVE METABOLIC 59842 AST 13 U/L 08/10/2012 COMPREHENSIVE METABOLIC 27540 ALT 17 IU/L 08/10/2012 COMPREHENSIVE METABOLIC 77291 BUN 10 MG/DL 08/10/2012 COMPREHENSIVE METABOLIC 92774 ALBUMIN 4.5 GM/DL 08/10/2012 COMPREHENSIVE METABOLIC 08214 CHLORIDE 102 MMOL/L 08/10/2012 COMPREHENSIVE METABOLIC 27600 BILI TOT 0.6 MG/DL 08/10/2012 COMPREHENSIVE METABOLIC 11617 ALK PHOS 111 U/L 08/10/2012 COMPREHENSIVE METABOLIC 38702 SODIUM 137 MMOL/L 08/10/2012 COMPREHENSIVE METABOLIC 74299 CREATININE 0.44 MG/DL 08/10/2012 COMPREHENSIVE METABOLIC 55564 CALCIUM 9.2 MG/DL 08/10/2012 COMPREHENSIVE METABOLIC 71266 POTASSIUM 3.7 MMOL/L 08/10/2012 COMPREHENSIVE METABOLIC 02293 PROT TOT 6.8 GM/DL 08/10/2012 COMPREHENSIVE METABOLIC 92115 Glucose 345 MG/DL 08/10/2012 COMPREHENSIVE METABOLIC 88946 BICARB 27 MMOL/L 08/10/2012 COMPREHENSIVE METABOLIC 18201 ANION GAP 8 MEQ/L 08/10/2012 Review of Systems System Result Effective Dates Cardiovascular No arrhythmia 12/27/2018 Cardiovascular No chest pain/pressure 12/27/2018 Cardiovascular No edema 12/27/2018 Cardiovascular No exercise intolerance 12/27/2018 Cardiovascular No orthopnea 12/27/2018 Cardiovascular No palpitations 12/27/2018 Constitutional fatigue 0 09/18/2018 Constitutional insomnia 09/18/2018 Psychiatric stress 09/18 Psychiatric depression 0 09/18/2018 Hematologic/Lymphatic anemia 09/18/2018 Constitutional fatigue 0 08/21/2018 Cardiovascular No arrhythmia 08/21/2018 Cardiovascular No chest pain/pressure 08/21/2018 Cardiovascular No edema 08/21/2018 Cardiovascular No exercise intolerance 08/21/2018 Cardiovascular No orthopnea 08/21/2018 Cardiovascular No palpitations 08/21/2018 Constitutional insomnia 08/21/2018 Hematologic/Lymphatic anemia 08/21/2018 Psychiatric stress 08/21 Psychiatric disturbances of emotion 08/21/2018 Respiratory No asthma Respiratory No cough Respiratory No dyspnea 0 08/21/2018 Respiratory No pleuritic pain 08/21/2018 Respiratory No productive sputum 08/21/2018 Respiratory No wheezing 08/21/2018 Constitutional No night sweats 02/08/2018 Constitutional No fatigue 02/08/2018 Constitutional No fever 02/08/2018 Constitutional No insomnia 02/08/2018 Constitutional No weight loss 02/08/2018 Constitutional weight gain/obesity 02/08/2018 Cardiovascular No arrhythmia 02/08/2018 Cardiovascular No chest pain/pressure 02/08/2018 Cardiovascular No edema 02/08/2018 Cardiovascular No exercise intolerance 02/08/2018 Cardiovascular No orthopnea 02/08/2018 Cardiovascular No palpitations 02/08/2018 Respiratory No asthma Respiratory No cough 07/2017 Respiratory No dyspnea 1 Respiratory No pleuritic pain 02/08/2018 Respiratory No productive sputum 02/08/2018 Respiratory No wheezing 02/08/2018 Gastrointestinal No hemorrhoids 02/08/2018 Gastrointestinal No hepatitis 02/08/2018 Gastrointestinal No abdominal pain 02/08/2018 Gastrointestinal No constipation 02/08/2018 Gastrointestinal No diarrhea 02/08/2018 Gastrointestinal No gastroesophageal reflu x 02/08/2018 Gastrointestinal No melena 02/08/2018 Gastrointestinal No nausea 02/08/2018 Gastrointestinal No vomiting 02/08/2018 Genitourinary/Nephrology No dysuria 02/08/2018 Genitourinary/Nephrology No nocturia 02/08/2018 Genitourinary/Nephrology No urinary incontinence 02/08/2018 Musculoskeletal No muscle weakness 02/08/2018 Musculoskeletal No myalgias 02/08/2018 Musculoskeletal No stiffness 02/08/2018 Musculoskeletal No swelling 02/08/2018 Dermatologic No rash 07/2017 Dermatologic No scar 07/2017 Neurologic No dizziness 02/08/2018 Neurologic No headache 1 Neurologic No neck pain 02/08/2018 Neurologic No syncope Psychiatric No anxiety 1 Psychiatric No depression 02/08/2018 Endocrine No goiter 1007/2017 Endocrine hyperglycemia 02/08/2018 Endocrine hypoglycemia 1 Endocrine diabetes mellitus type 1 02/08/2018 Musculoskeletal osteoporosis 02/08/2018 Musculoskeletal sciatica 06/24/2015 Neurologic pain, limb Endocrine diabetes mellitus type 1 02/11/2015 Cardiovascular hypertension 02/11/2015 Constitutional No night sweats 02/11/2015 Constitutional No fatigue 02/11/2015 Constitutional No fever 02/11/2015 Constitutional No insomnia 02/11/2015 Constitutional No weight loss 02/11/2015 Musculoskeletal No muscle weakness 02/11/2015 Musculoskeletal No myalgias 02/11/2015 Musculoskeletal No stiffness 02/11/2015 Musculoskeletal No swelling 02/11/2015 Cardiovascular hypertension 10/23/2014 Endocrine No diabetes mellitus type 2 10/23/2014 Endocrine diabetes mellitus type 1 10/23/2014 Endocrine hyperlipidemia 10/23/2014 Endocrine diabetes mellitus type 2 05/29/2014 Endocrine hyperlipidemia 05/29/2014 Cardiovascular No arrhythmia 05/29/2014 Cardiovascular No chest pain/pressure 05/29/2014 Cardiovascular No edema 05/29/2014 Cardiovascular No exercise intolerance 05/29/2014 Cardiovascular No orthopnea 05/29/2014 Cardiovascular No palpitations 05/29/2014 Cardiovascular hypertension 05/29/2014 Constitutional fatigue 0 05/29/2014 Respiratory No asthma Respiratory No cough Respiratory No dyspnea 0 05/29/2014 Respiratory No pleuritic pain 05/29/2014 Respiratory No productive sputum 05/29/2014 Respiratory No wheezing 05/29/2014 Genitourinary/Nephrology No dysuria 05/29/2014 Genitourinary/Nephrology No nocturia 05/29/2014 Genitourinary/Nephrology No urinary incontinence 05/29/2014 Gastrointestinal No hemorrhoids 05/29/2014 Gastrointestinal No hepatitis 05/29/2014 Gastrointestinal No abdominal pain 05/29/2014 Gastrointestinal No constipation 05/29/2014 Gastrointestinal No diarrhea 05/29/2014 Gastrointestinal No gastroesophageal reflu x 05/29/2014 Gastrointestinal No melena 05/29/2014 Gastrointestinal No nausea 05/29/2014 Gastrointestinal No vomiting 05/29/2014 Musculoskeletal back pain 05/29/2014 Musculoskeletal bone fracture 05/29/2014 Musculoskeletal bone pain 05/29/2014 Neurologic No dizziness 05/29/2014 Neurologic No headache 0 05/29/2014 Neurologic No neck pain 05/29/2014 Neurologic No syncope Dermatologic No rash Dermatologic No scar Psychiatric No anxiety 0 05/29/2014 Psychiatric No depression 05/29/2014 Gastrointestinal constipation 12/13/2013 Cardiovascular No arrhythmia 12/13/2013 Cardiovascular No chest pain/pressure 12/13/2013 Cardiovascular No edema 12/13/2013 Cardiovascular No exercise intolerance 12/13/2013 Cardiovascular No orthopnea 12/13/2013 Cardiovascular No palpitations 12/13/2013 Respiratory No asthma Respiratory No cough 11/2013 Respiratory No dyspnea 0 12/13/2013 Respiratory No pleuritic pain 12/13/2013 Respiratory No productive sputum 12/13/2013 Respiratory No wheezing 12/13/2013 Endocrine diabetes mellitus type 2 12/13/2013 Endocrine hyperglycemia 12/13/2013 Musculoskeletal back pain 12/13/2013 Musculoskeletal swelling 11/08/2013 Cardiovascular No hypertension 11/08/2013 Constitutional weight loss 11/08/2013 Constitutional fatigue 0 11/08/2013 Musculoskeletal back pain 08/13/2013 Musculoskeletal bone pain 08/13/2013 Musculoskeletal muscle spasm 08/13/2013 Respiratory No asthma Respiratory No cough 11/2013 Respiratory No dyspnea 0 08/13/2013 Respiratory No pleuritic pain 08/13/2013 Respiratory No productive sputum 08/13/2013 Respiratory No wheezing 08/13/2013 Endocrine diabetes mellitus type 2 05/28/2013 Endocrine diabetes mellitus type 1 05/28/2013 Endocrine hyperglycemia 05/28/2013 Endocrine diabetes mellitus type 2 04/30/2013 Endocrine hyperglycemia 04/30/2013 Endocrine diabetes mellitus type 2 04/03/2013 Psychiatric stress 09/21 Psychiatric anxiety 0510/2012 Endocrine diabetes mellitus type 2 09/21/2012 Endocrine diabetes mellitus type 2 08/10/2012 Endocrine hyperglycemia 08/10/2012 Psychiatric stress 08/10 Psychiatric anxiety 04/0 08/2012 Endocrine diabetes mellitus type 2 11/02/2011 Endocrine hyperglycemia 11/02/2011 Dermatologic cyst 2011 Constitutional weight loss 07/20/2011 Constitutional No fatigue 07/20/2011 Ears/Nose/Throat/Neck No hearing loss 07/20/2011 Ears/Nose/Throat/Neck No nasal discharge 07/20/2011 Ears/Nose/Throat/Neck No sinus congestion 07/20/2011 Ears/Nose/Throat/Neck No sore throat 07/20/2011 Cardiovascular No arrhythmia 07/20/2011 Cardiovascular No chest pain/pressure 07/20/2011 Cardiovascular No edema 07/20/2011 Cardiovascular No exercise intolerance 07/20/2011 Cardiovascular No orthopnea 07/20/2011 Cardiovascular No palpitations 07/20/2011 Respiratory No asthma Respiratory No pleuritic pain 07/20/2011 Respiratory No productive sputum 07/20/2011 Respiratory No cough Respiratory No dyspnea 0 07/20/2011 Respiratory No wheezing 07/20/2011 Gastrointestinal No hemorrhoids 07/20/2011 Gastrointestinal No hepatitis 07/20/2011 Gastrointestinal No abdominal pain 07/20/2011 Gastrointestinal No constipation 07/20/2011 Gastrointestinal No diarrhea 07/20/2011 Gastrointestinal No gastroesophageal reflu x 07/20/2011 Gastrointestinal No melena 07/20/2011 Gastrointestinal No nausea 07/20/2011 Gastrointestinal No vomiting 07/20/2011 Genitourinary/Nephrology No dysuria 07/20/2011 Genitourinary/Nephrology No nocturia 07/20/2011 Genitourinary/Nephrology No urinary incontinence 07/20/2011 Musculoskeletal No muscle weakness 07/20/2011 Musculoskeletal No myalgias 07/20/2011 Musculoskeletal No stiffness 07/20/2011 Musculoskeletal No swelling 07/20/2011 Dermatologic No rash Dermatologic No scar Neurologic No dizziness 07/20/2011 Neurologic No headache 0 07/20/2011 Neurologic No neck pain 07/20/2011 Neurologic No syncope Psychiatric No anxiety 0 07/20/2011 Psychiatric No depression 07/20/2011 Endocrine No goiter 07/07 Endocrine hyperglycemia 07/20/2011 Endocrine No hypoglycemia 07/20/2011 Endocrine No hypercalcemia 07/20/2011 Endocrine No diabetes mellitus type 2 07/20/2011 Gastrointestinal abdominal pain 05/14/2010 Cardiovascular No arrhythmia 05/14/2010 Cardiovascular No chest pain/pressure 05/14/2010 Cardiovascular No edema 05/14/2010 Cardiovascular No exercise intolerance 05/14/2010 Cardiovascular No orthopnea 05/14/2010 Cardiovascular No palpitations 05/14/2010 Respiratory No asthma Respiratory No pleuritic pain 05/14/2010 Respiratory No productive sputum 05/14/2010 Respiratory No cough 10/2010 Respiratory No dyspnea 0 05/14/2010 Respiratory No wheezing 05/14/2010 Endocrine hyperglycemia 05/14/2010 Physical Exam Exam Name System Name It em Name Status Result Effective Dates Notes Full Exam - General Constitutional general appearance Overall: well nourished 12/27/2018 None Full Exam - General Constitutional general appearance Overall: well developed 12/27/2018 None Full Exam - General Constitutional general appearance Overall: in no acute distress 12/27/2018 None Full Exam - General Neurologic mental status Overall: alert 9 None Full Exam - General Neurologic mental status Overall: oriented 12/27/2018 None Full Exam - General Psychiatric mood and affect Overall: normal mood and affect 12/27/2018 None Full Exam - General Respiratory auscultation Overall: breath sounds clear bilater ally 12/27/2018 None Full Exam - General Cardiovascular auscultation of heart Overall: regular rate 12/27/2018 None Full Exam - General Cardiovascular auscultation of heart Overall: normal heart sounds 12/27/2018 None Full Exam - General Cardiovascular auscultation of heart S4 (atrial gallop): present 12/27/2018 None Full Exam - General Cardiovascular extremities Overall: no clubbing 12/27/2018 None Full Exam - General Cardiovascular extremities Overall: No cyanosis 12/27/2018 None Full Exam - General Cardiovascular extremities Edema present: non-pitting 12/27/2018 None Full Exam - General Constitutional general appearance Overall: well nourished 09/18/2018 None Full Exam - General Constitutional general appearance Overall: well developed 09/18/2018 None Full Exam - General Constitutional general appearance Overall: in no acute distress 09/18/2018 None Full Exam - General Neurologic mental status Overall: alert 9 None Full Exam - General Neurologic mental status Overall: oriented 09/18/2018 None Full Exam - General Psychiatric mood and affect Overall: normal mood and affect 09/18/2018 None Full Exam - General Respiratory auscultation Overall: breath sounds clear bilater ally 09/18/2018 None Full Exam - General Cardiovascular auscultation of heart Overall: regular rate 09/18/2018 None Full Exam - General Cardiovascular auscultation of heart Overall: normal heart sounds 09/18/2018 None Full Exam - General Cardiovascular auscultation of heart S4 (atrial gallop): present 09/18/2018 None Full Exam - General Constitutional general appearance Overall: well nourished 08/21/2018 None Full Exam - General Constitutional general appearance Overall: well developed 08/21/2018 None Full Exam - General Constitutional general appearance Overall: in no acute distress 08/21/2018 None Full Exam - General Neurologic mental status Overall: alert 9 None Full Exam - General Neurologic mental status Overall: oriented 08/21/2018 None Full Exam - General Psychiatric mood and affect Overall: normal mood and affect 08/21/2018 None Full Exam - General Respiratory auscultation Overall: breath sounds clear bilater ally 08/21/2018 None Full Exam - General Cardiovascular auscultation of heart Overall: regular rate 08/21/2018 None Full Exam - General Cardiovascular auscultation of heart Overall: normal heart sounds 08/21/2018 None Full Exam - General Cardiovascular extremities Overall: no clubbing 08/21/2018 None Full Exam - General Cardiovascular extremities Overall: No edema 08/21/2018 None Full Exam - General Cardiovascular extremities Overall: No cyanosis 08/21/2018 None Full Exam - General Constitutional general appearance Overall: well nourished 02/08/2018 None Full Exam - General Constitutional general appearance Overall: well developed 02/08/2018 None Full Exam - General Constitutional general appearance Overall: in no acute distress 02/08/2018 None Full Exam - General Neurologic mental status Overall: alert 8 None Full Exam - General Neurologic mental status Overall: oriented 02/08/2018 None Full Exam - General Psychiatric mood and affect Overall: normal mood and affect 02/08/2018 None Full Exam - General Respiratory auscultation Overall: breath sounds clear bilater ally 02/08/2018 None Full Exam - General Cardiovascular auscultation of heart Overall: regular rate 02/08/2018 None Full Exam - General Cardiovascular auscultation of heart Overall: normal heart sounds 02/08/2018 None Full Exam - General Cardiovascular auscultation of heart Overall: no murmurs 02/08/2018 None Full Exam - General Cardiovascular extremities Overall: no clubbing 02/08/2018 None Full Exam - General Cardiovascular extremities Overall: No edema 02/08/2018 None Full Exam - General Cardiovascular extremities Overall: No cyanosis 02/08/2018 None Full Exam - General Abdomen abdominal exam Overall: no masses 02/08/2018 None Full Exam - General Abdomen abdominal exam Overall: no tenderness 02/08/2018 None Full Exam - General Abdomen abdominal exam Overall: normal bowel sounds 02/08/2018 None Full Exam - General Abdomen abdominal exam Overall: soft 02/08/2018 None Full Exam - General Neck inspection of neck Overall: normal size 02/08/2018 None Full Exam - General Neck inspection of neck Overall: no masses 02/08/2018 None Full Exam - General Musculoskeletal gait and station Station: kyphosis 02/08/2018 None Full Exam - General Musculoskeletal digits and nails Nails: onycholysis 02/08/2018 to all fingernails Full Exam - General Constitutional general appearance Overall: well nourished 06/24/2015 None Full Exam - General Constitutional general appearance Overall: well developed 06/24/2015 None Full Exam - General Constitutional general appearance Overall: in no acute distress 06/24/2015 None Full Exam - General Neurologic mental status Overall: alert 6 None Full Exam - General Neurologic mental status Overall: oriented 06/24/2015 None Full Exam - General Psychiatric mood and affect Overall: normal mood and affect 06/24/2015 None Full Exam - General Musculoskeletal gait and station Station: kyphosis 06/24/2015 None Full Exam - General Musculoskeletal gait and station Gait: antalgic 06/24/2015 None Full Exam - General Musculoskeletal spine, ribs and pelvis Spine: tender @ lumbar spin e 06/24/2015 None Full Exam - General Musculoskeletal spine, ribs and pelvis Sacroiliac joints: tender left sacroiliac joint 06/24/2015 None Full Exam - General Constitutional general appearance Overall: well nourished 02/11/2015 None Full Exam - General Constitutional general appearance Overall: well developed 02/11/2015 None Full Exam - General Constitutional general appearance Overall: in no acute distress 02/11/2015 None Full Exam - General Neurologic mental status Overall: alert 5 None Full Exam - General Neurologic mental status Overall: oriented 02/11/2015 None Full Exam - General Psychiatric mood and affect Overall: normal mood and affect 02/11/2015 None Full Exam - General Respiratory auscultation Overall: breath sounds clear bilater ally 02/11/2015 None Full Exam - General Cardiovascular auscultation of heart Overall: regular rate 02/11/2015 None Full Exam - General Cardiovascular auscultation of heart Overall: normal heart sounds 02/11/2015 None Full Exam - General Cardiovascular auscultation of heart S3 (ventricular gallop): present 02/11/2015 None Full Exam - General Cardiovascular auscultation of heart Murmur: previously known murmur unchanged 02/11/2015 None Full Exam - General Cardiovascular extremities Overall: no clubbing 02/11/2015 None Full Exam - General Cardiovascular extremities Overall: No cyanosis 02/11/2015 None Full Exam - General Cardiovascular extremities Overall: No edema 02/11/2015 None Full Exam - General Constitutional general appearance Overall: well nourished 10/23/2014 None Full Exam - General Constitutional general appearance Overall: well developed 10/23/2014 None Full Exam - General Constitutional general appearance Overall: in no acute distress 10/23/2014 None Full Exam - General Neurologic mental status Overall: alert 5 None Full Exam - General Neurologic mental status Overall: oriented 10/23/2014 None Full Exam - General Psychiatric mood and affect Overall: normal mood and affect 10/23/2014 None Full Exam - General Respiratory auscultation Overall: breath sounds clear bilater ally 10/23/2014 None Full Exam - General Cardiovascular auscultation of heart Overall: regular rate 10/23/2014 None Full Exam - General Cardiovascular auscultation of heart Overall: normal heart sounds 10/23/2014 None Full Exam - General Cardiovascular auscultation of heart S3 (ventricular gallop): present 10/23/2014 None Full Exam - General Cardiovascular auscultation of heart Murmur: previously known murmur unchanged 10/23/2014 None Full Exam - General Cardiovascular extremities Overall: no clubbing 10/23/2014 None Full Exam - General Cardiovascular extremities Overall: No edema 10/23/2014 None Full Exam - General Cardiovascular extremities Overall: No cyanosis 10/23/2014 None Full Exam - General Abdomen abdominal exam Overall: no masses 10/23/2014 None Full Exam - General Abdomen abdominal exam Overall: no tenderness 10/23/2014 None Full Exam - General Abdomen abdominal exam Overall: normal bowel sounds 10/23/2014 None Full Exam - General Abdomen abdominal exam Overall: soft 10/23/2014 None Full Exam - General Constitutional general appearance Overall: well nourished 05/29/2014 None Full Exam - General Constitutional general appearance Overall: well developed 05/29/2014 None Full Exam - General Constitutional general appearance Overall: in no acute distress 05/29/2014 None Full Exam - General Respiratory auscultation Overall: breath sounds clear bilater ally 05/29/2014 None Full Exam - General Cardiovascular auscultation of heart Overall: regular rate 05/29/2014 None Full Exam - General Cardiovascular auscultation of heart Overall: normal heart sounds 05/29/2014 None Full Exam - General Cardiovascular auscultation of heart S3 (ventricular gallop): present 05/29/2014 None Full Exam - General Cardiovascular auscultation of heart Murmur: previously known murmur unchanged 05/29/2014 None Full Exam - General Cardiovascular extremities Overall: no clubbing 05/29/2014 None Full Exam - General Cardiovascular extremities Overall: No edema 05/29/2014 None Full Exam - General Cardiovascular extremities Overall: No cyanosis 05/29/2014 None Full Exam - General Neck inspection of neck Overall: normal size 05/29/2014 None Full Exam - General Neck inspection of neck Overall: no masses 05/29/2014 None Full Exam - General Abdomen abdominal exam Overall: no masses 05/29/2014 None Full Exam - General Abdomen abdominal exam Overall: no tenderness 05/29/2014 None Full Exam - General Abdomen abdominal exam Overall: normal bowel sounds 05/29/2014 None Full Exam - General Abdomen abdominal exam Overall: soft 05/29/2014 None Full Exam - General Neurologic mental status Overall: alert 5 None Full Exam - General Neurologic mental status Overall: oriented 05/29/2014 None Full Exam - General Psychiatric mood and affect Overall: normal mood and affect 05/29/2014 None Full Exam - General Musculoskeletal gait and station Station: kyphosis 05/29/2014 None Full Exam - General Constitutional general appearance Overall: well nourished 01/10/2014 None Full Exam - General Constitutional general appearance Overall: well developed 01/10/2014 None Full Exam - General Constitutional general appearance Overall: in no acute distress 01/10/2014 None Full Exam - General Neurologic mental status Overall: alert 4 None Full Exam - General Neurologic mental status Overall: oriented 01/10/2014 None Full Exam - General Psychiatric mood and affect Overall: normal mood and affect 01/10/2014 None Full Exam - General Respiratory auscultation Overall: breath sounds clear bilater ally 01/10/2014 None Full Exam - General Cardiovascular auscultation of heart Overall: regular rate 01/10/2014 None Full Exam - General Cardiovascular auscultation of heart Overall: normal heart sounds 01/10/2014 None Full Exam - General Cardiovascular auscultation of heart S3 (ventricular gallop): present 01/10/2014 None Full Exam - General Cardiovascular auscultation of heart Murmur: previously known murmur unchanged 01/10/2014 None Full Exam - General Cardiovascular extremities Overall: no clubbing 01/10/2014 None Full Exam - General Cardiovascular extremities Overall: No edema 01/10/2014 None Full Exam - General Cardiovascular extremities Overall: No cyanosis 01/10/2014 None Full Exam - General Constitutional general appearance Overall: well developed 12/13/2013 None Full Exam - General Constitutional general appearance Overall: in no acute distress 12/13/2013 None Full Exam - General Constitutional general appearance Nourishment: emaciated 12/13/2013 None Full Exam - General Respiratory auscultation Overall: breath sounds clear bilater ally 12/13/2013 None Full Exam - General Cardiovascular auscultation of heart Overall: regular rate 12/13/2013 None Full Exam - General Cardiovascular auscultation of heart Overall: normal heart sounds 12/13/2013 None Full Exam - General Cardiovascular auscultation of heart S3 (ventricular gallop): present 12/13/2013 None Full Exam - General Cardiovascular auscultation of heart Murmur: previously known murmur unchanged 12/13/2013 None Full Exam - General Abdomen abdominal exam Overall: no masses 12/13/2013 None Full Exam - General Abdomen abdominal exam Overall: no tenderness 12/13/2013 None Full Exam - General Abdomen abdominal exam Overall: normal bowel sounds 12/13/2013 None Full Exam - General Abdomen abdominal exam Overall: soft 12/13/2013 None Full Exam - General Neurologic mental status Overall: alert 4 None Full Exam - General Neurologic mental status Overall: oriented 12/13/2013 None Full Exam - General Psychiatric mood and affect Overall: normal mood and affect 12/13/2013 None Full Exam - General Constitutional general appearance Overall: well nourished 11/08/2013 None Full Exam - General Constitutional general appearance Overall: well developed 11/08/2013 None Full Exam - General Constitutional general appearance Overall: in no acute distress 11/08/2013 None Full Exam - General Neurologic mental status Overall: alert 4 None Full Exam - General Neurologic mental status Overall: oriented 11/08/2013 None Full Exam - General Psychiatric mood and affect Overall: normal mood and affect 11/08/2013 None Full Exam - General Respiratory auscultation Overall: breath sounds clear bilater ally 11/08/2013 None Full Exam - General Cardiovascular auscultation of heart Overall: regular rate 11/08/2013 None Full Exam - General Cardiovascular auscultation of heart Overall: normal heart sounds 11/08/2013 None Full Exam - General Cardiovascular auscultation of heart S3 (ventricular gallop): present 11/08/2013 None Full Exam - General Cardiovascular auscultation of heart Murmur: previously known murmur unchanged 11/08/2013 None Full Exam - General Cardiovascular extremities Overall: no clubbing 11/08/2013 None Full Exam - General Cardiovascular extremities Overall: No edema 11/08/2013 None Full Exam - General Cardiovascular extremities Overall: No cyanosis 11/08/2013 None Full Exam - General Constitutional general appearance Overall: well developed 10/31/2013 None Full Exam - General Constitutional general appearance Overall: in no acute distress 10/31/2013 None Full Exam - General Constitutional general appearance Nourishment: thin 10/31/2013 None Full Exam - General Neurologic mental status Overall: alert 4 None Full Exam - General Neurologic mental status Overall: oriented 10/31/2013 None Full Exam - General Psychiatric mood and affect Overall: normal mood and affect 10/31/2013 None Full Exam - General Constitutional general appearance Overall: well nourished 10/22/2013 None Full Exam - General Constitutional general appearance Overall: well developed 10/22/2013 None Full Exam - General Constitutional general appearance Overall: in no acute distress 10/22/2013 None Full Exam - General Neurologic mental status Overall: alert 4 None Full Exam - General Neurologic mental status Overall: oriented 10/22/2013 None Full Exam - General Psychiatric mood and affect Overall: normal mood and affect 10/22/2013 None Full Exam - General Respiratory auscultation Overall: breath sounds clear bilater ally 10/22/2013 None Full Exam - General Musculoskeletal spine, ribs and pelvis Spine: tender @ thoracic spine 10/22/2013 left Full Exam - General Musculoskeletal spine, ribs and pelvis Ribs: asymmetric 10/22/2013 None Full Exam - General Cardiovascular auscultation of heart Overall: regular rate 10/22/2013 None Full Exam - General Cardiovascular auscultation of heart Overall: normal heart sounds 10/22/2013 None Full Exam - General Cardiovascular auscultation of heart Overall: no murmurs 10/22/2013 None Full Exam - General Constitutional general appearance Overall: well nourished 09/04/2013 None Full Exam - General Constitutional general appearance Overall: well developed 09/04/2013 None Full Exam - General Constitutional general appearance Overall: in no acute distress 09/04/2013 None Full Exam - General Psychiatric mood and affect Overall: normal mood and affect 09/04/2013 None Full Exam - General Neurologic mental status Overall: alert 4 None Full Exam - General Neurologic mental status Overall: oriented 09/04/2013 None Full Exam - General Abdomen abdominal exam Overall: no masses 09/04/2013 None Full Exam - General Abdomen abdominal exam Overall: normal bowel sounds 09/04/2013 None Full Exam - General Abdomen abdominal exam Overall: soft 09/04/2013 None Full Exam - General Respiratory auscultation Overall: breath sounds clear bilater ally 09/04/2013 None Full Exam - General Cardiovascular auscultation of heart Overall: regular rate 09/04/2013 None Full Exam - General Cardiovascular auscultation of heart Overall: normal heart sounds 09/04/2013 None Full Exam - General Cardiovascular auscultation of heart Overall: no murmurs 09/04/2013 None Full Exam - General Musculoskeletal spine, ribs and pelvis Spine: tender @ thoracic spine 09/04/2013 None Full Exam - General Constitutional general appearance Overall: well nourished 08/13/2013 None Full Exam - General Constitutional general appearance Overall: well developed 08/13/2013 None Full Exam - General Constitutional general appearance Overall: in no acute distress 08/13/2013 None Full Exam - General Respiratory auscultation Overall: breath sounds clear bilater ally 08/13/2013 None Full Exam - General Cardiovascular auscultation of heart Overall: regular rate 08/13/2013 None Full Exam - General Cardiovascular auscultation of heart Overall: normal heart sounds 08/13/2013 None Full Exam - General Cardiovascular auscultation of heart S3 (ventricular gallop): present 08/13/2013 None Full Exam - General Cardiovascular auscultation of heart Murmur: previously known murmur unchanged 08/13/2013 None Full Exam - General Neurologic mental status Overall: alert 4 None Full Exam - General Neurologic mental status Overall: oriented 08/13/2013 None Full Exam - General Psychiatric mood and affect Overall: normal mood and affect 08/13/2013 None Full Exam - General Musculoskeletal spine, ribs and pelvis Spine: tender @ thoracic spine 08/13/2013 upper left medial to scapula Full Exam - General Musculoskeletal spine, ribs and pelvis Ribs: asymmetric 08/13/2013 None Full Exam - General Musculoskeletal spine, ribs and pelvis Posture: kyphoscoliosis 08/13/2013 None Full Exam - General Musculoskeletal gait and station Station: kyphosis 08/13/2013 None Full Exam - General Constitutional general appearance Overall: well nourished 05/28/2013 None Full Exam - General Constitutional general appearance Overall: well developed 05/28/2013 None Full Exam - General Constitutional general appearance Overall: in no acute distress 05/28/2013 None Full Exam - General Neurologic mental status Overall: alert 4 None Full Exam - General Neurologic mental status Overall: oriented 05/28/2013 None Full Exam - General Psychiatric mood and affect Overall: normal mood and affect 05/28/2013 None Full Exam - General Respiratory auscultation Overall: breath sounds clear bilater ally 05/28/2013 None Full Exam - General Cardiovascular auscultation of heart Overall: regular rate 05/28/2013 None Full Exam - General Cardiovascular auscultation of heart Overall: normal heart sounds 05/28/2013 None Full Exam - General Cardiovascular auscultation of heart S3 (ventricular gallop): present 05/28/2013 None Full Exam - General Cardiovascular extremities Overall: no clubbing 05/28/2013 None Full Exam - General Cardiovascular extremities Overall: No edema 05/28/2013 None Full Exam - General Cardiovascular extremities Overall: No cyanosis 05/28/2013 None Full Exam - General Ears/Nose/Throat otoscopic exam Overall: external auditory canals clear 05/28/2013 None Full Exam - General Ears/Nose/Throat otoscopic exam Overall: tympanic membranes clear 05/28/2013 None Full Exam - General Ears/Nose/Throat internal nose Overall: bilateral nasal cavities clear 05/28/2013 None Full Exam - General Ears/Nose/Throat oral cavity/pharynx/larynx Overall: oral mucosa clear 05/28/2013 None Full Exam - General Ears/Nose/Throat internal nose Drainage: clear 05/28/2013 None Full Exam - General Constitutional general appearance Overall: well nourished 04/30/2013 None Full Exam - General Constitutional general appearance Overall: well developed 04/30/2013 None Full Exam - General Constitutional general appearance Overall: in no acute distress 04/30/2013 None Full Exam - General Neurologic mental status Overall: alert 3 None Full Exam - General Neurologic mental status Overall: oriented 04/30/2013 None Full Exam - General Psychiatric mood and affect Overall: normal mood and affect 04/30/2013 None Full Exam - General Respiratory auscultation Overall: breath sounds clear bilater ally 04/30/2013 None Full Exam - General Cardiovascular auscultation of heart Overall: regular rate 04/30/2013 None Full Exam - General Cardiovascular auscultation of heart Overall: normal heart sounds 04/30/2013 None Full Exam - General Cardiovascular auscultation of heart S3 (ventricular gallop): present 04/30/2013 None Full Exam - General Cardiovascular extremities Overall: no clubbing 04/30/2013 None Full Exam - General Cardiovascular extremities Overall: No edema 04/30/2013 None Full Exam - General Cardiovascular extremities Overall: No cyanosis 04/30/2013 None Full Exam - General Constitutional general appearance Overall: well nourished 04/03/2013 None Full Exam - General Constitutional general appearance Overall: well developed 04/03/2013 None Full Exam - General Constitutional general appearance Overall: in no acute distress 04/03/2013 None Full Exam - General Neurologic mental status Overall: alert 3 None Full Exam - General Neurologic mental status Overall: oriented 04/03/2013 None Full Exam - General Psychiatric mood and affect Overall: normal mood and affect 04/03/2013 None Full Exam - General Respiratory auscultation Overall: breath sounds clear bilater ally 04/03/2013 None Full Exam - General Cardiovascular auscultation of heart Overall: regular rate 04/03/2013 None Full Exam - General Cardiovascular auscultation of heart Overall: normal heart sounds 04/03/2013 None Full Exam - General Cardiovascular auscultation of heart S3 (ventricular gallop): present 04/03/2013 None Full Exam - General Cardiovascular extremities Overall: no clubbing 04/03/2013 None Full Exam - General Cardiovascular extremities Overall: No edema 04/03/2013 None Full Exam - General Cardiovascular extremities Overall: No cyanosis 04/03/2013 None Full Exam - General Constitutional general appearance Overall: well nourished 09/21/2012 None Full Exam - General Constitutional general appearance Overall: well developed 09/21/2012 None Full Exam - General Constitutional general appearance Overall: in no acute distress 09/21/2012 None Full Exam - General Neurologic mental status Overall: alert 3 None Full Exam - General Neurologic mental status Overall: oriented 09/21/2012 None Full Exam - General Psychiatric mood and affect Overall: normal mood and affect 09/21/2012 None Full Exam - General Respiratory auscultation Overall: breath sounds clear bilater ally 09/21/2012 None Full Exam - General Cardiovascular auscultation of heart Overall: regular rate 09/21/2012 None Full Exam - General Cardiovascular auscultation of heart Overall: normal heart sounds 09/21/2012 None Full Exam - General Cardiovascular auscultation of heart S3 (ventricular gallop): present 09/21/2012 None Full Exam - General Cardiovascular auscultation of heart Murmur: no murmur 09/21/2012 None Full Exam - General Constitutional general appearance Overall: well nourished 08/10/2012 None Full Exam - General Constitutional general appearance Overall: well developed 08/10/2012 None Full Exam - General Constitutional general appearance Overall: in no acute distress 08/10/2012 None Full Exam - General Neurologic mental status Overall: alert 3 None Full Exam - General Neurologic mental status Overall: oriented 08/10/2012 None Full Exam - General Psychiatric mood and affect Overall: normal mood and affect 08/10/2012 None Full Exam - General Respiratory auscultation Overall: breath sounds clear bilater ally 08/10/2012 None Full Exam - General Cardiovascular auscultation of heart Overall: regular rate 08/10/2012 None Full Exam - General Cardiovascular auscultation of heart Overall: normal heart sounds 08/10/2012 None Full Exam - General Cardiovascular auscultation of heart S3 (ventricular gallop): present 08/10/2012 None Full Exam - General Cardiovascular auscultation of heart Murmur: previously known murmur unchanged 08/10/2012 None Full Exam - General Constitutional general appearance Overall: well nourished 11/02/2011 None Full Exam - General Constitutional general appearance Overall: well developed 11/02/2011 None Full Exam - General Constitutional general appearance Overall: in no acute distress 11/02/2011 None Full Exam - General Neurologic mental status Overall: alert 2 None Full Exam - General Neurologic mental status Overall: oriented 11/02/2011 None Full Exam - General Psychiatric mood and affect Overall: normal mood and affect 11/02/2011 None Full Exam - General Integument inspection of skin Rash/Lesions: cyst 11/02/2011 sebaceous to right axilla Full Exam - General Cardiovascular auscultation of heart Overall: regular rate 11/02/2011 None Full Exam - General Cardiovascular auscultation of heart Overall: normal heart sounds 11/02/2011 None Full Exam - General Cardiovascular auscultation of heart Overall: no murmurs 11/02/2011 None Full Exam - General Chest/Breast breast and axillae palpation Overall: breasts non- tender 11/02/2011 None Full Exam - General Chest/Breast breast and axillae palpation Overall: no masses 11/02/2011 None Full Exam - General Chest/Breast breast and axillae palpation Overall: axillae non- tender 11/02/2011 None Full Exam - General Chest/Breast breast and axillae palpation Overall: no nipple discharge 11/02/2011 None Full Exam - General Chest/Breast breast and axillae palpation Right axillae: mass present 11/02/2011 sebaceous cyst approximately 1cm Full Exam - General Chest/Breast breast and axillae palpation Right axillae: no mass 11/02/2011 None Full Exam - General Respiratory auscultation Overall: breath sounds clear bilater ally 11/02/2011 None Full Exam - General Constitutional general appearance Overall: well nourished 07/20/2011 None Full Exam - General Constitutional general appearance Overall: well developed 07/20/2011 None Full Exam - General Constitutional general appearance Overall: in no acute distress 07/20/2011 None Full Exam - General Neurologic mental status Overall: alert 2 None Full Exam - General Neurologic mental status Overall: oriented 07/20/2011 None Full Exam - General Psychiatric mood and affect Overall: normal mood and affect 07/20/2011 None Full Exam - General Respiratory auscultation Right upper lung field: a normal exa m 07/20/2011 None Full Exam - General Respiratory auscultation Right middle lung field: a normal ex am 07/20/2011 None Full Exam - General Respiratory auscultation Right lower lung field: a normal exa m 07/20/2011 None Full Exam - General Respiratory auscultation Left lower lung field: a normal exam 07/20/2011 None Full Exam - General Respiratory auscultation Overall: breath sounds clear bilater ally 07/20/2011 None Full Exam - General Respiratory auscultation Left upper lung field: a normal exam 07/20/2011 None Full Exam - General Respiratory auscultation Diffuse: a normal exam 07/20/2011 None Full Exam - General Cardiovascular auscultation of heart Overall: no murmurs 07/20/2011 None Full Exam - General Cardiovascular auscultation of heart Overall: regular rate 07/20/2011 None Full Exam - General Cardiovascular auscultation of heart Overall: normal heart sounds 07/20/2011 None Full Exam - General Cardiovascular auscultation of heart S1: a normal exam 07/20/2011 None Full Exam - General Cardiovascular auscultation of heart S2: a normal exam 07/20/2011 None Full Exam - General Cardiovascular auscultation of heart Rhythm: regular rhythm 07/20/2011 None Full Exam - General Cardiovascular auscultation of heart Rate: regular rate 07/20/2011 None Full Exam - General Cardiovascular auscultation of heart S3 (ventricular gallop): present 07/20/2011 None Full Exam - General Neck inspection of neck Overall: normal size 07/20/2011 None Full Exam - General Neck inspection of neck Overall: no masses 07/20/2011 None Full Exam - General Cardiovascular extremities Overall: no clubbing 07/20/2011 None Full Exam - General Cardiovascular extremities Overall: No edema 07/20/2011 None Full Exam - General Cardiovascular extremities Overall: No cyanosis 07/20/2011 None Full Exam - General Constitutional general appearance Overall: well nourished 05/14/2010 None Full Exam - General Constitutional general appearance Overall: well developed 05/14/2010 None Full Exam - General Constitutional general appearance Overall: in no acute distress 05/14/2010 None Full Exam - General Neurologic mental status Overall: alert 1 None Full Exam - General Neurologic mental status Overall: oriented 05/14/2010 None Full Exam - General Cardiovascular auscultation of heart Rate: regular rate 05/14/2010 None Full Exam - General Cardiovascular auscultation of heart Rhythm: regular rhythm 05/14/2010 None Full Exam - General Cardiovascular auscultation of heart S1: a normal exam 05/14/2010 None Full Exam - General Cardiovascular auscultation of heart S2: a normal exam 05/14/2010 None Full Exam - General Cardiovascular auscultation of heart S3 (ventricular gallop): present 05/14/2010 None Full Exam - General Cardiovascular extremities Overall: no clubbing 05/14/2010 None Full Exam - General Cardiovascular extremities Overall: No edema 05/14/2010 None Full Exam - General Cardiovascular extremities Overall: No cyanosis 05/14/2010 None Full Exam - General Psychiatric mood and affect Overall: normal mood and affect 05/14/2010 None Full Exam - General Abdomen abdominal exam Overall: no masses 05/14/2010 None Full Exam - General Abdomen abdominal exam Overall: normal bowel sounds 05/14/2010 None Full Exam - General Abdomen abdominal exam Overall: soft 05/14/2010 None Full Exam - General Respiratory auscultation Overall: breath sounds clear bilater ally 05/14/2010 None Full Exam - General Respiratory auscultation Diffuse: a normal exam 05/14/2010 None Full Exam - General Respiratory auscultation Left upper lung field: a normal exam 05/14/2010 None Full Exam - General Respiratory auscultation Left lower lung field: a normal exam 05/14/2010 None Full Exam - General Respiratory auscultation Right upper lung field: a normal exa m 05/14/2010 None Full Exam - General Respiratory auscultation Right middle lung field: a normal ex am 05/14/2010 None Full Exam - General Respiratory auscultation Right lower lung field: a normal exa m 05/14/2010 None Full Exam - General Cardiovascular auscultation of heart Overall: regular rate 05/14/2010 None Full Exam - General Cardiovascular auscultation of heart Overall: normal heart sounds 05/14/2010 None Full Exam - General Cardiovascular auscultation of heart Overall: no murmurs 05/14/2010 None Procedures Procedure Codes Date FLU VACC PRSV FREE I NC ANTIG 65 AND OLDER CPT-4: 87865 04/07/2018 PNEUMOCOCCAL VACC 13 JACOBO IM CPT-4: 66854 04/07/2018 ADMIN INFLUENZA VIRU S VAC CPT-4: G0008 04/07/2018 ADMIN PNEUMOCOCCAL V ACCINE CPT-4: G0009 04/07/2018 PPPS, subseq visit CPT- 4: G0439 02/08/2018 TRIAMCINOLONE ACET I [place] NOS CPT-4: J3301 06/24/2015 DRAIN/INJECT JOINT/B URSA CPT-4: 88814 06/24/2015 PRESCRIP TRANSMIT A ERX SY CPT-4: G8553 10/23/2014 ROUTINE VENIPUNCTURE CPT-4: 17863 08/20/2013 ASSAY OF FREE THYROXINE CPT-4: 99442 08/20/2013 ASSAY THYROID STIM H ORMONE CPT-4: 95193 08/20/2013 COMPREHEN METABOLIC PANEL CPT-4: 67766 08/20/2013 COMPLETE CBC W/AUTO DIFF WBC CPT-4: 57946 08/20/2013 LIPID PANEL CPT-4: 43554 08/20/2013 A1C HPLC CPT-4: 40256 08/20/2013 VITAMIN B 12 FOLIC ACID CPT-4: 77430|75083 08/20/2013 VITAMIN D TOTAL (25 HYDROXY) CPT-4: 21373 08/20/2013 PRESCRIP TRANSMIT A ERX SY CPT-4: G8553 08/13/2013 PRESCRIP TRANSMIT A ERX SY CPT-4: G8553 05/28/2013 PRESCRIP TRANSMIT A ERX SY CPT-4: G8553 04/30/2013 ASSAY, GLUCOSE, BLOO D QUANT CPT-4: 06046 04/03/2013 PRESCRIP TRANSMIT A ERX SY CPT-4: G8553 04/03/2013 ROUTINE VENIPUNCTURE CPT-4: 16126 08/10/2012 ASSAY OF FREE THYROXINE CPT-4: 49325 08/10/2012 ASSAY THYROID STIM H ORMONE CPT-4: 22603 08/10/2012 COMPREHEN METABOLIC PANEL CPT-4: 33911 08/10/2012 COMPLETE CBC W/AUTO DIFF WBC CPT-4: 09428 08/10/2012 LIPID PANEL CPT-4: 03587 08/10/2012 A1C GLYCOSYLATED HEM OGLOBIN TEST CPT-4: 20940 08/10/2012 VITAMIN B 12 FOLIC ACID CPT-4: 69948|24148 08/10/2012 THER/PROPH/DIAG INJ SC/IM CPT-4: 62056 04/27/2010 VITAMIN B12 INJECTION CPT-4: J3420 04/27/2010 Vital Signs Date Vital 12/27/2018 Blood Pressure 1: 114/70 Code: 8480-6 Heart Rate 1: 72 bpm Respiratory Rate: 18 bpm SpO2: 98% Temperature: 37.0 (C ) / 98.6 (F) Weight: 126 lbs 09/18/2018 Blood Pressure 1: 126/72 Code: 8480-6 Heart Rate 1: 80 bpm Respiratory Rate: 20 bpm SpO2: 96% Temperature: 36.6 (C ) / 97.9 (F) Weight: 125 lbs 08/21/2018 Blood Pressure 1: 116/58 Code: 8480-6 Heart Rate 1: 92 bpm Respiratory Rate: 20 bpm SpO2: 95% Temperature: 37.2 (C ) / 99.0 (F) Weight: 120 lbs 02/08/2018 Blood Pressure 1: 126/76 Code: 8480-6 BMI: 27.3 Code: 88876-6 Heart Rate 1: 84 bpm Height: 4'11" Respiratory Rate: 20 bpm SpO2: 96% Temperature: 37.0 (C ) / 98.6 (F) Weight: 135 lbs 06/24/2015 Blood Pressure 1: 140/84 Code: 8480-6 BMI: 24.6 Code: 56782-1 Heart Rate 1: 84 bpm Height: 4'11" Respiratory Rate: 20 bpm Temperature: 37.4 (C ) / 99.3 (F) Weight: 122 lbs 02/11/2015 Blood Pressure 1: 132/76 Code: 8480-6 BMI: 23.2 Code: 19332-1 Heart Rate 1: 82 bpm Height: 4'11" Respiratory Rate: 22 bpm Temperature: 35.7 (C ) / 96.3 (F) Weight: 115 lbs 10/23/2014 Blood Pressure 1: 118/80 Code: 8480-6 BMI: 20.8 Code: 36687-0 Heart Rate 1: 92 bpm Height: 4'11" Respiratory Rate: 20 bpm Temperature: 36.9 (C ) / 98.4 (F) Weight: 103 lbs 05/29/2014 Blood Pressure 1: 114/70 Code: 8480-6 BMI: 21.2 Code: 97638-4 Heart Rate 1: 88 bpm Height: 4'11" Respiratory Rate: 20 bpm Temperature: 37.2 (C ) / 99.0 (F) Weight: 105 lbs 01/10/2014 Blood Pressure 1: 102/60 Code: 8480-6 BMI: 20.4 Code: 41187-8 Heart Rate 1: 88 bpm Height: 4'11" Respiratory Rate: 20 bpm Temperature: 36.9 (C ) / 98.4 (F) Weight: 101 lbs 12/13/2013 Blood Pressure 1: 124/76 Code: 8480-6 BMI: 19.4 Code: 45878-2 Heart Rate 1: 104 bpm Height: 4'11" Respiratory Rate: 20 bpm Temperature: 37.2 (C ) / 98.9 (F) Weight: 96 lbs 11/08/2013 Blood Pressure 1: 108/70 Code: 8480-6 BMI: 19.4 Code: 18838-6 Heart Rate 1: 84 bpm Height: 4'11" Respiratory Rate: 20 bpm Temperature: 37.1 (C ) / 98.7 (F) Weight: 96 lbs 10/31/2013 Blood Pressure 1: 128/80 Code: 8480-6 BMI: 18.2 Code: 98209-4 Heart Rate 1: 92 bpm Height: 4'11" Respiratory Rate: 20 bpm Temperature: 36.3 (C ) / 97.4 (F) Weight: 90 lbs 10/22/2013 Blood Pressure 1: 128/86 Code: 8480-6 BMI: 19.2 Code: 79323-3 Heart Rate 1: 104 bpm Height: 4'11" Respiratory Rate: 20 bpm Temperature: 37.0 (C ) / 98.6 (F) Weight: 95 lbs 09/04/2013 Blood Pressure 1: 152/90 Code: 8480-6 Heart Rate 1: 108 bpm Respiratory Rate: 20 bpm Temperature: 37.2 (C) / 98.9 (F) Weight: 105 lbs 08/13/2013 Blood Pressure 1: 156/102 Code: 8480-6 BMI: 22.6 Code: 44559-4 Heart Rate 1: 88 bpm Height: 4'11" Respiratory Rate: 20 bpm Temperature: 37.1 (C ) / 98.7 (F) Weight: 112 lbs 05/28/2013 Blood Pressure 1: 128/70 Code: 8480-6 BMI: 21.0 Code: 24138-9 Heart Rate 1: 104 bpm Height: 4'11" Respiratory Rate: 20 bpm Temperature: 38.0 (C ) / 100.4 (F) Weight: 104 lbs 04/30/2013 Blood Pressure 1: 116/78 Code: 8480-6 BMI: 21.4 Code: 64811-3 Heart Rate 1: 92 bpm Height: 4'11" Respiratory Rate: 20 bpm Temperature: 37.2 (C ) / 98.9 (F) Weight: 106 lbs 04/03/2013 Blood Pressure 1: 132/86 Code: 8480-6 BMI: 21.2 Code: 34839-4 Heart Rate 1: 88 bpm Height: 4'11" Respiratory Rate: 20 bpm Temperature: 37.2 (C ) / 99.0 (F) Weight: 105 lbs 09/21/2012 Blood Pressure 1: 146/74 Code: 8480-6 BMI: 21.8 Code: 48346-6 Heart Rate 1: 80 bpm Height: 4'11" Respiratory Rate: 20 bpm Temperature: 36.7 (C ) / 98.0 (F) Weight: 108 lbs 08/10/2012 Blood Pressure 1: 134/84 Code: 8480-6 BMI: 22.2 Code: 63254-9 Heart Rate 1: 84 bpm Height: 4'11" Respiratory Rate: 20 bpm Temperature: 36.7 (C ) / 98.1 (F) Weight: 110 lbs 11/02/2011 Blood Pressure 1: 134/78 Code: 8480-6 BMI: 24.6 Code: 81934-9 Heart Rate 1: 76 bpm Height: 4'11" Respiratory Rate: 20 bpm Temperature: 36.9 (C ) / 98.4 (F) Weight: 122 lbs 07/20/2011 Blood Pressure 1: 114/82 Code: 8480-6 BMI: 25.2 Code: 35000-0 Heart Rate 1: 92 bpm Height: 4'11" Respiratory Rate: 20 bpm Temperature: 36.8 (C ) / 98.2 (F) Weight: 125 lbs 05/14/2010 Blood Pressure 1: 128/76 Code: 8480-6 Heart Rate 1: 76 bpm Temperature: 37.0 (C) / 98.6 (F) Weight: 150 lbs Functional Status No Functional Status data History of Present Illness Symptom Name Status Resu lt Effective Date Notes Quality chronic 12/27/2018 None Test results HgbA1c le edmond 6.4-- 12/27/[address] Judith alvarenga his morning and did A1c in her office. Blood glucose levels 1 00-160's 12/27/2018 None Glucose monitoring con tinuous monitoring with dexcom 12/27/2018 None Lifestyle injections. 09/18/2018 Patient has felt better since doing the doing the weekly b12 injections Quality Denies improvi ng. 09/18/2018 Patient is currently taki ng doxepin 10mg 1 at bedtime Quality Denies chronic 09/18/2018 None Quality Denies improving 09/18/2018 grieving Quality depression 08/21/2018 None Quality acute 08/21/2018 None Quality severe (hemogl obin < 8 mg/dl) 08/21/2018 Current Hgb from 08-18-18 is 7.0 Quality worsening 08/21/2018 None Onset and Resolution o ngoing 08/21/2018 None diabetes mellitus Quality chronic 02/08/2018 None diabetes mellitus Test results HgbA1c level 6.5 02/08/2018 Patient states this was d one about [address] Wong well woman exam (65+ years) Lifestyle no history of physical abuse 02/08/2018 None well woman exam (65+ years) Lifestyle no history of sexual abuse 02/08/2018 None well woman exam (65+ years) Lifestyle no history of verbal abuse 02/08/2018 None well woman exam (65+ years) Lifestyle regular seatbelt use 02/08/2018 None well woman exam (65+ years) Lifestyle satisfactory work/alf experience 02/08/2018 None well woman exam (65+ years) Lifestyle normal sleep patterns 02/08/2018 None well woman exam (65+ years) Lifestyle normal amount of stress 02/08/2018 None well woman exam (65+ years) Lifestyle satisfactory marriage/partner relationship 02/08/2018 None well woman exam (65+ years) Sexual Activit y is not sexually active 02/08/2018 None well woman exam (65+ years) Sexual Activit y is monogamous 02/08/2018 None well woman exam (65+ years) Nutritio n and Exercise overweight 02/08/2018 No ne well woman exam (65+ years) Nutritio n and Exercise balanced nutrition 02/08/2018 None well woman exam (65+ years) Nutritio n and Exercise minimal exercise 02/08/2018 None well woman exam (65+ years) Cardiova scular Risk Factors hypertension 02/08/2018 None well woman exam (65+ years) Cardiova scular Risk Factors dyslipidemia 02/08/2018 None well woman exam (65+ years) Cardiova scular Risk Factors diabetes mellitus 02/08/2018 None well woman exam (65+ years) Health Guidanc e fall risk 02/08/2018 None well woman exam (65+ years) Health Guidanc e self-breast exam 02/08/2018 None well woman exam (65+ years) Health Guidanc e regular mammogram 02/08/2018 None well woman exam (65+ years) Health Guidanc e HIV precautions 02/08/2018 None well woman exam (65+ years) Health Guidanc e STD precautions 02/08/2018 None well woman exam (65+ years) Health Guidanc e tobacco, drugs and alcohol avoidance 02/08/2018 None well woman exam (65+ years) Health Guidanc e nutrition counseling 02/08/2018 None well woman exam (65+ years) Health Guidanc e regular exercise 02/08/2018 None well woman exam (65+ years) Health Guidanc e safety belt use 02/08/2018 None well woman exam (65+ years) Health Guidanc e depression symptoms 02/08/2018 None well woman exam (65+ years) Immunizations influenza vaccine (annually over 50 y.o.) 02/08/2018 None well woman exam (65+ years) Cardiova scular Risk Factors obesity 02/08/2018 None diabetes mellitus Glucose monitoring before meals 02/08/2018 None diabetes mellitus Glucose monitoring bedtime 02/08/2018 None diabetes mellitus Alleviating Factors insulin 02/08/2018 None pain, limb Location on t he left leg 06/24/2015 None pain, limb Onset and Resolution worse during the night. 06/24/2015 Using tizanidine as needed pain, limb Quality aching 06/24/2015 None pain, limb Alleviating Factors heat 06/24/2015 None pain, limb Onset of Symptom 2 weeks ago 06/24/2015 None diabetes mellitus Quality insulin dependent 02/11/2015 None diabetes mellitus Quality IDDM 02/11/2015 None diabetes mellitus Quality stable 02/11/2015 None diabetes mellitus Severity moderate 02/11/2015 None diabetes mellitus Test results fasting glucose 115-140 02/11/2015 None diabetes mellitus Blood glucose levels greater than 120 02/11/2015 None diabetes mellitus Glucose monitoring daily 02/11/2015 four times daily Vitamin B-12 Deficiency Pertinent Findings fatigue 02/11/2015 None Vitamin B-12 Deficiency Onset and Re solution chronic 02/11/2015 None Vitamin B-12 Deficiency Onset and Re solution ongoing 02/11/2015 None diabetes mellitus Test results HgbA1c level 13.3 10/23/2014 None diabetes mellitus Glucose monitoring daily 10/23/2014 None diabetes mellitus Blood glucose levels up and down 10/23/2014 None hyperlipidemia Labs TOTA L CHOL;192 10/23/2014 None hyperlipidemia Labs TG;1 60 10/23/2014 None hyperlipidemia Labs LDL; 110 10/23/2014 None hyperlipidemia Labs HDL: 52 10/23/2014 None hyperlipidemia Quality c hronic 10/23/2014 None hyperlipidemia Quality i ncreased TG 10/23/2014 None Vitamin B-12 Deficiency Lifestyle injections 10/23/2014 patient hasn't taken for 2mos diabetes mellitus Glucose monitoring daily 05/29/2014 None diabetes mellitus Blood glucose levels 100's 05/29/2014 None hypertension Quality sta ble 05/29/2014 None hyperlipidemia Quality s table 05/29/2014 None hyperlipidemia Onset and Resolution ongoing 05/29/2014 None Vitamin B-12 Deficiency Lifestyle injections 05/29/2014 None weight loss Quality impr oving 01/10/2014 None diabetes mellitus Quality improving 01/10/2014 None diabetes mellitus Glucose monitoring before meals 01/10/2014 None diabetes mellitus Glucose monitoring fasting. 01/10/2014 The fasting reading are improving diabetes mellitus Glucose monitoring four times daily 12/13/2013 None diabetes mellitus Blood glucose levels fasting normal. 12/13/2013 During the day the blood sugars increase acute renal failure Onset and Resolution resolved 12/13/2013 None constipation Quality sta ble 12/13/2013 None diabetes mellitus Glucose monitoring twice daily 11/08/2013 None diabetes mellitus Blood glucose levels _ 11/08/2013 None diabetes mellitus Quality improving 11/08/2013 Having some low fasting b lood sugars into the 60's back pain Location thora cic spine 11/08/2013 None back pain Quality improv ing 11/08/2013 None anorexia Quality loss of appetite for all foods 10/31/2013 None anorexia Onset and Resolution ongoing 10/31/2013 Has had 5lb pound weight loss since last visit anorexia Quality worseni ng 10/31/2013 None muscle weakness Location diffusely 10/31/2013 None muscle weakness Onset and Resolution ongoing 10/31/2013 None muscle weakness Quality worsening 10/31/2013 None weight loss Quality wors ening 10/31/2013 None back pain Onset and Resolution ongoing 10/22/2013 None back pain Location [facility] 10/22/2013 None weight loss Quality wors ening 10/22/2013 None anorexia Quality loss of appetite for all foods 10/22/2013 None weight loss Onset and Resolution ongoing 10/22/2013 None constipation Quality soft 09/04/2013 None constipation Quality 1-2 stools per week 09/04/2013 None constipation Quality imp roving 09/04/2013 Miralax hourly yesterday did help back pain Location [facility] spine 08/13/2013 None back pain Onset and Resolution ongoing 08/13/2013 Has been using baclofen w ith no relief back pain Quality chronic 08/13/2013 None back pain Quality consta nt 08/13/2013 None back pain Quality sharp 08/13/2013 None back pain Quality stabbi ng 08/13/2013 None back pain Quality worsen ing 08/13/2013 None back pain Location in th e left upper back area 08/13/2013 medial to shoulder blade sore throat Quality scra tchy 05/28/2013 None sore throat Onset of Symptom 3 days ago 05/28/2013 None diabetes mellitus Glucose monitoring daily 05/28/2013 None diabetes mellitus Blood glucose levels upper 200's to lower 300's 05/28/2013 None arrhythmia Quality tachy cardia 05/28/2013 None arrhythmia Quality irreg ular beats 05/28/2013 None diabetes mellitus Glucose monitoring daily 04/30/2013 None diabetes mellitus Blood glucose levels 300's 04/30/2013 Lowest reading was 247 diabetes mellitus Glucose monitoring rarely checks 04/03/2013 This morning was 361, stopped onglyza/actos and doesn't take metformin routinely diabetes mellitus Quality worsening 04/03/2013 None diabetes mellitus Quality chronic 04/03/2013 None diabetes mellitus Glucose monitoring couple times weekly 09/21/2012 None anxiety Quality improvin g with Lexapro 09/21/2012 None diabetes mellitus Test results Fingerstick blood sugar 300s 09/21/2012 None hyperglycemia Quality wo rsening 08/10/2012 Blood sugars running in 2 00's hyperglycemia Quality gl ucose intolerance 08/10/2012 None anxiety Quality worsening 08/10/2012 None anxiety Quality acute 08/10/2012 None diabetes mellitus Test results Fingerstick blood sugar 200s 08/10/2012 None diabetes mellitus Blood glucose levels greater than 300 11/02/2011 None diabetes mellitus Glucose monitoring fasting 11/02/2011 None breast complaint Quality lymphadenopathy 11/02/2011 None breast complaint Location in the right upper outer quadrant/armpit area 11/02/2011 None diabetes mellitus Test results Fingerstick blood sugar 200s 07/20/2011 None hypertension Quality sta ble 07/20/2011 None hypertension Quality wor sening 07/20/2011 stopped all meds 3mos ago hyperlipidemia Onset and Resolution ongoing 07/20/2011 None hyperglycemia Quality gl ucose intolerance 05/14/2010 None hyperglycemia Onset and Resolution ongoing 05/14/2010 None Advance Directives No Advance Directive data Encounters Encounter Performer Loca tion Codes Date ([id number]) OFFICE/OUTPA TIENT VISIT EST Diagnosis: Age-related osteoporosis without current pathological fracture[ICD10: M81.0] Diagnosis: Type 1 diabetes mellitus without complications[ICD10: E10.9] Diagnosis: Other dietary vitamin B12 deficiency anemia[ICD10: D51.3] Diagnosis: Vitamin D deficiency, unspecified[ICD10: E55.9] Kay WELLINGTON [employer] CPT-4: 06959 12/27/2018 ([id number]) OFFICE/OUTPA TIENT VISIT EST Diagnosis: Other dietary vitamin B12 deficiency anemia[ICD10: D51.3] Diagnosis: Psychophysiologic insomnia[ICD10: F51.04] Diagnosis: Other fatigue[ICD10: R53.83] Kay WELLINGTON [employer] CPT-4: 33403 09/18/2018 ([id number]) OFFICE/OUTPA TIENT VISIT EST Diagnosis: Adjustment disorder with depressed mood[ICD10: F43.21] Diagnosis: Other fatigue[ICD10: R53.83] Diagnosis: Psychophysiologic insomnia[ICD10: F51.04] Diagnosis: Other dietary vitamin B12 deficiency anemia[ICD10: D51.3] Kay OLIVERA [facility] CPT-4: 65995 08/21/2018 ([id number]) NURSE/OUTPAT IENT VISIT EST Diagnosis: PNEUMOCOCCAL VACCINE[ICD10: Z23] Diagnosis: FLU VACCINE[ICD10: Z23] Kay OLIVERA DO [facility] CPT-4: 02119 04/07/2018 OFFICE/OUTPATIENT SIT EST Diagnosis: Sacroiliitis, not elsewhere classified[ICD10: M46.1] Diagnosis: Radiculopathy, lumbosacral region[ICD10: M54.17] Kay GUTIERREZ [facility] CPT-4: 45227 06/24/2015 ([id number]) OFFICE/OUTPA TIENT VISIT EST Diagnosis: DM W/O COMPLICATION TYPE I, UNCONTROLLED[ICD10: E10.9] Diagnosis: Other dietary vitamin B12 deficiency anemia[ICD10: D51.3] Kay OLIVERA [facility] CPT-4: 31338 02/11/2015 ([id number]) OFFICE/OUTPA TIENT VISIT EST Diagnosis: DM W/O COMPLICATION TYPE I, UNCONTROLLED[ICD10: E10.9] Diagnosis: B12 DEFIC ANEMIA NEC[ICD9: 281.1] Diagnosis: VITAMIN D DEFICIENCY[ICD9: 268.9] Diagnosis: HX OF PAST NONCOMPLIANCE[ICD9: V15.81] Kay GUTIERREZ L[place] [facility] CPT-4: 75318 10/23/2014 ([id number]) OFFICE/OUTPA TIENT VISIT EST Diagnosis: DM W/O COMPLICATION TYPE I, UNCONTROLLED[ICD10: E10.9] Diagnosis: HYPERTENSION[ICD9: 401.9] Diagnosis: Vitamin B12 deficiency anemia[ICD9: 281.1] Diagnosis: Rib fracture[ICD9: 807.00] Kay OLIVERA [place]azada [place] [facility] CPT-4: 81165 05/29/2014 ([id number]) OFFICE/OUTPA TIENT VISIT EST Diagnosis: DM W/O COMPLICATION TYPE I, UNCONTROLLED[ICD10: E10.9] Diagnosis: Rib pain[ICD9: 786.50] Diagnosis: Weight loss[ICD9: 783.21] Kay OLIVERA DO [facility] CPT-4: 49065 01/10/2014 ([id number]) OFFICE/OUTPA TIENT VISIT EST Diagnosis: DM W/O COMPLICATION TYPE II, UNCONTROLLED[ICD9: 250.02] Diagnosis: CACHEXIA[ICD9: 799.4] Diagnosis: UNSPECIFIED CONSTIPATION[ICD9: 564.00] Kay GUTIERREZ [place] [facility] CPT-4: 03403 12/13/2013 ([id number]) OFFICE/OUTPA TIENT VISIT EST Diagnosis: DM W/O COMPLICATION TYPE II, UNCONTROLLED[ICD9: 250.02] Diagnosis: Rib pain[ICD9: 786.50] Diagnosis: Rib fracture[ICD9: 807.00] Diagnosis: CACHEXIA[ICD9: 799.4] Kay OLIVERA [place] [facility] CPT-4: 50267 11/08/2013 ([id number]) OFFICE/OUTPA TIENT VISIT EST Diagnosis: DM W/O COMPLICATION TYPE II, UNCONTROLLED[ICD9: 250.02] Diagnosis: Thoracic back pain[ICD9: 724.1] Diagnosis: Rib pain[ICD9: 786.50] Diagnosis: Weight loss[ICD9: 783.21] Kay OLIVERA [place]azada [place] [facility] CPT-4: 83788 10/22/2013 ([id number]) OFFICE/OUTPA TIENT VISIT EST Diagnosis: UNSPECIFIED CONSTIPATION[ICD9: 564.00] Diagnosis: Thoracic back pain[ICD9: 724.1] Diagnosis: Rib pain[ICD9: 786.50] Kay OLIVERA Lazada [place] [facility] CPT-4: 95875 09/04/2013 ([id number]) OFFICE/OUTPA TIENT VISIT EST Diagnosis: DM W/O COMPLICATION TYPE II, UNCONTROLLED[ICD9: 250.02] Diagnosis: B12 DEFIC ANEMIA NEC[ICD9: 281.1] Diagnosis: HYPERTENSION[ICD9: 401.9] Diagnosis: VITAMIN D DEFICIENCY[ICD9: 268.9] Kay GUTIERREZ Lazada [place] [facility] CPT-4: 14385 08/20/2013 OFFICE/OUTPATIENT SIT EST Diagnosis: Thoracic back pain[ICD9: 724.1] Diagnosis: SPASM OF MUSCLE[ICD9: 728.85] Diagnosis: Rib pain[ICD9: 786.50] Kay OLIVERA [facility] CPT-4: 98189 08/13/2013 OFFICE/OUTPATIENT SIT EST Diagnosis: DM W/O COMPLICATION TYPE II, UNCONTROLLED[ICD9: 250.02] Diagnosis: URI, ACUTE[ICD9: 465.9] Kay OLIVERA [facility] CPT-4: 39080 05/28/2013 OFFICE/OUTPATIENT SIT EST Diagnosis: DM W/O COMPLICATION TYPE II, UNCONTROLLED[ICD9: 250.02] Kay GUTIERREZ [facility] CPT-4: 70495 04/30/2013 ([id number]) OFFICE/OUTPA TIENT VISIT EST Diagnosis: DM W/O COMPLICATION TYPE II, UNCONTROLLED[ICD9: 250.02] Kay GUTIERREZ [facility] CPT-4: 78125 04/03/2013 ([id number]) OFFICE/OUTPA TIENT VISIT EST Diagnosis: DM W/O COMPLICATION TYPE II, UNCONTROLLED[ICD9: 250.02] Diagnosis: HYPERTENSION[ICD9: 401.9] Kay OLIVERA [facility] CPT-4: 26950 09/21/2012 ([id number]) OFFICE/OUTPA TIENT VISIT EST Diagnosis: DM W/O COMPLICATION TYPE II, UNCONTROLLED[ICD9: 250.02] Diagnosis: B12 DEFIC ANEMIA NEC[ICD9: 281.1] Diagnosis: HYPERTENSION[ICD9: 401.9] Kay OLIVERA [facility] CPT-4: 40088 08/10/2012 ([id number]) OFFICE/OUTPA TIENT VISIT EST Diagnosis: DM W/O COMPLICATION TYPE II, UNCONTROLLED[ICD9: 250.02] Diagnosis: SEBACEOUS CYST[ICD9: 706.2] Kay OLIVERA [facility] CPT-4: 81382 11/02/2011 ([id number]) OFFICE/OUTPA TIENT VISIT EST Diagnosis: DM W/O COMPLICATION TYPE II, UNCONTROLLED[ICD9: 250.02] Diagnosis: B12 DEFIC ANEMIA NEC[ICD9: 281.1] Diagnosis: HYPERTENSION[ICD9: 401.9] Kay OLIVERA DO [facility] CPT-4: 44371 07/20/2011 ([id number]) OFFICE/OUTPA TIENT VISIT, EST Kay GUTIERREZ DO [facility] CPT-4: 49838 05/14/2010 Plan of Care Planned Activity Notes C odes Status Date Visit Diagnosis Plan: Type 1 diabetes me llitus without complications Discussion: Following with endo--most re cent HbA1C 6.4 Follow Up: 3 months ICD-9 : 250.01 ICD-10 : E10.9 12/27/2018 Visit Diagnosis Plan: Vitamin D deficiency, unspecifie d Discussion: Check Vit D level ICD-9 : 268.9 ICD-10 : E55.9 12/27/2018 Visit Diagnosis Plan: Other dietary shay min B12 deficiency anemia Discussion: Check CBC, Vit B12 level ICD-9 : 281.1 ICD-10 : D51.3 12/27/2018 Visit Diagnosis Plan: Age-related osteop orosis without current pathological fracture Discussion: Doing forteo through endo ICD-9 : 733.00 ICD-10 : M81.0 12/27/2018 Visit Diagnosis Plan: Other dietary shay min B12 deficiency anemia Discussion: Doing weekly B12 injections Had lab done this morning ICD-9 : 281.1 ICD-10 : D51.3 09/18/2018 Visit Diagnosis Plan: Psychophysiologic insomnia Discussion: Stable/Improving with doxepin Follow Up: 3 months ICD-9 : 780.52 ICD-10 : F51.04 09/18/2018 Appointment: [facility] [phone] [id number] [facility] 09/18/2018 Patient Education: doxepin- [employer] Coupon [id number] [email or web address] Completed 09/18/2018 Visit Diagnosis Plan: Other dietary shay min B12 deficiency anemia Discussion: Restart B12 1000mcg IM weekl y Check CBC in 2 weeks ICD-9 : 281.1 ICD-10 : D51.3 08/21/2018 Visit Diagnosis Plan: Psychophysiologic insomnia Discussion: Doxepin 10mg 1-2 po q HS prn [...] : 780.79 ICD-10 : R53.83 08/21/2018 Appointment: Kay Olivera WPtel: [facility] [place] ACUTE ILLNESS 08/21/2018 Patient Education: doxepin- [employer] Coupon [id number] Completed 08/21/2018 Patient Education: cyanocobalamin (vitam in B-12)- [employer] Coupon [id number] Completed 08/21/2018 Appointment: Estelita Rousseau [facility] Jessie [address] NO SHOW 07/11/2018 Appointment: Kay Olivera WPtel: [facility] [place] [address] [place] INJECTION 04/07/2018 Visit Diagnosis Plan: Other dietary shay min B12 deficiency anemia Discussion: Check CBC and B12 level ICD-9 : 281.1 ICD-10 : D51.3 02/08/2018 Visit Diagnosis Plan: DM W/O COMPLICATIO N TYPE I, UNCONTROLLED Discussion: Following with endocrinology who has discussed [...] 02/08/2018 Visit Diagnosis Plan: Encounter for gene ral adult medical examination without abnormal findings Discussion: Update fasting lab Will get flu shot at hospital next week--will make sure is high dose Recommend Prevnar 13 ICD-9 : V70.9 ICD-10 : Z00.00 02/08/2018 Appointment: Kay Olivera WPtel: [address] [place], [place] [phone] Annual Well Visit 02/08/2018 Patient Education: Patient Medication Summary Completed 02/08/2018 Appointment: Kay Olivera WPtel: [facility] [place] [id number] 07/29 canceled~sl CANCELED 08/02/2016 Visit Plan: Left SI joint injection --cleansed with alcohol and betadine and injected with 2cc 1% lidocaine with 40mg kenolog, tolerated well with no complications, neosporin and bandage applied Call in 2 days on how doing Zorvolex 18mg po TID Use zanaflex q HS Use tramadol prn 06/24/2015 Appointment: Kay Olivera WPtel: [address] [place], [place] [phone] 06/23/15 appt confirmed cn ACUTE ILLNESS 06/24/2015 Patient Education: Patient Medication Summary Completed 06/24/2015 Visit Plan: Check CMP, HbA1C, CBC, TSH, free T4, B12 Continue accuchecks q AC and HS with sliding scale insulin 02/11/2015 Appointment: Kay Olivera WPtel: [address] [place], [place] [phone] FOLLOW UP 02/11/2015 Patient Education: Patient Medication Summary Completed 02/11/2015 Visit Plan: Patient admits not taki ng insulin routinely Continue accuchecks but need to do [...] work or did not tolerate 10/23/2014 Appointment: Kay Olivera WPtel: [address] [place], [place] [phone] 10/22 appt cn FOLLOW UP 10/23/2014 Patient Education: Patient Medication Summary Completed 10/23/2014 Appointment: Kay Olivera WPtel: [address] [place], [place] [phone] 09/17 confirmed with spouse cn... 5 No Show FOLLOW UP 09/18/2014 Visit Plan: Check fasting lab Check Bone Density Discussed Forteo for bones vs evista Accuchecks at least daily to BID alternating times 05/29/2014 Appointment: Kay Olivera WPtel: [address] [place], [place] [phone] voicemail FOLLOW UP 05/29/2014 Patient Education: Patient Medication Summary Completed 05/29/2014 Care Plan: DXA BONE DENSITY VERT FX Ordered 05/29/2014 Visit Plan: Increase apidra to 8u w ith breakfast and lunch and 9u with evening meal Using hydrocodone q HS Accuchecks q AC and HS due to fluctuating BS and ongoing adjustement of insulin regimen BS readings in 2weeks to further adjust apidra Fwup 1mo 01/10/2014 Appointment: Kay Olivera WPtel: [address] [place], [place] [phone] [place] FOLLOW UP 01/10/2014 Patient Education: Patient Medication Summary Completed 01/10/2014 Visit Plan: Increase levemir to 22u Increase apidra to 7u sc with meals Continue accuchecks q AC and HS 12/13/2013 Appointment: Kay Oliveratel: [address] [place] [address] [place] FOLLOW UP 12/13/2013 Patient Education: Patient Medication Summary Completed 12/13/2013 Visit Plan: Continue current meds W eight check in 2weeks Fwup in 1mo 11/08/2013 Appointment: Kay Olivera WPtel: [address] [place], [place] [phone] 11/07 [facility] Follow Up 11/08/2013 Patient Education: Patient Medication Summary Completed 11/08/2013 Visit Plan: [facility] 10/31/2013 Appointment: Kay Olivera WPtel: [address] [place], [place] [phone] FOLLOW UP 10/31/2013 Patient Education: Patient Medication Summary Completed 10/31/2013 Visit Plan: Check lab and retry PT with traction Check CBC, CMP, TSH, Free T4 Patient admits to not eating routinely Hold metformin Continue accuchecks Suggested Glucerna if not eating a meal 10/22/2013 Appointment: Kay Olivera WPtel: [address] [place] [address] (don't know what she needs seen for, she hung up after I told her appt time) ACUTE ILLNESS 10/22/2013 Patient Education: Patient Medication Summary Completed 10/22/2013 Visit Plan: Continue miralax BID to TID for daily BMs Proceed with colonoscopy Start PT for thoracics and schedule with pain medicine in case needs injection to thoracic area 09/04/2013 Appointment: Kay Olivera WPtel: [address] [place] [address] ACUTE ILLNESS 09/04/2013 Patient Education: Patient Medication Summary Completed 09/04/2013 Appointment: Kay Olivera WPtel: [address] [place] [address] ACUTE ILLNESS 08/20/2013 Patient Education: Patient Medication Summary Completed 08/20/2013 Visit Plan: Continue ibuprofen and baclofen Check thoracic spine and posterior rib x-ray--if no sign of fracture then okay for manipulation in thoracic spine Add hydrocodone 5/325mg 1 po q4hrs prn pain--#60 08/13/2013 Appointment: Kay Olivera WPtel: [address] [place], [place] [phone] FOLLOW UP 08/13/2013 Patient Education: Patient Medication Summary Completed 08/13/2013 Visit Plan: DC Amaryl, Actos, Byett a, Janumet Metformin 1000mg BID Levemir 30u sc q PM Fasting BS readings in 2wks 05/28/2013 Appointment: Kay Olivera WPtel: [id number] FOLLOW UP 05/28/2013 Patient Education: Patient Medication Summary Completed 05/28/2013 Visit Plan: Pt wants one more month of orals before going to insulin Increase Amaryl to 4mg BID Add Byetta 5mcg sc BID Continue accuchecks BID 04/30/2013 Appointment: Kay Olivera WPtel: [facility] [place] [facility] [place] [phone] FOLLOW UP 04/30/2013 Patient Education: Patient Medication Summary Completed 04/30/2013 Patient Education: Janumet XR - No CA FL ME Completed 04/30/2013 Visit Plan: Start Janumet XR 50/100 0mg BID Continue actos at 30mg daily Twice daily accuchecks alternating times Call in 1wk with BS readings 04/03/2013 Appointment: Kay lOivera WPtel: [address] [place], [place] [phone] FOLLOW UP 04/03/2013 Patient Education: Patient Medication Summary Completed 04/03/2013 Patient Education: [facility] - Saving AutoInj - 18+ - Dynamic Portal ID Completed 04/03/2013 Visit Plan: Continue metformin at B ID Continue onglyza 5mg q AM Add Actos 30mg daily Continue accuchecks daily Continue lexapro at 5mg daily 09/21/2012 Appointment: Kay Olivera WPtel: [address] [place], [place] [phone] FOLLOW UP 09/21/2012 Patient Education: Patient Medication Summary Completed 09/21/2012 Visit Plan: Check fasting lab Stres s Reducers and Lexapro 5mg daily for 1wk then increase to 10mg daily Pt has stopped all meds for diabetes except for metformin couple times a week--noncompliant Restart Metformin at 1000mg po BID and accuchecks 08/10/2012 Appointment: Kay Olivera WPtel: [address] [place], [place] [phone] FOLLOW UP 08/10/2012 Patient Education: Patient Medication Summary Completed 08/10/2012 Visit Plan: Check screeening Mammo Observe vs Remove sebaceous cyst Continue Kombiglyze 5/1000mg q AM and change metformin to Actoplusmet XR 30/1000mg q PM--Call in 2wks with BS readings and will likely add amaryl at that time and then check CMP, CBC and HbA1C in 3mos and fwup 11/02/2011 Appointment: Kay Olivera WPtel: [address] [place] [address] FOLLOW UP 11/02/2011 Patient Education: Patient Medication Summary Completed 11/02/2011 Visit Plan: Start Kombiglyze ER 5/1 000mg po daily and start accuchecks daily Start monthly B12 HbA1C, B12 level in 3mos Check urine for microalbumin Discussed Lamisil treatment for fingernails 07/20/2011 Appointment: Kay Olivera WPtel: [address] [place] [address] FOLLOW UP 07/20/2011 Patient Education: Patient Medication Summary Completed 07/20/2011 Visit Plan: Continue weekly B12 cyndi ts and check CBC in 2wks Start Metformin and cont accuchecks 05/14/2010 Appointment: Kay Olivera WPtel: [address] [place], [place] [phone] FOLLOW UP 05/14/2010 Patient Education: Patient Medication Summary Completed 05/14/2010 Appointment: Kay Olivera WPtel: [address] [place], [place] [phone] [place] INJECTION 04/27/2010 Patient Education: Patient Medication Summary Completed 04/27/2010 Referral: Vanessa Wong WPtel: [address] [id number] [place] Referral Initiated Instructions Comment . Check fasting lab Stress Reducers and Lexapro 5mg daily for 1wk then increase to 10mg daily Pt has stopped all meds for diabetes except for metformin couple times a week--noncompliant Restart Metformin at 1000mg po BID and accuchecks . Check lab and retr y PT with traction Check CBC, CMP, TSH, Free T4 Patient admits to not eating routinely Hold metformin Continue accuchecks Suggested Glucerna if not eating a meal . DC Amaryl, Actos, Byetta, Janumet Metformin 1000mg BID Levemir 30u sc q PM Fasting BS readings in 2wks . Left SI joint inje ction--cleansed with alcohol and betadine and injected with 2cc 1% lidocaine with 40mg kenolog, tolerated well with no complications, neosporin and bandage applied Call in 2 days on how doing Zorvolex 18mg po TID Use zanaflex q HS Use tramadol prn . Pt wants one more month of orals before going to insulin Increase Amaryl to 4mg BID Add Byetta 5mcg sc BID Continue accuchecks BID . Continue metformin at BID Continue onglyza 5mg q AM Add Actos 30mg daily Continue accuchecks daily Continue lexapro at 5mg daily . Continue ibuprofen and baclofen Check thoracic spine and posterior rib x-ray--if no sign of fracture then okay for manipulation in thoracic spine Add hydrocodone 5/325mg 1 po q4hrs prn pain--#60 . Continue miralax B ID to TID for daily BMs Proceed with colonoscopy Start PT for thoracics and schedule with pain medicine in case needs injection to thoracic area . Check screeening M ammo Observe vs Remove sebaceous cyst Continue Kombiglyze 5/1000mg q AM and change metformin to Actoplusmet XR 30/1000mg q PM--Call in 2wks with BS readings and will likely add amaryl at that time and then check CMP, CBC and HbA1C in 3mos and fwup . Start Kombiglyze E R 5/1000mg po daily and start accuchecks daily Start monthly B12 HbA1C, B12 level in 3mos Check urine for microalbumin Discussed Lamisil treatment for fingernails . Increase levemir t o 22u Increase apidra to 7u sc with meals Continue accuchecks q AC and HS . Check fasting lab Check Bone Density Discussed Forteo for bones vs evista Accuchecks at least daily to BID alternating times . Direct admit to [facility] . Continue weekly B1 2 shots and check CBC in 2wks Start Metformin and cont accuchecks . Increase apidra to 8u with breakfast and lunch and 9u with evening meal Using hydrocodone q HS Accuchecks q AC and HS due to fluctuating BS and ongoing adjustement of insulin regimen BS readings in 2weeks to further adjust apidra Fwup 1mo . Patient admits not taking insulin routinely Continue accuchecks but need to do [...] not work or did not tolerate . Continue current m eds Weight check in 2weeks Fwup in 1mo . Start Janumet XR 5 0/1000mg BID Continue actos at 30mg daily Twice daily accuchecks alternating times Call in 1wk with BS readings . Check CMP, HbA1C, CBC, TSH, free T4, B12 Continue accuchecks q AC and HS with sliding scale insulin
--- OUTSIDE RECORDS SUMMARY | 2019-10-05 07:36 | XMS REPORT | CCD ---
Author Author Zahra Olivera D.O. Organization [facility] Address [address] [place] [address] Phone Care Team Providers Care Laboratory Monitor Name Role Phone Kay [facility]a D.O. PP Unavailable CCM Unavailable Summary Purpose Interface Exchange Insurance Providers Payer name Policy type / Coverage type Covered democrat ID Effective Begin Date Effective End Date WPS MEDICARE PART B [place] Medicare Part B [id number] Unknown Cigna Medicare Part B 13 193 2017 Unknown Family History Family History data not found Social History Social History Element Codes Description Effective Dates Tobacco history SNOMED CT: 547269125 Never smoker 01/23/2015 Allergies, Adverse Reactions, Alerts [...] Fill Instructions doxepin 10 mg capsule RxNorm: 3788059 1-2 Capsule(s) PO QHS as needed for slee p 09/18/2018 12/26/2018 In active cyanocobalamin (vit B-12) 1,000 mcg/mL injection solution RxNorm: 016765 1 Milliliter(s) Inj WEEKLY 08/21/2018 No Stop Date Active doxepin 10 mg capsule RxNorm: 2232766 1-2 Capsule(s) PO QHS as needed for slee p 08/21/2018 09/17/2018 In active Vitamin D3 5,000 uni t tablet RxNorm: 857038 1 Tablet(s) PO QD 02/16/2018 08/20/2018 Inactive Vitamin B12 1000mcg Tablet RxNorm: 1 Tablet(s) SL QD 02/16/2018 08/20/2018 Inactive Apidra SoloStar U-10 0 Insulin 100 unit/mL subcutaneous pen RxNorm: 385066 Unit(s) SQ Sliding Scale 07/15/2017 09/12/2017 Inactive Apidra SoloStar U-10 0 Insulin 100 unit/mL subcutaneous pen RxNorm: 407565 Unit(s) SQ Sliding Scale 07/15/2017 08/13/2017 Inactive Apidra SoloStar U-10 0 Insulin 100 unit/mL subcutaneous pen RxNorm: 338272 Unit(s) SQ Sliding Scale 04/29/2017 07/14/2017 Inactive Apidra SoloStar 100 unit/mL subcutaneous insulin pen RxNorm: 100438 Unit(s) SQ Sliding Scale 03/08/2017 04/29/2017 Inactive Apidra SoloStar 100 unit/mL subcutaneous insulin pen RxNorm: 991124 Unit(s) SQ Sliding Scale 03/08/2017 04/06/2017 Inactive Apidra SoloStar 100 unit/mL subcutaneous insulin pen RxNorm: 875275 Unit(s) SQ Sliding Scale 01/20/2017 03/08/2017 Inactive Apidra SoloStar 100 unit/mL subcutaneous insulin pen RxNorm: 508374 Unit(s) SQ Sliding Scale 11/16/2016 01/19/2017 Inactive Apidra SoloStar 100 unit/mL subcutaneous insulin pen RxNorm: 388952 Unit(s) SQ Sliding Scale 08/02/2016 11/15/2016 Inactive Apidra SoloStar 100 unit/mL subcutaneous insulin pen RxNorm: 709348 Unit(s) SQ 8units after breakfast and lunch and 9units at supper 08/02/2016 08/20/2018 Inactive lisinopril 20 mg tablet RxNorm: 540145 1 Tablet(s) PO QD 03/05/2016 02/07/2018 Inactive Apidra SoloStar 100 unit/mL subcutaneous insulin pen RxNorm: 337087 Unit(s) SQ 8units after breakfast and lunch and 9units at supper 05/12/2015 08/02/2016 Inactive Levemir FlexTouch 10 0 unit/mL (3 mL) subcutaneous insulin pen RxNorm: 178272 35 Unit(s) SQ QHS 05/12/2015 02/07/2018 Inactive cyanocobalamin (vit B-12) 1,000 mcg/mL injection solution RxNorm: 777123 1 Milliliter(s) Inj IM every 2 weeks 02/20/2015 02/07/2018 Inactive Apidra SoloStar 100 unit/mL subcutaneous insulin pen RxNorm: 628544 Unit(s) SQ 8units after breakfast and lunch and 9units at supper 01/10/2015 05/11/2015 Inactive cyanocobalamin (vit B-12) 1,000 mcg/mL injection solution RxNorm: 127805 1 Milliliter(s) Inj Every month every month 10/23/2014 02/19/2015 Inactive Levemir FlexTouch 10 0 unit/mL (3 mL) subcutaneous insulin pen RxNorm: 215998 35 Unit(s) SQ QHS 10/23/2014 05/11/2015 Inactive hydrocodone 5 mg-brendan taminophen 325 mg tablet RxNorm: 130284 TAKE ONE TABLET BY [facility] EVERY 4 HOURS NEEDED FOR PAIN 02/19/2014 02/28/2014 Inactive (Response to an electronic controlled substance refill request - RxReferenceNumber: [id number]) hydrocodone 5 mg-brendan taminophen 325 mg tablet RxNorm: 276815 TAKE ONE TABLET BY [facility] EVERY 4 HOURS NEEDED FOR PAIN 01/08/2014 01/16/2014 Inactive (Response to an electronic controlled substance refill request - RxReferenceNumber: [id number]) Reglan 5 mg tablet RxNorm: 041140 1 Tablet(s) PO QID before meals and bedt aquilino 12/13/2013 10/22/2014 In active Apidra SoloStar 100 unit/mL subcutaneous insulin pen RxNorm: 731841 5 Unit(s) SQ AC 12/05/2013 05/28/2014 In active baclofen 10 mg tablet RxNorm: 825499 1 Tablet(s) PO TID PRN Spasm 08/13/2013 09/11/2013 Inactive Amaryl 4 mg tablet RxNorm: 922253 1 Tablet(s) PO BID 05/23/2013 05/27/2013 Inactive AttnRPh: Saving apply/adjudicate RxGRP:SG20 RxBIN:[id number] RxPCN:HT ID#:[id number] Actos 30 mg tablet RxNorm: 064830 1 Tablet(s) PO QPM 05/03/2013 05/27/2013 Inactive AttnRPh: Saving apply/adjudicate RxGRP:SG20 RxBIN:[id number] RxPCN:HT ID#:[id number] Actos 30 mg tablet RxNorm: 879067 1 Tablet(s) PO QPM 04/30/2013 05/02/2013 Inactive AttnRPh: Saving apply/adjudicate RxGRP:SG20 RxBIN:[id number] RxPCN:HT ID#:[id number] Janumet XR 50 mg-1,0 00 mg tablet,extended release RxNorm: 7495483 1 Tablet(s) PO BID 04/30/2013 08/12/2013 Inactive Amaryl 4 mg tablet RxNorm: 288812 1 Tablet(s) PO BID 04/30/2013 05/22/2013 Inactive AttnRPh: Saving apply/adjudicate RxGRP:SG20 RxBIN:[id number] RxPCN:HT ID#:[id number] Actos 30 mg tablet RxNorm: 646856 1 Tablet(s) PO QPM 04/03/2013 05/03/2013 Inactive AttnRPh: Saving apply/adjudicate RxGRP:SG20 RxBIN:[id number] RxPCN:HT ID#:[id number] Amaryl 4 mg tablet RxNorm: 135436 1 Tablet(s) PO QAM 04/03/2013 04/29/2013 Inactive AttnRPh: Saving apply/adjudicate RxGRP:SG20 RxBIN:[id number] RxPCN:HT ID#:[id number] Onglyza 5 mg tablet RxNorm: 303719 1 Tablet(s) PO QD 08/14/2012 04/02/2013 Inactive metformin ER 1,000 m g tablet,extended release 24hr RxNorm: 612943 1 Tablet(s) PO BID 08/14/2012 04/02/2013 Inactive Onglyza 5 mg tablet RxNorm: 187735 1 Tablet(s) PO QD 08/14/2012 08/13/2012 Inactive Lexapro 10 mg tablet RxNorm: 600373 1 Tablet(s) PO QHS 08/10/2012 11/07/2013 Inactive cyanocobalamin (shay min B-12) 1,000 mcg/mL Injection RxNorm: 905609 1 Milliliter(s) IM QW 12/22/2011 08/09/2012 Inactive weekly cyanocobalamin (shay min B-12) 1,000 mcg/mL Injection RxNorm: 292864 1 Milliliter(s) IM QW 07/20/2011 No Stop Date Active weekly metformin ER 500 mg 24 hr Tab RxNorm: 312185 1 Tablet(s) PO QD 05/14/2010 08/11/2010 Inactive lisinopril 20 mg tablet RxNorm: 996638 1 Tablet(s) PO QD 05/14/2010 07/19/2011 Inactive cyanocobalamin (shay min B-12) 1,000 mcg/mL Injection RxNorm: 571686 1 Milliliter(s) IM QW weekly 04/28/2010 No Stop Date Active Tresiba FlexTouch U- 100 insulin 100 unit/mL (3 mL) subcutaneous pen RxNorm: 8352819 16 Unit(s) SQ QHS No Start Date Active Forteo 20 mcg/dose ( 600 mcg/2.4 mL) subcutaneous pen injector RxNorm: 1230928 SQ QD No Start Date Active Vitamin D2 50,000 un it capsule RxNorm: 7523276 1 Capsule(s) PO QW No Start Date Active Vitamin B12 1000mcg Tablet RxNorm: 1 Tablet(s) SL QD No Start Date 02/15/2018 Inactive cyanocobalamin (shay min B-12) 1,000 mcg/mL Injection RxNorm: 175785 1 Milliliter(s) IM weekly No Start Date 04/27/2010 Inactive Neurontin 100 mg cap kelly RxNorm: 725160 1 Capsule(s) PO TID No Start Date 10/22/2014 Inactive Protonix 40 mg table t,delayed release RxNorm: 779448 1 Tablet(s) PO QD No Start Date 10/22/2014 Inactive Calcium with Vitamin D 600 mg (1,500 mg)-400 unit tablet RxNorm: 208734 1 Tablet(s) PO QD No Start Date 12/12/2013 Inactive Coreg 3.125 mg tablet RxNorm: 424734 1 Tablet(s) PO QD No Start Date 10/22/2014 Inactive cyanocobalamin (shay min B-12) 1,000 mcg/mL Injection RxNorm: 443159 1 Milliliter(s) Inj every month No Start Date 10/22/2014 Inactive Apidra SoloStar 100 unit/mL subcutaneous insulin pen RxNorm: 290482 Unit(s) SQ Sliding Scale No Start Date 08/01/2016 Inactive Cymbalta 60 mg capsu le,delayed release RxNorm: 295066 1 Capsule(s) PO QHS No Start Date 06/23/2015 Inactive metformin 1,000 mg t ablet RxNorm: 054618 1 Tablet(s) PO BID No Start Date 10/21/2013 Inactive Levemir Flexpen 100 unit/mL (3 mL) solution subcutaneous insulin pen RxNorm: 165070 45 Unit(s) SQ QD No Start Date 11/07/2013 Inactive Levemir Flexpen 100 unit/mL (3 mL) solution subcutaneous insulin pen RxNorm: 411706 30 Unit(s) SQ QHS No Start Date 08/12/2013 Inactive Miacalcin 200 unit/a ctuation nasal spray RxNorm: 095039 1 [place] NASAL QD in o ne nostril No Start Date 10/22/2014 Inactive Janumet XR 50 mg-1,0 00 mg tablet,extended release RxNorm: 8044441 1 Tablet(s) PO BID No Start Date 04/29/2013 Inactive metformin ER 1,000 m g tablet,extended release 24hr RxNorm: 172579 1 Tablet(s) PO QD No Start Date 08/09/2012 Inactive Levemir Flexpen 100 unit/mL (3 mL) solution subcutaneous insulin pen RxNorm: 715372 35 Unit(s) SQ QHS No Start Date 05/28/2014 Inactive baclofen 10 mg tablet RxNorm: 016636 1 Tablet(s) PO TID PRN Spasm No Start Date 08/12/2013 Inactive Apidra SoloStar 100 unit/mL subcutaneous insulin pen RxNorm: 388374 Unit(s) SQ 8units after breakfast and lunch and 9units at supper No Start Date 10/22/2014 Inactive Byetta 10 mcg/0.04 m L per dose subcutaneous pen injector RxNorm: 290668 Microgram(s) SQ BID No Start Date 05/27/2013 Inactive Cymbalta 30 mg capsu le,delayed release RxNorm: 094750 1 Capsule(s) PO QHS No Start Date 12/12/2013 Inactive Vitamin D3 5,000 uni t tablet RxNorm: 634648 1 Tablet(s) PO QD No Start Date 02/15/2018 Inactive hydrocodone 5 mg-brendan taminophen 325 mg tablet RxNorm: 908741 1 Tablet(s) PO Q4H as needed for pain No Start Date 01/09/2014 Inactive tizanidine 2 mg tablet RxNorm: 532652 1 Tablet(s) PO Q8H as needed for muscle spasms No Start Date 06/23/2015 Inactive Levemir FlexTouch 10 0 unit/mL (3 mL) subcutaneous insulin pen RxNorm: 873160 22 Unit(s) SQ QHS No Start Date 10/22/2014 Inactive Motrin IB 200 mg tablet RxNorm: 123977 Tablet(s) PO PRN No Start Date 10/21/2013 Inactive Vitamin D3 1,000 uni t tablet RxNorm: 986036 1 Tablet(s) PO QD No Start Date 12/12/2013 Inactive Levemir Flexpen 100 unit/mL (3 mL) solution subcutaneous insulin pen RxNorm: 132057 20 Unit(s) SQ QAM No Start Date 05/28/2014 Inactive Apidra SoloStar 100 unit/mL subcutaneous insulin pen RxNorm: 831108 3 Unit(s) SQ AC No Start Date 12/04/2013 Inactive Levemir Flexpen 100 unit/mL (3 mL) solution subcutaneous insulin pen RxNorm: 373839 40 Unit(s) SQ QHS No Start Date 10/22/2013 Inactive Kombiglyze XR 5 mg-1 ,000 mg 24 hr Tab RxNorm: 7285825 1 Tablet(s) PO QD No Start Date 08/09/2012 Inactive Levemir FlexTouch 10 0 unit/mL (3 mL) subcutaneous insulin pen RxNorm: 377809 30 Unit(s) SQ QHS No Start Date 02/07/2018 Inactive tizanidine 2 mg tablet RxNorm: 419533 1 Tablet(s) PO Q8H as needed for muscle spasm No Start Date 02/07/2018 Inactive Levemir FlexTouch U- 100 Insulin 100 unit/mL (3 mL) subcutaneous pen RxNorm: 445505 22 Unit(s) SQ QHS No Start Date 08/20/2018 Inactive Vitamin D3 5,000 uni t tablet RxNorm: 467239 1 Tablet(s) PO QD No Start Date [...] is worrying about what will do after fpc diabetes mellitus 11/02/2011 follow up 07/20/2011 dis cuss labs follow up 05/14/2010 F/U Labs - Pt brought log of BP readings and blood glucose readings. Results Observation Observation Code Item Item Code Result Date GLYCOSYLATED HEMOGLOBIN TEST 83505 A1C HPLC 66214-3 10.4 % 4 GFR CALC 2361141 GFR AA >60 ML/MIN 08/20/2013 GFR CALC 8411198 GFR NON -AA >60 ML/MIN 08/20/2013 LIPID GROUP [address] 47 MG/DL 08/20/2013 LIPID GROUP 80051 TRIG 216 MG/DL 08/20/2013 LIPID GROUP 95160 TEST L DL 67 MG/DL 08/20/2013 LIPID GROUP 88085 CHOL 157 MG/DL 08/20/2013 LIPID GROUP 32351 RCHOL/ HDL 3.34 RATIO 08/20/2013 THYROID STIMULATING HORMONE 66433 TSH 2.042 uIU/ML 4 COMPREHENSIVE METABOLIC 25221 AST 9 U/L 08/20/2013 COMPREHENSIVE METABOLIC 09091 ALT 14 IU/L 08/20/2013 COMPREHENSIVE METABOLIC 51983 BUN 15 MG/DL 08/20/2013 COMPREHENSIVE METABOLIC 74706 ALBUMIN 4.2 GM/DL 08/20/2013 COMPREHENSIVE METABOLIC 61689 CHLORIDE 99 MMOL/L 08/20/2013 COMPREHENSIVE METABOLIC 12450 BILI TOT 0.6 MG/DL 08/20/2013 COMPREHENSIVE METABOLIC 47021 ALK PHOS 100 U/L 08/20/2013 COMPREHENSIVE METABOLIC 70229 SODIUM 133 MMOL/L 08/20/2013 COMPREHENSIVE METABOLIC 12570 CREATININE 0.43 MG/DL 08/20/2013 COMPREHENSIVE METABOLIC 48654 CALCIUM 9.8 MG/DL 08/20/2013 COMPREHENSIVE METABOLIC 50206 POTASSIUM 4.2 MMOL/L 08/20/2013 COMPREHENSIVE METABOLIC 18134 PROT TOT 6.9 GM/DL 08/20/2013 COMPREHENSIVE METABOLIC 68975 Glucose 394 MG/DL 08/20/2013 COMPREHENSIVE METABOLIC 10884 BICARB 26 MMOL/L 08/20/2013 COMPREHENSIVE METABOLIC 95115 ANION GAP 8 MEQ/L 08/20/2013 FREE T4 68271 FREE T4 1.19 NG/DL 08/20/2013 VITAMIN D TOTAL (25 HYDROXY) 35265 VIT D TOTL 10 NG/ML 08/20/2013 VITAMIN B 12 FOLIC ACID 14171|58356 VIT B 12 235 PG/ML 08/20/2013 VITAMIN B 12 FOLIC ACID 57269|56743 FOLIC ACID >24.0 NG/ML 08/20/2013 COMPLETE BLOOD COUNT 8252253 WBC 6.6 10e9/L 08/20/2013 COMPLETE BLOOD COUNT 6330359 RBC 4.80 10e12/L 4 COMPLETE BLOOD COUNT 8645288 HGB 15.2 g/dL 08/20/2013 COMPLETE BLOOD COUNT 7883532 HCT DET 42.8 % 08/20/2013 COMPLETE BLOOD COUNT 9070405 MCV 89.2 fL 08/20/2013 COMPLETE BLOOD COUNT 0759428 MCH 31.7 pg 08/20/2013 COMPLETE BLOOD COUNT 2390852 MCHC 35.5 g/dL 08/20/2013 COMPLETE BLOOD COUNT 9851307 PLT 340 10e9/L 08/20/2013 COMPLETE BLOOD COUNT 9800870 MPV 9.6 fL 08/20/2013 COMPLETE BLOOD COUNT 1728883 SILVINA % 63.6 % 08/20/2013 COMPLETE BLOOD COUNT 9313454 LY % 26.4 % 08/20/2013 COMPLETE BLOOD COUNT 6946083 MON % 8.6 % 08/20/2013 COMPLETE BLOOD COUNT 3108408 EOS % 1.1 % 08/20/2013 COMPLETE BLOOD COUNT 9452648 BASO % 0.3 % 08/20/2013 COMPLETE BLOOD COUNT 3840220 RDW 13.4 % 08/20/2013 COMPLETE BLOOD COUNT 8186483 ABS SILVINA 4.20 10e9/L 08/20/2013 COMPLETE BLOOD COUNT 4214650 ABS LYMPH 1.74 10e9/L 08/20/2013 COMPLETE BLOOD COUNT 9892351 ABS MONO 0.57 10e9/L 08/20/2013 COMPLETE BLOOD COUNT 9861701 ABS EOS 0.07 10e9/L 08/20/2013 COMPLETE BLOOD COUNT 1272524 ABS BASO 0.02 10e9/L 08/20/2013 COMPLETE BLOOD COUNT 2771807 RDW-SD 42.6 fL 08/20/2013 GFR CALC 0198331 GFR AA >60 ML/MIN 08/10/2012 GFR CALC 9750766 GFR NON -AA >60 ML/MIN 08/10/2012 COMPLETE BLOOD COUNT 8837046 WBC 6.5 10e9/L 08/10/2012 COMPLETE BLOOD COUNT 8730671 RBC 4.64 10e12/L 3 COMPLETE BLOOD COUNT 9566559 HGB 14.4 g/dL 08/10/2012 COMPLETE BLOOD COUNT 8716544 HCT DET 40.0 % 08/10/2012 COMPLETE BLOOD COUNT 2462406 MCV 86.2 fL 08/10/2012 COMPLETE BLOOD COUNT 2524618 MCH 31.0 pg 08/10/2012 COMPLETE BLOOD COUNT 1900103 MCHC 36.0 g/dL 08/10/2012 COMPLETE BLOOD COUNT 2811383 PLT 294 10e9/L 08/10/2012 COMPLETE BLOOD COUNT 3626886 MPV 10.4 fL 08/10/2012 COMPLETE BLOOD COUNT 4155994 SILVINA % 60.3 % 08/10/2012 COMPLETE BLOOD COUNT 0206267 LY % 30.6 % 08/10/2012 COMPLETE BLOOD COUNT 4179587 MON % 7.4 % 08/10/2012 COMPLETE BLOOD COUNT 4348722 EOS % 1.4 % 08/10/2012 COMPLETE BLOOD COUNT 4905755 BASO % 0.3 % 08/10/2012 COMPLETE BLOOD COUNT 3043280 RDW 13.6 % 08/10/2012 COMPLETE BLOOD COUNT 8112603 ABS SILVINA 3.92 10e9/L 08/10/2012 COMPLETE BLOOD COUNT 1417517 ABS LYMPH 1.99 10e9/L 08/10/2012 COMPLETE BLOOD COUNT 3925346 ABS MONO 0.48 10e9/L 08/10/2012 COMPLETE BLOOD COUNT 7068967 ABS EOS 0.09 10e9/L 08/10/2012 COMPLETE BLOOD COUNT 3624349 ABS BASO 0.02 10e9/L 08/10/2012 COMPLETE BLOOD COUNT 8362110 RDW-SD 41.3 fL 08/10/2012 VITAMIN B 12 FOLIC ACID 76507|16297 VIT B 12 237 PG/ML 08/10/2012 VITAMIN B 12 FOLIC ACID 27503|61250 FOLIC ACID >24.0 NG/ML 08/10/2012 THYROID STIMULATING HORMONE 21545 TSH 2.158 uIU/ML 3 HEMOGLOBIN A1C (GLYCOSYLATED) 6535746 A1C [facility] 20009-9 14.6 % 08/10/2012 FREE T4 75945 FREE T4 1.02 NG/DL 08/10/2012 LIPID GROUP [address] 50 MG/DL 08/10/2012 LIPID GROUP 86649 TRIG 123 MG/DL 08/10/2012 LIPID GROUP 82818 TEST L DL 114 MG/DL 08/10/2012 LIPID GROUP 28928 CHOL 189 MG/DL 08/10/2012 LIPID GROUP 83013 RCHOL/ HDL 3.78 RATIO 08/10/2012 COMPREHENSIVE METABOLIC 22373 AST 13 U/L 08/10/2012 COMPREHENSIVE METABOLIC 91824 ALT 17 IU/L 08/10/2012 COMPREHENSIVE METABOLIC 44879 BUN 10 MG/DL 08/10/2012 COMPREHENSIVE METABOLIC 05974 ALBUMIN 4.5 GM/DL 08/10/2012 COMPREHENSIVE METABOLIC 34468 CHLORIDE 102 MMOL/L 08/10/2012 COMPREHENSIVE METABOLIC 10487 BILI TOT 0.6 MG/DL 08/10/2012 COMPREHENSIVE METABOLIC 34354 ALK PHOS 111 U/L 08/10/2012 COMPREHENSIVE METABOLIC 36651 SODIUM 137 MMOL/L 08/10/2012 COMPREHENSIVE METABOLIC 66741 CREATININE 0.44 MG/DL 08/10/2012 COMPREHENSIVE METABOLIC 89097 CALCIUM 9.2 MG/DL 08/10/2012 COMPREHENSIVE METABOLIC 96910 POTASSIUM 3.7 MMOL/L 08/10/2012 COMPREHENSIVE METABOLIC 17712 PROT TOT 6.8 GM/DL 08/10/2012 COMPREHENSIVE METABOLIC 27131 Glucose 345 MG/DL 08/10/2012 COMPREHENSIVE METABOLIC 43640 BICARB 27 MMOL/L 08/10/2012 COMPREHENSIVE METABOLIC 07423 ANION GAP 8 MEQ/L 08/10/2012 Review of [...] I NC ANTIG 65 AND OLDER CPT-4: 28826 04/07/2018 PNEUMOCOCCAL VACC 13 JACOBO IM CPT-4: 72640 04/07/2018 ADMIN INFLUENZA VIRU S VAC CPT-4: G0008 04/07/2018 ADMIN PNEUMOCOCCAL V ACCINE CPT-4: G0009 04/07/2018 PPPS, subseq visit CPT- 4: G0439 02/08/2018 TRIAMCINOLONE ACET I [place] NOS CPT-4: J3301 06/24/2015 DRAIN/INJECT JOINT/B URSA CPT-4: 42690 06/24/2015 PRESCRIP TRANSMIT A ERX SY CPT-4: G8553 10/23/2014 ROUTINE VENIPUNCTURE CPT-4: 98335 08/20/2013 ASSAY OF FREE THYROXINE CPT-4: 02849 08/20/2013 ASSAY THYROID STIM H ORMONE CPT-4: 30912 08/20/2013 COMPREHEN METABOLIC PANEL CPT-4: 72982 08/20/2013 COMPLETE CBC W/AUTO DIFF WBC CPT-4: 98879 08/20/2013 LIPID PANEL CPT-4: 01740 08/20/2013 A1C HPLC CPT-4: 72645 08/20/2013 VITAMIN B 12 FOLIC ACID CPT-4: 73004|76852 08/20/2013 VITAMIN D TOTAL (25 HYDROXY) CPT-4: 61221 08/20/2013 PRESCRIP TRANSMIT A ERX SY CPT-4: G8553 08/13/2013 PRESCRIP TRANSMIT A ERX SY CPT-4: G8553 05/28/2013 PRESCRIP TRANSMIT A ERX SY CPT-4: G8553 04/30/2013 ASSAY, GLUCOSE, BLOO D QUANT CPT-4: 49840 04/03/2013 PRESCRIP TRANSMIT A ERX SY CPT-4: G8553 04/03/2013 ROUTINE VENIPUNCTURE CPT-4: 14726 08/10/2012 ASSAY OF FREE THYROXINE CPT-4: 34203 08/10/2012 ASSAY THYROID STIM H ORMONE CPT-4: 97959 08/10/2012 COMPREHEN METABOLIC PANEL CPT-4: 68145 08/10/2012 COMPLETE CBC W/AUTO DIFF WBC CPT-4: 87117 08/10/2012 LIPID PANEL CPT-4: 04234 08/10/2012 A1C GLYCOSYLATED HEM OGLOBIN TEST CPT-4: 26619 08/10/2012 VITAMIN B 12 FOLIC ACID CPT-4: 94077|85076 08/10/2012 THER/PROPH/DIAG INJ SC/IM CPT-4: 39955 04/27/2010 VITAMIN B12 INJECTION CPT-4: J3420 04/27/2010 [...] 1: 126/76 Code: 8480-6 BMI: 27.3 Code: 20096-5 Heart Rate 1: 84 bpm Height: 4'11" Respiratory Rate: 20 bpm SpO2: 96% Temperature: 37.0 (C ) / 98.6 (F) Weight: 135 lbs 06/24/2015 Blood Pressure 1: 140/84 Code: 8480-6 BMI: 24.6 Code: 78291-5 Heart Rate 1: 84 bpm Height: 4'11" Respiratory Rate: 20 bpm Temperature: 37.4 (C ) / 99.3 (F) Weight: 122 lbs 02/11/2015 Blood Pressure 1: 132/76 Code: 8480-6 BMI: 23.2 Code: 42161-5 Heart Rate 1: 82 bpm Height: 4'11" Respiratory Rate: 22 bpm Temperature: 35.7 (C ) / 96.3 (F) Weight: 115 lbs 10/23/2014 Blood Pressure 1: 118/80 Code: 8480-6 BMI: 20.8 Code: 22388-3 Heart Rate 1: 92 bpm Height: 4'11" Respiratory Rate: 20 bpm Temperature: 36.9 (C ) / 98.4 (F) Weight: 103 lbs 05/29/2014 Blood Pressure 1: 114/70 Code: 8480-6 BMI: 21.2 Code: 45091-3 Heart Rate 1: 88 bpm Height: 4'11" Respiratory Rate: 20 bpm Temperature: 37.2 (C ) / 99.0 (F) Weight: 105 lbs 01/10/2014 Blood Pressure 1: 102/60 Code: 8480-6 BMI: 20.4 Code: 23509-3 Heart Rate 1: 88 bpm Height: 4'11" Respiratory Rate: 20 bpm Temperature: 36.9 (C ) / 98.4 (F) Weight: 101 lbs 12/13/2013 Blood Pressure 1: 124/76 Code: 8480-6 BMI: 19.4 Code: 08442-0 Heart Rate 1: 104 bpm Height: 4'11" Respiratory Rate: 20 bpm Temperature: 37.2 (C ) / 98.9 (F) Weight: 96 lbs 11/08/2013 Blood Pressure 1: 108/70 Code: 8480-6 BMI: 19.4 Code: 39672-5 Heart Rate 1: 84 bpm Height: 4'11" Respiratory Rate: 20 bpm Temperature: 37.1 (C ) / 98.7 (F) Weight: 96 lbs 10/31/2013 Blood Pressure 1: 128/80 Code: 8480-6 BMI: 18.2 Code: 96076-5 Heart Rate 1: 92 bpm Height: 4'11" Respiratory Rate: 20 bpm Temperature: 36.3 (C ) / 97.4 (F) Weight: 90 lbs 10/22/2013 Blood Pressure 1: 128/86 Code: 8480-6 BMI: 19.2 Code: 49433-5 Heart Rate 1: 104 bpm Height: 4'11" Respiratory Rate: 20 bpm Temperature: 37.0 (C ) / 98.6 (F) Weight: 95 lbs 09/04/2013 Blood Pressure 1: 152/90 Code: 8480-6 Heart Rate 1: 108 bpm Respiratory Rate: 20 bpm Temperature: 37.2 (C) / 98.9 (F) Weight: 105 lbs 08/13/2013 Blood Pressure 1: 156/102 Code: 8480-6 BMI: 22.6 Code: 90234-6 Heart Rate 1: 88 bpm Height: 4'11" Respiratory Rate: 20 bpm Temperature: 37.1 (C ) / 98.7 (F) Weight: 112 lbs 05/28/2013 Blood Pressure 1: 128/70 Code: 8480-6 BMI: 21.0 Code: 69881-3 Heart Rate 1: 104 bpm Height: 4'11" Respiratory Rate: 20 bpm Temperature: 38.0 (C ) / 100.4 (F) Weight: 104 lbs 04/30/2013 Blood Pressure 1: 116/78 Code: 8480-6 BMI: 21.4 Code: 61131-8 Heart Rate 1: 92 bpm Height: 4'11" Respiratory Rate: 20 bpm Temperature: 37.2 (C ) / 98.9 (F) Weight: 106 lbs 04/03/2013 Blood Pressure 1: 132/86 Code: 8480-6 BMI: 21.2 Code: 73903-1 Heart Rate 1: 88 bpm Height: 4'11" Respiratory Rate: 20 bpm Temperature: 37.2 (C ) / 99.0 (F) Weight: 105 lbs 09/21/2012 Blood Pressure 1: 146/74 Code: 8480-6 BMI: 21.8 Code: 01523-6 Heart Rate 1: 80 bpm Height: 4'11" Respiratory Rate: 20 bpm Temperature: 36.7 (C ) / 98.0 (F) Weight: 108 lbs 08/10/2012 Blood Pressure 1: 134/84 Code: 8480-6 BMI: 22.2 Code: 32854-1 Heart Rate 1: 84 bpm Height: 4'11" Respiratory Rate: 20 bpm Temperature: 36.7 (C ) / 98.1 (F) Weight: 110 lbs 11/02/2011 Blood Pressure 1: 134/78 Code: 8480-6 BMI: 24.6 Code: 01107-5 Heart Rate 1: 76 bpm Height: 4'11" Respiratory Rate: 20 bpm Temperature: 36.9 (C ) / 98.4 (F) Weight: 122 lbs 07/20/2011 Blood Pressure 1: 114/82 Code: 8480-6 BMI: 25.2 Code: 46785-0 Heart Rate 1: 92 bpm Height: 4'11" [...] well woman exam (65+ years) Lifestyle satisfactory 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/fpc experience 02/08/2018 None well woman exam (65+ [...] Encounters Encounter Performer Loca tion Codes Date ([id number]) OFFICE/OUTPA TIENT VISIT EST Diagnosis: Age-related osteoporosis without current pathological fracture[ICD10: M81.0] Diagnosis: Type 1 diabetes mellitus without complications[ICD10: E10.9] Diagnosis: Other dietary vitamin B12 deficiency anemia[ICD10: D51.3] Diagnosis: Vitamin D deficiency, unspecified[ICD10: E55.9] Kay WELLINGTON [employer] CPT-4: 18306 12/27/2018 ([id number]) OFFICE/OUTPA TIENT VISIT EST Diagnosis: Other dietary vitamin B12 deficiency anemia[ICD10: D51.3] Diagnosis: Psychophysiologic insomnia[ICD10: F51.04] Diagnosis: Other fatigue[ICD10: R53.83] Kay WELLNIGTON [employer] CPT-4: 01705 09/18/2018 ([id number]) OFFICE/OUTPA TIENT VISIT EST Diagnosis: Adjustment disorder with depressed mood[ICD10: F43.21] Diagnosis: Other fatigue[ICD10: R53.83] Diagnosis: Psychophysiologic insomnia[ICD10: F51.04] Diagnosis: Other dietary vitamin B12 deficiency anemia[ICD10: D51.3] Kay OLIVERA [facility] CPT-4: 85942 08/21/2018 ([id number]) NURSE/OUTPAT IENT VISIT EST Diagnosis: PNEUMOCOCCAL VACCINE[ICD10: Z23] Diagnosis: FLU VACCINE[ICD10: Z23] Kay OLIVERA DO [facility] CPT-4: 97428 04/07/2018 OFFICE/OUTPATIENT SIT EST Diagnosis: Sacroiliitis, not elsewhere classified[ICD10: M46.1] Diagnosis: Radiculopathy, lumbosacral region[ICD10: M54.17] Kay GUTIERREZ [facility] CPT-4: 46750 06/24/2015 ([id number]) OFFICE/OUTPA TIENT VISIT EST Diagnosis: DM W/O COMPLICATION TYPE I, UNCONTROLLED[ICD10: E10.9] Diagnosis: Other dietary vitamin B12 deficiency anemia[ICD10: D51.3] Kay OLIVERA [facility] CPT-4: 08198 02/11/2015 ([id number]) OFFICE/OUTPA TIENT VISIT EST Diagnosis: DM W/O COMPLICATION TYPE I, UNCONTROLLED[ICD10: E10.9] Diagnosis: B12 DEFIC ANEMIA NEC[ICD9: 281.1] Diagnosis: VITAMIN D DEFICIENCY[ICD9: 268.9] Diagnosis: HX OF PAST NONCOMPLIANCE[ICD9: V15.81] Kay GUTIERREZ [employer] [facility] CPT-4: 96273 10/23/2014 ([id number]) OFFICE/OUTPA TIENT VISIT EST Diagnosis: DM W/O COMPLICATION TYPE I, UNCONTROLLED[ICD10: E10.9] Diagnosis: HYPERTENSION[ICD9: 401.9] Diagnosis: Vitamin B12 deficiency anemia[ICD9: 281.1] Diagnosis: Rib fracture[ICD9: 807.00] Kay OLIVERA [employer] [facility] CPT-4: 64667 05/29/2014 ([id number]) OFFICE/OUTPA TIENT VISIT EST Diagnosis: DM W/O COMPLICATION TYPE I, UNCONTROLLED[ICD10: E10.9] Diagnosis: Rib pain[ICD9: 786.50] Diagnosis: Weight loss[ICD9: 783.21] Kay OLIVERA DO [facility] CPT-4: 23578 01/10/2014 ([id number]) OFFICE/OUTPA TIENT VISIT EST Diagnosis: DM W/O COMPLICATION TYPE II, UNCONTROLLED[ICD9: 250.02] Diagnosis: CACHEXIA[ICD9: 799.4] Diagnosis: UNSPECIFIED CONSTIPATION[ICD9: 564.00] Kay GUTIERREZ [facility] CPT-4: 48207 12/13/2013 ([id number]) OFFICE/OUTPA TIENT VISIT EST Diagnosis: DM W/O COMPLICATION TYPE II, UNCONTROLLED[ICD9: 250.02] Diagnosis: Rib pain[ICD9: 786.50] Diagnosis: Rib fracture[ICD9: 807.00] Diagnosis: CACHEXIA[ICD9: 799.4] Kay OLIVERA [facility] CPT-4: 76981 11/08/2013 ([id number]) OFFICE/OUTPA TIENT VISIT EST Diagnosis: DM W/O COMPLICATION TYPE II, UNCONTROLLED[ICD9: 250.02] Diagnosis: Thoracic back pain[ICD9: 724.1] Diagnosis: Rib pain[ICD9: 786.50] Diagnosis: Weight loss[ICD9: 783.21] Kay OLIVERA [facility] CPT-4: 64825 10/22/2013 ([id number]) OFFICE/OUTPA TIENT VISIT EST Diagnosis: UNSPECIFIED CONSTIPATION[ICD9: 564.00] Diagnosis: Thoracic back pain[ICD9: 724.1] Diagnosis: Rib pain[ICD9: 786.50] Kay OLIVERA [facility] CPT-4: 39197 09/04/2013 ([id number]) OFFICE/OUTPA TIENT VISIT EST Diagnosis: DM W/O COMPLICATION TYPE II, UNCONTROLLED[ICD9: 250.02] Diagnosis: B12 DEFIC ANEMIA NEC[ICD9: 281.1] Diagnosis: HYPERTENSION[ICD9: 401.9] Diagnosis: VITAMIN D DEFICIENCY[ICD9: 268.9] Kay GUTIERREZ [facility] CPT-4: 35249 08/20/2013 OFFICE/OUTPATIENT SIT EST Diagnosis: Thoracic back pain[ICD9: 724.1] Diagnosis: SPASM OF MUSCLE[ICD9: 728.85] Diagnosis: Rib pain[ICD9: 786.50] Kay OLIVERA [facility] CPT-4: 57633 08/13/2013 OFFICE/OUTPATIENT SIT EST Diagnosis: DM W/O COMPLICATION TYPE II, UNCONTROLLED[ICD9: 250.02] Diagnosis: URI, ACUTE[ICD9: 465.9] Kay OLIVERA [facility] CPT-4: 38406 05/28/2013 OFFICE/OUTPATIENT SIT EST Diagnosis: DM W/O COMPLICATION TYPE II, UNCONTROLLED[ICD9: 250.02] Kay GUTIERREZ [facility] CPT-4: 17670 04/30/2013 ([id number]) OFFICE/OUTPA TIENT VISIT EST Diagnosis: DM W/O COMPLICATION TYPE II, UNCONTROLLED[ICD9: 250.02] Kay GUTIERREZ [facility] CPT-4: 26716 04/03/2013 ([id number]) OFFICE/OUTPA TIENT VISIT EST Diagnosis: DM W/O COMPLICATION TYPE II, UNCONTROLLED[ICD9: 250.02] Diagnosis: HYPERTENSION[ICD9: 401.9] Kay OLIVERA [facility] CPT-4: 11378 09/21/2012 ([id number]) OFFICE/OUTPA TIENT VISIT EST Diagnosis: DM W/O COMPLICATION TYPE II, UNCONTROLLED[ICD9: 250.02] Diagnosis: B12 DEFIC ANEMIA NEC[ICD9: 281.1] Diagnosis: HYPERTENSION[ICD9: 401.9] Kay OLIVERA [facility] CPT-4: 97069 08/10/2012 ([id number]) OFFICE/OUTPA TIENT VISIT EST Diagnosis: DM W/O COMPLICATION TYPE II, UNCONTROLLED[ICD9: 250.02] Diagnosis: SEBACEOUS CYST[ICD9: 706.2] Kay OLIVERA [facility] CPT-4: 86407 11/02/2011 ([id number]) OFFICE/OUTPA TIENT VISIT EST Diagnosis: DM W/O COMPLICATION TYPE II, UNCONTROLLED[ICD9: 250.02] Diagnosis: B12 DEFIC ANEMIA NEC[ICD9: 281.1] Diagnosis: HYPERTENSION[ICD9: 401.9] Kay OLIVERA DO [facility] CPT-4: 44913 07/20/2011 ([id number]) OFFICE/OUTPA TIENT VISIT, EST Kay GUTIERREZ [facility] CPT-4: 65921 05/14/2010 Plan of Care Planned Activity Notes C odes Status Date Visit Diagnosis Plan: Type 1 diabetes me llitus without complications Discussion: Following with endo--most re cent HbA1C 6.4 Follow Up: 3 months ICD-9 : 250.01 ICD-10 : E10.9 12/27/2018 Visit Diagnosis Plan: Other dietary shay [...] F51.04 09/18/2018 Appointment: [facility] [phone] [id number] [facility] 09/18/2018 Patient Education: doxepin- [employer] Coupon [id number] [email or web address] Completed 09/18/2018 Visit Diagnosis Plan: Other fatigue Discussion: Anemia is back--has not been taking B12 injections for some time ICD-9 : 780.79 ICD-10 : R53.83 08/21/2018 Visit Diagnosis Plan: Adjustment disorder with depress ed mood Discussion: Recent loss of ICD-9 : 309.0 ICD-10 : F43.21 08/21/2018 Visit Diagnosis Plan: Other dietary shay min B12 deficiency anemia Discussion: Restart B12 1000mcg IM weekl y Check CBC in 2 weeks ICD-9 : 281.1 ICD-10 : D51.3 08/21/2018 Visit Diagnosis Plan: Psychophysiologic insomnia Discussion: Doxepin 10mg 1-2 po q HS prn sleep Follow Up: 2 weeks ICD-9 : 780.52 ICD-10 : F51.04 08/21/2018 Appointment: Kay Olivera WPtel: [phone] ACUTE ILLNESS 08/21/2018 Patient Education: doxepin- [employer]on [id number] Completed 08/21/2018 Patient Education: cyanocobalamin (vitam in B-12)- [employer] Coupon [id number] Completed 08/21/2018 Appointment: Estelita Rousseau [facility] Jessie [address] NO SHOW 07/11/2018 Appointment: Kay Olivera WPtel: [phone] [place] [id number] [place] INJECTION 04/07/2018 Visit Diagnosis Plan: DM W/O COMPLICATIO N [...] 02/08/2018 Visit Diagnosis Plan: Encounter for gene [facility] adult medical examination without abnormal findings Discussion: Update fasting lab Will get flu shot at hospital next week--will make sure is high dose Recommend Prevnar 13 ICD-9 : V70.9 ICD-10 : Z00.00 02/08/2018 Visit Diagnosis Plan: Other dietary shay min B12 deficiency anemia Discussion: Check CBC and B12 level ICD-9 : 281.1 ICD-10 : D51.3 02/08/2018 Appointment: Kay Olivera WPtel: [address] [place], [place] [phone] Annual Well Visit 02/08/2018 Patient Education: Patient Medication Summary Completed 02/08/2018 Appointment: Kay Olivera WPtel: [address] [place], [place] [phone] 07/29 canceled~sl CANCELED 08/02/2016 Visit Plan: Left SI joint injection --cleansed with alcohol and betadine and injected with 2cc 1% lidocaine with 40mg kenolog, tolerated well with no complications, neosporin and bandage applied Call in 2 days on how doing Zorvolex 18mg po TID Use zanaflex q HS Use tramadol prn 06/24/2015 Appointment: Kay Olivera WPtel: [address] [place], [place] [phone] 06/23/15 appt confirmed cn ACUTE ILLNESS 06/24/2015 Patient Education: Patient Medication Summary Completed 06/24/2015 Visit Plan: Check CMP, HbA1C, CBC, TSH, free T4, B12 Continue accuchecks q AC and HS with sliding scale insulin 02/11/2015 Appointment: Kay Olivera WPtel: [address] [place], [place] [phone] FOLLOW UP 02/11/2015 Patient Education: Patient Medication [...] not tolerate 10/23/2014 Appointment: Kay Olivera WPtel: [address] [place], [place] [phone] 10/22 appt cn FOLLOW UP 10/23/2014 Patient Education: Patient Medication Summary Completed 10/23/2014 Appointment: Kay Olivera WPtel: [address] [place], [place] [phone] 09/17 confirmed with spouse cn... 5 No Show FOLLOW UP 09/18/2014 Visit Plan: Check fasting lab Check Bone Density Discussed Forteo for bones vs evista Accuchecks at least daily to BID alternating times 05/29/2014 Appointment: Kay Olivera WPtel: [address] [place], [place] [phone] voicemail FOLLOW UP 05/29/2014 Patient Education: Patient [...] Fwup 1mo 01/10/2014 Appointment: Kay Olivera WPtel: [address] [place], [place] [phone] [place] FOLLOW UP 01/10/2014 Patient Education: Patient Medication Summary Completed 01/10/2014 Visit Plan: Increase levemir to 22u Increase apidra to 7u sc with meals Continue accuchecks q AC and HS 12/13/2013 Appointment: Kay Oliveratel: [address] [place] [address] [place] FOLLOW UP 12/13/2013 Patient Education: Patient Medication Summary Completed 12/13/2013 Visit Plan: Continue current meds W eight check in 2weeks Fwup in 1mo 11/08/2013 Appointment: Kay Olivera WPtel: [address] [place], [place] [phone] 11/07 [facility] Follow Up 11/08/2013 Patient Education: Patient Medication Summary Completed 11/08/2013 [facility] Appointment: Kay Olivera WPtel: [address] [place], [place] [phone] FOLLOW UP 10/31/2013 Patient Education: Patient Medication Summary Completed 10/31/2013 Visit Plan: Check lab and retry PT with traction Check CBC, CMP, TSH, Free T4 Patient admits to not eating routinely Hold metformin Continue accuchecks Suggested Glucerna if not eating a meal 10/22/2013 Appointment: Kay Olivera WPtel: [address] [place] [address] (don't know what she needs seen for, she hung up after I told her appt time) ACUTE ILLNESS 10/22/2013 Patient Education: Patient Medication Summary Completed 10/22/2013 Visit Plan: Continue miralax BID to TID for daily BMs Proceed with colonoscopy Start PT for thoracics and schedule with pain medicine in case needs injection to thoracic area 09/04/2013 Appointment: Kay Olivera WPtel: [address] [place] [address] ACUTE ILLNESS 09/04/2013 Patient Education: Patient Medication Summary Completed 09/04/2013 Appointment: Kay Olivera WPtel: [address] [place] [address] ACUTE ILLNESS 08/20/2013 Patient Education: Patient Medication Summary Completed 08/20/2013 Visit Plan: Continue ibuprofen and baclofen Check thoracic spine and posterior rib x-ray--if no sign of fracture then okay for manipulation in thoracic spine Add hydrocodone 5/325mg 1 po q4hrs prn pain--#60 08/13/2013 Appointment: Kay Olivera WPtel: [address] [place], [place] [phone] FOLLOW UP 08/13/2013 Patient Education: Patient Medication Summary Completed 08/13/2013 Visit Plan: DC Amaryl, Actos, Byett a, Janumet Metformin 1000mg BID Levemir 30u sc q PM Fasting BS readings in 2wks 05/28/2013 Appointment: Kay Olivera WPtel: [id number] FOLLOW UP 05/28/2013 Patient Education: Patient Medication Summary Completed 05/28/2013 Visit Plan: Pt wants one more month of orals before going to insulin Increase Amaryl to 4mg BID Add Byetta 5mcg sc BID Continue accuchecks BID 04/30/2013 Appointment: Kay Olivera WPtel: [facility] [place] [phone] FOLLOW UP 04/30/2013 Patient Education: Patient Medication Summary Completed 04/30/2013 Patient Education: Janumet XR - No [place] Completed 04/30/2013 Visit Plan: Start Janumet XR 50/100 0mg BID Continue actos at 30mg daily Twice daily accuchecks alternating times Call in 1wk with BS readings 04/03/2013 Appointment: Kay Olivera WPtel: [address] [place], [place] [phone] FOLLOW UP 04/03/2013 Patient Education: Patient Medication Summary Completed 04/03/2013 Patient Education: [facility] - Saving AutoInj - 18+ - Dynamic Portal ID Completed 04/03/2013 Visit Plan: Continue metformin at B ID Continue onglyza 5mg q AM Add Actos 30mg daily Continue accuchecks daily Continue lexapro at 5mg daily 09/21/2012 Appointment: Kay Olivera WPtel: [address] [place], [place] [phone] FOLLOW UP 09/21/2012 Patient Education: Patient Medication Summary Completed 09/21/2012 Visit Plan: Check fasting lab Stres s Reducers and Lexapro 5mg daily for 1wk then increase to 10mg daily Pt has stopped all meds for diabetes except for metformin couple times a week--noncompliant Restart Metformin at 1000mg po BID and accuchecks 08/10/2012 Appointment: Kay Olivera WPtel: [address] [place], [place] [phone] FOLLOW UP 08/10/2012 Patient Education: Patient Medication Summary Completed 08/10/2012 Visit Plan: Check screeening Mammo Observe vs Remove sebaceous cyst Continue Kombiglyze 5/1000mg q AM and change metformin to Actoplusmet XR 30/1000mg q PM--Call in 2wks with BS readings and will likely add amaryl at that time and then check CMP, CBC and HbA1C in 3mos and fwup 11/02/2011 Appointment: Kay Olivera WPtel: [address] [place] [address] FOLLOW UP 11/02/2011 Patient Education: Patient Medication Summary Completed 11/02/2011 Visit Plan: Start Kombiglyze ER 5/1 000mg po daily and start accuchecks daily Start monthly B12 HbA1C, B12 level in 3mos Check urine for microalbumin Discussed Lamisil treatment for fingernails 07/20/2011 Appointment: Kay Olivera WPtel: [address] [place] [address] FOLLOW UP 07/20/2011 Patient Education: Patient Medication Summary Completed 07/20/2011 Visit Plan: Continue weekly B12 cyndi ts and check CBC in 2wks Start Metformin and cont accuchecks 05/14/2010 Appointment: Kay Olivera WPtel: [address] [place], [place] [phone] FOLLOW UP 05/14/2010 Patient Education: Patient Medication Summary Completed 05/14/2010 Appointment: Kay Olivera WPtel: [address] [place], [place] [phone] [place] INJECTION 04/27/2010 Patient Education: Patient Medication Summary Completed 04/27/2010 Referral: Vanessa Wong WPtel: [address] [id number] [place] Referral Initiated Instructions Comment . Check [...]
--- OUTSIDE RECORDS SUMMARY | 2019-10-05 07:37 | XMS REPORT | CCD ---
Author Author Zahra Olivera D.O. 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 PP Unavailable CCM Unavailable Summary Purpose Interface Exchange Insurance Providers Payer name Policy type / Coverage type Covered green party ID Effective Begin Date Effective End Date WPS MEDICARE PART B [place] Medicare Part B [id number] 2017 Unknown Cigna Medicare Part B [id number] 2017 Unknown Family History Family History data not found Social History Social History Element Codes Description Effective Dates Tobacco history SNOMED CT: 630283445 Never smoker 01/23/2015 Allergies, Adverse Reactions, Alerts Substance Reaction Codes Entered Date Inactivated Date Status _ Unknown 10/15/2009 No Inactive Date Active CODEINE Unknown 10/15/2009 No In active Date Active Past Medical History Illness Codes Condition Status Onset Date Resolved Date Other dietary vitami n B12 deficiency anemia ICD-9: 281.1 ICD-10: D51.3 Active 08/20/2013 Unknown Other fatigue ICD-9: 780.79 ICD-10: R53.83 Active 08/21/2018 Unknown Psychophysiologic in somnia ICD-9: 780.52 ICD-10: F51.04 Active 08/21/2018 Unknown Adjustment disorder with depressed mood ICD-9: 309.0 ICD-10: F43.21 Active 08/21/2018 Unknown FLU VACCINE ICD-9: V04.81 ICD-10: Z23 Active 04/07/2018 Unknown PNEUMOCOCCAL VACCINE ICD-9: V03.82 ICD-10: Z23 Active 04/07/2018 Unknown Age-related osteopor osis without current pathological fracture ICD-9: 733.00 ICD-10: M81.0 Active 02/08/2018 Unknown DM W/O COMPLICATION TYPE I, UNCONTROLLED ICD-9: 250.03 ICD-10: E10.9 Active 02/10/2015 Unknown Encounter for genera l adult medical examination without abnormal findings ICD-9: V70.9 ICD-10: Z00.00 Active 02/08/2018 Unknown Vitamin D deficiency , unspecified ICD-9: 268.9 ICD-10: E55.9 Active 02/08/2018 Unknown Radiculopathy, lumbo sacral region [...] Condition Codes Effectiv e Dates Condition Status Other dietary vitami n B12 deficiency anemia ICD-9: 281.1 ICD-10: D51.3 08/20/2013 Active Other fatigue ICD-9: 780.79 ICD-10: R53.83 08/21/2018 Active Psychophysiologic in somnia ICD-9: 780.52 ICD-10: F51.04 08/21/2018 Active Adjustment disorder with depressed mood ICD-9: 309.0 ICD-10: F43.21 08/21/2018 Active FLU VACCINE ICD-9: V04.81 ICD-10: Z23 04/07/2018 Active PNEUMOCOCCAL VACCINE ICD-9: V03.82 ICD-10: Z23 04/07/2018 Active Age-related osteopor osis without current pathological fracture ICD-9: 733.00 ICD-10: M81.0 02/08/2018 Active DM W/O COMPLICATION TYPE I, UNCONTROLLED ICD-9: 250.03 ICD-10: E10.9 02/10/2015 Active Encounter for genera l adult medical examination without abnormal findings ICD-9: V70.9 ICD-10: Z00.00 02/08/2018 Active Vitamin D deficiency , unspecified ICD-9: 268.9 ICD-10: E55.9 02/08/2018 Active Radiculopathy, lumbo sacral region ICD-9: [...] Fill Instructions doxepin 10 mg capsule RxNorm: 4067601 1-2 Capsule(s) PO QHS as needed for slee p 09/18/2018 No Stop Date Active cyanocobalamin (vit B-12) 1,000 mcg/mL injection solution RxNorm: 163760 1 Milliliter(s) Inj WEEKLY 08/21/2018 No Stop Date Active doxepin 10 mg capsule RxNorm: 4533314 1-2 Capsule(s) PO QHS as needed for slee p 08/21/2018 09/17/2018 In active Vitamin D3 5,000 uni t tablet RxNorm: 349821 1 Tablet(s) PO QD 02/16/2018 08/20/2018 Inactive Vitamin B12 1000mcg Tablet RxNorm: 1 Tablet(s) SL QD 02/16/2018 08/20/2018 Inactive Apidra SoloStar U-10 0 Insulin 100 unit/mL subcutaneous pen RxNorm: 038041 Unit(s) SQ Sliding Scale 07/15/2017 09/12/2017 Inactive Apidra SoloStar U-10 0 Insulin 100 unit/mL subcutaneous pen RxNorm: 333842 Unit(s) SQ Sliding Scale 07/15/2017 08/13/2017 Inactive Apidra SoloStar U-10 0 Insulin 100 unit/mL subcutaneous pen RxNorm: 854738 Unit(s) SQ Sliding Scale 04/29/2017 07/14/2017 Inactive Apidra SoloStar 100 unit/mL subcutaneous insulin pen RxNorm: 818785 Unit(s) SQ Sliding Scale 03/08/2017 04/29/2017 Inactive Apidra SoloStar 100 unit/mL subcutaneous insulin pen RxNorm: 496122 Unit(s) SQ Sliding Scale 03/08/2017 04/06/2017 Inactive Apidra SoloStar 100 unit/mL subcutaneous insulin pen RxNorm: 166216 Unit(s) SQ Sliding Scale 01/20/2017 03/08/2017 Inactive Apidra SoloStar 100 unit/mL subcutaneous insulin pen RxNorm: 249540 Unit(s) SQ Sliding Scale 11/16/2016 01/19/2017 Inactive Apidra SoloStar 100 unit/mL subcutaneous insulin pen RxNorm: 466812 Unit(s) SQ Sliding Scale 08/02/2016 11/15/2016 Inactive Apidra SoloStar 100 unit/mL subcutaneous insulin pen RxNorm: 890213 Unit(s) SQ 8units after breakfast and lunch and 9units at supper 08/02/2016 08/20/2018 Inactive lisinopril 20 mg tablet RxNorm: 619545 1 Tablet(s) PO QD 03/05/2016 02/07/2018 Inactive Apidra SoloStar 100 unit/mL subcutaneous insulin pen RxNorm: 391946 Unit(s) SQ 8units after breakfast and lunch and 9units at supper 05/12/2015 08/02/2016 Inactive Levemir FlexTouch 10 0 unit/mL (3 mL) subcutaneous insulin pen RxNorm: 037843 35 Unit(s) SQ QHS 05/12/2015 02/07/2018 Inactive cyanocobalamin (vit B-12) 1,000 mcg/mL injection solution RxNorm: 117989 1 Milliliter(s) Inj IM every 2 weeks 02/20/2015 02/07/2018 Inactive Apidra SoloStar 100 unit/mL subcutaneous insulin pen RxNorm: 225810 Unit(s) SQ 8units after breakfast and lunch and 9units at supper 01/10/2015 05/11/2015 Inactive cyanocobalamin (vit B-12) 1,000 mcg/mL injection solution RxNorm: 585343 1 Milliliter(s) Inj Every month every month 10/23/2014 02/19/2015 Inactive Levemir FlexTouch 10 0 unit/mL (3 mL) subcutaneous insulin pen RxNorm: 689136 35 Unit(s) SQ QHS 10/23/2014 05/11/2015 Inactive hydrocodone 5 mg-brendan taminophen 325 mg tablet RxNorm: 430852 TAKE ONE TABLET BY MO UTH EVERY 4 HOURS NEEDED FOR PAIN 02/19/2014 02/28/2014 Inactive (Response to an electronic controlled substance refill request - RxReferenceNumber: [id number]) hydrocodone 5 mg-brendan taminophen 325 mg tablet RxNorm: 850975 TAKE ONE TABLET BY MO UTH EVERY 4 HOURS NEEDED FOR PAIN 01/08/2014 01/16/2014 Inactive (Response to an electronic controlled substance refill request - [id number]) Reglan 5 mg tablet RxNorm: 141936 1 Tablet(s) PO QID before meals and bedt aquilino 12/13/2013 10/22/2014 In active Apidra SoloStar 100 unit/mL subcutaneous insulin pen RxNorm: 598779 5 Unit(s) SQ AC 12/05/2013 05/28/2014 In active baclofen 10 mg tablet RxNorm: 600224 1 Tablet(s) PO TID PRN Spasm 08/13/2013 09/11/2013 Inactive Amaryl 4 mg tablet RxNorm: 588307 1 Tablet(s) PO BID 05/23/2013 05/27/2013 Inactive AttnRPh: Saving apply/adjudicate RxGRP:SG20 RxBIN:[id number] RxPCN: ID#:[id number] Actos 30 mg tablet RxNorm: 271817 1 Tablet(s) PO QPM 05/03/2013 05/27/2013 Inactive AttnRPh: Saving apply/adjudicate RxGRP:SG20 RxBIN:[id number] RxPCN: ID#:[id number] Actos 30 mg tablet RxNorm: 938378 1 Tablet(s) PO QPM 04/30/2013 05/02/2013 Inactive AttnRPh: Saving apply/adjudicate RxGRP:SG20 RxBIN:[id number] RxPCN:HT ID#:[id number] Janumet XR 50 mg-1,0 00 mg tablet,extended release RxNorm: 9423266 1 Tablet(s) PO BID 04/30/2013 08/12/2013 Inactive Amaryl 4 mg tablet RxNorm: 976926 1 Tablet(s) PO BID 04/30/2013 05/22/2013 Inactive AttnRPh: Saving apply/adjudicate RxGRP:SG20 RxBIN:[id number] RxPCN:HT ID#:[id number] Actos 30 mg tablet RxNorm: 371368 1 Tablet(s) PO QPM 04/03/2013 05/03/2013 Inactive AttnRPh: Saving apply/adjudicate RxGRP:SG20 RxBIN:[id number] RxPCN:HT ID#:[id number] Amaryl 4 mg tablet RxNorm: 894862 1 Tablet(s) PO QAM 04/03/2013 04/29/2013 Inactive AttnRPh: Saving apply/adjudicate RxGRP:SG20 RxBIN:[id number] RxPCN:HT ID#:[id number] Onglyza 5 mg tablet RxNorm: 768427 1 Tablet(s) PO QD 08/14/2012 04/02/2013 Inactive metformin ER 1,000 m g tablet,extended release 24hr RxNorm: 269143 1 Tablet(s) PO BID 08/14/2012 04/02/2013 Inactive Onglyza 5 mg tablet RxNorm: 600720 1 Tablet(s) PO QD 08/14/2012 08/13/2012 Inactive Lexapro 10 mg tablet RxNorm: 126484 1 Tablet(s) PO QHS 08/10/2012 11/07/2013 Inactive cyanocobalamin (shay min B-12) 1,000 mcg/mL Injection RxNorm: 834891 1 Milliliter(s) IM QW 12/22/2011 08/09/2012 Inactive weekly cyanocobalamin (shay min B-12) 1,000 mcg/mL Injection RxNorm: 250790 1 Milliliter(s) IM QW 07/20/2011 No Stop Date Active weekly metformin ER 500 mg 24 hr Tab RxNorm: 014517 1 Tablet(s) PO QD 05/14/2010 08/11/2010 Inactive lisinopril 20 mg tablet RxNorm: 268975 1 Tablet(s) PO QD 05/14/2010 07/19/2011 Inactive cyanocobalamin (shay min B-12) 1,000 mcg/mL Injection RxNorm: 479259 1 Milliliter(s) IM QW weekly 04/28/2010 No Stop Date Active Tresiba FlexTouch U- 100 insulin 100 unit/mL (3 mL) subcutaneous pen RxNorm: 0098576 16 Unit(s) SQ QHS No Start Date Active Forteo 20 mcg/dose ( 600 mcg/2.4 mL) subcutaneous pen injector RxNorm: 2477140 SQ QD No Start Date Active Vitamin D2 50,000 un it capsule RxNorm: 0904942 1 Capsule(s) PO QW No Start Date Active Vitamin B12 1000mcg Tablet RxNorm: 1 Tablet(s) SL QD No Start Date 02/15/2018 Inactive cyanocobalamin (shay min B-12) 1,000 mcg/mL Injection RxNorm: 157856 1 Milliliter(s) IM weekly No Start Date 04/27/2010 Inactive Neurontin 100 mg cap kelly RxNorm: 764496 1 Capsule(s) PO TID No Start Date 10/22/2014 Inactive Protonix 40 mg table t,delayed release RxNorm: 476342 1 Tablet(s) PO QD No Start Date 10/22/2014 Inactive Calcium with Vitamin D 600 mg (1,500 mg)-400 unit tablet RxNorm: 882938 1 Tablet(s) PO QD No Start Date 12/12/2013 Inactive Coreg 3.125 mg tablet RxNorm: 442416 1 Tablet(s) PO QD No Start Date 10/22/2014 Inactive cyanocobalamin (shay min B-12) 1,000 mcg/mL Injection RxNorm: 066634 1 Milliliter(s) Inj every month No Start Date 10/22/2014 Inactive Apidra SoloStar 100 unit/mL subcutaneous insulin pen RxNorm: 618422 Unit(s) SQ Sliding Scale No Start Date 08/01/2016 Inactive Cymbalta 60 mg capsu le,delayed release RxNorm: 353130 1 Capsule(s) PO QHS No Start Date 06/23/2015 Inactive metformin 1,000 mg t ablet RxNorm: 546491 1 Tablet(s) PO BID No Start Date 10/21/2013 Inactive Levemir Flexpen 100 unit/mL (3 mL) solution subcutaneous insulin pen RxNorm: 703321 45 Unit(s) SQ QD No Start Date 11/07/2013 Inactive Levemir Flexpen 100 unit/mL (3 mL) solution subcutaneous insulin pen RxNorm: 477446 30 Unit(s) SQ QHS No Start Date 08/12/2013 Inactive Miacalcin 200 unit/a ctuation nasal spray RxNorm: 186921 1 [place] NASAL QD in o ne nostril No Start Date 10/22/2014 Inactive Janumet XR 50 mg-1,0 00 mg tablet,extended release RxNorm: 9136163 1 Tablet(s) PO BID No Start Date 04/29/2013 Inactive metformin ER 1,000 m g tablet,extended release 24hr RxNorm: 348296 1 Tablet(s) PO QD No Start Date 08/09/2012 Inactive Levemir Flexpen 100 unit/mL (3 mL) solution subcutaneous insulin pen RxNorm: 718785 35 Unit(s) SQ QHS No Start Date 05/28/2014 Inactive baclofen 10 mg tablet RxNorm: 689367 1 Tablet(s) PO TID PRN Spasm No Start Date 08/12/2013 Inactive Apidra SoloStar 100 unit/mL subcutaneous insulin pen RxNorm: 783634 Unit(s) SQ 8units after breakfast and lunch and 9units at supper No Start Date 10/22/2014 Inactive Byetta 10 mcg/0.04 m L per dose subcutaneous pen injector RxNorm: 561922 Microgram(s) SQ BID No Start Date 05/27/2013 Inactive Cymbalta 30 mg capsu le,delayed release RxNorm: 975492 1 Capsule(s) PO QHS No Start Date 12/12/2013 Inactive Vitamin D3 5,000 uni t tablet RxNorm: 718594 1 Tablet(s) PO QD No Start Date 02/15/2018 Inactive hydrocodone 5 mg-brendan taminophen 325 mg tablet RxNorm: 381646 1 Tablet(s) PO Q4H as needed for pain No Start Date 01/09/2014 Inactive tizanidine 2 mg tablet RxNorm: 992732 1 Tablet(s) PO Q8H as needed for muscle spasms No Start Date 06/23/2015 Inactive Levemir FlexTouch 10 0 unit/mL (3 mL) subcutaneous insulin pen RxNorm: 095441 22 Unit(s) SQ QHS No Start Date 10/22/2014 Inactive Motrin IB 200 mg tablet RxNorm: 410773 Tablet(s) PO PRN No Start Date 10/21/2013 Inactive Vitamin D3 1,000 uni t tablet RxNorm: 672422 1 Tablet(s) PO QD No Start Date 12/12/2013 Inactive Levemir Flexpen 100 unit/mL (3 mL) solution subcutaneous insulin pen RxNorm: 801350 20 Unit(s) SQ QAM No Start Date 05/28/2014 Inactive Apidra SoloStar 100 unit/mL subcutaneous insulin pen RxNorm: 790224 3 Unit(s) SQ AC No Start Date 12/04/2013 Inactive Levemir Flexpen 100 unit/mL (3 mL) solution subcutaneous insulin pen RxNorm: 722248 40 Unit(s) SQ QHS No Start Date 10/22/2013 Inactive Kombiglyze XR 5 mg-1 ,000 mg 24 hr Tab RxNorm: 5973498 1 Tablet(s) PO QD No Start Date 08/09/2012 Inactive Levemir FlexTouch 10 0 unit/mL (3 mL) subcutaneous insulin pen RxNorm: 245442 30 Unit(s) SQ QHS No Start Date 02/07/2018 Inactive tizanidine 2 mg tablet RxNorm: 808290 1 Tablet(s) PO Q8H as needed for muscle spasm No Start Date 02/07/2018 Inactive Levemir FlexTouch U- 100 Insulin 100 unit/mL (3 mL) subcutaneous pen RxNorm: 213566 22 Unit(s) SQ QHS No Start Date 08/20/2018 Inactive Vitamin D3 5,000 uni t tablet RxNorm: 579814 1 Tablet(s) PO QD No Start Date 11/07/2013 Inactive Medication Administered No Medication Administered data Immunizations Vaccine Codes Date Status Influenza CVX: 135 04/07 completed Pneumococcal CVX: 133 completed Assessments Condition Codes Effectiv e Dates Psychophysiologic insomnia ICD-10: F 51.04 ICD-9: 780.52 09/18/2018 Other dietary vitamin B12 deficiency anemia ICD-10: D51.3 ICD-9: 281.1 09/18/2018 Other fatigue ICD-10: R53.83 ICD-9: 780.79 09/18/2018 Adjustment disorder with depressed mood ICD-10: F43.21 ICD-9: 309.0 08/21/2018 FLU VACCINE ICD-10: Z23 ICD-9: V04.81 04/07/2018 PNEUMOCOCCAL VACCINE ICD-10: Z23 ICD-9: V03.82 04/07/2018 DM W/O COMPLICATION TYPE I, UNCONTROLLED ICD-10: E10.9 ICD-9: 250.03 02/08/2018 Encounter for general adult medical exam ination without abnormal findings ICD-10: Z00.00 ICD-9: V70.9 02/08/2018 Age-related osteoporosis without current pathological fracture ICD-10: M81.0 ICD-9: 733.00 02/08/2018 Vitamin D deficiency, unspecified IC D-10: E55.9 ICD-9: 268.9 02/08/2018 Sacroiliitis, not elsewhere classified ICD-10: M46.1 ICD-9: 720.2 06/24/2015 Radiculopathy, lumbosacral region IC D-10: M54.17 ICD-9: 724.4 06/24/2015 B12 DEFIC ANEMIA NEC ICD-9: 281.1 10/23/2014 HX OF PAST NONCOMPLIANCE ICD-9: V15.81 10/23/2014 VITAMIN D DEFICIENCY ICD-9: 268.9 10/23/2014 Rib fracture ICD-9: 807.00 05/29/2014 HYPERTENSION ICD-9: 401.9 05/29/2014 Rib pain ICD-9: 786.50 0 01/10/2014 Weight loss ICD-9: 783.21 01/10/2014 DM W/O COMPLICATION TYPE II, UNCONTROLLED ICD-9: 250.02 12/13/2013 UNSPECIFIED CONSTIPATION ICD-9: 564.00 12/13/2013 CACHEXIA ICD-9: 799.4 Thoracic back pain ICD-9: 724.1 10/22/2013 SPASM OF MUSCLE ICD-9: 728.85 08/13/2013 URI, ACUTE ICD-9: 465.9 05/28/2013 SEBACEOUS CYST ICD-9: 706.2 11/02/2011 Impaired fasting glucose ICD-9: 790.21 05/14/2010 Reason For Visit Reason For Visit Effective Dates Notes follow up 09/18/2018 disturbances of emotion 08/21/2018 [...] is worrying about what will do after residential diabetes mellitus 11/02/2011 follow up 07/20/2011 dis cuss labs follow up 05/14/2010 F/U Labs - Pt brought log of BP readings and blood glucose readings. Results Observation Observation Code Item Item Code Result Date THYROID STIMULATING HORMONE 41230 TSH 2.042 uIU/ML 4 COMPREHENSIVE METABOLIC 81293 AST 9 U/L 08/20/2013 COMPREHENSIVE METABOLIC 25496 ALT 14 IU/L 08/20/2013 COMPREHENSIVE METABOLIC 52925 BUN 15 MG/DL 08/20/2013 COMPREHENSIVE METABOLIC 96425 ALBUMIN 4.2 GM/DL 08/20/2013 COMPREHENSIVE METABOLIC 96954 CHLORIDE 99 MMOL/L 08/20/2013 COMPREHENSIVE METABOLIC 88896 BILI TOT 0.6 MG/DL 08/20/2013 COMPREHENSIVE METABOLIC 31232 ALK PHOS 100 U/L 08/20/2013 COMPREHENSIVE METABOLIC 67756 SODIUM 133 MMOL/L 08/20/2013 COMPREHENSIVE METABOLIC 68499 CREATININE 0.43 MG/DL 08/20/2013 COMPREHENSIVE METABOLIC 78340 CALCIUM 9.8 MG/DL 08/20/2013 COMPREHENSIVE METABOLIC 13806 POTASSIUM 4.2 MMOL/L 08/20/2013 COMPREHENSIVE METABOLIC 87210 PROT TOT 6.9 GM/DL 08/20/2013 COMPREHENSIVE METABOLIC 11195 Glucose 394 MG/DL 08/20/2013 COMPREHENSIVE METABOLIC 63039 BICARB 26 MMOL/L 08/20/2013 COMPREHENSIVE METABOLIC 38818 ANION GAP 8 MEQ/L 08/20/2013 FREE T4 09333 FREE T4 1.19 NG/DL 08/20/2013 COMPLETE BLOOD COUNT 8822128 WBC 6.6 10e9/L 08/20/2013 COMPLETE BLOOD COUNT 0819031 RBC 4.80 10e12/L 4 COMPLETE BLOOD COUNT 6674812 HGB 15.2 g/dL 08/20/2013 COMPLETE BLOOD COUNT 6124132 HCT DET 42.8 % 08/20/2013 COMPLETE BLOOD COUNT 5685282 MCV 89.2 fL 08/20/2013 COMPLETE BLOOD COUNT 3415051 MCH 31.7 pg 08/20/2013 COMPLETE BLOOD COUNT 9380823 MCHC 35.5 g/dL 08/20/2013 COMPLETE BLOOD COUNT 9790434 PLT 340 10e9/L 08/20/2013 COMPLETE BLOOD COUNT 6589948 MPV 9.6 fL 08/20/2013 COMPLETE BLOOD COUNT 5775940 SILVINA % 63.6 % 08/20/2013 COMPLETE BLOOD COUNT 5155634 LY % 26.4 % 08/20/2013 COMPLETE BLOOD COUNT 3006895 MON % 8.6 % 08/20/2013 COMPLETE BLOOD COUNT 6663917 EOS % 1.1 % 08/20/2013 COMPLETE BLOOD COUNT 6150906 BASO % 0.3 % 08/20/2013 COMPLETE BLOOD COUNT 5612803 RDW 13.4 % 08/20/2013 COMPLETE BLOOD COUNT 6585571 ABS SILVINA 4.20 10e9/L 08/20/2013 COMPLETE BLOOD COUNT 3720247 ABS LYMPH 1.74 10e9/L 08/20/2013 COMPLETE BLOOD COUNT 0272520 ABS MONO 0.57 10e9/L 08/20/2013 COMPLETE BLOOD COUNT 8001467 ABS EOS 0.07 10e9/L 08/20/2013 COMPLETE BLOOD COUNT 4396256 ABS BASO 0.02 10e9/L 08/20/2013 COMPLETE BLOOD COUNT 0556038 RDW-SD 42.6 fL 08/20/2013 LIPID GROUP [address] 47 MG/DL 08/20/2013 LIPID GROUP 99103 TRIG 216 MG/DL 08/20/2013 LIPID GROUP 83097 TEST L DL 67 MG/DL 08/20/2013 LIPID GROUP 17836 CHOL 157 MG/DL 08/20/2013 LIPID GROUP 09564 RCHOL/ HDL 3.34 RATIO 08/20/2013 GFR CALC 8817618 GFR AA >60 ML/MIN 08/20/2013 GFR CALC 2061976 GFR NON -AA >60 ML/MIN 08/20/2013 VITAMIN D TOTAL (25 HYDROXY) 37165 VIT D TOTL 10 NG/ML 08/20/2013 VITAMIN B 12 FOLIC ACID 67207|14521 VIT B 12 235 PG/ML 08/20/2013 VITAMIN B 12 FOLIC ACID 94948|33094 FOLIC ACID >24.0 NG/ML 08/20/2013 GLYCOSYLATED HEMOGLOBIN TEST 60618 A1C HPLC 43847-3 10.4 % 4 COMPLETE BLOOD COUNT 1895400 WBC 6.5 10e9/L 08/10/2012 COMPLETE BLOOD COUNT 1223921 RBC 4.64 10e12/L 3 COMPLETE BLOOD COUNT 7843441 HGB 14.4 g/dL 08/10/2012 COMPLETE BLOOD COUNT 3778422 HCT DET 40.0 % 08/10/2012 COMPLETE BLOOD COUNT 6917875 MCV 86.2 fL 08/10/2012 COMPLETE BLOOD COUNT 2556233 MCH 31.0 pg 08/10/2012 COMPLETE BLOOD COUNT 3079660 MCHC 36.0 g/dL 08/10/2012 COMPLETE BLOOD COUNT 4394581 PLT 294 10e9/L 08/10/2012 COMPLETE BLOOD COUNT 5440721 MPV 10.4 fL 08/10/2012 COMPLETE BLOOD COUNT 6497544 SILVINA % 60.3 % 08/10/2012 COMPLETE BLOOD COUNT 2109189 LY % 30.6 % 08/10/2012 COMPLETE BLOOD COUNT 6528518 MON % 7.4 % 08/10/2012 COMPLETE BLOOD COUNT 1949529 EOS % 1.4 % 08/10/2012 COMPLETE BLOOD COUNT 2410568 BASO % 0.3 % 08/10/2012 COMPLETE BLOOD COUNT 0211357 RDW 13.6 % 08/10/2012 COMPLETE BLOOD COUNT 8383025 ABS SILVINA 3.92 10e9/L 08/10/2012 COMPLETE BLOOD COUNT 6765413 ABS LYMPH 1.99 10e9/L 08/10/2012 COMPLETE BLOOD COUNT 3229216 ABS MONO 0.48 10e9/L 08/10/2012 COMPLETE BLOOD COUNT 3772573 ABS EOS 0.09 10e9/L 08/10/2012 COMPLETE BLOOD COUNT 9689043 ABS BASO 0.02 10e9/L 08/10/2012 COMPLETE BLOOD COUNT 3349849 RDW-SD 41.3 fL 08/10/2012 HEMOGLOBIN A1C (GLYCOSYLATED) 8661858 A1C [facility] 43464-4 14.6 % 08/10/2012 LIPID GROUP [address] 50 MG/DL 08/10/2012 LIPID GROUP 78983 TRIG 123 MG/DL 08/10/2012 LIPID GROUP 10593 TEST L DL 114 MG/DL 08/10/2012 LIPID GROUP 55529 CHOL 189 MG/DL 08/10/2012 LIPID GROUP 61860 RCHOL/ HDL 3.78 RATIO 08/10/2012 COMPREHENSIVE METABOLIC 64897 AST 13 U/L 08/10/2012 COMPREHENSIVE METABOLIC 15013 ALT 17 IU/L 08/10/2012 COMPREHENSIVE METABOLIC 05123 BUN 10 MG/DL 08/10/2012 COMPREHENSIVE METABOLIC 79584 ALBUMIN 4.5 GM/DL 08/10/2012 COMPREHENSIVE METABOLIC 99957 CHLORIDE 102 MMOL/L 08/10/2012 COMPREHENSIVE METABOLIC 99610 BILI TOT 0.6 MG/DL 08/10/2012 COMPREHENSIVE METABOLIC 45968 ALK PHOS 111 U/L 08/10/2012 COMPREHENSIVE METABOLIC 22843 SODIUM 137 MMOL/L 08/10/2012 COMPREHENSIVE METABOLIC 90767 CREATININE 0.44 MG/DL 08/10/2012 COMPREHENSIVE METABOLIC 22601 CALCIUM 9.2 MG/DL 08/10/2012 COMPREHENSIVE METABOLIC 85783 POTASSIUM 3.7 MMOL/L 08/10/2012 COMPREHENSIVE METABOLIC 99968 PROT TOT 6.8 GM/DL 08/10/2012 COMPREHENSIVE METABOLIC 50728 Glucose 345 MG/DL 08/10/2012 COMPREHENSIVE METABOLIC 14479 BICARB 27 MMOL/L 08/10/2012 COMPREHENSIVE METABOLIC 73386 ANION GAP 8 MEQ/L 08/10/2012 THYROID STIMULATING HORMONE 23281 TSH 2.158 uIU/ML 3 FREE T4 50133 FREE T4 1.02 NG/DL 08/10/2012 GFR CALC 0727233 GFR AA >60 ML/MIN 08/10/2012 GFR CALC 7638157 GFR NON -AA >60 ML/MIN 08/10/2012 VITAMIN B 12 FOLIC ACID 77837|01204 VIT B 12 237 PG/ML 08/10/2012 VITAMIN B 12 FOLIC ACID 56645|67528 FOLIC ACID >24.0 NG/ML 08/10/2012 Review of Systems System Result Effective Dates Constitutional fatigue 0 09/18/2018 Constitutional insomnia 09/18/2018 [...] Psychiatric No depression 02/08/2018 Endocrine No goiter 07/2017 Endocrine hyperglycemia 02/08/2018 Endocrine hypoglycemia 1 Endocrine [...] 2 04/03/2013 Psychiatric stress 09/21 Psychiatric anxiety 05/1 10/2012 Endocrine diabetes mellitus type 2 09/21/2012 Endocrine [...] I NC ANTIG 65 AND OLDER CPT-4: 89825 04/07/2018 PNEUMOCOCCAL VACC 13 JACOBO IM CPT-4: 01152 04/07/2018 ADMIN INFLUENZA VIRU S VAC CPT-4: G0008 04/07/2018 ADMIN PNEUMOCOCCAL V ACCINE CPT-4: G0009 04/07/2018 PPPS, subseq visit CPT- 4: G0439 02/08/2018 TRIAMCINOLONE ACET I [place] NOS CPT-4: J3301 06/24/2015 DRAIN/INJECT JOINT/B URSA CPT-4: 30782 06/24/2015 PRESCRIP TRANSMIT A ERX SY CPT-4: G8553 10/23/2014 ROUTINE VENIPUNCTURE CPT-4: 28521 08/20/2013 ASSAY OF FREE THYROXINE CPT-4: 39903 08/20/2013 ASSAY THYROID STIM H ORMONE CPT-4: 14029 08/20/2013 COMPREHEN METABOLIC PANEL CPT-4: 71722 08/20/2013 COMPLETE CBC W/AUTO DIFF WBC CPT-4: 10524 08/20/2013 LIPID PANEL CPT-4: 63069 08/20/2013 A1C HPLC CPT-4: 89019 08/20/2013 VITAMIN B 12 FOLIC ACID CPT-4: 96930|38546 08/20/2013 VITAMIN D TOTAL (25 HYDROXY) CPT-4: 21539 08/20/2013 PRESCRIP TRANSMIT A ERX SY CPT-4: G8553 08/13/2013 PRESCRIP TRANSMIT A ERX SY CPT-4: G8553 05/28/2013 PRESCRIP TRANSMIT A ERX SY CPT-4: G8553 04/30/2013 ASSAY, GLUCOSE, BLOO D QUANT CPT-4: 55682 04/03/2013 PRESCRIP TRANSMIT A ERX SY CPT-4: G8553 04/03/2013 ROUTINE VENIPUNCTURE CPT-4: 87228 08/10/2012 ASSAY OF FREE THYROXINE CPT-4: 91962 08/10/2012 ASSAY THYROID STIM H ORMONE CPT-4: 04726 08/10/2012 COMPREHEN METABOLIC PANEL CPT-4: 69271 08/10/2012 COMPLETE CBC W/AUTO DIFF WBC CPT-4: 74222 08/10/2012 LIPID PANEL CPT-4: 24908 08/10/2012 A1C GLYCOSYLATED HEM OGLOBIN TEST CPT-4: 73611 08/10/2012 VITAMIN B 12 FOLIC ACID CPT-4: 33160|97576 08/10/2012 THER/PROPH/DIAG INJ SC/IM CPT-4: 98295 04/27/2010 VITAMIN B12 INJECTION CPT-4: J3420 04/27/2010 Vital Signs Date Vital 09/18/2018 Blood Pressure 1: 126/72 Code: 8480-6 [...] 1: 126/76 Code: 8480-6 BMI: 27.3 Code: 89573-8 Heart Rate 1: 84 bpm Height: 4'11" Respiratory Rate: 20 bpm SpO2: 96% Temperature: 37.0 (C ) / 98.6 (F) Weight: 135 lbs 06/24/2015 Blood Pressure 1: 140/84 Code: 8480-6 BMI: 24.6 Code: 92783-5 Heart Rate 1: 84 bpm Height: 4'11" Respiratory Rate: 20 bpm Temperature: 37.4 (C ) / 99.3 (F) Weight: 122 lbs 02/11/2015 Blood Pressure 1: 132/76 Code: 8480-6 BMI: 23.2 Code: 64316-8 Heart Rate 1: 82 bpm Height: 4'11" Respiratory Rate: 22 bpm Temperature: 35.7 (C ) / 96.3 (F) Weight: 115 lbs 10/23/2014 Blood Pressure 1: 118/80 Code: 8480-6 BMI: 20.8 Code: 66094-6 Heart Rate 1: 92 bpm Height: 4'11" Respiratory Rate: 20 bpm Temperature: 36.9 (C ) / 98.4 (F) Weight: 103 lbs 05/29/2014 Blood Pressure 1: 114/70 Code: 8480-6 BMI: 21.2 Code: 80290-2 Heart Rate 1: 88 bpm Height: 4'11" Respiratory Rate: 20 bpm Temperature: 37.2 (C ) / 99.0 (F) Weight: 105 lbs 01/10/2014 Blood Pressure 1: 102/60 Code: 8480-6 BMI: 20.4 Code: 04923-4 Heart Rate 1: 88 bpm Height: 4'11" Respiratory Rate: 20 bpm Temperature: 36.9 (C ) / 98.4 (F) Weight: 101 lbs 12/13/2013 Blood Pressure 1: 124/76 Code: 8480-6 BMI: 19.4 Code: 87582-2 Heart Rate 1: 104 bpm Height: 4'11" Respiratory Rate: 20 bpm Temperature: 37.2 (C ) / 98.9 (F) Weight: 96 lbs 11/08/2013 Blood Pressure 1: 108/70 Code: 8480-6 BMI: 19.4 Code: 96175-5 Heart Rate 1: 84 bpm Height: 4'11" Respiratory Rate: 20 bpm Temperature: 37.1 (C ) / 98.7 (F) Weight: 96 lbs 10/31/2013 Blood Pressure 1: 128/80 Code: 8480-6 BMI: 18.2 Code: 70082-7 Heart Rate 1: 92 bpm Height: 4'11" Respiratory Rate: 20 bpm Temperature: 36.3 (C ) / 97.4 (F) Weight: 90 lbs 10/22/2013 Blood Pressure 1: 128/86 Code: 8480-6 BMI: 19.2 Code: 85738-8 Heart Rate 1: 104 bpm Height: 4'11" Respiratory Rate: 20 bpm Temperature: 37.0 (C ) / 98.6 (F) Weight: 95 lbs 09/04/2013 Blood Pressure 1: 152/90 Code: 8480-6 Heart Rate 1: 108 bpm Respiratory Rate: 20 bpm Temperature: 37.2 (C) / 98.9 (F) Weight: 105 lbs 08/13/2013 Blood Pressure 1: 156/102 Code: 8480-6 BMI: 22.6 Code: 83112-9 Heart Rate 1: 88 bpm Height: 4'11" Respiratory Rate: 20 bpm Temperature: 37.1 (C ) / 98.7 (F) Weight: 112 lbs 05/28/2013 Blood Pressure 1: 128/70 Code: 8480-6 BMI: 21.0 Code: 32212-0 Heart Rate 1: 104 bpm Height: 4'11" Respiratory Rate: 20 bpm Temperature: 38.0 (C ) / 100.4 (F) Weight: 104 lbs 04/30/2013 Blood Pressure 1: 116/78 Code: 8480-6 BMI: 21.4 Code: 44954-5 Heart Rate 1: 92 bpm Height: 4'11" Respiratory Rate: 20 bpm Temperature: 37.2 (C ) / 98.9 (F) Weight: 106 lbs 04/03/2013 Blood Pressure 1: 132/86 Code: 8480-6 BMI: 21.2 Code: 77426-7 Heart Rate 1: 88 bpm Height: 4'11" Respiratory Rate: 20 bpm Temperature: 37.2 (C ) / 99.0 (F) Weight: 105 lbs 09/21/2012 Blood Pressure 1: 146/74 Code: 8480-6 BMI: 21.8 Code: 54382-9 Heart Rate 1: 80 bpm Height: 4'11" Respiratory Rate: 20 bpm Temperature: 36.7 (C ) / 98.0 (F) Weight: 108 lbs 08/10/2012 Blood Pressure 1: 134/84 Code: 8480-6 BMI: 22.2 Code: 55870-2 Heart Rate 1: 84 bpm Height: 4'11" Respiratory Rate: 20 bpm Temperature: 36.7 (C ) / 98.1 (F) Weight: 110 lbs 11/02/2011 Blood Pressure 1: 134/78 Code: 8480-6 BMI: 24.6 Code: 33890-0 Heart Rate 1: 76 bpm Height: 4'11" Respiratory Rate: 20 bpm Temperature: 36.9 (C ) / 98.4 (F) Weight: 122 lbs 07/20/2011 Blood Pressure 1: 114/82 Code: 8480-6 BMI: 25.2 Code: 20163-6 Heart Rate 1: 92 bpm Height: 4'11" Respiratory Rate: 20 bpm Temperature: 36.8 (C ) / 98.2 (F) Weight: 125 lbs 05/14/2010 Blood Pressure 1: 128/76 Code: 8480-6 Heart Rate 1: 76 bpm Temperature: 37.0 (C) / 98.6 (F) Weight: 150 lbs Functional Status No Functional Status data History of Present Illness Symptom Name Status Resu lt Effective Date Notes Lifestyle injections. 09/18/2018 Patient has felt better [...] well woman exam (65+ years) Lifestyle satisfactory work/residential experience 02/08/2018 None well woman exam (65+ [...] Encounters Encounter Performer Loca tion Codes Date ([id number]) OFFICE/OUTPA TIENT VISIT EST Diagnosis: Other dietary vitamin B12 deficiency anemia[ICD10: D51.3] Diagnosis: Psychophysiologic insomnia[ICD10: F51.04] Diagnosis: Other fatigue[ICD10: R53.83] Kay [employer] [facility] CPT-4: 46694 09/18/2018 ([id number]) OFFICE/OUTPA TIENT VISIT EST Diagnosis: Adjustment disorder with depressed mood[ICD10: F43.21] Diagnosis: Other fatigue[ICD10: R53.83] Diagnosis: Psychophysiologic insomnia[ICD10: F51.04] Diagnosis: Other dietary vitamin B12 deficiency anemia[ICD10: D51.3] Kay [employer] [facility] [employer] [facility] CPT-4: 35280 08/21/2018 ([id number]) NURSE/OUTPAT IENT VISIT EST Diagnosis: PNEUMOCOCCAL VACCINE[ICD10: Z23] Diagnosis: FLU VACCINE[ICD10: Z23] Kay Alexfelipelizeth [facility] [employer] [facility] CPT-4: 27263 04/07/2018 OFFICE/OUTPATIENT SIT EST Diagnosis: Sacroiliitis, not elsewhere classified[ICD10: M46.1] Diagnosis: Radiculopathy, lumbosacral region[ICD10: M54.17] Kay GUTIERREZ [employer] [facility] CPT-4: 71835 06/24/2015 ([id number]) OFFICE/OUTPA TIENT VISIT EST Diagnosis: DM W/O COMPLICATION TYPE I, UNCONTROLLED[ICD10: E10.9] Diagnosis: Other dietary vitamin B12 deficiency anemia[ICD10: D51.3] Kay OLIVERA [facility] CPT-4: 72148 02/11/2015 ([id number]) OFFICE/OUTPA TIENT VISIT EST Diagnosis: DM W/O COMPLICATION TYPE I, UNCONTROLLED[ICD10: E10.9] Diagnosis: B12 DEFIC ANEMIA NEC[ICD9: 281.1] Diagnosis: VITAMIN D DEFICIENCY[ICD9: 268.9] Diagnosis: HX OF PAST NONCOMPLIANCE[ICD9: V15.81] Kay FENG [employer] [facility] CPT-4: 89085 10/23/2014 ([id number]) OFFICE/OUTPA TIENT VISIT EST Diagnosis: DM W/O COMPLICATION TYPE I, UNCONTROLLED[ICD10: E10.9] Diagnosis: HYPERTENSION[ICD9: 401.9] Diagnosis: Vitamin B12 deficiency anemia[ICD9: 281.1] Diagnosis: Rib fracture[ICD9: 807.00] Kay OLIVERA [facility] CPT-4: 68284 05/29/2014 ([id number]) OFFICE/OUTPA TIENT VISIT EST Diagnosis: DM W/O COMPLICATION TYPE I, UNCONTROLLED[ICD10: E10.9] Diagnosis: Rib pain[ICD9: 786.50] Diagnosis: Weight loss[ICD9: 783.21] Kay [facility]IVERA [facility] CPT-4: 06258 01/10/2014 ([id number]) OFFICE/OUTPA TIENT VISIT EST Diagnosis: DM W/O COMPLICATION TYPE II, UNCONTROLLED[ICD9: 250.02] Diagnosis: CACHEXIA[ICD9: 799.4] Diagnosis: UNSPECIFIED CONSTIPATION[ICD9: 564.00] Kay [employer] [facility] CPT-4: 78929 12/13/2013 ([id number]) OFFICE/OUTPA TIENT VISIT EST Diagnosis: DM W/O COMPLICATION TYPE II, UNCONTROLLED[ICD9: 250.02] Diagnosis: Rib pain[ICD9: 786.50] Diagnosis: Rib fracture[ICD9: 807.00] Diagnosis: CACHEXIA[ICD9: 799.4] Kay OLIVERA [employer] [facility] CPT-4: 81337 11/08/2013 ([id number]) OFFICE/OUTPA TIENT VISIT EST Diagnosis: DM W/O COMPLICATION TYPE II, UNCONTROLLED[ICD9: 250.02] Diagnosis: Thoracic back pain[ICD9: 724.1] Diagnosis: Rib pain[ICD9: 786.50] Diagnosis: Weight loss[ICD9: 783.21] Kay Alexfelipelizeth GONZALEZKAY MehreenIsa JAROD [employer] [facility] CPT-4: 32406 10/22/2013 ([id number]) OFFICE/OUTPA TIENT VISIT EST Diagnosis: UNSPECIFIED CONSTIPATION[ICD9: 564.00] Diagnosis: Thoracic back pain[ICD9: 724.1] Diagnosis: Rib pain[ICD9: 786.50] Kay Jarod HIRSCHLINE MehreenIsa JAR[employer] CPT-4: 67135 09/04/2013 ([id number]) OFFICE/OUTPA TIENT VISIT EST Diagnosis: DM W/O COMPLICATION TYPE II, UNCONTROLLED[ICD9: 250.02] Diagnosis: B12 DEFIC ANEMIA NEC[ICD9: 281.1] Diagnosis: HYPERTENSION[ICD9: 401.9] Diagnosis: VITAMIN D DEFICIENCY[ICD9: 268.9] Kay Villanuevalizeth KAY MehreenIsa ALEX GUTIER[employer] CPT-4: 21833 08/20/2013 OFFICE/OUTPATIENT SIT EST Diagnosis: Thoracic back pain[ICD9: 724.1] Diagnosis: SPASM OF MUSCLE[ICD9: 728.85] Diagnosis: Rib pain[ICD9: 786.50] Kay Villanuevalizeth KAY MehreenIsa JAROD [employer] [facility] CPT-4: 00127 08/13/2013 OFFICE/OUTPATIENT SIT EST Diagnosis: DM W/O COMPLICATION TYPE II, UNCONTROLLED[ICD9: 250.02] Diagnosis: URI, ACUTE[ICD9: 465.9] Kay [place] MehreenIsa JAROD [employer] [facility] CPT-4: 82264 05/28/2013 OFFICE/OUTPATIENT SIT EST Diagnosis: DM W/O COMPLICATION TYPE II, UNCONTROLLED[ICD9: 250.02] Kay GUTIERREZ [facility] CPT-4: 72744 04/30/2013 ([id number]) OFFICE/OUTPA TIENT VISIT EST Diagnosis: DM W/O COMPLICATION TYPE II, UNCONTROLLED[ICD9: 250.02] Kay GUTIERREZ [facility] CPT-4: 46564 04/03/2013 ([id number]) OFFICE/OUTPA TIENT VISIT EST Diagnosis: DM W/O COMPLICATION TYPE II, UNCONTROLLED[ICD9: 250.02] Diagnosis: HYPERTENSION[ICD9: 401.9] Kay OLIVERA DO [facility] CPT-4: 62553 09/21/2012 ([id number]) OFFICE/OUTPA TIENT VISIT EST Diagnosis: DM W/O COMPLICATION TYPE II, UNCONTROLLED[ICD9: 250.02] Diagnosis: B12 DEFIC ANEMIA NEC[ICD9: 281.1] Diagnosis: HYPERTENSION[ICD9: 401.9] Kay OLIVERA DO [facility] CPT-4: 92381 08/10/2012 ([id number]) OFFICE/OUTPA TIENT VISIT EST Diagnosis: DM W/O COMPLICATION TYPE II, UNCONTROLLED[ICD9: 250.02] Diagnosis: SEBACEOUS CYST[ICD9: 706.2] Kay OLIVERA [employer] [facility] CPT-4: 84800 11/02/2011 ([id number]) OFFICE/OUTPA TIENT VISIT EST Diagnosis: DM W/O COMPLICATION TYPE II, UNCONTROLLED[ICD9: 250.02] Diagnosis: B12 DEFIC ANEMIA NEC[ICD9: 281.1] Diagnosis: HYPERTENSION[ICD9: 401.9] Kay OLIVERA [employer] [facility] CPT-4: 00099 07/20/2011 ([id number]) OFFICE/OUTPA TIENT VISIT, EST Kay GUTIERREZ [employer] CPT-4: 27204 05/14/2010 Plan of Care Planned Activity Notes C odes Status Date Visit Diagnosis Plan: Other dietary shay min B12 deficiency anemia Discussion: Doing weekly B12 injections Had lab done this morning ICD-9 : 281.1 ICD-10 : D51.3 09/18/2018 Visit Diagnosis Plan: Psychophysiologic insomnia Discussion: Stable/Improving with doxepin Follow Up: 3 months ICD-9 : 780.52 ICD-10 : F51.04 09/18/2018 Appointment: Kay Olivera WPtel: [address] [place], [place] [phone] [place] FOLLOW UP 09/18/2018 Patient Education: doxepin- [employer] Coupon [id number] [email or web address]/resources/[email or web address]/[email or web address]-[email or web address]-wb Completed 09/18/2018 Visit Diagnosis Plan: Other fatigue [...] : F51.04 08/21/2018 Appointment: Kay Olivera WPtel: [address] [place], [place] [id number] ACUTE ILLNESS 08/21/2018 Patient Education: doxepin- [employer] [id number] Completed 08/21/2018 Patient Education: cyanocobalamin (vitam in B-12)- [employer] C[employer]on [id number] Completed 08/21/2018 Appointment: Estelita Rousseau [facility] [employer] [id number] [place] NO SHOW 07/11/2018 Appointment: Kay Olivera WPtel: [address] [place], [place] [id number] [place] INJECTION 04/07/2018 Visit Diagnosis Plan: DM [...] E55.9 02/08/2018 Visit Diagnosis Plan: Encounter for [facility] adult medical examination without abnormal findings Discussion: Update fasting lab Will get flu shot at hospital next week--will make sure is high dose Recommend Prevnar 13 ICD-9 : V70.9 ICD-10 : Z00.00 02/08/2018 Visit Diagnosis Plan: Other dietary shay min B12 deficiency anemia Discussion: Check CBC and B12 level ICD-9 : 281.1 ICD-10 : D51.3 02/08/2018 Appointment: Kay Olivera WPtel: [address] [place], [place] [phone] Annual Well Visit 02/08/2018 Patient Education: Patient Medication Summary Completed 02/08/2018 Appointment: Kay Olivera WPtel: [address] [place], [place] [phone] 07/29 canceled~sl CANCELED 08/02/2016 Visit Plan: Left SI joint injection --cleansed with alcohol and betadine and injected with 2cc 1% lidocaine with 40mg kenolog, tolerated well with no complications, neosporin and bandage applied Call in 2 days on how doing Zorvolex 18mg po TID Use zanaflex q HS Use tramadol prn 06/24/2015 Appointment: Kay Olivera WPtel: [address] [place], [place] [phone] [place] 06/23/15 appt confirmed cn ACUTE ILLNESS 06/24/2015 Patient Education: Patient Medication Summary Completed 06/24/2015 Visit Plan: Check CMP, HbA1C, CBC, TSH, free T4, B12 Continue accuchecks q AC and HS with sliding scale insulin 02/11/2015 Appointment: Kay Olivera WPtel: [address] [place], [place] [phone] FOLLOW UP 02/11/2015 Patient Education: Patient Medication [...] not tolerate 10/23/2014 Appointment: Kay Olivera WPtel: [address] [place] [address] 10/22 appt cn FOLLOW UP 10/23/2014 Patient Education: Patient Medication Summary Completed 10/23/2014 Appointment: Kay Olivera WPtel: [address] [place], [place] [phone] 09/17 confirmed with spouse cn... 5 No Show FOLLOW UP 09/18/2014 Visit Plan: Check fasting lab Check Bone Density Discussed Forteo for bones vs evista Accuchecks at least daily to BID alternating times 05/29/2014 Appointment: Kay Olivera WPtel: [address] [place], [place] [phone] voicemail FOLLOW UP 05/29/2014 Patient Education: Patient [...] Fwup 1mo 01/10/2014 Appointment: Kay Olivera WPtel: [address] [place], [place] [phone] FOLLOW UP 01/10/2014 Patient Education: Patient Medication Summary Completed 01/10/2014 Visit Plan: Increase levemir to 22u Increase apidra to 7u sc with meals Continue accuchecks q AC and HS 12/13/2013 Appointment: Kay Olivera WPtel: [address] [place] [address] FOLLOW UP 12/13/2013 Patient Education: Patient Medication Summary Completed 12/13/2013 Visit Plan: Continue current meds W eight check in 2weeks Fwup in 1mo 11/08/2013 Appointment: Kay Olivera WPtel: [address] [place], [place] [phone] 11/08/2013 Patient Education: Patient Medication Summary Completed 11/08/2013 Visit Plan: Direct admit to hospita l 10/31/2013 Appointment: Kay Olivera WPtel: [address] [place] [address] FOLLOW UP 10/31/2013 Patient Education: Patient Medication Summary Completed 10/31/2013 Visit Plan: Check lab and retry PT with traction Check CBC, CMP, TSH, Free T4 Patient admits to not eating routinely Hold metformin Continue accuchecks Suggested Glucerna if not eating a meal 10/22/2013 Appointment: Kay Olivera WPtel: [address] [place] [address] (don't know what she needs seen for, she hung up after I told her appt time) ACUTE ILLNESS 10/22/2013 Patient Education: Patient Medication Summary Completed 10/22/2013 Visit Plan: Continue miralax BID to TID for daily BMs Proceed with colonoscopy Start PT for thoracics and schedule with pain medicine in case needs injection to thoracic area 09/04/2013 Appointment: Kya Olivera WPtel: [address] [place], [place] [phone] ACUTE ILLNESS 09/04/2013 Patient Education: Patient Medication Summary Completed 09/04/2013 Appointment: Kay Olivera WPtel: [address] [place] [address] ACUTE ILLNESS 08/20/2013 Patient Education: Patient Medication Summary Completed 08/20/2013 Visit Plan: Continue ibuprofen and baclofen Check thoracic spine and posterior rib x-ray--if no sign of fracture then okay for manipulation in thoracic spine Add hydrocodone 5/325mg 1 po q4hrs prn pain--#60 08/13/2013 Appointment: Kay Olivera WPtel: [address] [place] [address] FOLLOW UP 08/13/2013 Patient Education: Patient Medication Summary Completed 08/13/2013 Visit Plan: DC Amaryl, Actos, Byett a, Janumet Metformin 1000mg BID Levemir 30u sc q PM Fasting BS readings in 2wks 05/28/2013 Appointment: Kay Olivera WPtel: [address] [place] [address] FOLLOW UP 05/28/2013 Patient Education: Patient Medication Summary Completed 05/28/2013 Visit Plan: Pt wants one more month of orals before going to insulin Increase Amaryl to 4mg BID Add Byetta 5mcg sc BID Continue accuchecks BID 04/30/2013 Appointment: Kay Olivera WPtel: [address] [place] [address] FOLLOW UP 04/30/2013 Patient Education: Patient Medication Summary Completed 04/30/2013 Patient Education: Janumet XR - No [place] Completed 04/30/2013 Visit Plan: Start Janumet XR 50/100 0mg BID Continue actos at 30mg daily Twice daily accuchecks alternating times Call in 1wk with BS readings 04/03/2013 Appointment: Kay Olivera WPtel: [address] [place], [place] [phone] FOLLOW UP 04/03/2013 Patient Education: Patient Medication Summary Completed 04/03/2013 Patient Education: [facility] Saving AutoInj - 18+ - Dynamic Portal ID Completed 04/03/2013 Visit Plan: Continue metformin at B ID Continue onglyza 5mg q AM Add Actos 30mg daily Continue accuchecks daily Continue lexapro at 5mg daily 09/21/2012 Appointment: Kay Olivera WPtel: [phone] [id number] FOLLOW UP 09/21/2012 Patient Education: Patient Medication Summary Completed 09/21/2012 Visit Plan: Check fasting lab Stres s Reducers and Lexapro 5mg daily for 1wk then increase to 10mg daily Pt has stopped all meds for diabetes except for metformin couple times a week--noncompliant Restart Metformin at 1000mg po BID and accuchecks 08/10/2012 Appointment: Kay Olivera WPtel: [address] [place], [place] [phone] FOLLOW UP 08/10/2012 Patient Education: Patient Medication Summary Completed 08/10/2012 Visit Plan: Check screeening Mammo Observe vs Remove sebaceous cyst Continue Kombiglyze 5/1000mg q AM and change metformin to Actoplusmet XR 30/1000mg q PM--Call in 2wks with BS readings and will likely add amaryl at that time and then check CMP, CBC and HbA1C in 3mos and fwup 11/02/2011 Appointment: Kay Olivera WPtel: [facility] FOLLOW UP 11/02/2011 Patient Education: Patient Medication Summary Completed 11/02/2011 Visit Plan: Start Kombiglyze ER 5/1 000mg po daily and start accuchecks daily Start monthly B12 HbA1C, B12 level in 3mos Check urine for microalbumin Discussed Lamisil treatment for fingernails 07/20/2011 Appointment: Kay Olivera WPtel: [phone] [id number] FOLLOW UP 07/20/2011 Patient Education: Patient Medication Summary Completed 07/20/2011 Visit Plan: Continue weekly B12 cyndi ts and check CBC in 2wks Start Metformin and cont accuchecks 05/14/2010 Appointment: Kay Olivera WPtel: [phone] [phone] FOLLOW UP 05/14/2010 Patient Education: Patient Medication Summary Completed 05/14/2010 Appointment: Kay Olivera WPtel: [phone] [facility] [place] INJECTION 04/27/2010 Patient Education: Patient Medication Summary Completed 04/27/2010 Referral: Vanessa Wong WPtel: [address] [id number] [place] Referral Initiated Instructions Comment . Continue metformin at BID Continue onglyza 5mg q AM Add Actos 30mg daily Continue accuchecks daily Continue lexapro at 5mg daily . Increase apidra to 8u with breakfast and lunch and 9u with evening meal Using hydrocodone q HS Accuchecks q AC and HS due to fluctuating BS and ongoing adjustement of insulin regimen BS readings in 2weeks to further adjust apidra Fwup 1mo . Continue weekly B1 2 shots and check CBC in 2wks Start Metformin and cont accuchecks . Check fasting lab Check Bone Density Discussed Forteo for bones vs evista Accuchecks at least daily to BID alternating times . Increase levemir t o 22u Increase apidra to 7u sc with meals Continue accuchecks q AC and HS . Start Kombiglyze E R 5/1000mg po daily and start accuchecks daily Start monthly B12 HbA1C, B12 level in 3mos Check urine for microalbumin Discussed Lamisil treatment for fingernails . Check screeening M ammo Observe vs Remove sebaceous cyst Continue Kombiglyze 5/1000mg q AM and change metformin to Actoplusmet XR 30/1000mg q PM--Call in 2wks with BS readings and will likely add amaryl at that time and then check CMP, CBC and HbA1C in 3mos and fwup . Continue miralax B ID to TID for daily BMs Proceed with colonoscopy Start PT for thoracics and schedule with pain medicine in case needs injection to thoracic area . Continue ibuprofen and baclofen Check thoracic spine and posterior rib x-ray--if no sign of fracture then okay for manipulation in thoracic spine Add hydrocodone 5/325mg 1 po q4hrs prn pain--#60 . Patient admits not taking insulin routinely [...] not work or did not tolerate . Pt wants one more month of orals before going to insulin Increase Amaryl to 4mg BID Add Byetta 5mcg sc BID Continue accuchecks BID . Left SI joint inje ction--cleansed with alcohol and betadine and injected with 2cc 1% lidocaine with 40mg kenolog, tolerated well with no complications, neosporin and bandage applied Call in 2 days on how doing Zorvolex 18mg po TID Use zanaflex q HS Use tramadol prn . DC Amaryl, Actos, Byetta, Janumet Metformin 1000mg BID Levemir 30u sc q PM Fasting BS readings in 2wks . Check lab and retr y PT with traction Check CBC, CMP, TSH, Free T4 Patient admits to not eating routinely Hold metformin Continue accuchecks Suggested Glucerna if not eating a meal . Check fasting lab Stress Reducers and Lexapro 5mg daily for 1wk then increase to 10mg daily Pt has stopped all meds for diabetes except for metformin couple times a week--noncompliant Restart Metformin at 1000mg po BID and accuchecks . Continue current m eds Weight check in 2weeks Fwup in 1mo . Start Janumet XR 5 0/1000mg BID Continue actos at 30mg daily Twice daily accuchecks alternating times Call in 1wk with BS readings . Check CMP, HbA1C, CBC, TSH, free T4, B12 Continue accuchecks q AC and HS with sliding scale insulin . Direct admit to [facility] ib[facility]
--- OUTSIDE RECORDS SUMMARY | 2019-10-05 07:38 | XMS REPORT | Continuity of Care Document ---
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 DEFICIENCY, UNSPECIFIED 09/25/2019 MCGARRY DO, MAJOR L Ot M81.0 AGE-RELATED OSTEOPOROSIS W/O CURRENT PAT 09/25/2019 MCGARRY DO, MAJOR L Ot E55.9 VITAMIN D DEFICIENCY, UNSPECIFIED 09/25/2019 ORENDER DO, KAY S Ot E53.8 DEFICIENCY OF OTHER SPECIFIED B GROUP 09/25/2019 ORENDER DO, KAY S Ot E55.9 VITAMIN D DEFICIENCY, UNSPECIFIED 09/25/2019 ORENDER DO, KAY S Ot E78.5 HYPERLIPIDEMIA, UNSPECIFIED 09/27/2019 ORENDER DO, KAY S Ot Z12.31 ENCNTR SCREEN MAMMOGRAM FOR MALIGNANT NE 10/02/2019 MAJOR MCGARRY DO Ot M81.0 AGE-RELATED OSTEOPOROSIS W/O CURRENT PAT 10/02/2019 MAJOR MCGARRY DO Ot Z78.0 ASYMPTOMATIC MENOPAUSAL STATE Procedures There is no data. Results Test Result Range Automated blood complete blood count (he mogram) panel - 02/10/16 08:33 Blood leukocytes automated count (number/volume) 7.5 10*3/uL 4.3-11.0 Blood erythrocytes automated count (number/volume) 3.73 10*6/uL 4.35-5.85 Venous blood hemoglobin measurement (mass/volume) 14.0 g/dL 11.5-16.0 Blood hematocrit (volume fraction) 39 % 35-52 Automated erythrocyte mean corpuscular volume 104 [foz_us] 80-99 Automated erythrocyte mean corpuscular h emoglobin (mass per erythrocyte) 38 pg 25-34 Automated erythrocyte mean corpuscular h emoglobin concentration measurement (mass/volume) 36 g/dL 32-36 Automated erythrocyte distribution width ratio 14. 1 % 10.0- 14.5 Automated blood platelet count (count/volume) 277 10*3/uL 130-400 Automated blood platelet mean volume measurement 8.9 [foz_us] 7.4-10.4 Comprehensive metabolic panel - 02/10/16 08:33 Serum or plasma sodium measurement (moles/volume) 139 mmol/L 135-145 Serum or plasma potassium measurement (moles/volume) 3.4 mmol/L 3.6-5.0 Serum or plasma chloride measurement (moles/volume) 104 mmol/L 98-107 Carbon dioxide 22 mmol/L 21-32 Serum or plasma anion gap determination (moles/volume) 13 mmol/L 5-14 Serum or plasma urea nitrogen measurement (mass/volume ) 16 mg/dL 7-18 Serum or plasma creatinine measurement (mass/volume) 0.62 mg/dL 0.60-1.30 Serum or plasma urea nitrogen/creatinine mass ratio 26 NRG Serum or plasma creatinine measurement w ith calculation of estimated glomerular filtration rate > NRG Serum or plasma glucose measurement (mass/volume) 168 mg/dL 70-105 Serum or plasma calcium measurement (mass/volume) 9.6 mg/dL 8.5-10.1 Serum or plasma total bilirubin measurement (mass/volu me) 0.9 mg/dL 0.1-1.0 Serum or plasma alkaline phosphatase julio surement (enzymatic activity/volume) 102 U/L 40-136 Serum or plasma aspartate aminotransfera se measurement (enzymatic activity/volume) 11 U/L 5-34 Serum or plasma alanine aminotransferase measurement (enzymatic activity/volume) 11 U/L 0-55 Serum or plasma protein measurement (mass/volume) 7.1 g/dL 6.4-8.2 Serum or plasma albumin measurement (mass/volume) 4.3 g/dL 3.2-4.5 Lipid 1996 panel - 02/10/16 08:33 Serum or plasma triglyceride measurement (mass/volume) 109 mg/dL <150 Serum or plasma cholesterol measurement (mass/volume) 161 mg/dL < 200 Serum or plasma cholesterol in HDL measurement (mass/v olume) 51 mg/dL 40-60 Cholesterol in LDL [mass/volume] in serum or plasma by direct assay 87 mg/dL 1-129 Serum or plasma cholesterol in VLDL measurement (mass/ volume) 22 mg/dL 5-40 THYROID STIMULATING HORMONE - 02/10/16 0 8:33 THYROID STIMULATING HORMONE 1.92 u[iU]/mL 0.35-4.94 Urine microalbumin measurement by test s trip (mass/volume) - 02/10/16 08:33 Urine creatinine measurement (mass/volume) 169 % NRG Microalbumin [mass/volume] in urine 122.8 % 0.0-20.0 Microalbumin/creatinine [ratio] in urine 72.7 mg/g {Cre} 0.0- 30.0 Comprehensive metabolic panel - 08/16/16 07:50 Serum or plasma sodium measurement (moles/volume) 139 mmol/L 135-145 Serum or plasma potassium measurement (moles/volume) 4.0 mmol/L 3.6-5.0 Serum or plasma chloride measurement (moles/volume) 106 mmol/L 98-107 Carbon dioxide 22 mmol/L 21-32 Serum or plasma anion gap determination (moles/volume) 11 mmol/L 5-14 Serum or plasma urea nitrogen measurement (mass/volume ) 10 mg/dL 7-18 Serum or plasma creatinine measurement (mass/volume) 0.65 mg/dL 0.60-1.30 Serum or plasma urea nitrogen/creatinine mass ratio 15 NRG Serum or plasma creatinine measurement w ith calculation of estimated glomerular filtration rate > NRG Serum or plasma glucose measurement (mass/volume) 195 mg/dL 70-105 Serum or plasma calcium measurement (mass/volume) 9.3 mg/dL 8.5-10.1 Serum or plasma total bilirubin measurement (mass/volu me) 0.8 mg/dL 0.1-1.0 Serum or plasma alkaline phosphatase julio surement (enzymatic activity/volume) 105 U/L 40-136 Serum or plasma aspartate aminotransfera se measurement (enzymatic activity/volume) 14 U/L 5-34 Serum or plasma alanine aminotransferase measurement (enzymatic activity/volume) 11 U/L 0-55 Serum or plasma protein measurement (mass/volume) 7.2 g/dL 6.4-8.2 Serum or plasma albumin measurement (mass/volume) 4.1 g/dL 3.2-4.5 Serum or plasma phosphate measurement (m ass/volume) - 08/16/16 07:50 Serum or plasma phosphate measurement (mass/volume) 4.0 mg/dL 2.3-4.7 Magnesium - 08/16/16 07:50 Magnesium 2.1 mg/dL 1.8-2.4 IMMUNOFIXATION W/INTERP, SERUM - 7 07:50 Pathology consultation and report FOOTNOTE NR Serum or plasma nordiazepam detection Complete Complete Serum or plasma intact pararthyroid horm one measurement (mass/volume) - 08/16/16 07:50 Serum or plasma intact parathyroid hormone measurement (mass/volume) 48 pg/mL 10-65 Bio-intact parathyroid hormone (PTH) measurement with calcium 9.2 % 8.5-10.5 25-hydroxyvitamin D measurement - 07:50 25-hydroxy vitamin D measurement 8 % 30-100 Endomysial antibody assay - 08/16/16 07: 50 Endomysial antibody assay <1:10 <1:1 0 Urine protein electrophoresis panel - 07:51 Urine protein measurement (mass/volume) 3.0 mg/dL 0.1-15.0 Pathology consultation and report FOOTNOTE NRG 24 hour urine protein fractions interpre tation by electrophoresis narrative [id number] [facility] IMMUNOFIXATION W/INTERP URINE - 08/16/16 07:51 Immunofixation for serum or plasma narrative Compl e [facility] Complete blood count (CBC) with automate d white blood cell (WBC) differential - 09/06/17 07:20 Blood leukocytes automated count (number/volume) 6.9 10*3/uL 4.3-11.0 Blood erythrocytes automated count (number/volume) 4.63 10*6/uL 4.35-5.85 Venous blood hemoglobin measurement (mass/volume) 14.3 g/dL 11.5-16.0 Blood hematocrit (volume fraction) 41 % 35-52 Automated erythrocyte mean corpuscular volume 88 [ foz_us] 80-99 Automated erythrocyte mean corpuscular h emoglobin (mass per erythrocyte) 31 pg 25-34 Automated erythrocyte mean corpuscular h emoglobin concentration measurement (mass/volume) 35 g/dL 32-36 Automated erythrocyte distribution width ratio 13. 8 % 10.0- 14.5 Automated blood platelet count (count/volume) 258 10*3/uL 130-400 Automated blood platelet mean volume measurement 9.1 [foz_us] 7.4-10.4 Automated blood neutrophils/100 leukocytes 64 % 42-75 Automated blood lymphocytes/100 leukocytes 28 % 12-44 Blood monocytes/100 leukocytes 7 % 0-12 Automated blood eosinophils/100 leukocytes 1 % 0-10 Automated blood basophils/100 leukocytes 0 % 0-10 Blood neutrophils automated count (number/volume) 4.4 10*3 1.8-7.8 Blood lymphocytes automated count (number/volume) 1.9 10*3 1.0-4.0 Blood monocytes automated count (number/volume) 0. 5 10*3 0.0-1.0 Automated eosinophil count 0.1 10*3/uL 0 .0-0.3 Automated blood basophil count (count/volume) 0.0 10*3/uL 0.0-0.1 Lipid 1996 panel - 09/06/17 07:20 Serum or plasma triglyceride measurement (mass/volume) 84 mg/dL <150 Serum or plasma cholesterol measurement (mass/volume) 175 mg/dL < 200 Serum or plasma cholesterol in HDL measurement (mass/v olume) 59 mg/dL 40-60 Cholesterol in LDL [mass/volume] in serum or plasma by direct assay 102 mg/dL 1-129 Serum or plasma cholesterol in VLDL measurement (mass/ volume) 17 mg/dL 5-40 THYROID STIMULATING HORMONE - 09/06/17 0 7:20 THYROID STIMULATING HORMONE 1.84 u[iU]/mL 0.35-4.94 VITAMIN D 25-HYDROXY - 09/06/17 07:20 VITAMIN D 25-HYDROXY (TOTAL) 17 % 3 0-100 Urine microalbumin measurement by test s trip (mass/volume) - 09/06/17 07:25 Urine creatinine measurement (mass/volume) 121 % NRG Microalbumin [mass/volume] in urine 34.4 % 0.0-20.0 Microalbumin/creatinine [ratio] in urine 28.4 mg/g {Cre} 0.0- 30.0 Complete blood count (CBC) with automate d white blood cell (WBC) differential - 02/13/18 07:55 Blood leukocytes automated count (number/volume) 5.7 10*3/uL 4.3-11.0 Blood erythrocytes automated count (number/volume) 3.01 10*6/uL 4.35-5.85 Venous blood hemoglobin measurement (mass/volume) 12.9 g/dL 11.5-16.0 Blood hematocrit (volume fraction) 34 % 35-52 Automated erythrocyte mean corpuscular volume 113 [foz_us] 80-99 Automated erythrocyte mean corpuscular h emoglobin (mass per erythrocyte) 43 pg 25-34 Automated erythrocyte mean corpuscular h emoglobin concentration measurement (mass/volume) 38 g/dL 32-36 Automated erythrocyte distribution width ratio 15. 1 % 10.0- 14.5 Automated blood platelet count (count/volume) 230 10*3/uL 130-400 Automated blood platelet mean volume measurement 8.5 [foz_us] 7.4-10.4 Automated blood neutrophils/100 leukocytes 69 % 42-75 Automated blood lymphocytes/100 leukocytes 27 % 12-44 Blood monocytes/100 leukocytes 4 % 0-12 Automated blood eosinophils/100 leukocytes 1 % 0-10 Automated blood basophils/100 leukocytes 0 % 0-10 Blood neutrophils automated count (number/volume) 3.9 10*3 1.8-7.8 Blood lymphocytes automated count (number/volume) 1.5 10*3 1.0-4.0 Blood monocytes automated count (number/volume) 0. 2 10*3 0.0-1.0 Automated eosinophil count 0.1 10*3/uL 0 .0-0.3 Automated blood basophil count (count/volume) 0.0 10*3/uL 0.0-0.1 Comprehensive metabolic panel - 02/13/18 07:55 Serum or plasma sodium measurement (moles/volume) 138 mmol/L 135-145 Serum or plasma potassium measurement (moles/volume) 4.0 mmol/L 3.6-5.0 Serum or plasma chloride measurement (moles/volume) 104 mmol/L 98-107 Carbon dioxide 23 mmol/L 21-32 Serum or plasma anion gap determination (moles/volume) 11 mmol/L 5-14 Serum or plasma urea nitrogen measurement (mass/volume ) 12 mg/dL 7-18 Serum or plasma creatinine measurement (mass/volume) 0.61 mg/dL 0.60-1.30 Serum or plasma urea nitrogen/creatinine mass ratio 20 NRG Serum or plasma creatinine measurement w ith calculation of estimated glomerular filtration rate > NRG Serum or plasma glucose measurement (mass/volume) 114 mg/dL 70-105 Serum or plasma calcium measurement (mass/volume) 9.4 mg/dL 8.5-10.1 Serum or plasma total bilirubin measurement (mass/volu me) 1.0 mg/dL 0.1-1.0 Serum or plasma alkaline phosphatase julio surement (enzymatic activity/volume) 108 U/L 40-136 Serum or plasma aspartate aminotransfera se measurement (enzymatic activity/volume) 18 U/L 5-34 Serum or plasma alanine aminotransferase measurement (enzymatic activity/volume) 15 U/L 0-55 Serum or plasma protein measurement (mass/volume) 7.1 g/dL 6.4-8.2 Serum or plasma albumin measurement (mass/volume) 4.2 g/dL 3.2-4.5 CALCIUM CORRECTED 9.2 mg/dL 8.5-10.1 Lipid 1996 panel - 02/13/18 07:55 Serum or plasma triglyceride measurement (mass/volume) 109 mg/dL <150 Serum or plasma cholesterol measurement (mass/volume) 186 mg/dL < 200 Serum or plasma cholesterol in HDL measurement (mass/v olume) 58 mg/dL 40-60 Cholesterol in LDL [mass/volume] in serum or plasma by direct assay 115 mg/dL 1-129 Serum or plasma cholesterol in VLDL measurement (mass/ volume) 22 mg/dL 5-40 THYROID STIMULATING HORMONE - 02/13/18 0 7:55 THYROID STIMULATING HORMONE 2.01 u[iU]/mL 0.35-4.94 IRON TEST - 02/13/18 07:55 Serum or plasma iron measurement (mass/volume) 173 % 35-180 Cyanocobalamin measurement - 02/13/18 07 :55 Vitamin B12 < pg/mL 190-1100 VITAMIN D 25-HYDROXY - 02/13/18 07:55 VITAMIN D 25-HYDROXY (TOTAL) 16.2 % 3 0.0-100.0 VITAMIN D 25-HYDROXY - 05/10/18 08:35 VITAMIN D 25-HYDROXY (TOTAL) 19.8 % 3 0.0-100.0 Complete blood count (CBC) with automate d white blood cell (WBC) differential - 09/18/18 06:36 Blood leukocytes automated count (number/volume) 5.5 10*3/uL 4.3-11.0 Blood erythrocytes automated count (number/volume) 3.56 10*6/uL 4.35-5.85 Venous blood hemoglobin measurement (mass/volume) 11.0 g/dL 11.5-16.0 Blood hematocrit (volume fraction) 35 % 35-52 Automated erythrocyte mean corpuscular volume 99 [ foz_us] 80-99 Automated erythrocyte mean corpuscular h emoglobin (mass per erythrocyte) 31 pg 25-34 Automated erythrocyte mean corpuscular h emoglobin concentration measurement (mass/volume) 31 g/dL 32-36 Automated erythrocyte distribution width ratio 19. 9 % 10.0- 14.5 Automated blood platelet count (count/volume) 224 10*3/uL 130-400 Automated blood platelet mean volume measurement 9.4 [foz_us] 7.4-10.4 Automated blood neutrophils/100 leukocytes 57 % 42-75 Automated blood lymphocytes/100 leukocytes 30 % 12-44 Blood monocytes/100 leukocytes 9 % 0-12 Automated blood eosinophils/100 leukocytes 3 % 0-10 Automated blood basophils/100 leukocytes 1 % 0-10 Blood neutrophils automated count (number/volume) 3.2 10*3 1.8-7.8 Blood lymphocytes automated count (number/volume) 1.7 10*3 1.0-4.0 Blood monocytes automated count (number/volume) 0. 5 10*3 0.0-1.0 Automated eosinophil count 0.2 10*3/uL 0 .0-0.3 Automated blood basophil count (count/volume) 0.0 10*3/uL 0.0-0.1 Complete blood count (CBC) with automate d white blood cell (WBC) differential - 03/12/19 07:49 Blood leukocytes automated count (number/volume) 7.0 10*3/uL 4.3-11.0 Blood erythrocytes automated count (number/volume) 4.71 10*6/uL 4.35-5.85 Venous blood hemoglobin measurement (mass/volume) 14.0 g/dL 11.5-16.0 Blood hematocrit (volume fraction) 41 % 35-52 Automated erythrocyte mean corpuscular volume 88 [ foz_us] 80-99 Automated erythrocyte mean corpuscular h emoglobin (mass per erythrocyte) 30 pg 25-34 Automated erythrocyte mean corpuscular h emoglobin concentration measurement (mass/volume) 34 g/dL 32-36 Automated erythrocyte distribution width ratio 13. 8 % 10.0- 14.5 Automated blood platelet count (count/volume) 251 10*3/uL 130-400 Automated blood platelet mean volume measurement 9.3 [foz_us] 7.4-10.4 Automated blood neutrophils/100 leukocytes 62 % 42-75 Automated blood lymphocytes/100 leukocytes 29 % 12-44 Blood monocytes/100 leukocytes 7 % 0-12 Automated blood eosinophils/100 leukocytes 2 % 0-10 Automated blood basophils/100 leukocytes 0 % 0-10 Blood neutrophils automated count (number/volume) 4.3 10*3 1.8-7.8 Blood lymphocytes automated count (number/volume) 2.0 10*3 1.0-4.0 Blood monocytes automated count (number/volume) 0. 5 10*3 0.0-1.0 Automated eosinophil count 0.1 10*3/uL 0 .0-0.3 Automated blood basophil count (count/volume) 0.0 10*3/uL 0.0-0.1 Comprehensive metabolic panel - 03/12/19 07:49 Serum or plasma sodium measurement (moles/volume) 141 mmol/L 135-145 Serum or plasma potassium measurement (moles/volume) 3.8 mmol/L 3.6-5.0 Serum or plasma chloride measurement (moles/volume) 106 mmol/L 98-107 Carbon dioxide 25 mmol/L 21-32 Serum or plasma anion gap determination (moles/volume) 10 mmol/L 5-14 Serum or plasma urea nitrogen measurement (mass/volume ) 14 mg/dL 7-18 Serum or plasma creatinine measurement (mass/volume) 0.67 mg/dL 0.60-1.30 Serum or plasma urea nitrogen/creatinine mass ratio 21 NRG Serum or plasma creatinine measurement w ith calculation of estimated glomerular filtration rate > NRG Serum or plasma glucose measurement (mass/volume) 38 mg/dL 70-105 Serum or plasma calcium measurement (mass/volume) 9.7 mg/dL 8.5-10.1 Serum or plasma total bilirubin measurement (mass/volu me) 0.5 mg/dL 0.1-1.0 Serum or plasma alkaline phosphatase julio surement (enzymatic activity/volume) 107 U/L 40-136 Serum or plasma aspartate aminotransfera se measurement (enzymatic activity/volume) 14 U/L 5-34 Serum or plasma alanine aminotransferase measurement (enzymatic activity/volume) 13 U/L 0-55 Serum or plasma protein measurement (mass/volume) 7.4 g/dL 6.4-8.2 Serum or plasma albumin measurement (mass/volume) 4.1 g/dL 3.2-4.5 CALCIUM CORRECTED 9.6 mg/dL 8.5-10.1 VITAMIN B 12 - 03/12/19 07:49 VITAMIN B 12 204 pg/mL 190-1100 VITAMIN D 25-HYDROXY - 03/12/19 07:49 VITAMIN D 25-HYDROXY (TOTAL) 17.8 % 3 0.0-100.0 Comprehensive metabolic panel - 09/21/19 08:10 Serum or plasma sodium measurement (moles/volume) 140 mmol/L 135-145 Serum or plasma potassium measurement (moles/volume) 3.7 mmol/L 3.6-5.0 Serum or plasma chloride measurement (moles/volume) 107 mmol/L 98-107 Carbon dioxide 21 mmol/L 21-32 Serum or plasma anion gap determination (moles/volume) 12 mmol/L 5-14 Serum or plasma urea nitrogen measurement (mass/volume ) 16 mg/dL 7-18 Serum or plasma creatinine measurement (mass/volume) 0.72 mg/dL 0.60-1.30 Serum or plasma urea nitrogen/creatinine mass ratio 22 NRG Serum or plasma creatinine measurement w ith calculation of estimated glomerular filtration rate > NRG Serum or plasma glucose measurement (mass/volume) 106 mg/dL 70-105 Serum or plasma calcium measurement (mass/volume) 9.5 mg/dL 8.5-10.1 Serum or plasma total bilirubin measurement (mass/volu me) 0.5 mg/dL 0.1-1.0 Serum or plasma alkaline phosphatase julio surement (enzymatic activity/volume) 119 U/L 40-136 Serum or plasma aspartate aminotransfera se measurement (enzymatic activity/volume) 15 U/L 5-34 Serum or plasma alanine aminotransferase measurement (enzymatic activity/volume) 10 U/L 0-55 Serum or plasma protein measurement (mass/volume) 7.4 g/dL 6.4-8.2 Serum or plasma albumin measurement (mass/volume) 4.0 g/dL 3.2-4.5 CALCIUM CORRECTED 9.5 mg/dL 8.5-10.1 Lipid 1996 panel - 09/21/19 08:10 Serum or plasma triglyceride measurement (mass/volume) 124 mg/dL <150 Serum or plasma cholesterol measurement (mass/volume) 206 mg/dL < 200 Serum or plasma cholesterol in HDL measurement (mass/v olume) 61 mg/dL 40-60 Cholesterol in LDL [mass/volume] in serum or plasma by direct assay 127 mg/dL 1-129 Serum or plasma cholesterol in VLDL measurement (mass/ volume) 25 mg/dL 5-40 THYROID STIMULATING HORMONE - 09/21/19 0 8:10 THYROID STIMULATING HORMONE 3.51 u[iU]/mL 0.35-4.94 VITAMIN B 12 - 09/21/19 08:10 VITAMIN B 12 <250 [id number] VITAMIN D 25-HYDROXY - 09/21/19 08:10 VITAMIN D 25-HYDROXY (TOTAL) 15.1 % 3 0.0-100.0 Encounters ACCT No. Visit Date/Time Discharge Status Pt. Type Provider Facility Loc./Unit Complaint 09/08/16 04/04/2019 09:15:50 04/04/2019 23:5 9:59 CLS Outpatient Kay Olivera [id number] 07/11/2019 08:16:00 Document Registration [id number] 10/02/2019 10:54:00 020 15:14:00 DIS Outpatient ALANA GARZA MD [facility] PREOP CATARACT RIGHT EYE [id number] 09/25/2019 09:00:00 23:59:59 CLS Outpatient MCGARRY DO, MAJOR L [facility] RAD OSTEOPOROSIS [id number] 09/25/2019 08:52:00 23:59:59 CLS Outpatient ORENDER DO, KAY S [facility] RAD SCREENING [id number] 09/21/2019 07:53:00 23:59:59 CLS Outpatient ORENDER DO, KAY S [facility] LAB B12 DEF,CMP,LIP ID,TSH,B12 [id number] 09/21/2019 07:50:00 23:59:59 CLS Outpatient MCGARRY DO, MAJOR L [facility] LAB E55.9 [id number] 03/12/2019 07:43:00 23:59:59 CLS Outpatient ORENDER DO, KAY S [facility] LAB CMP,CBC,B12 [id number] 03/12/2019 07:39:00 23:59:59 CLS Outpatient MCGARRY DO, MAJOR L [facility] LAB 10-E55.9 [id number] 09/18/2018 06:33:00 23:59:59 CLS Outpatient ORENDER DO, KAY S [facility] LAB B12 DEF,ANEMIA [id number] 08/18/2018 10:25:00 23:59:59 CLS Outpatient MCGARRY DO, MAJOR L [facility] LAB ROUTINE [id number] 05/10/2018 08:31:00 23:59:59 CLS Outpatient MCGARRY DO, MAJOR L [facility] LAB VIT D DEFICIENC Y [id number] 02/13/2018 07:36:00 23:59:59 CLS Outpatient ORENDER DO, KAY S [facility] LAB DMI,ANEMIA, B12 DEF,VIT D DEF [id number] 09/06/2017 07:03:00 018 23:59:59 CLS Outpatient MAJOR MCGARRY DO [facility] LAB E10.9 [id number] 11/03/2016 14:24:00 017 23:59:59 CLS Outpatient CHRISTIN FU [facility] OCC POSITIVE TB TEST [id number] 08/16/2016 07:32:00 017 23:59:59 CLS Outpatient MAJOR MCGARRY DO [facility] LAB 733.00,M81.0 [id number] 05/29/2016 20:24:00 017 23:25:00 DIS Emergency ELIZABETH ESCOBAR DO [facility] ER FALL L LEG, KNEE PAIN [id number] 02/10/2016 08:26:00 016 23:59:59 CLS Outpatient MAJOR MCGARRY DO [facility] LAB INSULIN DEPENDE NT DIABETES MELLITUS [id number] 02/05/2016 09:51:00 016 23:59:59 CLS Outpatient MAJOR MCGARRY DO [facility] RAD SCREENING FOR O STEPOROSIS [id number] 02/18/2015 08:31:00 015 23:59:59 CLS Outpatient KAY OLIVERA DO [facility] LAB DM1,FATIGUE,B12 DEF [id number] 10/21/2014 07:34:00 015 23:59:59 CLS Outpatient KAY OLIVERA DO [facility] LAB DMII, HTN,FATIG UE,B 12 [id number] 06/15/2014 13:18:00 015 14:23:00 DIS Emergency LUCIA MOONEY MD [facility] ER FALL,HEAD INJ [id number] 11/30/2013 12:41:00 014 14:00:00 DIS Inpatient KAY OLIVERA DO S [facility] 4TH SWB-DKA;LEUKOCY TOSIS;RECTAL IMPATION [id number] 11/26/2013 14:37:00 014 11:46:00 DIS Inpatient KAY OLIVERA DO S [facility] 4TH DKA;LEUKOCYTOSI S;RECTAL IMPATION [id number] 08/27/2013 18:00:00 014 00:01:00 DIS Outpatient KAY OLIVERA DO S [facility] DSME DM TYPE II [id number] 10/31/2013 11:04:00 014 09:37:00 DIS Outpatient KAY OLIVERA DO S [facility] UNCONTROLLED DI ABETES ANXORXIA UNCONTROLLED BACK P [id number] 10/22/2013 13:09:00 23:59:59 CLS Outpatient MARCOS BETHEA KAY S [facility] RAD L POSTERIOR RIB PAIN,WT LOSS,UNCONT DMII,B12 DIF [id number] 09/11/2013 07:37:00 11:10:00 DIS Outpatient MAHAD SARABIA MD [facility] SCREENING [id number] 09/06/2013 12:32:00 23:59:59 CLS Outpatient MAHAD SARABIA MD [facility] PREOP SCREENING [id number] 08/25/2013 22:35:00 01:45:00 DIS Emergency SHAWN DO, ELIZABETH K [facility] ER BACK PAIN [id number] 08/13/2013 10:38:00 23:59:59 CLS Outpatient MARCOS BETHEA KAY S [facility] RAD THORACIC BACK/R IB PAIN [id number] 10/05/2019 10:30:00 P EN Preadmit ALANA GARZA MD [facility] CATARACT RIGHT EYE [id number] 11/15/2013 10:00:00 Document Registration [id number] 11/05/2011 10:21:00 Document Registration [id number] 07/09/2011 08:16:00 Document Registration [id number] 08/03/2010 05:35:00 Document Registration [id number] 07/28/2010 09:23:00 Document Registration [id number] 05/29/2010 08:38:00 Document Registration [id number] 05/08/2010 07:25:00 Document Registration [id number] 04/23/2010 06:35:00 Document Registration [id number] 04/17/2010 11:22:00 Document Registration
--- NOTE | 2019-10-05 12:35 | Anesthesia-General Post-Op ---
MAC Patient Condition Mental Status/LOC: Same as Preop Cardiovascular: Satisfactory Nausea/Vomiting: Absent Respiratory: Satisfactory Pain: Controlled Complications: Absent Post Op Complications Complications None Follow Up Care/Instructions Patient Instructions None needed. Anesthesiology Discharge Order Discharge Order Patient is doing well, no complaints, stable vital signs, no apparent adverse anesthesia problems. No complications reported per nursing. TING LAM CRNA October 05, 2019 12:35
== END 2019-10-05 07:35 | disposition home or self-care (01) ==
LOC: SDC 06:00
PROVIDERS: ATTEND Specialist
DX: E11.36 Type 2 diabetes mellitus with diabetic cataract (principal); H25.11 Age-related nuclear cataract, right eye; H57.03 Miosis; Z88.5 Allergy status to narcotic agent; Z88.8 Allergy status to other drugs, medicaments and biological substances; Z79.4 Long term (current) use of insulin; Z79.899 Other long term (current) drug therapy; Z90.710 Acquired absence of both cervix and uterus; Z90.49 Acquired absence of other specified parts of digestive tract; Z98.890 Other specified postprocedural states; Z83.3 Family history of diabetes mellitus; Z83.511 Family history of glaucoma

== ENCOUNTER 2019-10-12 06:00 | Day surgery (SDC) | payer MEDICARE, OTHER ==
[~2019-10-12] VITALS: Ht 147 cm; Wt 59.1 kg
[2019-10-12 06:00] VITALS: BP 142/92
[2019-10-12] MEDS: TETRACAINE 0.5% OPHTH SOLN 15 ML BTL OU PRN ×4 (06:14→06:38)
[2019-10-12] MEDS ORDERED: LIDOCAINE PF 1% 2 ML VIAL IR PRN (06:15)
[2019-10-12] MEDS ORDERED: TIMOLOL MALEATE 0.5% 5 ML (TIMOPTIC) BTL OU PRN (06:15)
[2019-10-12] MEDS ORDERED: POVIDONE (BETADINE) OPHTH SOLN 5% 30 ML OP ONE (06:15)
[2019-10-12] MEDS ORDERED: MOXIFLOXACIN OPHTH SOLN 5 MG/ML 0.3 ML SYRINGE OP ONE (06:15)
--- OUTSIDE RECORDS SUMMARY | 2019-10-12 06:15 | XMS REPORT | Continuity of Care Document ---
Author Organization Unknown Address Unknown Phone Unavailable Allergies Active Description Code Type Severity Reaction Onset Reported/Identified Relationship to Patient Clinical Status Yes codeine [id number] Drug Allergy Unknown N/V 10/31/2013 Yes diazepam [id number] Drug Allergy Unknown N/A 10/31/2013 Yes pentazocine [id number] Drug Aller gy Unknown N/A 10/02/2019 Medications There is no data. Problems Date Dx Coded Attending Type Code Diagnosis Diagnosed By 04/07/1513 KAYLA BAILEY, ALANA Marina Ot Z01.812 ENCOUNTER FOR PREPROCEDURAL LABORATORY E 04/07/1513 ALANA GARZA MD Ot Z11.59 ENCOUNTER FOR SCREENING FOR OTHER VIRAL 08/03/2010 Ot 574.10 08/26/2013 ELIZABETH ESCOBAR DO Ot 250.02 DIAB AUBREY WO COMPL, TYPE II OR UNSPEC TY 08/26/2013 ELIZABETH ESCOBAR DO Ot 724.1 PAIN IN THORACIC SPINE 08/26/2013 ELIZABETH ESCOBAR DO Ot 724.5 BACKACHE NOS 09/11/2013 CORNELL BAILEY, MAHAD Navarro Ot 211. 3 BENIGN NEOPLASM LG BOWEL 09/11/2013 MAHAD SARABIA MD Ot 562. 10 DIVERTICULOSIS COLON (W/O MENT OF HEMORR 09/11/2013 MAHAD SARABIA MD Ot 564. 00 UNSPEC CONSTIPATION 09/11/2013 MAHAD SARABIA MD Ot V76. 51 SCREEN MAL NEOP-COLON 11/02/2013 LISA OLIVERA DOQUELINE S Ot 211.1 BENIGN NEOPLASM STOMACH 11/02/2013 LISA OLIVERA DOQUELINE S Ot 250.02 DIAB AUBREY WO COMPL, TYPE II OR UNSPEC TY 11/02/2013 LISA OLIVERA DOQUELINE S Ot 276.51 DEHYDRATION 11/02/2013 LISA OLIVERA DOQUELINE S Ot 276.8 HYPOPOTASSEMIA 11/02/2013 LISA OLIVERA DOQUELINE S Ot 311 DEPRESSIVE DISORDER NEC 11/02/2013 KAY OLIVERA DO S Ot 535.50 UNSP GASTRITIS GASTRODUODENITIS W/O ME 11/02/2013 KAY OLIVERA DO S Ot 553.3 DIAPHRAGMATIC HERNIA 11/02/2013 KAY OLIVERA DO S Ot 564.00 UNSPEC CONSTIPATION 11/02/2013 KAY OLIVERA DO S Ot 577.2 PANCREAT CYST/PSEUDOCYST 11/02/2013 KAY OLIVERA DO Ot 783.0 ANOREXIA 11/02/2013 KAY OLIVERA DO S Ot 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 11/02/2013 KAY OLIVERA DO S Ot V54.19 AFTERCARE HEALING TRAUMATIC FX OTHER BON 11/14/2013 KAY OLIVERA DO S Ot 250.03 DIAB AUBREY WO COMPL, TYPE I [JUVENILE TYP 11/14/2013 KAY OLIVERA DO S Ot 401.9 HYPERTENSION NOS 11/30/2013 KAY OLIVERA DO S Ot 250.12 DIAB W KETOACIDOSIS, TYPE II OR UNSPEC T 11/30/2013 KAY OLIVERA DO S Ot 276.8 HYPOPOTASSEMIA 11/30/2013 KAY OLIVERA DO S Ot 401.9 HYPERTENSION NOS 11/30/2013 KAY OLIVERA DO S Ot 535.50 UNSP GASTRITIS GASTRODUODENITIS W/O ME 11/30/2013 KAY OLIVERA DO S Ot 560.32 FECAL IMPACTION 11/30/2013 KAY OLIVERA DO S Ot 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 11/30/2013 KAY OLIVERA DO S Ot 785.0 TACHYCARDIA NOS 11/30/2013 KAY OLIVERA DO S Ot 788.20 RETENTION OF URINE NOS 11/30/2013 KAY OLIVERA DO S Ot 799.4 CACHEXIA 11/30/2013 KAY OLIVERA DO S Ot V54.17 AFTERCARE HEALING TRAUMATIC FX VERTEBRAE 11/30/2013 KAY OLIVERA DO S Ot V58.67 LONG-TERM (CURRENT) USE OF INSULIN 12/04/2013 KAY OLIVERA DO S Ot 250.00 DIAB AUBREY WO COMPL, TYPE II OR UNSPEC TY 12/04/2013 KAY OLIVERA DO S Ot 401.9 HYPERTENSION NOS 12/04/2013 KAY OLIVERA DO S Ot V54.17 AFTERCARE HEALING TRAUMATIC FX VERTEBRAE 12/04/2013 KAY OLIVERA DO S Ot V57.89 REHABILITATION PROC NEC 12/04/2013 KAY OLIVERA DO S Ot V58.67 LONG-TERM (CURRENT) USE OF [...] 06/15/2014 Ot 790.29 06/15/2014 Ot V76.12 06/15/2014 JOYCELYN OLIVERA DOLINE S Ot 724.1 06/15/2014 JOYCELYN OLIVERA DOLINE S Ot 733.90 06/15/2014 CORNELL BAILEY, MAHAD Navarro Ot V72. 84 06/15/2014 JOYCELYN OLIVERA DOLINE S Ot 250.02 06/15/2014 JOYCELYN OLIVERA DOLINE S Ot 266.2 06/15/2014 KAY OLIVERA DO S Ot 783.21 06/15/2014 KAY OLIVERA DO Ot 786.50 06/15/2014 Ot 250.03 06/15/2014 Ot [...] 10/21/2014 Ot 790.29 10/21/2014 Ot V76.12 10/21/2014 MARCOS BETHEA KAY S Ot 724.1 10/21/2014 MARCOS BETHEA KAY S Ot 733.90 10/21/2014 CORNELL BAILEY, MAHAD Navarro Ot V72. 84 10/21/2014 ELIOPAL JOYCELYN BETHEALINE S Ot 250.02 10/21/2014 MARCOS KAY S Ot 266.2 10/21/2014 ALEXBRENDA JOYCELYN BETHEALINE S Ot 783.21 10/21/2014 ELIOPAL JOYCELYN BETHEALINE S Ot 786.50 10/21/2014 Ot 250.03 10/21/2014 [...] 10/30/2014 Ot 790.29 10/30/2014 Ot V76.12 10/30/2014 [facility]AY S Ot 724.1 10/30/2014 [facility], KAY S Ot 733.90 10/30/2014 CORNELL BAILEY, MAHAD Navarro Ot V72. 84 10/30/2014 [facility], KAY S Ot 250.02 10/30/2014 [facility], KAY S Ot 266.2 10/30/2014 [facility], KAY S Ot 783.21 10/30/2014 [facility] DO, KAY S Ot 786.50 10/30/2014 Ot 250.03 10/30/2014 Ot 401.9 10/30/2014 [facility], KAY S Ot 250.00 10/30/2014 [facility], KAY S Ot 266.2 10/30/2014 [facility] DO, KAY S Ot 401.9 10/30/2014 [facility], KAY S Ot 780.79 11/15/2014 [facility], KAY S Ot 250.00 11/15/2014 [facility], KAY S Ot 266.2 11/15/2014 [facility], KAY S Ot 401.9 11/15/2014 [facility], KAY S Ot 780.79 03/11/2015 [facility], KAY S Ot E11.9 03/11/2015 [facility] DO, KAY S Ot E53.8 03/11/2015 [facility], KAY S Ot R53.83 02/05/2016 Ot 266.2 B-CO MPLEX DEFIC NEC 02/05/2016 Ot 733.90 BON E CARTILAGE DIS NOS 02/05/2016 Ot 780.79 OTH MALAISE FATIGUE 02/05/2016 Ot 790.29 OTH ER ABNORMAL GLUCOSE 02/05/2016 Ot V76.12 OTH SCREEN MAMMO- MALIGN NEOPLASM OF MICHELLE 02/05/2016 ALEXND DO KAY S Ot 724.1 PAIN IN THORACIC SPINE 02/05/2016 ALEXND , KAY S Ot 733.90 BONE CARTILAGE DIS NOS 02/05/2016 CORNELL BAILEY, MAHAD Navarro Ot V72. 84 EXAM PRE-OPERATIVE NOS 02/05/2016 ALEXNDOPAL BETHEA, KAY S Ot 250.02 DIAB AUBREY WO COMPL, TYPE II OR UNSPEC TY 02/05/2016 ALEXNDER DO, KAY S Ot 266.2 B-COMPLEX DEFIC NEC 02/05/2016 ALEXNDER , KAY S Ot 783.21 LOSS OF WEIGHT 02/05/2016 ALEXNDER DO, KAY S Ot 786.50 CHEST PAIN NOS 02/05/2016 Ot 250.03 CHINO B AUBREY WO COMPL, TYPE I [JUVENILE TYP 02/05/2016 Ot 401.9 HYPE RTENSION NOS 02/05/2016 ALEXNDER DO, KAY S Ot 250.00 DIAB AUBREY WO COMPL, TYPE II OR UNSPEC TY 02/05/2016 ALEXNDER DO, KAY S Ot 266.2 B-COMPLEX DEFIC NEC 02/05/2016 MARCOS BETHEA, KAY S Ot 401.9 HYPERTENSION NOS 02/05/2016 MARCOS BETHEA, KAY S Ot 780.79 OTH MALAISE FATIGUE 02/05/2016 MARCOS BETHEA, KAY S Ot E11.9 TYPE 2 DIABETES MELLITUS WITHOUT COMPLIC 02/05/2016 LISA OLIVERA DOQUELINE S Ot E53.8 DEFICIENCY OF OTHER SPECIFIED [...] SCREEN MAMMO- MALIGN NEOPLASM OF MICHELLE 02/06/2016 JOYCELYN OLIVERA DOLINE S Ot 724.1 PAIN IN THORACIC SPINE 02/06/2016 MARCOS BETHEA, KAY S Ot 733.90 BONE CARTILAGE DIS NOS 02/06/2016 CORNELL BAILEY, MAHAD Navarro Ot V72. 84 EXAM PRE-OPERATIVE NOS 02/06/2016 ALEXNDOPAL BETHEA, KAY S Ot 250.02 DIAB AUBREY WO COMPL, TYPE II OR UNSPEC TY 02/06/2016 ALEXNDER DO, KAY S Ot 266.2 B-COMPLEX DEFIC NEC 02/06/2016 ALEXNDER DO, KAY S Ot 783.21 LOSS OF WEIGHT 02/06/2016 ALEXNDER DO, KAY S Ot 786.50 CHEST PAIN NOS 02/06/2016 Ot 250.03 CHINO B AUBREY WO COMPL, TYPE I [JUVENILE TYP 02/06/2016 Ot 401.9 HYPE RTENSION NOS 02/06/2016 ALEXNDER DO, KAY S Ot 250.00 DIAB AUBREY WO COMPL, TYPE II OR UNSPEC TY 02/06/2016 ALEXNDER DO, KAY S Ot 266.2 B-COMPLEX DEFIC NEC 02/06/2016 MARCOS BETHEA, KAY S Ot 401.9 HYPERTENSION NOS 02/06/2016 MARCOS BETHEA, KAY S Ot 780.79 OTH MALAISE FATIGUE 02/06/2016 MARCOS BETHEA, KAY S Ot E11.9 TYPE 2 DIABETES MELLITUS WITHOUT COMPLIC 02/06/2016 MARCOS BETHEA, KAY S Ot E53.8 DEFICIENCY OF OTHER SPECIFIED B GROUP 02/06/2016 MARCOS BETHEA, KAY S Ot R53.83 OTHER FATIGUE 02/06/2016 MAJOR [...] SCREEN MAMMO- MALIGN NEOPLASM OF MICHELLE 02/10/2016 MARCOS BETHEA, KAY S Ot 724.1 PAIN IN THORACIC SPINE 02/10/2016 ALEXNDER DO, KAY S Ot 733.90 BONE CARTILAGE DIS NOS 02/10/2016 CORNELL BAILEY, MAHAD Navarro Ot V72. 84 EXAM PRE-OPERATIVE NOS 02/10/2016 ALEXNDER DO, KAY S Ot 250.02 DIAB AUBREY WO COMPL, TYPE II OR UNSPEC TY 02/10/2016 ORENDER DO, KAY S Ot 266.2 B-COMPLEX DEFIC NEC 02/10/2016 ALEXNDER DO, KAY S Ot 783.21 LOSS OF WEIGHT 02/10/2016 ALEXNDER DO, KAY S Ot 786.50 CHEST PAIN NOS 02/10/2016 Ot 250.03 CHINO B AUBREY WO COMPL, TYPE I [JUVENILE TYP 02/10/2016 Ot 401.9 HYPE RTENSION NOS 02/10/2016 ALEXNDER DO, KAY S Ot 250.00 DIAB AUBREY WO COMPL, TYPE II OR UNSPEC TY 02/10/2016 ALEXNDER DO, KAY S Ot 266.2 B-COMPLEX DEFIC NEC 02/10/2016 ALEXNDER DO, KAY S Ot 401.9 HYPERTENSION NOS 02/10/2016 ALEXNDER DO, KAY S Ot 780.79 OTH MALAISE FATIGUE 02/10/2016 ALEXBRENDA BETHEA, KAY S Ot E11.9 TYPE 2 DIABETES MELLITUS WITHOUT COMPLIC 02/10/2016 ALEXNDER DO, KAY S Ot E53.8 DEFICIENCY OF OTHER SPECIFIED B GROUP 02/10/2016 MARCOS BETHEA, KAY S Ot R53.83 OTHER FATIGUE 02/10/2016 [...] SCREEN MAMMO- MALIGN NEOPLASM OF MICHELLE 02/11/2016 ALEXNDER DO, KAY S Ot 724.1 PAIN IN THORACIC SPINE 02/11/2016 ORENDER DO, KAY S Ot 733.90 BONE [...] KAY S Ot 401.9 HYPERTENSION NOS 02/11/2016 ALEXNDER DO, KAY S Ot 780.79 OTH MALAISE FATIGUE 02/11/2016 ALEXNDER DO, KAY S Ot E11.9 TYPE 2 DIABETES MELLITUS WITHOUT COMPLIC 02/11/2016 ELIER , KAY S Ot E53.8 DEFICIENCY OF OTHER SPECIFIED B GROUP 02/11/2016 MARCOS BETHEA, KAY S Ot R53.83 OTHER FATIGUE 02/11/2016 MAJOR MCGARRY DO Ot M81.0 AGE-RELATED OSTEOPOROSIS W/O CURRENT PAT 02/11/2016 MAJOR MCGARRY DO Ot Z13.820 ENCOUNTER FOR SCREENING FOR OSTEOPOROSIS 02/11/2016 MAJOR MCGARRY DO Ot Z78.0 ASYMPTOMATIC MENOPAUSAL STATE 02/11/2016 MAJOR MCGARRY DO Ot E10.9 TYPE 1 DIABETES MELLITUS WITHOUT COMPLIC 02/11/2016 MAJOR MCGARRY DO Ot E10.9 TYPE 1 DIABETES MELLITUS WITHOUT COMPLIC 02/26/2016 MAJOR MCGARRY DO L Ot M81.0 AGE-RELATED OSTEOPOROSIS W/O CURRENT PAT 02/26/2016 MCGARRYMAJOR VAUGHAN DO Ot Z13.820 ENCOUNTER FOR SCREENING FOR OSTEOPOROSIS 02/26/2016 MCGARRYMAJOR VAUGHAN DO Ot Z78.0 ASYMPTOMATIC MENOPAUSAL STATE 03/03/2016 MCGARRYMAJOR VAUGHAN DO Laina Ot E10.9 TYPE 1 DIABETES MELLITUS WITHOUT COMPLIC 05/29/2016 SHAWN BETHEA, ELIZABETH K Ot I10 ESSENTIAL (PRIMARY) HYPERTENSION [...] 05/29/2016 SHAWN DO, ELIZABETH K Ot Z79.4 ALF (CURRENT) USE OF INSULIN 05/29/2016 SHAWN DO, ELIZABETH K Ot Z79.899 OTHER CERTIFIED SURGICAL FIRST ASSISTANT (CURRENT) DRUG THERAPY 05/31/2016 SHAWN DO, ELIZABETH [...] 05/31/2016 SHAWN DO, ELIZABETH K Ot Z79.4 ALF (CURRENT) USE OF INSULIN 05/31/2016 SHAWN DO, ELIZABETH K Ot Z79.899 OTHER CERTIFIED SURGICAL FIRST ASSISTANT (CURRENT) DRUG THERAPY 08/16/2016 MCGARRY DO, MAJOR L Ot M81.0 AGE-RELATED OSTEOPOROSIS W/O CURRENT PAT 08/17/2016 MCGARRY DO, MAJOR L Ot E10.9 TYPE 1 DIABETES MELLITUS WITHOUT COMPLIC 08/17/2016 MCGARRY DO, MAJOR L Ot M81.0 AGE-RELATED OSTEOPOROSIS W/O CURRENT PAT 09/07/2016 MCGARRY DO, MAJOR L Ot E10.9 TYPE 1 DIABETES MELLITUS WITHOUT COMPLIC 09/07/2016 MCGARRY DO, MAJOR L Ot M81.0 AGE-RELATED OSTEOPOROSIS W/O CURRENT PAT 09/07/2017 MCGARRY DO, MAJOR L Ot E10.9 TYPE 1 DIABETES MELLITUS WITHOUT COMPLIC 09/07/2017 MCGARRY DO, MAJOR L Ot E55.9 VITAMIN D DEFICIENCY, UNSPECIFIED 09/07/2017 MCGARRY DO, MAJOR L Ot M81.0 AGE-RELATED OSTEOPOROSIS W/O CURRENT PAT 09/27/2017 MCGARRY DO, MAJOR L Ot E10.9 TYPE 1 DIABETES MELLITUS WITHOUT COMPLIC 09/27/2017 MCGARRY DO, MAJOR L Ot E55.9 VITAMIN D DEFICIENCY, UNSPECIFIED 09/27/2017 MCGARRY DO, MAJOR L Ot M81.0 AGE-RELATED OSTEOPOROSIS W/O CURRENT PAT 02/13/2018 ORENDER DO, KAY S Ot 724.1 PAIN IN [...] AGE-RELATED OSTEOPOROSIS W/O CURRENT PAT 02/13/2018 MCGARRY , MAJOR L Ot Z13.820 ENCOUNTER FOR SCREENING FOR OSTEOPOROSIS 02/13/2018 [facility], MAJOR L Ot Z78.0 ASYMPTOMATIC MENOPAUSAL STATE 02/13/2018 [facility], MAJOR L Ot E10.9 TYPE 1 DIABETES MELLITUS WITHOUT COMPLIC 02/13/2018 [facility], MAJOR L Ot E10.9 TYPE 1 DIABETES MELLITUS WITHOUT COMPLIC 02/13/2018 MCGARRY DO, MAJOR L Ot M81.0 AGE-RELATED OSTEOPOROSIS W/O CURRENT PAT 02/13/2018 [facility], MAJOR L Ot E10.9 TYPE 1 DIABETES [...] KAY S Ot D64.9 ANEMIA, UNSPECIFIED 03/07/2018 ALEXNDER DO, KAY S Ot E10.9 TYPE 1 DIABETES MELLITUS WITHOUT COMPLIC 03/07/2018 ALEXNDER DO, KAY S Ot E53.8 DEFICIENCY [...] 724.1 PAIN IN THORACIC SPINE 09/18/2018 ALEXNDER , KAY S Ot 733.90 BONE CARTILAGE DIS NOS 09/18/2018 CORNELL BAILEY, MAHAD Navarro Ot V72. 84 EXAM PRE-OPERATIVE NOS 09/18/2018 ALEXNDER DO, KAY S Ot 250.02 DIAB AUBREY WO COMPL, TYPE II OR UNSPEC TY 09/18/2018 ALEXNDER DO, KAY S Ot 266.2 B-COMPLEX DEFIC NEC 09/18/2018 ALEXNDER DO, KAY S Ot 783.21 LOSS OF WEIGHT 09/18/2018 ALEXNDER DO, KAY S Ot 786.50 CHEST [...] 2 DIABETES MELLITUS WITHOUT COMPLIC 09/18/2018 ORENDER DO, KAY S Ot E53.8 DEFICIENCY OF OTHER SPECIFIED B GROUP 09/18/2018 ORENDER DO, KAY S Ot R53.83 OTHER FATIGUE 09/18/2018 MCGARRY DO, MAJOR L Ot M81.0 AGE-RELATED OSTEOPOROSIS W/O CURRENT PAT 09/18/2018 MALGORZATA BETHEA MAJOR L Ot Z13.820 ENCOUNTER FOR SCREENING FOR OSTEOPOROSIS 09/18/2018 MCGARRY DO MAJOR L Ot Z78.0 ASYMPTOMATIC MENOPAUSAL STATE 09/18/2018 MCGARRY DO, MAJOR L Ot E10.9 TYPE 1 DIABETES MELLITUS WITHOUT COMPLIC 09/18/2018 MCGARRY , MAJOR L Ot E10.9 TYPE 1 DIABETES MELLITUS WITHOUT COMPLIC 09/18/2018 MCGARRY , MAJOR L Ot M81.0 AGE-RELATED OSTEOPOROSIS W/O CURRENT PAT 09/18/2018 MALGORZATA BETHEA MAJOR L Ot E10.9 TYPE 1 DIABETES MELLITUS WITHOUT COMPLIC 09/18/2018 MCGARRY , MAJOR L Ot E55.9 VITAMIN D DEFICIENCY, UNSPECIFIED 09/18/2018 MCGARRY , MAJOR L Ot M81.0 AGE-RELATED OSTEOPOROSIS W/O CURRENT PAT 09/18/2018 ALEXNDER DO, KAY S Ot D64.9 ANEMIA, UNSPECIFIED 09/18/2018 ORENDER DO, KAY S Ot E10.9 TYPE 1 DIABETES MELLITUS WITHOUT COMPLIC 09/18/2018 ORENDER DO, KAY S Ot E53.8 DEFICIENCY OF OTHER SPECIFIED B GROUP 09/18/2018 ORENDER DO, KAY S Ot E55.9 VITAMIN D DEFICIENCY, UNSPECIFIED 09/18/2018 ORENDER DO, KAY S Ot M81.0 AGE-RELATED OSTEOPOROSIS W/O CURRENT PAT 09/18/2018 ALEXNDER DO, KAY S Ot R53.83 OTHER FATIGUE 09/18/2018 MCGARRY DO, MAJOR L Ot E55.9 VITAMIN D DEFICIENCY, UNSPECIFIED 09/18/2018 MCGARRY DO, MAJOR L Ot D64.9 ANEMIA, UNSPECIFIED 09/18/2018 MCGARRY DO, MAJOR L Ot E10.9 TYPE 1 DIABETES MELLITUS WITHOUT COMPLIC 09/20/2018 MCGARRY DO, MAJOR L Ot D64.9 ANEMIA, UNSPECIFIED 09/20/2018 MCGARRY [...] OTHER SPECIFIED B GROUP 03/14/2019 ORENDER DO, KYA S Ot E11.9 TYPE 2 DIABETES MELLITUS [...] Othe r dietary vitamin B12 deficiency anemia Kay Olivera. 07/11/2019 W E10.9 Type 1 diabetes mellitus without complications Kay Olivera. 07/11/2019 W M81.0 Age- related osteoporosis without current pathological fracture Kay Olivera. 07/11/2019 W D51.3 Othe r dietary vitamin B12 deficiency anemia AlexndKay stanley S. 07/11/2019 W E10.9 Type 1 diabetes mellitus without complications Kay Olivera S. 07/11/2019 W M81.0 Age- related osteoporosis without current pathological fracture Kay Olivera. 09/25/2019 ORENDER DO, KAY S Ot E53.8 DEFICIENCY OF OTHER SPECIFIED B GROUP 09/25/2019 ORENDER DO, KAY S Ot E55.9 VITAMIN D DEFICIENCY, UNSPECIFIED 09/25/2019 ORENDER DO, KAY S Ot E78.5 HYPERLIPIDEMIA, UNSPECIFIED 09/25/2019 [facility], MAJOR L Ot E55.9 VITAMIN D DEFICIENCY, UNSPECIFIED 09/25/2019 ORENDER DO, KAY S Ot 250.00 DIAB AUBREY WO COMPL, TYPE II OR UNSPEC TY 09/25/2019 ORENDER DO, KAY S Ot 266.2 B-COMPLEX DEFIC NEC 09/25/2019 ORENDER DO, KAY S Ot 401.9 HYPERTENSION NOS 09/25/2019 ORENDER DO, KAY S Ot 780.79 OTH MALAISE FATIGUE 09/25/2019 [facility] S Ot E11.9 TYPE 2 DIABETES MELLITUS WITHOUT COMPLIC 09/25/2019 [facility], KAY S Ot E53.8 DEFICIENCY OF OTHER SPECIFIED B GROUP 09/25/2019 ORENDER DO, KAY S Ot R53.83 OTHER FATIGUE 09/25/2019 [facility], MAJOR L Ot M81.0 AGE-RELATED OSTEOPOROSIS W/O CURRENT PAT 09/25/2019 [facility], MAJOR L Ot Z13.820 ENCOUNTER FOR SCREENING FOR OSTEOPOROSIS 09/25/2019 [facility], MAJOR L Ot Z78.0 ASYMPTOMATIC MENOPAUSAL STATE 09/25/2019 [facility], MAJOR L Ot E10.9 TYPE 1 DIABETES MELLITUS WITHOUT COMPLIC 09/25/2019 [facility], MAJOR L Ot E10.9 TYPE 1 DIABETES MELLITUS WITHOUT COMPLIC 09/25/2019 [facility], MAJOR L Ot M81.0 AGE-RELATED OSTEOPOROSIS W/O CURRENT PAT 09/25/2019 MCGARRY DO, MAJOR L Ot E10.9 TYPE 1 DIABETES MELLITUS WITHOUT COMPLIC 09/25/2019 MCGARRY DO, MAJOR L Ot E55.9 [...] Ot E55.9 VITAMIN D DEFICIENCY, UNSPECIFIED 09/25/2019 MARCOS BETHEA, KAY Verde Ot E78.5 HYPERLIPIDEMIA, UNSPECIFIED 09/27/2019 MARCOS BETHEA, KAY S Ot Z12.31 ENCNTR SCREEN MAMMOGRAM FOR MALIGNANT NE 10/02/2019 MALGORZATA BETHEAMAJOR Ot M81.0 AGE-RELATED OSTEOPOROSIS W/O CURRENT PAT 10/02/2019 MALGORZATA BETHEAMAJOR Ot Z78.0 ASYMPTOMATIC MENOPAUSAL STATE 10/05/2019 ALANA GARZA MD, Ot E11.36 TYPE 2 DIABETES MELLITUS WITH DIABETIC C 10/05/2019 ALANA GARZA MD Ot H25.11 AGE-RELATED NUCLEAR CATARACT, RIGHT EYE 10/05/2019 ALANA GARZA MD, Ot H57.03 MIOSIS 10/05/2019 ALANA GARZA MD Ot Z79 .4 ALF (CURRENT) USE OF INSULIN 10/05/2019 ALANA GARZA MD Ot Z79.899 OTHER CERTIFIED SURGICAL FIRST ASSISTANT (CURRENT) DRUG THERAPY 10/05/2019 ALANA GARZA MD Ot Z83 .3 FAMILY HISTORY OF DIABETES MELLITUS 10/05/2019 ALANA GARZA MD Ot Z83.511 FAMILY HISTORY OF GLAUCOMA 10/05/2019 ALANA GARZA MD Ot Z88 .5 ALLERGY STATUS TO NARCOTIC AGENT STATUS 10/05/2019 ALANA GARZA MD Ot Z88 .8 ALLERGY STATUS TO OTH DRUG/MEDS/BIOL SUB 10/05/2019 ALANA GARZA MD Ot Z90.49 ACQUIRED ABSENCE OF OTHER SPECIFIED PART 10/05/2019 ALANA GARZA MD Ot Z90.710 ACQUIRED ABSENCE OF BOTH CERVIX AND UTER 10/05/2019 ALANA GARZA MD Ot Z98.890 OTHER SPECIFIED POSTPROCEDURAL STATES 10/09/2019 ALANA GARZA MD, Ot E11.36 TYPE 2 DIABETES MELLITUS WITH DIABETIC C 10/09/2019 ALANA GARZA MD Ot H25.11 AGE-RELATED NUCLEAR CATARACT, RIGHT EYE 10/09/2019 ALANA GARZA MD Ot H57.03 MIOSIS 10/09/2019 ALANA GARZA MD Ot Z79 .4 ALF (CURRENT) USE OF INSULIN 10/09/2019 ALANA GARZA MD Ot Z79.899 OTHER ALF (CURRENT) DRUG THERAPY 10/09/2019 ALANA GARZA MD Ot Z83 .3 FAMILY HISTORY OF DIABETES MELLITUS 10/09/2019 ALANA GARZA MD Ot Z83.511 FAMILY HISTORY OF GLAUCOMA 10/09/2019 ALANA GARZA MD Ot Z88 .5 ALLERGY STATUS TO NARCOTIC AGENT STATUS 10/09/2019 ALANA GARZA MD Ot Z88 .8 ALLERGY STATUS TO OTH DRUG/MEDS/BIOL SUB 10/09/2019 ALANA GARZA MD Ot Z90.49 ACQUIRED ABSENCE OF OTHER SPECIFIED PART 10/09/2019 ALANA GARZA MD Ot Z90.710 ACQUIRED ABSENCE OF BOTH CERVIX AND UTER 10/09/2019 ALANA GARZA MD Ot Z98.890 OTHER SPECIFIED POSTPROCEDURAL STATES 10/11/2019 ALANA GARZA MD Ot E11.36 TYPE 2 DIABETES MELLITUS WITH DIABETIC C 10/11/2019 ALANA GARZA MD Ot H25.11 AGE-RELATED NUCLEAR CATARACT, RIGHT EYE 10/11/2019 ALANA GARZA MD Ot H57.03 MIOSIS 10/11/2019 ALANA GARZA MD Ot Z79 .4 ALF (CURRENT) USE OF INSULIN 10/11/2019 ALANA GARZA MD Ot Z79.899 OTHER CERTIFIED SURGICAL FIRST ASSISTANT (CURRENT) DRUG THERAPY 10/11/2019 ALANA GARZA MD Ot Z83 .3 FAMILY HISTORY OF DIABETES MELLITUS 10/11/2019 ALANA GARZA MD Ot Z83.511 FAMILY HISTORY OF GLAUCOMA 10/11/2019 ALANA GARZA MD Ot Z88 .5 ALLERGY STATUS TO NARCOTIC AGENT STATUS 10/11/2019 ALANA GARZA MD Ot Z88 .8 ALLERGY STATUS TO OTH DRUG/MEDS/BIOL SUB 10/11/2019 ALANA GARZA MD Ot Z90.49 ACQUIRED ABSENCE OF OTHER SPECIFIED PART 10/11/2019 ALANA GARZA MD Ot Z90.710 ACQUIRED ABSENCE OF BOTH CERVIX AND UTER 10/11/2019 ALANA GARZA MD Ot Z98.890 OTHER SPECIFIED POSTPROCEDURAL STATES Procedures There is no data. Results Test [...] mg/dL 0.1-15.0 Pathology consultation and report FOOTNOTE NR 24 hour urine protein fractions interpre tation by electrophoresis narrative [id number] [facility] IMMUNOFIXATION W/INTERP URINE - 08/16/16 07:51 Immunofixation for serum or plasma narrative Compl ete NR Complete blood count (CBC) with automate d [...] HORMONE 2.01 u[iU]/mL 0.35-4.94 IRON TEST - 10/08/18 07:55 Serum or plasma iron measurement (mass/volume) [...] 12 - 09/21/19 08:10 VITAMIN B 12 <[id number] VITAMIN D 25-HYDROXY - 09/21/19 08:10 VITAMIN D 25-HYDROXY (TOTAL) 15.1 % 3 0.0-100.0 VITAMIN D 25-HYDROXY - 09/21/19 08:10 VITAMIN D 25-HYDROXY (TOTAL) 15.1 L 3 0.0-100.0 Coronavirus SARS-CoV-2 SO 2018 0 13:07 Coronavirus Ab [Units/volume] in Serum Negative Negative Encounters ACCT No. Visit Date/Time Discharge Status Pt. Type Provider Facility Loc./Unit Complaint 09/08/16 04/04/2019 09:15:50 04/04/2019 23:5 9:59 [facility] Outpatient Kay Olivera 07/11/2019 08:16:00 Document Registration [id number] 10/05/2019 06:00:00 05/29/2 020 07:35:00 DIS Outpatient AALNA GARZA MD [facility] SDC CATARACT RIGHT EYE [id number] 10/02/2019 10:54:00 15:14:00 DIS Outpatient ALANA GARZA MD [facility] PREOP CATARACT RIGHT EYE [id number] 09/25/2019 09:00:00 23:59:59 CLS Outpatient MCGARRY DO, MAJOR L [facility] RAD OSTEOPOROSIS [id number] 09/25/2019 08:52:00 23:59:59 CLS Outpatient ORENDER DO, KAY S [facility] RAD SCREENING [id number] 09/21/2019 07:53:00 23:59:59 CLS Outpatient ORENDER DO, KAY S [facility] LAB B12 DEF,CMP,LIP ID,TSH,B12 [id number] 09/21/2019 07:50:00 23:59:59 CLS Outpatient MCGARRY DO, MAJOR L [facility] LAB E55.9 [id number] 03/12/2019 07:43:00 23:59:59 CLS Outpatient ORENDER DO, KAY S [facility] LAB CMP,CBC,B12 [id number] 03/12/2019 07:39:00 23:59:59 CLS Outpatient MCGARRY DO, MAJOR L [facility] LAB 10-E55.9 [id number] 09/18/2018 06:33:00 23:59:59 CLS Outpatient ORENDER DO, KAY S [facility] LAB B12 DEF,ANEMIA [id number] 08/18/2018 10:25:00 23:59:59 CLS Outpatient MCGARRY DO, MAJOR L [facility] LAB ROUTINE [id number] 05/10/2018 08:31:00 01/02/2 019 23:59:59 CLS Outpatient MAJOR MCGARRY DO [facility] LAB VIT D DEFICIENC Y [id number] 02/13/2018 07:36:00 23:59:59 CLS Outpatient KAY OLIVERA DO [facility] LAB DMI,ANEMIA, B12 DEF,VIT D DEF [id number] 09/06/2017 07:03:00 23:59:59 CLS Outpatient MAJOR MCGARRY DO [facility] LAB E10.9 [id number] 11/03/2016 14:24:00 23:59:59 CLS Outpatient CHRISTIN FU [facility] OCC POSITIVE TB TEST [id number] 08/16/2016 07:32:00 23:59:59 CLS Outpatient MAJOR MCGARRY DO [facility] LAB 733.00,M81.0 [id number] 05/29/2016 20:24:00 017 23:25:00 DIS Emergency SHAWN , ELIZABETH K Vi [facility] ER FALL L LEG, KNEE PAIN [id number] 02/10/2016 08:26:00 016 23:59:59 [facility] Outpatient MAJOR MCGARRY DO [facility] LAB INSULIN DEPENDE NT DIABETES MELLITUS [id number] 02/05/2016 09:51:00 016 23:59:59 CLS Outpatient MAJOR MCGARRY DO [facility] RAD SCREENING FOR O STEPOROSIS [id number] 02/18/2015 08:31:00 23:59:59 CLS Outpatient KAY OLIVERA DO [facility] LAB DM1,FATIGUE,B12 DEF [id number] 10/21/2014 07:34:00 23:59:59 [facility] Outpatient KAY OLIVERA DO [facility] LAB DMII, HTN,FATIG UE,B 12 [id number] 06/15/2014 13:18:00 015 14:23:00 DIS Emergency VINICIO BAILEY, LUCIA Garber [facility] ER FALL,HEAD INJ [id number] 11/30/2013 12:41:00 014 14:00:00 DIS Inpatient ALEXNDOPAL JOYCELYN BETHEALINE S [facility] 4TH SWB-DKA;LEUKOCY TOSIS;RECTAL IMPATION [id number] 11/26/2013 14:37:00 014 11:46:00 DIS Inpatient ALEXJOYCELYN GUTIERREZ DOLINE S [facility] 4TH DKA;LEUKOCYTOSI S;RECTAL IMPATION [id number] 08/27/2013 18:00:00 014 00:01:00 DIS Outpatient JOYCELYN OLIVERA DOLINE S [facility] DSME DM TYPE II [id number] 10/31/2013 11:04:00 014 09:37:00 DIS Outpatient JOYCELYN OLIVERA DOLINE S [facility] UPMCC UNCONTROLLED DI ABETES ANXORXIA UNCONTROLLED BACK P [id number] 10/22/2013 13:09:00 23:59:59 CLS Outpatient JOYCELYN OLIVERA DOLINE S [facility] RAD L POSTERIOR RIB PAIN,WT LOSS,UNCONT DMII,B12 DIF [id number] 09/11/2013 07:37:00 014 11:10:00 DIS Outpatient MAHAD SARABIA MD [facility] SDC SCREENING [id number] 09/06/2013 12:32:00 23:59:59 CLS Outpatient MAHAD SARABIA MD [facility] PREOP SCREENING [id number] 08/25/2013 22:35:00 014 01:45:00 DIS Emergency SHAWN ELIZABETH Jcarlos Carr a [facility] ER BACK PAIN [id number] 08/13/2013 10:38:00 23:59:59 CLS Outpatient KAY OLIVERA DO S [facility] RAD THORACIC BACK/R IB PAIN [id number] 10/12/2019 07:30:00 P KEVIN GARZA MD, ALANA Marina [facility] SDC CATARACT LEFT EYE [id number] 11/15/2013 10:00:00 Document Registration [id number] 11/05/2011 10:21:00 Document Registration [id number] 07/09/2011 08:16:00 Document Registration [id number] 08/03/2010 05:35:00 Document Registration [id number] 07/28/2010 09:23:00 Document Registration [id number] 05/29/2010 08:38:00 Document Registration [id number] 05/08/2010 07:25:00 Document Registration [id number] 04/23/2010 06:35:00 Document Registration [id number] 04/17/2010 11:22:00 Document Registration
[2019-10-12] MEDS: PHENYLEPHRINE 10% OPHTH (NEO-SYN) 5 ML BTL OU SCH ×3 (06:27→06:39)
[2019-10-12] MEDS: CYCLOPENTOLATE 1% (CYCLOGYL) 2 ML DROPS OP SCH ×3 (06:27→06:39)
[2019-10-12] MEDS ORDERED: TETRACAINE 0.5% OPHTH SOLN 4 ML BTL (SINGLE DOSE ONLY) OU ONE (06:45)
--- NOTE | 2019-10-12 06:56 | Ophthalmologist Pre-Op Note ---
Pre-Operative Progress Note H&P Reviewed The H&P was reviewed, patient examined and no changes noted. Date H&P Reviewed: Oct 12, 2019 Time H&P Reviewed: 06:55 Pre-Op Dx Cataract, Left Eye ALANA GARZA MD Oct 12, 2019 06:56
--- NOTE | 2019-10-12 07:24 | Ophthalmology Operative Report ---
Cataract removal/placement IOL PREOPERATIVE DIAGNOSIS: Cataract Left Eye POSTOPERATIVE DIAGNOSIS: Cataract Left Eye PROCEDURE: Cataract removal and placement of posterior chamber implant, left eye SURGEON: Arian Garza ANESTHESIA: Topical with sedation COMPLICATIONS: None ESTIMATED BLOOD LOSS: Minimal DESCRIPTION OF PROCEDURE: After proper informed consent was obtained, the patient, a 74 female, was taken to the Operating Room and the left eye was anesthetized with tetracaine. The left eye was then prepped and draped in the usual manner. A wire lid speculum was placed. A paracentesis was made at the left hand position. Preservative free lidocaine was injected into the anterior chamber followed by viscoelastic. A clear corneal incision was made in the temporal position. A capsulorrhexis was preformed and the central nuclear and cortical material were removed. The posterior capsule was polished and an Chuy 23.5 AU00T0 was placed into the capsular bag. The residual viscoelastic was aspirated and balanced saline solution was injected into the anterior chamber. Moxifloxacin was injected into the anterior chamber. The wound was checked and found to be water tight. The patient tolerated the procedure well without complications. ARIAN GARZA MD Oct 12, 2019 07:24
[2019-10-12 07:30] VITALS: BP 164/99
[2019-10-12] MEDS ORDERED: acetaZOLAMIDE ER 500 MG CAP (DIAMOX SEQUELS) PO ONE (07:30)
--- NOTE | 2019-10-12 07:52 | Ophthalmology Operative Report ---
Cataract, Miotic Pupil PREOPERATIVE DIAGNOSIS: 1. Cataract Left Eye 2. Miotic Pupil POSTOPERATIVE DIAGNOSIS: 1. Cataract Left Eye 2. Miotic Pupil PROCEDURE: 1. Cataract removal and placement of posterior chamber implant, left eye 2. Pupillary expansion with malyugin ring SURGEON: Arain Garza ANESTHESIA: Topical with sedation COMPLICATIONS: None ESTIMATED BLOOD LOSS: Minimal DESCRIPTION OF PROCEDURE: After proper informed consent was obtained, the patient, a 74 female, was taken to the Operating Room and the left eye was anesthetized with Tetracaine. The eye was then prepped and draped in the usual manner. A wire lid speculum was placed. A paracentesis was made at the left hand position. Preservative free l idocaine was injected into anterior chamber followed by viscoelastic. A clear corneal incision was made in the temporal position. The malyugin ring was injected into the anterior chamber and the pupil was dilated. A capsulorrhexis was preformed and the central nuclear and cortical material were removed. The posterior capsule was polished and Chuy 23.5 AU00T0 IOL was placed into the capsular bag. The myalgian ring was removed. The residual viscoelastic was aspirated and the balanced saline solution was injected into the anterior chamber. Moxifloxacin was injected into the anterior chamber. The wound was checked and found to be water tight. The patient tolerated the procedure well without complications. [Limbal Relaxing Incision placed ] [ ]mm at [ ]. ARIAN GARZA MD Oct 12, 2019 07:52
--- NOTE | 2019-10-12 12:14 | Anesthesia-General Post-Op ---
MAC Patient Condition Mental Status/LOC: Same as Preop Cardiovascular: Satisfactory Nausea/Vomiting: Absent Respiratory: Satisfactory Pain: Controlled Complications: Absent Post Op Complications Complications None Follow Up Care/Instructions Patient Instructions None needed. Anesthesiology Discharge Order Discharge Order Patient is doing well, no complaints, stable vital signs, no apparent adverse anesthesia problems. No complications reported per nursing. GHULAM MCNULTY CRNA Oct 12, 2019 12:14
== END 2019-10-12 07:30 | disposition home or self-care (01) ==
LOC: SDC 06:00
PROVIDERS: ATTEND Specialist
DX: E11.36 Type 2 diabetes mellitus with diabetic cataract (principal); H25.12 Age-related nuclear cataract, left eye; H57.03 Miosis; Z88.5 Allergy status to narcotic agent; Z88.8 Allergy status to other drugs, medicaments and biological substances; Z79.899 Other long term (current) drug therapy; Z79.4 Long term (current) use of insulin; Z90.49 Acquired absence of other specified parts of digestive tract; Z90.710 Acquired absence of both cervix and uterus; Z83.511 Family history of glaucoma

== ENCOUNTER 2019-12-17 09:13 | Outpatient (CLI) | payer MEDICARE, OTHER ==
[~2019-12-17] VITALS: Ht 149.9 cm; Wt 59.1 kg
[2019-12-17 09:20] VITALS: BP 130/79
[2019-12-17] MEDS ORDERED: CATHETER FLUSH 10 ML SYR IV PRN (09:30)
[2019-12-17] MEDS ORDERED: ZOLEDRONATE (NON-FORMULARY) 100 ML IV ONE (10:30)
== END 2019-12-17 11:30 | disposition home or self-care (01) ==
LOC: SDC 09:13
PROVIDERS: ATTEND Internal Medicine Endocrinology, Diabetes & Metabolism
DX: M81.0 Age-related osteoporosis without current pathological fracture (principal)
CPT/HCPCS: 96365

== ENCOUNTER → 2020-01-16 | Outpatient (CLI) | payer MEDICARE, OTHER ==
[2020-01-16 07:07] LABS: BASOPHILS % (AUTO) 0 % (0-10); EOSINOPHILS # (AUTO) 0.2 10^3/uL (0.0-0.3); EOSINOPHILS % (AUTO) 3 % (0-10); HEMATOCRIT 40 % (35-52); HEMOGLOBIN 13.4 G/DL (11.5-16.0); LYMPHOCYTES # (AUTO) 1.6 X 10^3 (1.0-4.0); LYMPHOCYTES % (AUTO) 29 % (12-44); MEAN CORPUSCULAR HEMOGLOBIN 30 PG (25-34); MEAN CORPUSCULAR HGB CONC 34 G/DL (32-36); MEAN CORPUSCULAR VOLUME 89 FL (80-99); MEAN PLATELET VOLUME 8.9 FL (7.4-10.4); MONOCYTES # (AUTO) 0.4 X 10^3 (0.0-1.0); MONOCYTES % (AUTO) 7 % (0-12); NEUTROPHILS # (AUTO) 3.4 X 10^3 (1.8-7.8); NEUTROPHILS % (AUTO) 61 % (42-75); PLATELET COUNT 242 10^3/uL (130-400); WHITE BLOOD COUNT 5.7 10^3/uL (4.3-11.0)
== END ==
LOC: LAB 06:43
PROVIDERS: ATTEND Internal Medicine Endocrinology, Diabetes & Metabolism
DX: E10.9 Type 1 diabetes mellitus without complications (principal); M81.0 Age-related osteoporosis without current pathological fracture
CPT/HCPCS: 36415; 80061; 82043; 82306; 84443; 85025

== ENCOUNTER → 2020-04-14 | Outpatient (CLI) | payer MEDICARE, OTHER ==
[2020-04-14 08:17] LABS: ALBUMIN 4.3 GM/DL (3.2-4.5)
[2020-04-14 08:18] LABS: CHLORIDE 106 MMOL/L (98-107); POTASSIUM 4.1 MMOL/L (3.6-5.0); SODIUM 139 MMOL/L (135-145)
[2020-04-14 08:19] LABS: CALCIUM 8.9 MG/DL (8.5-10.1)
[2020-04-14 08:20] LABS: GLUCOSE 93 MG/DL (70-105); TOTAL PROTEIN 7.2 GM/DL (6.4-8.2)
[2020-04-14 08:21] LABS: CARBON DIOXIDE 22 MMOL/L (21-32)
[2020-04-14 08:22] LABS: BILIRUBIN,TOTAL 0.6 MG/DL (0.1-1.0)
[2020-04-14 08:23] LABS: ALKALINE PHOSPHATASE 71 U/L (40-136)
[2020-04-14 08:24] LABS: CREATININE SERUM 0.72 MG/DL (0.60-1.30); GFR ESTIMATED > 60
[2020-04-14 08:25] LABS: BUN/CREATININE RATIO 25
[2020-04-14 08:26] LABS: ALANINE AMINOTRANSFERASE 13 U/L (0-55)
== END ==
LOC: LAB 07:32
PROVIDERS: ATTEND Internal Medicine Endocrinology, Diabetes & Metabolism
DX: M81.0 Age-related osteoporosis without current pathological fracture (principal); E11.9 Type 2 diabetes mellitus without complications
CPT/HCPCS: 36415; 80053; 82043; 82306

== ENCOUNTER → 2020-07-15 | Outpatient (CLI) | payer MEDICARE, OTHER ==
[2020-07-15 09:24] LABS: BUN/CREATININE RATIO 21; CARBON DIOXIDE 23 MMOL/L (21-32); CHLORIDE 106 MMOL/L (98-107); CREATININE SERUM 0.77 MG/DL (0.60-1.30); GFR ESTIMATED > 60; GLUCOSE 133 MG/DL (70-105); POTASSIUM 3.9 MMOL/L (3.6-5.0); SODIUM 138 MMOL/L (135-145)
== END ==
LOC: LAB 08:32
PROVIDERS: ATTEND Internal Medicine Endocrinology, Diabetes & Metabolism
DX: M81.0 Age-related osteoporosis without current pathological fracture (principal); E11.9 Type 2 diabetes mellitus without complications
CPT/HCPCS: 80048; 82306

== ENCOUNTER → 2020-07-15 | Outpatient (CLI) | payer MEDICARE ==
[2020-07-15 09:05] LABS: BASOPHILS % (AUTO) 0 % (0-10); EOSINOPHILS # (AUTO) 0.1 10^3/uL (0.0-0.3); EOSINOPHILS % (AUTO) 1 % (0-10); HEMATOCRIT 43 % (35-52); HEMOGLOBIN 14.2 g/dL (11.5-16.0); LYMPHOCYTES # (AUTO) 1.6 10^3/uL (1.0-4.0); LYMPHOCYTES % (AUTO) 23 % (12-44); MEAN CORPUSCULAR HEMOGLOBIN 31 pg (25-34); MEAN CORPUSCULAR HGB CONC 33 g/dL (32-36); MEAN CORPUSCULAR VOLUME 94 fL (80-99); MEAN PLATELET VOLUME 8.7 fL (9.0-12.2); MONOCYTES # (AUTO) 0.4 10^3/uL (0.0-1.0); MONOCYTES % (AUTO) 6 % (0-12); NEUTROPHILS # (AUTO) 4.8 10^3/uL (1.8-7.8); NEUTROPHILS % (AUTO) 70 % (42-75); PLATELET COUNT 229 10^3/uL (130-400); WHITE BLOOD COUNT 6.9 10^3/uL (4.3-11.0)
[2020-07-15 09:27] LABS: ALANINE AMINOTRANSFERASE 17 U/L (0-55); ALBUMIN 4.1 GM/DL (3.2-4.5); ALKALINE PHOSPHATASE 69 U/L (40-136); BILIRUBIN,TOTAL 0.5 MG/DL (0.1-1.0); BUN/CREATININE RATIO 21; CALCIUM 8.9 MG/DL (8.5-10.1); CARBON DIOXIDE 24 MMOL/L (21-32); CHLORIDE 106 MMOL/L (98-107); CREATININE SERUM 0.76 MG/DL (0.60-1.30); GFR ESTIMATED > 60; GLUCOSE 135 MG/DL (70-105); POTASSIUM 3.9 MMOL/L (3.6-5.0); SODIUM 139 MMOL/L (135-145); TOTAL PROTEIN 7.4 GM/DL (6.4-8.2)
== END ==
LOC: LAB 08:40
PROVIDERS: ATTEND Family Medicine
DX: Z00.00 Encounter for general adult medical examination without abnormal findings (principal); E11.9 Type 2 diabetes mellitus without complications; E55.9 Vitamin D deficiency, unspecified; E53.8 Deficiency of other specified B group vitamins
CPT/HCPCS: 36415; 80053; 82607; 83036; 84443; 85025

== ENCOUNTER → 2020-10-07 | Outpatient (CLI) | payer MEDICARE, OTHER | LOC: LAB 06:41 | PROVIDERS: ATTEND Internal Medicine Endocrinology, Diabetes & Metabolism | DX: E55.9 Vitamin D deficiency, unspecified (principal) | CPT/HCPCS: 36415; 82306 ==

== ENCOUNTER 2020-12-23 08:33 | Outpatient (CLI) | payer MEDICARE, OTHER ==
[~2020-12-23] VITALS: Ht 149.9 cm; Wt 59.1 kg
[~2020-12-23 08:33] MED LIST changes: +ERGO1250 PO; -ERGO50006 PO
[2020-12-23] MEDS ORDERED: NS IV 1000 ML 1,000 ML IV SCH (09:30)
[2020-12-23] MEDS ORDERED: ZOLEDRONATE (RECLAST) 5 MG/100 ML IV ONE (09:30)
[2020-12-23 10:05] VITALS: BP 0/0
== END 2020-12-23 10:05 | disposition home or self-care (01) ==
LOC: SDC 08:33
PROVIDERS: ATTEND Internal Medicine Endocrinology, Diabetes & Metabolism
DX: M81.0 Age-related osteoporosis without current pathological fracture (principal)
CPT/HCPCS: 96365

== ENCOUNTER → 2021-04-30 | Outpatient (CLI) | payer MEDICARE ==
[2021-04-30 09:08] LABS: BASOPHILS % (AUTO) 0 % (0-10); EOSINOPHILS # (AUTO) 0.1 10^3/uL (0.0-0.3); EOSINOPHILS % (AUTO) 1 % (0-10); HEMATOCRIT 42 % (35-52); HEMOGLOBIN 14.4 g/dL (11.5-16.0); LYMPHOCYTES # (AUTO) 1.8 10^3/uL (1.0-4.0); LYMPHOCYTES % (AUTO) 22 % (12-44); MEAN CORPUSCULAR HEMOGLOBIN 33 pg (25-34); MEAN CORPUSCULAR HGB CONC 34 g/dL (32-36); MEAN CORPUSCULAR VOLUME 96 fL (80-99); MEAN PLATELET VOLUME 8.7 fL (9.0-12.2); MONOCYTES # (AUTO) 0.5 10^3/uL (0.0-1.0); MONOCYTES % (AUTO) 6 % (0-12); NEUTROPHILS # (AUTO) 5.7 10^3/uL (1.8-7.8); NEUTROPHILS % (AUTO) 70 % (42-75); PLATELET COUNT 235 10^3/uL (130-400)
[2021-04-30 09:41] LABS: BILIRUBIN,TOTAL 0.7 MG/DL (0.1-1.0); CALCIUM 9.5 MG/DL (8.5-10.1); CREATININE SERUM 0.74 MG/DL (0.60-1.30); POTASSIUM 3.8 MMOL/L (3.6-5.0); TOTAL PROTEIN 7.4 GM/DL (6.4-8.2)
== END ==
LOC: LAB 08:25
PROVIDERS: ATTEND Internal Medicine Endocrinology, Diabetes & Metabolism
DX: E10.9 Type 1 diabetes mellitus without complications (principal); M81.0 Age-related osteoporosis without current pathological fracture; D64.9 Anemia, unspecified
CPT/HCPCS: 36415; 80053; 80061; 82043; 82306; 82607; 84443; 85025

== ENCOUNTER → 2022-03-16 | Outpatient (CLI) | payer MEDICARE ==
--- NOTE | 2022-03-16 09:06 | Diagnostic Imaging Report ---
INDICATION: Post menopausal state COMPARISON: 09/25/2019 FINDINGS: AP Spine L1-L4: [BMD (g/cm2): 0.650] [T-Score: -4.6] [Z-Score: -2.6] [BMD Previous: 0.660] [BMD % Change: -1.5] LT Hip Neck: [BMD (g/cm2): 0.570] [T-Score: -3.4] [Z-Score: -1.3] LT Hip Total: [BMD (g/cm2):0.583] [T-Score:-3.4] [Z-Score: -1.4] [BMD Previous: 0.557] [BMD % Change: 4.7] RT Hip Neck: [BMD (g/cm2):0.681] [T-Score:-2.6] [Z-Score:-0.5] RT Hip Total: [BMD (g/cm2):0.703] [T-score:-2.4] [Z-Score:-0.5] [BMD Previous:0.623] [BMD % Change:12.8] *Indicates significant change from prior examination based on 95% confidence level. World Health Organization criteria for BMD interpretation classify patients as Normal (T-score at or above -1.0), Osteopenic (T-score between -1.0 and -2.5) or Osteoporotic (T-score at or below -2.5). LIMITATIONS AND MODIFICATION: None. IMPRESSION: 1. Osteoporosis. 2. Bone mineral density within the bilateral hips has significantly increased since the prior examination. Bone mineral density of the lumbar spine has not significantly changed. 3. See below National Osteoporosis Foundation guidelines on when to potentially initiate pharmacologic therapy. Based on the National Osteoporosis Foundation Guidelines, pharmacologic treatment should be initiated in any of the following, unless clinical conditions suggest otherwise: * Any patient with prior fragility fracture of the hip or vertebrae. A spine fracture indicates 5X risk for subsequent spine fracture and 2X risk for subsequent hip fracture. * Osteoporosis (T-score <-2.5). * Postmenopausal women and men age 50 and older with low bone mass/osteopenia (T-score between -1.0 and -2.5) by DXA and 10-year major osteoporotic fracture greater than 20% or a 10-year probability of hip fracture greater than 3%. These fracture risks are supplied above in the FRAX score, if applicable. * Clinician judgement and/or patient preferences may indicate treatment for people with 10-year fracture probabilities above or below these levels. Dictated by: Dictated on workstation # [id number]
== END ==
LOC: RAD 08:30
PROVIDERS: ATTEND Internal Medicine Endocrinology, Diabetes & Metabolism
DX: M81.0 Age-related osteoporosis without current pathological fracture (principal); E10.9 Type 1 diabetes mellitus without complications; E55.9 Vitamin D deficiency, unspecified; Z78.0 Asymptomatic menopausal state
CPT/HCPCS: 77080

== ENCOUNTER → 2022-06-07 | Outpatient (CLI) | payer MEDICARE ==
[2022-06-07 08:06] LABS: BASOPHILS % (AUTO) 0 % (0-10); EOSINOPHILS # (AUTO) 0.1 10^3/uL (0.0-0.3); EOSINOPHILS % (AUTO) 1 % (0-10); HEMATOCRIT 38 % (35-52); HEMOGLOBIN 13.5 g/dL (11.5-16.0); LYMPHOCYTES % (AUTO) 26 % (12-44); MEAN CORPUSCULAR HEMOGLOBIN 41 pg (25-34); MEAN CORPUSCULAR HGB CONC 36 g/dL (32-36); MEAN CORPUSCULAR VOLUME 114 fL (80-99); MEAN PLATELET VOLUME 8.6 fL (9.0-12.2); MONOCYTES # (AUTO) 0.3 10^3/uL (0.0-1.0); MONOCYTES % (AUTO) 4 % (0-12); NEUTROPHILS # (AUTO) 5.3 10^3/uL (1.8-7.8); NEUTROPHILS % (AUTO) 68 % (42-75); PLATELET COUNT 241 10^3/uL (130-400); WHITE BLOOD COUNT 7.7 10^3/uL (4.3-11.0)
[2022-06-07 08:25] LABS: ALBUMIN 4.1 GM/DL (3.2-4.5); BILIRUBIN,TOTAL 0.8 MG/DL (0.1-1.0); CALCIUM 9.6 MG/DL (8.5-10.1); CREATININE SERUM 0.73 MG/DL (0.60-1.30); TOTAL PROTEIN 7.6 GM/DL (6.4-8.2)
[2022-06-07 08:46] LABS: FREE T4 (FREE THYROXINE) 0.84 NG/DL (0.70-1.48)
--- NOTE | 2022-06-07 09:15 | Diagnostic Imaging Report ---
Clinical Indication: Patient with right carotid bruit. Comparison: None Exam: Real-time ultrasound carotid Doppler duplex imaging is performed bilaterally with multiple real-time grayscale images obtained in various projections. Additional spectral analysis and color Doppler duple images were also obtained. Peak systolic velocity, ICA/CCA peak systolic ratio, spectral analysis, and vascular morphology are studied. Findings: ARTERY VELOCITY Right Left CCA 0.85 m/s 0.84 m/s ICA 0.73 m/s 0.76 m/s ECA 0.94 m/s 0.67 m/s ICA/CCA 0.9 0.9 VERT.ART Antegrade Antegrade There is minimal bilateral carotid artery atherosclerotic disease. Incidental note of heterogeneous solid and cystic nodule involving the right thyroid lobe which measures at least 1.8 cm. Irregular heart rate is noted throughout the course of this exam. Impression: 1: There is no grayscale or Doppler evidence of significant vascular stenosis. 2: There is a 1.8 cm nodule involving the right thyroid lobe. Nonemergent thyroid ultrasound would better evaluate. 3: Irregular heart rate is noted throughout the course of this exam. EKG and clinical correlation is suggested. Dictated by: Dictated on workstation # [id number]
== END ==
LOC: RAD 09:00
PROVIDERS: ATTEND Family Medicine
DX: R00.9 Unspecified abnormalities of heart beat (principal); E04.1 Nontoxic single thyroid nodule; E53.8 Deficiency of other specified B group vitamins; E10.65 Type 1 diabetes mellitus with hyperglycemia; E61.1 Iron deficiency; R09.89 Other specified symptoms and signs involving the circulatory and respiratory systems
CPT/HCPCS: 36415; 80053; 82607; 82728; 83540; 83550; 84439; 84443; 85025; 93880

== ENCOUNTER → 2022-06-07 | Outpatient (CLI) | payer MEDICARE | LOC: LAB 07:44 | PROVIDERS: ATTEND Internal Medicine Endocrinology, Diabetes & Metabolism | DX: E10.9 Type 1 diabetes mellitus without complications (principal); M81.0 Age-related osteoporosis without current pathological fracture; E55.9 Vitamin D deficiency, unspecified | CPT/HCPCS: 36415; 82306 ==